=== PATIENT | male | born 1940 | race Caucasian/White ===

== ENCOUNTER 2016-05-14 14:40 | Inpatient (IN) | payer MEDICARE, OTHER ==
[~2016-05-14] VITALS: Ht 172.7 cm; Wt 83.6 kg
--- NOTE | ~2016-05-14 | HEMODYNAMI ---
PATIENT:JORGE PARK MEDICAL RECORD: [id number] : [birth year] LOCATION:D[facility] D.2301 ADMISSION DATE: 05/14/16 Generatedon:05/16/201614:58 Patient name: JORGE PARK Patient #: [id number] SSN: : 1940 Date of study: 05/16/2016 Page: Of Hemodynamic Procedure Report Patient Data Patient Demographics Procedure consent was obtained First Name: JORGE Gender: Male Last Name: XAVIER : 1940 [facility] Initial: D Age: 76 year(s) Patient #: [id number] Race: Unknown Additional ID: [id number] Contact details [address]: [address] [place] [address] DRIVE State: [place] City: [place] Zip code: [address] Admission Admission Data Admission Date: 05/14/2016 Admission Time: 18:16 Room #: D.2301 Procedure Procedure Types Cath Procedure Peripheral Cath Diagnostic Procedure Miscellaneous Procedure Description Procedure Date Procedure Date: 05/16/2016 Procedure Start Time: 13:20 Procedure Staff Name Function Demetrio Cartwright MD Performing Physician Mayra Vazquez RT Scrub Sameera Flores RN Nurse Dylan Tobar RT Monitor Procedure Data Cath Procedure Fluoroscopy Diagnostic fluoroscopy Total fluoroscopy Time: time: 18.8 min 18.8 min Diagnostic fluoroscopy Total fluoroscopy dose: 261 dose: 261 mGy mGy Contrast Material Contrast Material Type Amount (ml) Isovue 300 168 Entry Location Entry Primary Successful Side Size Upsize Upsize Entry Closure Koo ccessful Closure Location (Fr) 1 (Fr) 2 (Fr) Remarks Device Remarks Femoral Right 5 Fr Manual artery Compression Femoral Left 5 Fr artery Diagnostic catheters Device Type Used For End Catheter Placement Merit ULTRA BOLUS FLUSH Cervicocerebral 5Fr 90CM catheter (arch) aortogram Procedure Medications Medication Administration Route Dosage Versed I.V. 1 mg Fentanyl I.V. 50 mcg Versed I.V. 1 mg Fentanyl I.V. 50 mcg Versed I.V. 1 mg Fentanyl I.V. 50 mcg Versed I.V. 1 mg Fentanyl I.V. 50 mcg Versed I.V. 1 mg Fentanyl I.V. 50 mcg Hemodynamics Rest Heart Rate: 61 (bpm) Snapshots Pre Cath Intra NCS Post Cath Vital Signs Time Heart Resp SPO2 NIBP (mmHg) Rhythm Pain Status Sedation Rate (ipm) (%) Level (bpm) 13:11:06 56 12 96 153/60(113) SB 0 (11) , No 10(A) pain 13:15:26 56 15 99 166/59(92) SB 0 (11) , No 10(A) pain 13:19:52 63 20 96 148/59(96) NSR 0 (11) , No 10(A) pain 13:24:10 66 19 97 150/64(81) NSR 0 (11) , No 9(A) pain 13:28:30 65 16 96 148/61(86) NSR 0 (11) , No 9(A) pain 13:32:50 63 10 96 149/61(94) NSR 0 (11) , No 9(A) pain 13:37:09 65 15 98 138/64(86) NSR 0 (11) , No 9(A) pain 13:42:36 67 23 98 144/56(75) NSR 0 (11) , No 9(A) pain 13:46:54 64 9 98 115/63(97) NSR 0 (11) , No 9(A) pain 13:51:04 64 23 98 124/57(80) NSR 4 (11) , 9(A) Distressing 13:55:14 64 9 96 123/65(75) NSR 5 (11) , 10(A) Very distressing 13:59:24 68 29 96 124/66(91) NSR 4 (11) , 10(A) Distressing 14:03:32 70 29 98 136/72(93) NSR 4 (11) , 9(A) Distressing 14:07:42 74 18 98 144/79(102) NSR 3 (11) , 9(A) Tolerable 14:11:54 72 16 98 159/82(105) NSR 3 (11) , 9(A) Tolerable 14:16:14 68 21 98 144/72(100) NSR 3 (11) , 9(A) Tolerable 14:20:30 62 18 98 136/64(86) NSR 6 (11) , 10(A) Intense 14:24:44 64 24 98 125/65(86) NSR 3 (11) , 9(A) Tolerable 14:28:52 68 11 98 140/68(92) NSR 3 (11) , 9(A) Tolerable 14:33:06 67 22 99 134/68(97) NSR 3 (11) , 9(A) Tolerable 14:37:15 71 12 99 133/73(91) NSR 3 (11) , 9(A) Tolerable 14:43:38 75 9 97 Time NSR 3 (11) , 9(A) Exceeded Tolerable 14:48:05 77 16 97 169/68(107) NSR 3 (11) , 10(A) Tolerable 14:52:27 74 17 97 169/79(111) NSR 3 (11) , 10(A) Tolerable 14:56:49 72 16 97 165/75(103) NSR 3 (11) , 10(A) Tolerable Medications Time Medication Route Dose Verified Delivered Reason Notes Effectivene ss by by 13:16:12 Versed I.V. 1 mg Sameera Sameera for Mark RN Mark RN sedation 13:16:21 Fentanyl I.V. 50 Sameera Sameera for mcg Mark RN Mark RN sedation 13:22:17 Versed I.V. 1 mg Sameera Sameera for Mark RN Mark RN sedation 13:22:23 Fentanyl I.V. 50 Sameera Sameera for mcg Mark RN Mark RN sedation 13:58:24 Versed I.V. 1 mg Sameera Sameera for Mark RN Mark RN sedation 13:58:35 Fentanyl I.V. 50 Sameera Sameera for mcg Mark RN Mark RN sedation 14:20:51 Versed I.V. 1 mg Sameera Sameera for Mark RN Mark RN sedation 14:20:59 Fentanyl I.V. 50 Sameera Sameera for mcg Mark RN Mark RN sedation 14:43:18 Versed I.V. 1 mg Sameera Sameera for Mark RN Mark RN sedation 14:43:24 Fentanyl I.V. 50 Sameera Sameera for mcg Mark RN Mark RN sedation Procedure Log Time Note 12:58:43 Dylan Tobar RT (R) (CV) sent for patient. Start room use. 12:58:55 Time tracking: Regular hours 12:59:01 Plan of Care:Hemodynamics will remain stable., Cardiac rhythm will remain stable., Comfort level will be maintained., Respiratory function will remain adequate., Patient/ family verbilizes understanding of procedure., Procedure tolerated without complication., Recovers from procedure without complications.. 12:59:08 Patient received from ICU to IR Alert and oriented. Tansferred to table in Supine position. 12:59:09 Correct patient and procedure confirmed by team. 12:59:11 Signed procedure consent form obtained from patient. 12:59:12 ECG and BP/O2 sat monitors applied to patient. 12:59:13 Full Disclosure recording started 12:59:14 - 12:59:19 H&P Date Dictated: 05/16/2016 Within 30 days and on chart.. 12:59:20 Pre-procedure instructions explained to patient. 12:59:20 Pre-op teaching completed and patient verbalized understanding. 12:59:22 Family unavailable. 12:59:26 Patient NPO since Breakfast. 12:59:29 Is the patient allergic to Iodine/contrast media? No. 12:59:35 Use device set IR Diagnostic 12:59:36 Sterile Angiographic Pack opened to sterile field. 12:59:37 Bag Decanter opened to sterile field. 12:59:38 Acist Hand Control opened to sterile field. 12:59:39 Acist Syringe opened to sterile field. 12:59:40 Acist Manifold opened to sterile field. 12:59:52 Is patient on blood thinner?No 12:59:54 Patient diabetic? No. 12:59:55 - 12:59:55 ----Pre-sedation anethsthesia assessment.---- 12:59:59 Previous problem with sedation/anesthesia? No ? 13:00:00 Snore? No 13:00:01 Sleep apnea? No 13:00:03 Deviated septum? No 13:00:06 Opens mouth fully? Yes 13:00:07 Sticks out tongue? Yes 13:00:09 Airway obstruction? No ? 13:00:11 Dentures? No ? 13:00:23 ACC The patient was administered the following blood thiners within the last 24 hours: ACCLovenox 13:06:14 Pre procedure: right dorsailis pedis pulse Doppler 13:06:18 Pre procedure: left dorsailis pedis pulse Doppler 13:06:22 Pre procedure: right posterior tibial pulse Doppler 13:06:25 Pre procedure: left posterior tibial pulse Doppler 13:06:32 Patient pain scale 0/10 no pain. 13:06:41 IV patent on arrival in left wrist with 0.9% NaCl at [facility]. 13:06:42 Sharps counted by scrub and verified by R.N. 13:06:43 Alarms reviewed by R. N. 13:06:47 Right groin area was prepped with chlora-prep and draped in sterile fashion 13:09:50 Vital chart was started 13:09:55 Baseline sample Acquired. 13:09:58 Rhythm: sinus bradycardia 13:16:00 Physician arrived 13:16:02 --------ALL STOP TIME OUT------ 13:16:12 Versed 1 mg I.V. was given by Sameera Flores RN; for sedation; 13:16:21 Fentanyl 50 mcg I.V. was given by Sameera Flores RN; for sedation; 13:17:01 Final Timeout: patient, procedure, and site verified with staff and physician. All members of the team are in agreement. 13:17:03 Right groin site verified by team. 13:17:22 Physical assessment completed. ASA score P 3 - A patient with severe systemic disease as per Demetrio Cartwright MD. 13:17:26 Sedation plan: IV Moderate Sedation Versed, Fentanyl 13:20:01 Procedure started. 13:20:09 Local anesthetic to right femoral artery with Lidocaine 1% by Demetrio Cartwright MD.INITIAL ACCESS ONLY 13:20:20 A 5 Fr sheath was inserted into the Right Femoral artery 13:20:25 Micropuncture VSI 4FR kit opened to sterile field. 13:20:26 St Juwan 5FR Sheath opened to sterile field. 13:20:29 Cook BENTSON 145cm guide wire opened to sterile field. 13:20:29 TUBING, CONTRAST INJCTN HI PRES opened to sterile field. 13:22:17 Versed 1 mg I.V. was given by Sameera Flores RN; for sedation; 13:22:23 Fentanyl 50 mcg I.V. was given by Sameera Flores RN; for sedation; 13:28:51 Terumo 5FR ANGLED 65CM glide catheter opened to sterile field. 13:28:52 Terumo ANGLE 260cm glide wire opened to sterile field. 13:34:57 unable to get up rt.leg aborted sheath pulled 13:35:05 Left groin area was prepped with chlora-prep and draped in sterile fashion 13:35:19 Sheath removed intact; hemostasis achieved with Manual Compression to the Right Femoral artery. 13:35:46 Local anesthetic to left femerol artery with Lidocaine 1% by Demetrio Cartwright MD.ADDITIONAL ACCESS 13:36:01 A 5 Fr sheath was inserted into the Left Femoral artery 13:49:27 Cook DOC .035 guide wire opened to sterile field. 13:55:38 Terumo 5FR ANGLED 100CM glide catheter opened to sterile field. 13:56:46 Cook COTO 260 guide wire opened to sterile field. 13:57:00 A Merit ULTRA BOLUS FLUSH 5Fr 90CM catheter was advanced over the wire and used for Cervicocerebral (arch) aortogram. 13:58:24 Versed 1 mg I.V. was given by Sameera Flores RN; for sedation; 13:58:35 Fentanyl 50 mcg I.V. was given by Sameera Flores RN; for sedation; 14:20:51 Versed 1 mg I.V. was given by Sameera Flores RN; for sedation; 14:20:59 Fentanyl 50 mcg I.V. was given by Sameera Flores RN; for sedation; 14:38:00 Procedure ended.(Physican Out) 14:39:37 Sheath removed intact; hemostasis achieved with to the Left Femoral artery. 14:40:03 Fluoroscopy time 18.80 minutes. 14:40:09 Fluoroscopy dose: 261 mGy 14:40:09 Flurop Dose total: 261 14:40:28 Contrast amount:Isovue 300 168ml. 14:40:31 Sharps counted by scrub and verified by R.N. 14:43:18 Versed 1 mg I.V. was given by Sameera Flores RN; for sedation; 14:43:24 Fentanyl 50 mcg I.V. was given by Sameera Flores RN; for sedation; 14:43:44 Insertion/operative site no bleeding no hematoma. 14:43:50 Post-op/insertion site Right Femoral artery dressed using a 4 x 4 and Tegaderm. 14:43:54 Post-op/insertion site Left Femoral artery dressed using a 4 x 4 and Tegaderm. 14:43:59 Post right femoral artery:stable 14:44:04 Post left femerol artery:stable 14:44:13 Post-procedure physical assessment completed. ASA score P 3 - A patient with severe systemic disease as per Demetrio Cartwright MD. 14:44:14 Post Procedure Pulses reassessed and unchanged 14:44:16 Post procedure rhythm: unchanged. 14:44:18 Post procedure instruction explained to patient.Patient verbalizes understanding. 14:44:18 Procedure and supply charges have been captured, reviewed, submitted an d are correct. 14:57:23 Report given to ICU. 14:57:28 Patient transfered to ICU with Bed. 14:58:52 Vital chart was stopped Device Usage Item Name Manufacture Quantity Catalog Number Hospital Part Current Min imal Lot# / Charge Number Stock Stock Serial# Code Sterile Cardinal 1 [id number] [id number] 5 Angiographic Health Pack Bag Decanter Microtek 1 [id number] 94376 788343 5 Medical Inc. Acist Hand Acist 1 58933 299262 864545 377365 5 Control Medical Systems Inc Acist Syringe Acist 1 08646 742479 659557 798034 20 Medical Systems Inc Acist Acist 1 61005 070746 466406 012344 5 Manifold Medical Systems Inc Micropuncture VSI VASCULAR 1 7266V 816126 034687 [address] Juwan [address] St Juwan 1 678054 401241 888546 5 [id number] Sheath Cook [facility] 1 H24189 144340 881482 5 [id number] 145cm guide wire TUBING, Merit 1 [id number] 039240 493888 224523 5 CONTRAST Medical INJCTN HI PRES Terumo 5FR Terumo 1 CG507 923889 171020 5 ANGLED 65CM glide catheter Terumo ANGLE Terumo 1 DC7985 104551 791809 516110 5 260cm glide wire Cook DOC .035 Cook Medical 1 [id number] 641112 134157 5 0515932 guide wire Terumo 5FR Terumo 1 CG508 508334 02460 545522 4 ANGLED 100CM glide catheter Cook COTO Cook [facility] 1 [id number] 301626 662755 5 [id number] 260 guide wire Merit ULTRA Merit 1 [id number] 675689 004736 5 [id number] BOLUS FLUSH Medical 5Fr 90CM catheter Signature Audit [place] Stage Time Signature Unsigned Intra-Procedure 05/16/2016 Dylan 2:58:49 PM [place]ield RT (R) (CV) Signatures Monitor : Dylan Signature : [place] RT Date : Time : [id number] [place] [address]
--- NOTE | ~2016-05-14 | PRO ---
PATIENT:JORGE JONES MEDICAL RECORD: [id number] : 40 LOCATION:[facility] D.2301 ADMISSION DATE: 05/14/16 PROCEDURE PERFORMED BY: MICHELE PATRICIA MD DATE OF PROCEDURE: 06/14/2016 PROCEDURE: Fiberoptic bronchoscopy. INDICATION: Mr. Jones is a 76-year-old gentleman, who is on mechanical ventilation. This morning chest x-ray, he has a total atelectasis of the left lung. Fiberoptic bronchoscopy was carried out for diagnostic as well as for therapeutic purposes. PROCEDURE IN DETAIL: After passing the bronchoscope through the tracheostomy tube, there was almost total occlusion of the left main bronchus by the mucus plug. The secretions were cleared from the left upper lobe and left lower lobe. There are no endobronchial lesion was seen. There were bronchitic changes. There were also thick yellowish secretions in the right main bronchus. The secretions were clear from the right middle lobe, right lower lobe and bronchus intermedius. Overall, the patient tolerated the procedure very well. Specimen washing was obtained and sent for routine culture and sensitivity, AFB and fungus and cytology. TRANSINT:[id number] Voice Confirmation ID: [id number] DOCUMENT ID: [id number] MICHELE PATRICIA MD CC: [id number] DICTATION DATE: 06/14/161419 SALES DRIVER: 06/14/162055 ADM IN [place] [address] [place] [address]
--- NOTE | 2016-05-14 18:49 | NUR ---
Patient Name: JORGE JONES Admission Status: ER Accout number: [id number] Admission Date: 05-14-2016 : 1940 Admission Diagnosis: necrotic finger, bradycardia Attending: PB Current LOS: 1 Anticipated DC Date: 05-17-2016 Planned Disposition: [facility] Primary Insurance: [employer] PPO [facility] Discharge Planning Comments: Cm met with patient and daughter to complete initial dc planning assessment. Patient not responding and cm is not sure his orientation. Daughter reports that patient has talked post surgery and has been able to follow commands. 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 Patient requires assistance in all adl's areas. He has had a trach since April. Daughter reports that patient will be returning to [facility]. During ER stay patient had a hubert episode and cpr was initiate in the ER. Patient admission changed to a ICU bed instead of a floor bed. CM will continue to follow and will assist with dc plans/needs. Community Placement Worker: Mary Pedraza RN, [facility] [phone] Is the patient Alert and Oriented? No * PCP Doctor at the [facility] - Daughter couldn't remember name * Pharmacy [facility] * Preadmission Environment [facility] Detention * Facility Name [facility] * ADLs Total Dependent * List name and contact numbers for known caregivers / representatives who currently or will assist patient after discharge: Sarahi Jones - daughter - [phone] * Additional services required to return to the preadmission environment? No * Can the patient safely return to the preadmission environment? Yes * Has this patient been hospitalized within the prior 30 days at any hospital? Yes
[2016-05-14 19:46] LABS: BASOPHILS 0.3 % (0.0-2.0); EOSINOPHILS 1.5 % (0-7); HEMATOCRIT 34.3 % (42.0-54.0); HEMOGLOBIN 10.7 g/dL (13.5-17.5); IMMATURE GRANULOCYTES 0.3 % (0-5); LYMPHOCYTES 20.6 % (15-50); MCH 30.6 pg (26.0-34.0); MCHC 31.2 g/dL (31.0-37.0); MONOCYTES 9.5 % (2-11); NEUTROPHILS 67.8 % (40-80); PLATELET COUNT 141 10x3/uL (130-400); WBC 8.6 10x3/uL (4.8-10.8)
[2016-05-14 20:11] LABS: POTASSIUM - SERUM 4.8 mmol/L (3.5-5.1)
[2016-05-14 20:36] LABS: APTT 27.6 SECONDS (22.8-39.4); INR 1.08 (0.85-1.17); PROTIME 13.9 SECONDS (11.6-15.0)
[2016-05-14 21:02] LABS: ALBUMIN 2.5 g/dL (3.4-5.0); ANION GAP 19.8 mmol/L (8-16); BILIRUBIN - TOTAL 0.5 mg/dL (0.2-1.3); CALCIUM 8.3 mg/dL (8.5-10.1); CARBON DIOXIDE 23.8 mmol/L (21.0-32.0); CREATININE - SERUM 4.1 mg/dL (0.6-1.3); PROTEIN - SERUM 5.8 g/dL (6.4-8.2)
[2016-05-14 21:07] LABS: POTASSIUM - SERUM 3.6 mmol/L (3.5-5.1)
--- NOTE | 2016-05-14 22:10 | NUR ---
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
[2016-05-14] MEDS ORDERED: PRILOSEC10 M1 PEG (22:38)
[2016-05-14] MEDS ORDERED: TENORMIN25 MG PEG (22:40)
[2016-05-14] MEDS ORDERED: ELIXOPHYLL80 MG/15 M PEG (22:41)
[2016-05-14] MEDS ORDERED: OXYCODONE H5 MG/5 ML PEG (22:42)
[2016-05-14] MEDS ORDERED: POLYTRIM EYE DR10 ML RIGHT EYE (22:42)
[2016-05-14] MEDS ORDERED: MELATONIN 3 MG1 TAB PEG (22:43)
[2016-05-14] MEDS ORDERED: ERYTHROMYCIN OPT1 GM RIGHT EYE (22:46)
[2016-05-14] MEDS ORDERED: PERIDEX480 ML MM (22:46)
[2016-05-14] MEDS ORDERED: REFRESH TEARS15 ML EACH EYE (22:48)
[2016-05-14] MEDS ORDERED: ASPIRIN325 MG PEG (22:49)
[2016-05-14] MEDS ORDERED: ARTIFICIAL TEA3.5 G2 RIGHT EYE (22:49)
[2016-05-14 22:50] VITALS: BP 112/40; BMI 23.3
[2016-05-14] MEDS ORDERED: SANTYL30 GM TP (22:53)
[2016-05-14 23:00] VITALS: BP 155/75
[2016-05-15] VITALS (26 sets, daily range): BP systolic 90–132; BP diastolic 45–79; Ht 172.7 cm; Wt 83.6 kg
--- NOTE | 2016-05-15 00:01 | NUR ---
PT RESTING, VSS, BED LOW AND LOCKED, WILL CONTINUE TO MONITOR.
--- NOTE | 2016-05-15 00:47 | NUR ---
FAMILY AT BEDISE AND WITNESSED PT MEL DOWN AND DECLINE INTO ASYSTOLE. GEORGETTE XAVIER CALLED AT 0048, SEE CODE BLUE SHEET FOR DETAILS. PT NOW NSR AT RATE OF 58, ALL OTHER VSS. WILL CONTINUE TO MONITOR.
--- NOTE | 2016-05-15 01:19 | NUR ---
NSR AT REGULAR RATE OF 58 NOTED. RR EVEN AND UNLABORED. NO S&S OF ACUTE DISTRESS NOTED. VSS, WILL CONTINUE TO MONITOR, FAMILY ALSO AT BEDSIDE.
--- NOTE | 2016-05-15 02:12 | NUR ---
PT LOW RATE ALARM WENT OFF, PT HR AT 33 BMP, GAVE ATROPINE ORDERED. HR 80 IN NSR.
--- NOTE | 2016-05-15 02:54 | NUR ---
REASSESSMENT COMPLETE, PLEASE SEE FLOW SHEETS FOR DETAILS. TURNING PROVIDED. ORAL CARE PROVIDED. VSS ATT, BED LOW AND LOCKED, CALL LIGHT IN REACH. WILL CONTINUE TO MONITOR.
--- NOTE | 2016-05-15 05:00 | NUR ---
ORAL CARE REFUSED AND TURNING PROVIDED. PT HR DROPPED TO 42 AND WENT BACK UP WITHIN SECONDS. THIS WAS AFTER A LAB DRAW. VSS NOW AND NO S&S OF ACUTE DISTRESS NOTED. BED LOW AND LOCKED, CALL LIGHT IN REACH. WILL CONTINUE TO MONITOR.
[2016-05-15 05:11] LABS: BASOPHILS 0.3 % (0.0-2.0); EOSINOPHILS 0.3 % (0-7); HEMOGLOBIN 9.5 g/dL (13.5-17.5); IMMATURE GRANULOCYTES 0.3 % (0-5); LYMPHOCYTES 25.5 % (15-50); MCH 29.9 pg (26.0-34.0); MCHC 30.6 g/dL (31.0-37.0); MCV 97.5 fL (80.0-100.0); MEAN PLATELET VOLUME 10.3 fL (7.4-10.4); MONOCYTES 7.3 % (2-11); NEUTROPHILS 66.3 % (40-80); RBC 3.18 10x6/uL (4.20-6.10); RDW 17.7 % (11.5-14.5); WBC 7.4 10x3/uL (4.8-10.8)
[2016-05-15 05:22] LABS: PLATELET COUNT 178 10x3/uL (130-400)
[2016-05-15 05:25] LABS: INR 1.11 (0.85-1.17); PROTIME 14.1 SECONDS (11.6-15.0)
[2016-05-15 05:26] LABS: BILIRUBIN - TOTAL 0.3 mg/dL (0.2-1.3); CALCIUM 8.5 mg/dL (8.5-10.1); PROTEIN - SERUM 6.1 g/dL (6.4-8.2)
[2016-05-15 05:53] LABS: ALBUMIN 1.6 g/dL (3.4-5.0); ANION GAP 8.1 mmol/L (8-16); CARBON DIOXIDE 31.2 mmol/L (21.0-32.0); CREATININE - SERUM 1.2 mg/dL (0.6-1.3); POTASSIUM - SERUM 4.3 mmol/L (3.5-5.1)
--- NOTE | 2016-05-15 07:15 | NUR ---
REPORT RECIEVED FROM RACING CAR DRIVER NURSE. ASSESSMENT COMPLETED PER FLOWSHEET.
--- NOTE | 2016-05-15 09:00 | NUR ---
RADIOLOGIST AT BEDSIDE. DISCUSSED ARTERIOGRAM WITH DR. CUMMINS. SCHEDULED FOR 05/16/16.
--- NOTE | 2016-05-15 09:52 | NUR ---
LANDY ON THE MONITOR. 5 COMPRESSIONS DONE, PT ROLLED OVER TO PLACE BACK BOARD. HR RETURNED TO 78 BPM ONCE ROLLED BACK ON HIS BACK. NO MEDICATIONS GIVEN. WILL CONTINUE TO MONITOR JUAN DAVID. WILL CONTACT DR. LAY.
--- NOTE | 2016-05-15 10:15 | NUR ---
SPOKE WITH DR. LAY IN REGARDS TO PREVIOUS NOTE. STATES HE HAS FOUR CASES AND WILL BE IN SOON POSSIBLE. STATED TO CONTINUE ATROPINE AND CHEST COMPRESSIONS NEEDED. NO NEW ORDERS PROVIDED.
--- NOTE | 2016-05-15 11:15 | NUR ---
PT REPOSITIONED FOR COMFORT. BED IN LOW POSITION. BED ALARM ON.
--- NOTE | 2016-05-15 12:45 | NUR ---
WOUND CARE NURSE CALLED. RECIEVED ORDER FOR AIR OVERLAY. WOUND CARE NURSE TO EVALUATE PT THIS AFTERNOON.
--- NOTE | 2016-05-15 13:00 | NUR ---
SPOKE WITH DAUGHTER. UPDATE PROVIDED. STATED SHE WOULD BE BY THE HOSPITAL THIS AFTERNOON WITH HER MOM.
--- NOTE | 2016-05-15 13:03 | NUR ---
Nutrition follow-up: Diet office called to report no TwoCal HN in house. They had no success locating TwoCal HN from any area hospitals. RDN, therefore, has changed the formula to Pulmocare @ goal rate of 60 ml/hr. Order entered into EMR. RDN following.
--- NOTE | 2016-05-15 14:00 | NUR ---
TUBE FEEDS STARTED PER ORDERS. WILL MONITOR RESIDUALS.
--- NOTE | 2016-05-15 15:00 | NUR ---
REPOSITIONED FOR COMFORT. BED IN LOW POSITION. BED ALARM ON. WILL CONT TO ASSESS.
--- NOTE | 2016-05-15 15:00 | NUR ---
PLACED ON BED MANTILLA. MODERATE AMOUNT OF BROWN LOOSE STOOL NOTED.
--- NOTE | 2016-05-15 15:08 | NUR ---
I PHONED THE [facility] EXPEDITOR, CATRACHITO, FOR UPDATE ON [facility] B[facility]. I WAS TOLD THEY DO NOT HAVE ICU BED AT THIS TIME. I WAS TOLD TO CALL THEM BACK IF HIS D/C NEED CHANGES. CM TO FOLLOW.
--- NOTE | 2016-05-15 16:45 | NUR ---
DR. LAY AT BEDSIDE. UPDATE PROVIDED.
[2016-05-15 17:46] LABS: APPEARANCE CLEAR (CLEAR); BILIRUBIN NEGATIVE (NEGATIVE); COLOR YELLOW (YELLOW); GLUCOSE NEGATIVE (NEGATIVE); KETONE NEGATIVE (NEGATIVE); LEUKOCYTE ESTERASE NEGATIVE (NEGATIVE); NITRITE NEGATIVE (NEGATIVE); PROTEIN NEGATIVE (NEGATIVE); UROBILINOGEN NORMAL (NORMAL)
--- NOTE | 2016-05-15 18:00 | NUR ---
FAMILY AT BEDSIDE. CALL LIGHT IN REACH.
--- NOTE | 2016-05-15 19:57 | NUR ---
REPORT RECIEVED. ASSESSMENT COMPELTE PER FLOW SHEET. VSS. HR 58 SINUS MEL. REFER TO FLOW SHEET FOR COMPLETE FINDINGS. REPOSITIOEND ON L SIDE. WILL CONTINUE TO MONITOR.
--- NOTE | 2016-05-15 21:16 | NUR ---
FAMILY AT BEDSIDE. GIVEN UPDATE. PT FRUSTRATED UNABLE TO COMMUNICATE. REPOSITIONED ON L SIDE FOR COMFORT. NO NEW CHANGES AT THIS TIME.
--- NOTE | 2016-05-15 23:12 | NUR ---
REASSESSMENT COMPELTE PER FLOW SHEET. VSS. NO NEW CHANGES. REPOSITIONED ON R SIDE. WILL CONTINUE TO MONITOR.
--- NOTE | 2016-05-15 23:45 | NUR ---
FAMILY AT BEDSIDE PER REQUEST. GIVEN 5-10 MINUTES WITH PT
[2016-05-16] VITALS (21 sets, daily range): BP systolic 87–155; BP diastolic 47–85
--- NOTE | 2016-05-16 01:21 | NUR ---
COMPLETE BB LINEN CHANGE ADM. LARGE BM NOTED. WILL CONTINUE TO MONITOR.
--- NOTE | 2016-05-16 03:28 | NUR ---
REASSESSMENT COMPLET EPER FLOW SHEET. NO NEW CHANGES VSS WILL CONTINUE TO MONITOR
[2016-05-16 04:19] LABS: BASOPHILS 0.4 % (0.0-2.0); EOSINOPHILS 2.3 % (0-7); HEMATOCRIT 31.9 % (42.0-54.0); HEMOGLOBIN 9.8 g/dL (13.5-17.5); IMMATURE GRANULOCYTES 0.3 % (0-5); LYMPHOCYTES 28.6 % (15-50); MCH 30.1 pg (26.0-34.0); MCHC 30.7 g/dL (31.0-37.0); MCV 97.9 fL (80.0-100.0); MEAN PLATELET VOLUME 10.4 fL (7.4-10.4); MONOCYTES 9.9 % (2-11); NEUTROPHILS 58.5 % (40-80); PLATELET COUNT 164 10x3/uL (130-400); RBC 3.26 10x6/uL (4.20-6.10); RDW 17.3 % (11.5-14.5); WBC 7.3 10x3/uL (4.8-10.8)
[2016-05-16 04:26] LABS: INR 1.11 (0.85-1.17); PROTIME 14.2 SECONDS (11.6-15.0)
[2016-05-16 04:46] LABS: ALBUMIN 1.5 g/dL (3.4-5.0); ALKALINE PHOSPHATASE 39 U/L (46-116); ALT (SGPT) 20 U/L (10-68); BILIRUBIN - TOTAL 0.27 mg/dL (0.2-1.3); CALC OSMOLALITY 305 mosm/kg (275-300); CALCIUM 8.6 mg/dL (8.5-10.1); CARBON DIOXIDE 30.9 mmol/L (21.0-32.0); CHLORIDE - SERUM 112 mmol/L (98-107); CHOL - HDL RATIO 6.7 ratio (2.3-4.9); CHOLESTEROL, TOTAL 155 mg/dL (0-200); GLUCOSE 135 mg/dL (74-106); HDL CHOLESTEROL 23 mg/dL (32-96); LDL CHOLESTEROL 85 mg/dL (0-100); LDL-HDL RATIO 3.7 ratio (1.5-3.5); MAGNESIUM - SERUM 2.1 mg/dL (1.8-2.4); PHOSPHOROUS 3.3 mg/dL (2.5-4.9); POTASSIUM - SERUM 3.7 mmol/L (3.5-5.1); PRO BNP 1911 pg/mL (0-450); SODIUM 146 mmol/L (136-145); THYROID STIMULATING HORMONE 5.68 uIU/mL (0.36-3.74); TRIGLYCERIDE 235 mg/dL (30-200); UREA NITROGEN 48 mg/dL (7-18); eGFR NON AFRICAN AMERICAN 77 mL/min (90-120)
--- NOTE | 2016-05-16 05:24 | NUR ---
NO NEW CHANGES. VSS. REPOSITIONED ON L SIDE. ORAL AND ENDOTRACH CARE ADM. WILL CONTINUE TO MONITOR
--- NOTE | 2016-05-16 08:07 | NUR ---
REPORT RECIEVED FROM STRIPPING SHOVEL OPERATOR NURSE. PT RESTING IN BED QUIETLY. REPOSITIONED FOR COMOFORT. GRIMACES WHEN REPOSITIONED. ASSESSMENT COMPLETED PER FLOWSHEET. WILL CONT TO ASSESS FOR CHANGES THROUGHOUT SHIFT. BED IN LOW POSITION. BED ALARM ON.
--- NOTE | 2016-05-16 09:00 | NUR ---
FAMILY AT BEDSIDE. UPDATE PROVIDED.
--- NOTE | 2016-05-16 11:00 | NUR ---
WOUND CARE NURSE AT BEDSIDE FOR ASSESSMENT OF WOUNDS. WOUNDS DRESSED.
--- NOTE | 2016-05-16 11:17 | NUR ---
# 16 FR NG TUBE INSERTED USING ROUTINE HOSPITAL PROCEDURE. CHECKED FOR PLACEMENT WITH AIR AUDIBLE IN STOMACHE. NO GASTRIC SECREATIONS RETURNED. PT IS AWAKE, ANSWERS QUESTIONS.
--- NOTE | 2016-05-16 13:00 | NUR ---
PT TAKEN TO IR FOR ANGIOGRAM.
--- NOTE | 2016-05-16 14:18 | NUR ---
WOUND CARE: PT CAME TO ICU WITH NUMEROUS SKIN ISSUES NOTED FOLLOWS: 1-RIGHT TOP OF HAND- 5CM X 3CM X ESCHAR 2-RIGHT MIDDLE FINGER- 4CM X 2CM X ESCHAR 3-RIGHT INDEX FINGER -BLACK ESCHAR 4-RIGHT THUMB -BLACK ESCHAR 5-RIGHT UPPER/MEDIAL THIGH- 6CM X 3CM X ESCHAR 6-RIGHT COCCYX/SACRUM- UNSTAGEABLE PRESSURE INJURY 8CM X 4CM X ESCHAR 4-MOC-HXPAF- STAGE 2 PRESSURE INJURY 5.5CM X 1.5CM X 0.3CM 8-LEFT MID-BACK- UNSTAGEABLE PRESSURE INJURY 1CM X 1CM X ESCHAR 9-LEFT UPPER BACK- UNSTAGEABLE PRESSURE INJURY 5CM X 4CM X NECROTIC 10-LEFT BACK (AT RIBS)- 1.5CM X 2.5CM X SCAB 11-LEFT LATERAL BACK (AT SCAR LINE) 2.5CM X 0.5CM X 1CM X 1.7 FROM 12-6 OCLOCK RIGHT HAND WOUNDS LEFT OPEN TO AIR / PT SCHEDULED FOR ARTERIOGRAM TODAY. RIGHT THIGH, COCCYX, LEFT MID-BACK, LEFT UPPER BACK SANTYL APPLIED AND COVERED. MEPILEX DRESSINGS APPLIED TO MID-SPINE, LEFT RIB 1/4" IODOFORM PACKING TO LEFT LAT BACK (AT SCAR LINE). PT IS ON AN AIR OVERLAY/LOW AIR LOSS MATTRESS AND IS ON A TURN Q 2 HOUR SCHEDULE. PERSONAL CARE DAILY AND NEEDED. WOUND CARE WILL CONTINUE TO MONITOR.
--- NOTE | 2016-05-16 15:13 | NUR ---
PATIENT BACK FROM INTERVENTIONAL RADIOLOGY. HE IS SUPINE IN BED, BREATHING TREATMENT GOING THROUGH TRACH COLLAR. PATIENT OPENED EYES WHEN SPOKEN TO, BUT CLOSED THEM RIGHT BACK. ATTACHED TO MONITORS. WILL REPORT OFF TO HIS NURSE WHEN SHE ARRIVES BACK TO THE FLOOR.
--- NOTE | 2016-05-16 15:30 | NUR ---
FAMILY AT BEDSIDE. UPDATE PROVIDED.
--- NOTE | 2016-05-16 17:00 | NUR ---
TURNED AND REPOSITIONED FOR COMFORT. ORAL CARE PROVIDED.
--- NOTE | 2016-05-16 19:10 | NUR ---
REPORT RECIEVED. ASSESSMENT COMPELTE PER FLOW SHEET. VSS. WILL CONTINUE TO MONITOR.
--- NOTE | 2016-05-16 20:21 | NUR ---
DR BRANNON CALLED NEW ORDER NPO POST MIDNIGHT. NO FURTHER ORDERS.
--- NOTE | 2016-05-16 21:16 | NUR ---
FAMILY AT BEDSIDE. GIVENUDPATE. NO NEW CHANGES. VSS. WILL CONTINUE TO MONITOR.
--- NOTE | 2016-05-16 23:24 | NUR ---
REASSESSMENT COMPELTE PER FLOW SHEET. VSS. NO NEW CHANGES WILL CONTINUE TO MONITOR.
[2016-05-17] VITALS (24 sets, daily range): BP systolic 115–160; BP diastolic 60–96
--- NOTE | 2016-05-17 03:14 | NUR ---
REASSESSMENT COMPELTE PER FLOW SHEET. VSS. NO NEW CHANGES. [facility] ONTINUE TO MONITOR.
[2016-05-17 04:15] LABS: BASOPHILS 0.2 % (0.0-2.0); EOSINOPHILS 2.3 % (0-7); HEMATOCRIT 31.4 % (42.0-54.0); HEMOGLOBIN 9.8 g/dL (13.5-17.5); IMMATURE GRANULOCYTES 0.2 % (0-5); LYMPHOCYTES 26.2 % (15-50); MCH 30.2 pg (26.0-34.0); MCHC 31.2 g/dL (31.0-37.0); MCV 96.9 fL (80.0-100.0); MEAN PLATELET VOLUME 10.6 fL (7.4-10.4); MONOCYTES 8.2 % (2-11); NEUTROPHILS 62.9 % (40-80); PLATELET COUNT 181 10x3/uL (130-400); RBC 3.24 10x6/uL (4.20-6.10); RDW 17.4 % (11.5-14.5); WBC 8.2 10x3/uL (4.8-10.8)
[2016-05-17 04:24] LABS: INR 1.12 (0.85-1.17); PROTIME 14.3 SECONDS (11.6-15.0)
[2016-05-17 04:29] LABS: ALBUMIN 1.4 g/dL (3.4-5.0); ALKALINE PHOSPHATASE 43 U/L (46-116); ALT (SGPT) 18 U/L (10-68); BILIRUBIN - TOTAL 0.26 mg/dL (0.2-1.3); CALC OSMOLALITY 298 mosm/kg (275-300); CALCIUM 8.1 mg/dL (8.5-10.1); CARBON DIOXIDE 31.7 mmol/L (21.0-32.0); CHLORIDE - SERUM 109 mmol/L (98-107); GLUCOSE 165 mg/dL (74-106); POTASSIUM - SERUM 4.1 mmol/L (3.5-5.1); PROTEIN - SERUM 5.8 g/dL (6.4-8.2); SODIUM 143 mmol/L (136-145); UREA NITROGEN 41 mg/dL (7-18); eGFR NON AFRICAN AMERICAN 77 mL/min (90-120)
--- NOTE | 2016-05-17 07:50 | NUR ---
SINUS MEL AT 40, REPOSITIONED UPIN BED, ORAL AND TRACH SUCTION, BACK TO NSR AND 80'S, NO OTHER INTERVENTION AT THIS ITME
--- NOTE | 2016-05-17 07:59 | NUR ---
DR CUMMINS AT BEDSIDE, STATUS UPDATED, AWAITING POSSIBLE SPECIALIST INTERVENTION, NO NEW ORDERS AT THIS TIME
--- NOTE | 2016-05-17 09:00 | NUR ---
AM MEDS GIVEN PER MAR AND PROTOCAL
--- NOTE | 2016-05-17 10:40 | NUR ---
Nutrition follow-up: Pt had been NPO for surgery today; however, surgery has been rescheduled for tomorrow. Spoke with RNDesiree, and TF of Pulmocare will be retarted today @ 40 ml/hr. +BM labs reviewed RDN following.
--- NOTE | 2016-05-17 11:00 | NUR ---
NO CAUTE CHANGE FROM PREVIOUS ASSESSMENT, VSS, REPOSITIONED UP AND TO BACK WITH HEELS FLOATED
--- NOTE | 2016-05-17 11:00 | NUR ---
NO ACUTE CHANGE FROM PREVIOUS ASSESSMENT, VSS, GIMACING AND HOLDING LEFT ARM, WHEN ASKED IF HE HAS PAIN HE SHAKES HEAD NO, REPOSITIONED UP AND TO LEFT SIDE WITH PILLOW PROPPED TO BACK AND HEELS FLOATED
--- NOTE | 2016-05-17 12:57 | NUR ---
FAMILY AT BEDSIDE, STATUS UPDATED, AWAITING DECISION FOR POSSIBLE SURGERY ON RIGHT HAND
--- NOTE | 2016-05-17 14:45 | NUR ---
ASSESSMENT COMPLETE, GRIMACING, NOTED, SHAKES HIS HEAD NO THAT HE IS NOT IN PAIN, MORPHINE 2 MG IVP GIVEN PER ORDER, FAMILY AT BEDSIDE, MASSAGING RIGHT ARM, NO OTHER NEEDS AT THIS TIME
--- NOTE | 2016-05-17 16:30 | NUR ---
TREY DONAHUE APN HERE FOR EVAL, NEW ORDERS GIVEN, SURGERY SCHEDULED FOR AM, ALSO CONSULT TO NEUROLOGIST FOR NERVE PAIN
--- NOTE | 2016-05-17 17:05 | NUR ---
DR LEAL NOTIFIED VIA PC OF PENDING CONSULT
--- NOTE | 2016-05-17 18:00 | NUR ---
FAMILY AT BEDSIDE, STATUS UPDATED, VOICES NO NEEDS AT THIS TIME
--- NOTE | 2016-05-17 19:42 | NUR ---
REPORT RECIEVED. ASSESSMENT COMPLETE PER FLOW SHEET. VSS. REPOSIITONED ON L SIDE. ORAL ENDOTRACH CARE ADM. WILL CONTINUE TO MONITOR.
--- NOTE | 2016-05-17 21:07 | NUR ---
DAUGHTER NEHEMIAH AT BEDSIDE WITH 2 OF PT'S PRIMARY HOME PHYSICIANS. GIVEN UPDATE. FAMILY FRIENDS STATE CONCERNS WITH CARE BEING GIVEN WHILE ASSESSING PT'S RIGHT HAND, STATES THAT THE PT HAS PROFICIENT BLOOD FLOW RELATED TO O2 SAT ON ALL 5 FINGERS GREATER THAN 90% VIA THEIR HOME SPO2 SENSOR AND THE CAP REFILL IS UNDER 3 SECONDS. WHEN EXPLAINING THAT THE ARTIOGRAM STATED THAT THE EXTREMETY HAD MINIMAL BLOOD FLOW, THE FAMILY FRIENDS THEN PROCEEDED TO STATE THAT THEY FELT IF I WAS WRONG. I STATED THAT I UNDERSTOOD THEIR CONCERNS BUT THE TESTING THAT HAD BEEN DONE STATED OTHERWISE AND WE WOULD TALK WITH THE DR IN THE AM TO CLEAR UP QUESTIONS AND CONCERNS. I PULLED UP AND READ THE EXACT NOTES FROM THE ARTERIOGRAM RESULTS AND FAMILY FRIENDS STILL BELIEVED IT IS IN THE PT'S BEST INTEREST TO TRY TO KEEP ALL R HAND DIGITS. THE DAUGHTER NEHEMIAH THEN MADE THE DECISION TO REFUSE TO SIGN THE CONCENT FOR THE SURGERY WITH DR BRANNON IN THE AM. DISCUSSION ABOUT PT CARE LASTED FOR 1 HOUR. 2200 PT FAMILY ASKED TO LEAVE MULTIPLE TIMES R/T VISITING HOURS OVER AT THIS TIME. I STATED I WOULD CALL IF ANYTHING WERE TO HAPPEN THROUGHOUT THE NIGHT. REQUESTED PT BE SUCTIONED FOR COMFORT ONE LAST TIME BEFORE THEY LEFT. ORAL ENDOTRACH CARE ADM. THICK SPUTUM NOTED. 2220- PT HR DECREASED TO 28, NURSE AND RR THERAPIST AT BEDSIDE. PT GIVEN STERNAL RUB AND ORDERED ATROPINE, REFER TO EMAR. HR INCREASED TO 98. PT AGONAL BREATHING O2 SAT 87% STEADILY DECLINING, PT BAGGED AT 100%. PT NOT RESPONDING TO VERBAL OR PHYSICAL STIMULI, CHECKED FOR PULSE, PEA. CODE BLUE CALLED 2230 CHEST COMPRESSIONS LASTING FOR 1 MINUTE. PULSE FOUND. HR 126 SINUS TACK. BP 165/98. DR PATRICIA PAGED NEW ORDERS RECIEVED. PT PLACED ON VENT A/C 100% RR 15 PEEP 5 TV 550. 2300 FAMILY BACK IN ROOM GIVEN UPDATE. 2310 RADIOLOGY AT BEDSIDE. FAMILY ESCORTED OUT TO WAITING ROOM WITH NO DIFFICULTY. I TOLD NEHEMIAH (DAUGHTER) I WOULD CALL HER IF ANY MORE PROBLEMS SHOULD ARISE. SPOKE TO NEHEMIAH ABOUT CODE STATUS. STATES SHE WISHES PT TO BE A FULL CODE AT THIS TIME. PT STABLE WILL CONTINUE TO MONITOR.
[2016-05-18] VITALS (89 sets, daily range): BP systolic 71–192; BP diastolic 21–96
--- NOTE | 2016-05-18 00:16 | NUR ---
REASSESSMENT COMPLETE PER FLOW SHEET. PT RESPONDS TO PAINFUL STIMULI SHAKES HEAD TO YES AND NO QUESTIONS. EYES FIXED 4MM. RUL RML STEVEN CLEAR RLL RUB HEARD LLL DEMINISHED. HEART S1S2 HR 110 SINUS TACK. BP 88/54 LEVOPHED STARTED AT 5MCG/KG/MIN. WILL CONTINUE TO MONITOR.
--- NOTE | 2016-05-18 01:40 | NUR ---
COMPLETE BB LINEN CHANGE ADM. VSS WILL CONTINUE TO MONITOR.
--- NOTE | 2016-05-18 03:16 | NUR ---
REASSESSMENT COMPELTE PER FLOW SHEET. VSS. NO NEW CHANGES. WILL CONTINUE TO MONITOR.
[2016-05-18 03:28] LABS: BASOPHILS 0.3 % (0.0-2.0); HEMATOCRIT 29.7 % (42.0-54.0); HEMOGLOBIN 9.5 g/dL (13.5-17.5); IMMATURE GRANULOCYTES 0.5 % (0-5); MCH 30.4 pg (26.0-34.0); MCV 95.2 fL (80.0-100.0); MONOCYTES 8.2 % (2-11); PLATELET COUNT 183 10x3/uL (130-400); RBC 3.12 10x6/uL (4.20-6.10); RDW 17.4 % (11.5-14.5)
[2016-05-18 03:37] LABS: WBC 11.9 10x3/uL (4.8-10.8)
[2016-05-18 03:45] LABS: INR 1.22 (0.85-1.17); PROTIME 15.3 SECONDS (11.6-15.0)
[2016-05-18 04:03] LABS: ALBUMIN 1.4 g/dL (3.4-5.0); ANION GAP 8.7 mmol/L (8-16); BILIRUBIN - TOTAL 0.34 mg/dL (0.2-1.3); CALCIUM 8.3 mg/dL (8.5-10.1); CARBON DIOXIDE 27.2 mmol/L (21.0-32.0); CREATININE - SERUM 1.1 mg/dL (0.6-1.3); POTASSIUM - SERUM 3.9 mmol/L (3.5-5.1); PROTEIN - SERUM 5.5 g/dL (6.4-8.2)
--- NOTE | 2016-05-18 07:15 | NUR ---
REPORT RECEIVED FROM KETTLE SKIMMER NURSE. ASSESSMENT COMPLETE PER FLOWSHEET. PT TURNED AND REPOSITIONED FOR COMFORT. CALL LIGHT IN REACH. BED IN LOW POSITION. BED ALARM ON. WILL CONT TO ASSESS FOR CHANGES THROUGHOUT SHIFT.
--- NOTE | 2016-05-18 09:07 | NUR ---
Nutrition follow-up: Pulmocare infusing @ 45 ml/hr at this time. Labs reviewed Wt: 142# TF goal rate is 60 ml/hr to meet est nutritional needs. RDN will relay this information to RN. RDN following.
--- NOTE | 2016-05-18 12:00 | NUR ---
DAUGHTER AT BEDSIDE. UPDATE PROVIDED. WANTS TO SPEAK TO DR. BRANNON WHEN HE ARRIVES.
--- NOTE | 2016-05-18 12:45 | NUR ---
DAUGHTER REQUESTING TO SPEAK TO DR LOW. DR. BRANNON CALLED. STATES HE WILL BE IN SOON.
--- NOTE | 2016-05-18 13:30 | NUR ---
DR. BRANNON AT BEDSIDE. UPDATE PROVIDED. DAUGHTER'S QUESTIONS ANSWERED.
--- NOTE | 2016-05-18 14:28 | NUR ---
IV access-20 gauge, 1 3/4 cm IV catheter placed in right upper arm. Taylor Tillman RN
--- NOTE | 2016-05-18 14:30 | NUR ---
VASCULAR ACCESS NURSE AT BEDSIDE TO PLACE MIDLINE. UNABLE TO OBTAIN ANYTHING ON LEFT ARM. 20G PIV PLACED TO RIGHT UPPER ARM. WILL MONITOR.
--- NOTE | 2016-05-18 15:00 | NUR ---
REASSESSMENT COMPELTE PER FLOW SHEET. VSS. NO NEW CHANGES. WILL CONTINUE TO MONITOR.
--- NOTE | 2016-05-18 19:00 | NUR ---
REPORT RECIEVED, INITIAL ASSESSMENT COMPLETE, PLEASE SEE FLOW SHEETS FOR DETAILS. PT ON VENT AND LIGHTLY SEDATED. WILL OPEN EYE TO VOICE, DOES NOT FOLLOW COMMANDS. PUPILS 6MM AND FIXED. LUNGS SOUNDS WITH CRACKLES AND RHONCHI AND DIMINISHED IN LOWER LOBES. LEVOPHED INFUSING AT 2.2 MCG/MIN. PROPOFOL INFUSING AT 15 MCG/KG/MIN AND D5 1/2NS AT 50ML/HR. TURNING AND ORAL CARE PROVIDED ATT. VSS. BOTTIES ON FEET. ALL WOUNDS WITH DRESSINGS CDI, PLEASE SEE WOUND CARE NURSE NOTES FOR FULL DETAILS OF WOUNDS. NO CHANGES TO WOUNDS ATT. SIDDIQI CATHETER IN PLACE AND CONCENTRATED URINE NOTED. BED LOW AND LOCKED, CALL LIGHT IN REACH. WILL CONTINUE TO MONITOR.
--- NOTE | 2016-05-18 21:00 | NUR ---
ORAL CARE AND TURNING PROVIDED. BED LOW AND LOCKED, VSS, WILL CONTINUE TO MONITOR.
--- NOTE | 2016-05-18 23:00 | NUR ---
REASSESSMENT COMPLETE, PLEASE SEE FLOW SHEETS FOR FULL DETAILS. ORAL CARE AND TURNING PROVIDED. VSS, SBP 122, DECREASED LEVOPHED TO 2 MCG/MIN. BED LOW AND LOCKED. WILL CONTINUE TO MONITOR.
[2016-05-19] VITALS (57 sets, daily range): BP systolic 75–161; BP diastolic 36–76
--- NOTE | 2016-05-19 00:34 | NUR ---
SBP 149, DECREASED LEVOPHED TO 1.6 MCG/MIN. WILL CONTINUE TO MONITOR.
--- NOTE | 2016-05-19 00:53 | NUR ---
ORAL CARE AND TURNING PROVIDED. NO S&S OF ACUTE DISTRESS NOTED. VSS, BED LOW AND LOCKED. WILL CONTINUE TO MONITOR.
--- NOTE | 2016-05-19 01:02 | NUR ---
PROVIDED SIDDIQI CARE USING BARDS WIPES.
--- NOTE | 2016-05-19 02:53 | NUR ---
SBP 128, DECREASED LEVOPHED TO 1.4 MCG/MIN.
--- NOTE | 2016-05-19 03:00 | NUR ---
REASSESSMENT COMPLETE, PLEASE SEE FLOW SHEETS FOR DETAILS. ORAL CARE AND TURNING PROVIDED. VSS, BED LOW AND LOCKED. WILL CONTINUE TO MONITOR.
--- NOTE | 2016-05-19 03:30 | NUR ---
SBP 151, TURNED OFF LEVOPHED.
--- NOTE | 2016-05-19 03:40 | NUR ---
SBP 75, RECHECKED 3 TIMES, TURNED LEVOPHED BACK ON AT 1 MCG/MIN.
--- NOTE | 2016-05-19 05:03 | NUR ---
ORAL CARE AND TURNING PROVIDED. VSS, BED LOW AND LOCKED. WILL CONTINUE TO MONITOR.
--- NOTE | 2016-05-19 06:00 | NUR ---
RESIDUAL FROM TF YEILDED 23ML, THIS WAS RETURNED.
--- NOTE | 2016-05-19 06:22 | NUR ---
LILLY 160/75, TURNED OFF LEVOPHED.
[2016-05-19 06:44] LABS: ALBUMIN 1.2 g/dL (3.4-5.0); BILIRUBIN - TOTAL 0.3 mg/dL (0.2-1.3); CALCIUM 7.7 mg/dL (8.5-10.1); CARBON DIOXIDE 22.2 mmol/L (21.0-32.0); CREATININE - SERUM 1.1 mg/dL (0.6-1.3); POTASSIUM - SERUM 4.2 mmol/L (3.5-5.1); PROTEIN - SERUM 4.9 g/dL (6.4-8.2)
--- NOTE | 2016-05-19 07:00 | NUR ---
0700 REC'D REPORT FROM OUT GOING RN - PT LYING IN BED WITH MECH VENTIALTION - PT GRIMICES WHEN MOVED - CONT POC 0800 ASSESSMENT COMPLETE - MEDICATIONS GIVEN - PT RESTING SUPINE. 0830 LEVOFED INITATED PER ORDER - CPOC - 0930 - WOUND CARE DRESSINGS CHG PER ORDER - ASSIST BY TWO RN - PT TOLERATED PROCEDURE WELL. CPOC 1030 DR. JEROME AT BEDSIDE - INSTRUCTED TO HOLD PROPOFOL TO ALLOW PT TO BE AWARE TO BREATHE WITH VENT ASSISTANCE. RT AT BEDSIDE (SEE RT FLOW SHEET) 1100 ASSESSMENT COMPLETED - NO ACUTE CHANGE 1300 TURNED PT PER POLICY - RT AT BEDSIDE FOR TREATMENT - SEE rt FLOW SHEET - HELD LEVOFED PT'S B/P WNL AND VSS. 1500 - ASSESSMENT COMPLETE - CONT POC FAMILY AT BEDSIDE - ESTABLISHED PASSWORD (16 ACERS) - CHANGED TUBE FEEDING. 1400 I&Os COMPLETED COT POC 1800 PT RESTING TTURNED PT RESTING - OPENS EYES TO VERBAL STIMULI 1900 REPORT GIVEN TO ONCOMING RN
[2016-05-19 08:05] LABS: BASOPHILS 0.1 % (0.0-2.0); HEMATOCRIT 24.4 % (42.0-54.0); HEMOGLOBIN 7.9 g/dL (13.5-17.5); IMMATURE GRANULOCYTES 0.9 % (0-5); LYMPHOCYTES 23.9 % (15-50); MCH 30.9 pg (26.0-34.0); MCHC 32.4 g/dL (31.0-37.0); MCV 95.3 fL (80.0-100.0); MONOCYTES 6.6 % (2-11); NEUTROPHILS 64.5 % (40-80); RBC 2.56 10x6/uL (4.20-6.10); RDW 17.6 % (11.5-14.5)
[2016-05-19 08:08] LABS: PLATELET COUNT 130 10x3/uL (130-400); WBC 6.8 10x3/uL (4.8-10.8)
[2016-05-19 08:15] LABS: INR 1.24 (0.85-1.17); PROTIME 15.5 SECONDS (11.6-15.0)
--- NOTE | 2016-05-19 19:00 | NUR ---
REPORT RECIEVED, INITIAL ASSESSMENT COMPLETE, PLEASE SEE FLOW SHEETS FOR DETAILS. ORAL CARE AND TURNING PROVIDED. BED LOW AND LOCKED, WILL CONTINUE TO MONITOR.
--- NOTE | 2016-05-19 21:00 | NUR ---
ORAL CARE AND TURNING PROVIDED. OPENS EYES, SHAKES HEAD TO MOUTH CARE. VSS, BED LOW AND LOCKED. CALL LIGHT IN REACH. WILL CONTINUE TO MONITOR.
--- NOTE | 2016-05-19 23:00 | NUR ---
REASSESSMENT COMPLETE, PLEASE SEE FLOW SHEETS FOR DETAILS. NO CHANGES NOTED FROM PREVIOUS ASSESSMENT. ORAL CARE AND TURNING PROVIDED. BED LOW AND LOCKED, VSS, WILL CONTINUE TO MONITOR.
[2016-05-20] VITALS (24 sets, daily range): BP systolic 93–142; BP diastolic 48–73
--- NOTE | 2016-05-20 01:00 | NUR ---
ORAL CARE AND TURNING PROVIDED. SIDDIQI CARE PROVIDED USING BARDS WIPES. VSS ATT, BED LOW AND LOCKED. WILL CONTINUE TO MONITOR.
--- NOTE | 2016-05-20 03:00 | NUR ---
REASSESSMENT COMPLETE, PLEASE SEE FLOW SHEETS FOR DETAILS. ORAL CARE AND TURNING PROVIDED. VSS, BED LOW AND LOCKED. WILL CONTINUE TO MONITOR.
--- NOTE | 2016-05-20 05:00 | NUR ---
ORAL CARE AND TURNING PROVIDED. VSS, BED LOW AND LOCKED. VSS ATT, WILL CONTINUE TO MONITOR.
[2016-05-20 06:02] LABS: BASOPHILS 0.3 % (0.0-2.0); EOSINOPHILS 4.1 % (0-7); HEMATOCRIT 25.6 % (42.0-54.0); HEMOGLOBIN 8.4 g/dL (13.5-17.5); IMMATURE GRANULOCYTES 1.1 % (0-5); LYMPHOCYTES 17.9 % (15-50); MCHC 32.8 g/dL (31.0-37.0); MCV 94.5 fL (80.0-100.0); MEAN PLATELET VOLUME 9.8 fL (7.4-10.4); MONOCYTES 9.6 % (2-11); PLATELET COUNT 139 10x3/uL (130-400); RBC 2.71 10x6/uL (4.20-6.10); RDW 17.6 % (11.5-14.5); WBC 7.3 10x3/uL (4.8-10.8)
[2016-05-20 06:15] LABS: ALBUMIN 1.2 g/dL (3.4-5.0); ANION GAP 9.3 mmol/L (8-16); BILIRUBIN - TOTAL 0.22 mg/dL (0.2-1.3); CALCIUM 8.2 mg/dL (8.5-10.1); CARBON DIOXIDE 26.7 mmol/L (21.0-32.0); CREATININE - SERUM 1.1 mg/dL (0.6-1.3); PROTEIN - SERUM 5.3 g/dL (6.4-8.2)
--- NOTE | 2016-05-20 19:00 | NUR ---
REPORT RECIEVED, INITIAL ASSESSMENT COMPLETE, PLEASE SEE FLOW SHEETS FOR DETAILS. ORAL CARE AND TURNING PROVIDED. BED LOW AND LOCKED. VSS, WILL CONTINUE TO MONITOR.
--- NOTE | 2016-05-20 21:00 | NUR ---
ORAL CARE AND TURNING PROVIDED. FAMILY IN ROOM, ANSWERED ALL QUESTIONS TO BEST OF ABILITY. BED LOW AND LOCKED, CALL LIGHT IN REACH. VSS, WILL CONTINUE TO MONTIOR.
--- NOTE | 2016-05-20 21:52 | NUR ---
ORAL CARE AND TURNING PROVIDED. BED LOW AND LOCKED, FAMILY IN ROOM AND ALL QUESTIONS ANSWERED. VSS, WILL CONTINUE TO MONITOR.
--- NOTE | 2016-05-20 23:00 | NUR ---
REASSESSMENT COMPLETE, PLEASE SEEF LOW SHEETS FOR DETAILS. ORAL CARE AND TURNING PROVIDED. VSS, BED LOW AND LOCKED, SCD'S ON AND RUNNING. WILL CONTINUE TO MONITOR.
[2016-05-21] VITALS (24 sets, daily range): BP systolic 81–128; BP diastolic 36–73
--- NOTE | 2016-05-21 01:00 | NUR ---
ORAL CARE AND TURNING PROVIDED. FACIAL GROOMING PROVIDED. VSS, BED LOW AND LOCKED. SIDDIQI CARE PROVIDED. WILL CONTINUE TO MONITOR.
--- NOTE | 2016-05-21 03:00 | NUR ---
REASSESSMENT COMPLETE, PLEASE SEE FLOW SHEETS FOR DETAILS. ORAL CARE AND TURNING PROVIDED. VSS, BED LOW AND LOCKED. WILL CONTINUE TO MONITOR.
[2016-05-21 03:47] LABS: BASOPHILS 0.2 % (0.0-2.0); EOSINOPHILS 2.9 % (0-7); HEMATOCRIT 26.5 % (42.0-54.0); HEMOGLOBIN 8.4 g/dL (13.5-17.5); IMMATURE GRANULOCYTES 1.5 % (0-5); LYMPHOCYTES 16.7 % (15-50); MCHC 31.7 g/dL (31.0-37.0); MCV 94.6 fL (80.0-100.0); MEAN PLATELET VOLUME 10.4 fL (7.4-10.4); MONOCYTES 8.2 % (2-11); NEUTROPHILS 70.5 % (40-80); PLATELET COUNT 148 10x3/uL (130-400); RDW 17.5 % (11.5-14.5); WBC 6.6 10x3/uL (4.8-10.8)
[2016-05-21 03:56] LABS: ALBUMIN 1.2 g/dL (3.4-5.0); ANION GAP 7.1 mmol/L (8-16); BILIRUBIN - TOTAL 0.38 mg/dL (0.2-1.3); CALCIUM 8.2 mg/dL (8.5-10.1); CARBON DIOXIDE 29.1 mmol/L (21.0-32.0); CREATININE - SERUM 1.1 mg/dL (0.6-1.3); MAGNESIUM - SERUM 2.1 mg/dL (1.8-2.4); POTASSIUM - SERUM 4.2 mmol/L (3.5-5.1); PROTEIN - SERUM 5.4 g/dL (6.4-8.2)
--- NOTE | 2016-05-21 05:00 | NUR ---
ORAL CARE AND TURNING PROVIDED, BED LOW AND LOCKED, CALL LIGHT IN REACH. VSS, WILL CONTINUE TO MONITOR.
--- NOTE | 2016-05-21 07:39 | NUR ---
0730-NSR ON CM, VSS, AFEBRILE. TF AT GOAL THRU PEG, VENT SETTINGS 30% FI02,SIMV-10, RESP RATE 21 And 93% SPO2. PT HAS TRACH. PROPOLOL AT 10MCG/KG/MIN. PT RESPONDS TO TACTILE STIM KRISTEN. SIDDIQI CATH CL YELLOW URINE, UOP ADEQUATE.
[2016-05-21 09:01] LABS: % SATURATION 18 % (15-55); IRON 24 ug/dl (35-150); TOTAL IRON BIND CAPACITY 128 ug/dl (260-445); UNSAT IRON BIND CAPACITY 104 ug/dl (150-375)
--- NOTE | 2016-05-21 09:41 | NUR ---
Nutrition follow-up: Pulmocare infusing @ 60 ml/hr Propofol infusing @10 mcg/kg/min Labs reviewed Wt: 145# Pt is currently being overfed with propofol @ 10 mcg/kg/min. RDN will order TF decreased to 45 ml/hr while pt on propofol. RDN following.
--- NOTE | 2016-05-21 13:15 | NUR ---
Patient Name: JORGE PARK Encounter No: [id number] : 1940 Primary Insurance: [employer] Anticipated DC Date: 05-17-2016 Planned Disposition: Group Home Facility External Planned Provider: [facility] BED DCP follow-up note: CM RECEIVED REQUEST TO SPEAK TO FAMILY REGARDING GUARDIANSHIP OF PT. CM DISCUSSED GENERAL PROCESS OF OBTAINING GUARDIANSHIP WITH MOSHE OF ICU AND ASSURED HER CM WOULD FOLLOW UP WITH FAMILY SOON POSSIBLE. CM ATTEMPTED TO VISIT WITH PT AND FAMILY IN ROOM. PT SLEEPING, NO FAMILY PRESENT. NO FAMILY PRESENT IN THE ICU WAITING ROOM. CM CALLED HANK PARK, , WHO DID NOT ANSWER AND THERE WAS NO VOICE MAIL SET UP. CM CALLED MANUEL PARK, , INTRODUCED SELF AND INFORMED MANUEL THAT CM UNDERSTOOD FAMILY HAD QUESTIONS REGARDING GUARDIANSHIP. MANUEL INFORMED CM THAT THEY HAVE AN X RAY SERVICE ENGINEER WORKING ON THE GUARDIANSHIP AND FAMILY HAS SPOKEN TO DR. BRANNON WHO WILL PROVIDE THE FAMILY WITH THE ASSISTANCE THEY NEED TO GET DOCUMENATION FOR COURT. JAS LEFT CM CONTACT NUMBERS ON WHITE BOARD IN PT'S ROOM, NOTIFIED MANUEL HOW TO ACCESS CM IF NEEDED. FAMILY CONTINUES TO REPORT PLAN FOR PT TO RETURN TO [facility] AT DISCHARGE, IF WELL ENOUGH. CM TO FOLLOW AND ASSIST NEEDED. Jacob Ridley, CASE MANAGEMENT
--- NOTE | 2016-05-21 19:30 | NUR ---
REPORT RECIEVED. ASSESSMENT COMPLETE PER FLOW SHEET. VSS. REPOSITIONED ON R SIDE ORAL ENDOTRACH CARE GIVEN. WILL CONTINUE TO MONITOR.
--- NOTE | 2016-05-21 21:20 | NUR ---
FAMILY AT BEDSIDE. GIVEN UPDATE.
--- NOTE | 2016-05-21 23:16 | NUR ---
REASSESSMENT COMPLETEP ER FLOW SHEET. VSS. NO NEW CHANGES. WILL CONTINUE TO MONITOR.
[2016-05-22] VITALS (24 sets, daily range): BP systolic 80–153; BP diastolic 47–99
--- NOTE | 2016-05-22 01:24 | NUR ---
COMPLETE BB LINEN CHANGE COMPLETE. NO NEW FINDEINGS. VSS. WILL CONTINUE TO MONITOR.
--- NOTE | 2016-05-22 03:00 | NUR ---
REASSESSMENT COMPLETE PER FLOW SHEET. NO NEW CHANGES. VSS. WILL CONTINUE TO MONITOR.L
[2016-05-22 04:18] LABS: BASOPHILS 0.3 % (0.0-2.0); EOSINOPHILS 3.8 % (0-7); HEMOGLOBIN 9.2 g/dL (13.5-17.5); IMMATURE GRANULOCYTES 2.7 % (0-5); LYMPHOCYTES 22.2 % (15-50); MCH 30.5 pg (26.0-34.0); MCHC 31.7 g/dL (31.0-37.0); MEAN PLATELET VOLUME 10.3 fL (7.4-10.4); MONOCYTES 8.2 % (2-11); NEUTROPHILS 62.8 % (40-80); PLATELET COUNT 148 10x3/uL (130-400); RBC 3.02 10x6/uL (4.20-6.10); RDW 17.3 % (11.5-14.5); WBC 6.9 10x3/uL (4.8-10.8)
--- NOTE | 2016-05-22 04:35 | NUR ---
BP TAKEN X4 EXTREMETIES BILAT UPPER EXTREMETIES SBP 150-170'S BILAT LOWER EXTREMETIES SBP 60-80'S.
[2016-05-22 04:50] LABS: ALBUMIN 1.3 g/dL (3.4-5.0); ANION GAP 8.6 mmol/L (8-16); BILIRUBIN - TOTAL 0.24 mg/dL (0.2-1.3); CALCIUM 8.7 mg/dL (8.5-10.1); CARBON DIOXIDE 28.4 mmol/L (21.0-32.0); CREATININE - SERUM 1.1 mg/dL (0.6-1.3); MAGNESIUM - SERUM 2.1 mg/dL (1.8-2.4); PHOSPHOROUS 2.5 mg/dL (2.5-4.9); PROTEIN - SERUM 5.7 g/dL (6.4-8.2)
[2016-05-22 09:16] LABS: FOLATE (FOLIC ACID) - SERUM 10.2 ng/mL (>3.0)
--- NOTE | 2016-05-22 09:47 | NUR ---
0800- MAP 54, DID RETAKE B/P SEVERAL TIMES W/O CHANGE, LEVOPHED STARTED AT 2MCG/MIN. BP RESPONDED WELL, MAP 76.
--- NOTE | 2016-05-22 13:24 | NUR ---
BRONCOSCOPY DONE BY DR HANDLEY, PT ANN WELL, CONCENTS SIGNED BY DAUGHTER.
--- NOTE | 2016-05-22 19:18 | NUR ---
REPORT RECIEVED. ASSESSMENT COMPLETE PER LFOW SHEET. VSS. FAMILY AT BEDSIDE. NO NEW FINDINGS. REPOSITIOEND ON R SIDE. ORAL ENDOTRACH CARE ADM. WILL CONTINUE TO MONTIOR.
[2016-05-22 20:08] LABS: AFB SPECIMEN PROCESSING Concentration (())
--- NOTE | 2016-05-22 21:24 | NUR ---
FAMILY AT BEDSIDE. GIVEN UPDATE. VSS. NO NEW CHANGES.
--- NOTE | 2016-05-22 23:11 | NUR ---
REASSESSMENT COMPLETE PER FLOW SHEET. VSS. NO NEW CHANGES. WILL ONTINUE TO MONITOR.
[2016-05-23] VITALS (24 sets, daily range): BP systolic 114–169; BP diastolic 40–90
--- NOTE | 2016-05-23 01:00 | NUR ---
COMPLETE BB LINEN CHANGE COMPLETE. NO NEW FINDINGS. VSS
--- NOTE | 2016-05-23 03:01 | NUR ---
REASSESSMENT COMPLETE PER FLOW SHEET. VSS. NO NEW CHANGES WILL CONTINUE TO MONITOR.
[2016-05-23 04:00] LABS: BASOPHILS 0.5 % (0.0-2.0); EOSINOPHILS 3.2 % (0-7); HEMATOCRIT 26.6 % (42.0-54.0); HEMOGLOBIN 8.6 g/dL (13.5-17.5); IMMATURE GRANULOCYTES 1.9 % (0-5); LYMPHOCYTES 23.8 % (15-50); MCH 30.9 pg (26.0-34.0); MCHC 32.3 g/dL (31.0-37.0); MCV 95.7 fL (80.0-100.0); MEAN PLATELET VOLUME 9.7 fL (7.4-10.4); MONOCYTES 7.1 % (2-11); NEUTROPHILS 63.5 % (40-80); PLATELET COUNT 145 10x3/uL (130-400); RBC 2.78 10x6/uL (4.20-6.10); RDW 17.2 % (11.5-14.5)
[2016-05-23 04:13] LABS: ALBUMIN 1.4 g/dL (3.4-5.0); ALKALINE PHOSPHATASE 52 U/L (46-116); BILIRUBIN - TOTAL 0.23 mg/dL (0.2-1.3); CALC OSMOLALITY 286 mosm/kg (275-300); CARBON DIOXIDE 29.4 mmol/L (21.0-32.0); CHLORIDE - SERUM 106 mmol/L (98-107); GLUCOSE 116 mg/dL (74-106); MAGNESIUM - SERUM 2.1 mg/dL (1.8-2.4); POTASSIUM - SERUM 3.8 mmol/L (3.5-5.1); SODIUM 140 mmol/L (136-145); UREA NITROGEN 31 mg/dL (7-18); eGFR NON AFRICAN AMERICAN 77 mL/min (90-120)
[2016-05-23 04:22] LABS: ALT (SGPT) 38 U/L (10-68)
--- NOTE | 2016-05-23 05:48 | NUR ---
VSS NO NEW CHANGES. WILL CONTINUE TO MONITOR.
--- NOTE | 2016-05-23 07:00 | NUR ---
REPORT RECEIVED. ASSESSMENT COMPLETED. PATIENT RESTING IN SEMIFOWLERS POSITION TURNED TO THE LEFT, NO VISUAL CUES OF DISTRESS NOTED.
--- NOTE | 2016-05-23 09:00 | NUR ---
DRESSING TO COCCYX/SACRUM CHANGED PER ORDERS.
--- NOTE | 2016-05-23 10:20 | NUR ---
Nutrition follow-up: Pulmocare infusing @ 45 ml/hr via PEG tube labs reviewed Wt: 186# Levophed started due to low BP. Pt tolerating TF at this time. RDN following.
--- NOTE | 2016-05-23 12:15 | NUR ---
PATIENTS DAUGHTER HERE FOR VISITATION. SHE WAS QUESTIONING ABOUT THE PATIENTS SEDATION. SHE STATED THAT YESTERDAY HE WAS ONLY ON 5MCG AND WANTED TO KNOW WHY HE WAS INCREASED TO 10 MCG. EXPLAINED THAT I HAD LOOKED THROUGH THE NOTES AND EVERYTHING SAID THAT HE WAS ON 10 MCG. SHE WAS INSISTANT THAT THIS WAS INCORRECT AND MADE LOUD TISKING NOISES. SHE ALSO QUESTIONED TO WHY YOU COULD HEAR AIR LEAKING AROUND THE TRACH. THIS SOUND IS NOT CONSTANT AND STOPPED WHEN THE BALLOON TUBE WAS MOVED FROM UNDER THE DRESSING. SHE QUESTIONED WHEN THEY WERE GOING TO PUT IN A DIFFERENT ONE, SHE STATED THAT SHE HAD BEEN TOLD THAT A NEW ONE WOULD BE PUT IN. I EXPLAINED THAT I COULD DISCUSS THIS WITH DR HANDLEY, BUT AT THIS TIME I DID NOT HAVE AN ANSWER TO IT AND IT HAD NOT BEEN MENTIONED TO ME. SHE DISPLAYED HER DISPLEASEMENT WITH THIS ANSWER ALSO.
[2016-05-23 12:16] LABS: FUNGUS STAIN Final report (())
--- NOTE | 2016-05-23 13:02 | NUR ---
SPOKE WITH DR HANDLEY ABOUT THE DAUGHTERS CONCERNS. HE STATED HE WAS NOT SURE WHO TOLD HER ABOUT REPLACING THE TRACH, BUT IT WAS NOT HIM, AND THAT IT SHOULDN'T BE CHANGED UNLESS IT WAS NECESSARY. HE DID REQUEST I FIND OUT WHEN THAT ONE WAS PLACED. AGAIN TIRED TO FIND WHERE THERE WAS A CHANGE IN THE PROPOFOL AND WAS UNSUCCESSFUL. PATIENT IS AROUSABLE AND WILL INTERACT WITH STAFF, YES HE DOES DOZE BACK OFF, BUT IS ABLE TO ANSWER APPROPIRATELY. AT THIS TIME WILL LET THE SEDATION STAY.
--- NOTE | 2016-05-23 14:15 | NUR ---
PATIENT CLAMPED DOWN DURING ORAL CARE. WHEN ASKED IF HE WANTED HIS GUMS CLEANED, HE SHOOK HIS HEAD NO. HE WOULD NOT RELEASE HIS LIPS UNTIL THE ORAL CARE SWABS WERE THROWN IN THE TRASH. EXPLAINED THAT WE DID NOT WANT BIOFILM BUILDING UP IN HIS MOUTH AND HE CONTINUED TO SHAKE HIS HEAD NO TO HAVING ORAL CARE DONE AT THIS TIME. HAS BEEN DONE 3 TIMES BY THIS NURSE AND AT LEAST 1 TIME BY RESPIRATORY SO FAR THIS SHIFT.
[2016-05-23 14:21] LABS: FUNGUS STAIN Final report (())
[2016-05-23 15:24] LABS: AFB SPECIMEN PROCESSING Concentration (())
[2016-05-23 18:45] LABS: FERRITIN 966 ng/mL (3-244); LDH 208 U/L (85-227)
[2016-05-23 18:47] LABS: % SATURATION 25 % (15-55); IRON 39 ug/dl (35-150); TOTAL IRON BIND CAPACITY 156 ug/dl (260-445); UNSAT IRON BIND CAPACITY 117 ug/dl (150-375)
--- NOTE | 2016-05-23 19:17 | NUR ---
REPORT RECIEVED. ASSESSMENT COMPLETE PER FLOW SHEET. VSS. NO NEW CHANGES. WILL CONTINUE TO MONITOR.
--- NOTE | 2016-05-23 20:40 | NUR ---
PT REMOVED R AC PIV. CATH INTACT. 20G PIV RESITED TO L FOREARM FLUSHES WIHTOUT DIFFICULTY. DRSG CDI.
--- NOTE | 2016-05-23 21:38 | NUR ---
FAMILY AT BEDSIDE. GIVEN UPDATE.
--- NOTE | 2016-05-23 23:49 | NUR ---
REASSESSMENT COMPLETE PER FLOW SHEET. VSS. NO NEW CHANGES. WILL CONTINUE TO MONITOR.
[2016-05-24] VITALS (24 sets, daily range): BP systolic 118–191; BP diastolic 49–85
--- NOTE | 2016-05-24 03:16 | NUR ---
REASSESSMENT COMPLETE PER FLOW SHEET. VSS. NO NEW CHANGES. RADIOLOGY AT BESIDE. WILL CONTINUE TO MONITOR.
[2016-05-24 04:18] LABS: BASOPHILS 0.2 % (0.0-2.0); HEMATOCRIT 27.7 % (42.0-54.0); HEMOGLOBIN 8.9 g/dL (13.5-17.5); IMMATURE GRANULOCYTES 1.9 % (0-5); LYMPHOCYTES 22.4 % (15-50); MCH 30.4 pg (26.0-34.0); MCHC 32.1 g/dL (31.0-37.0); MCV 94.5 fL (80.0-100.0); MEAN PLATELET VOLUME 9.8 fL (7.4-10.4); MONOCYTES 6.5 % (2-11); PLATELET COUNT 152 10x3/uL (130-400); RBC 2.93 10x6/uL (4.20-6.10); RDW 17.2 % (11.5-14.5); WBC 8.3 10x3/uL (4.8-10.8)
[2016-05-24 04:42] LABS: ALBUMIN 1.4 g/dL (3.4-5.0); ALKALINE PHOSPHATASE 53 U/L (46-116); ALT (SGPT) 42 U/L (10-68); BILIRUBIN - TOTAL 0.15 mg/dL (0.2-1.3); CALC OSMOLALITY 287 mosm/kg (275-300); CALCIUM 8.4 mg/dL (8.5-10.1); CARBON DIOXIDE 30.1 mmol/L (21.0-32.0); CHLORIDE - SERUM 106 mmol/L (98-107); GLUCOSE 135 mg/dL (74-106); MAGNESIUM - SERUM 2.1 mg/dL (1.8-2.4); POTASSIUM - SERUM 3.9 mmol/L (3.5-5.1); PROTEIN - SERUM 5.6 g/dL (6.4-8.2); SODIUM 140 mmol/L (136-145); UREA NITROGEN 33 mg/dL (7-18); eGFR NON AFRICAN AMERICAN 77 mL/min (90-120)
--- NOTE | 2016-05-24 05:25 | NUR ---
REPOSITIONED FOR COMFORT, WILL CON'T TO MONITOR
--- NOTE | 2016-05-24 11:28 | NUR ---
0700 PT AWAKE AND ALERT. VENT SETTINGS ON FLOWSHEET. PT ABLE TO FOLLOW COMMANDS INCONSISTENTLY. PT TRACH SUCTIONED. FACIAL GRIMACING WHEN MOVED. PT NOT PULLING AT LINES OR TUBES. FEEDING BAG CHANGED AND REFILLED, DISCUSSED RATE WITH DIETARY. 3ML RESIDUAL NOTED. PT TURNED. VITAL SIGNS STABLE
--- NOTE | 2016-05-24 11:33 | NUR ---
0900 PT BAGGED, LAVAGED TRACH AND DEEP SUCTION PERFORMED TO REMOVE SECRETIONS, MODERATE SECRETIONS NOTED. PT O2 SAT STABLE. REPOSITIONED IN BED.
--- NOTE | 2016-05-24 11:34 | NUR ---
1100 PLANS TO CPAP TODAY. PT BP ELEVATED AT THIS TIME AFTER DEEP SUCTIONING PERFORMED. WILL ATTEMPT CPAP AFTER LUNCH.
--- NOTE | 2016-05-24 13:08 | NUR ---
1300 RESPIRATORY ATTEMPTING CPAP. SEDATION TURNED OFF. BP STILL ELEVATED, MONITORING CLOSELY.
--- NOTE | 2016-05-24 15:12 | NUR ---
1500 PT REPOSITIONED IN BED AND ORAL CARE PERFORMED. VITAL SIGNS STABLE. PT TOLERATING CPAP AT THIS TIME. WILL CONTINUE TO MONITOR.
--- NOTE | 2016-05-24 17:46 | NUR ---
1700 PT REPOSITIONED AND BACK ON SIMV. PT AND VITAL SIGNS STABLE AT THIS TIME. NO FURTHER CAHNGES. WILL CONTINUE TO MONITOR.
--- NOTE | 2016-05-24 19:00 | NUR ---
ASSESSMENT COMPLETED. SEE FLOW SHEETS FOR ALL FINDINGS. PT SEDATED ON VENT OPENS EYES WITH VOICES, FOLLOWS SIMPLE COMMANDS. VSS. MOUTH CARE PER VAP PROVIDED. REPOSITIONED FOR COMFORT. WILL CONT TO MONITOR. 2100 SCHEDULED MEDS GIVEN PER ORDER, VIA PEG TUBE. NO VISITORS AT THIS TIME. VSS. CPOC. 2300 REASSESSMENT COMPLETED PER FLOW SHEETS. NO ACUTE SIGNS OF DISTRESS NOTED. VSS. CPOC.
[2016-05-25] VITALS (24 sets, daily range): BP systolic 99–196; BP diastolic 47–97
--- NOTE | 2016-05-25 01:00 | NUR ---
PT RESTING QUIETLY WITHOUT DISTRESS ON VENT. REPOSITIONED FOR COMFORT, PILLOWS IN USE FOR SUPPORT. VSS. CPOC.
--- NOTE | 2016-05-25 03:00 | NUR ---
REASSESSMENT COMPLETED. SEE FLOW SHEETS FOR ALL FINDINGS. PT SEDATED ON VENT RESTING QUIELTY WITHOUT DISTRESS AT THIS TIME. VSS. SR ON CM. CPOC.
[2016-05-25 04:15] LABS: BASOPHILS 0.4 % (0.0-2.0); EOSINOPHILS 3.4 % (0-7); HEMATOCRIT 25.9 % (42.0-54.0); HEMOGLOBIN 8.5 g/dL (13.5-17.5); IMMATURE GRANULOCYTES 1.9 % (0-5); LYMPHOCYTES 22.5 % (15-50); MCH 30.9 pg (26.0-34.0); MCHC 32.8 g/dL (31.0-37.0); MCV 94.2 fL (80.0-100.0); MEAN PLATELET VOLUME 9.9 fL (7.4-10.4); MONOCYTES 9.3 % (2-11); NEUTROPHILS 62.5 % (40-80); PLATELET COUNT 140 10x3/uL (130-400); RBC 2.75 10x6/uL (4.20-6.10); RDW 16.9 % (11.5-14.5); WBC 7.4 10x3/uL (4.8-10.8)
[2016-05-25 04:24] LABS: CALC OSMOLALITY 289 mosm/kg (275-300); CALCIUM 8.1 mg/dL (8.5-10.1); CARBON DIOXIDE 28.6 mmol/L (21.0-32.0); CHLORIDE - SERUM 106 mmol/L (98-107); CREATININE - SERUM 0.9 mg/dL (0.6-1.3); GLUCOSE 164 mg/dL (74-106); POTASSIUM - SERUM 3.9 mmol/L (3.5-5.1); SODIUM 140 mmol/L (136-145); UREA NITROGEN 31 mg/dL (7-18); eGFR NON AFRICAN AMERICAN 87 mL/min (90-120)
--- NOTE | 2016-05-25 08:32 | NUR ---
LYING IN BED AT THIS TIME NO ACUTE DISTRESS NOTED. PT AWAKENS EASILY WHEN STAFF TOUCHES PT OR PROVIDES CARE, PT OPENS EYES AND SHAKES/NODS HEAD. NO ACUTE DISTRESS NOTED. WILL CONTINUE PLAN OF CARE.
--- NOTE | 2016-05-25 08:55 | NUR ---
Nutrition follow-up: Pt remains intubated, mild sedation; CPAP trials today Pulmocare infusing @ 45 ml/hr; pt tolerating at this time Labs reviewed Wt: 186# +BM RDN following.
--- NOTE | 2016-05-25 10:01 | NUR ---
DRESSINGS CHANGED AT THIS TIME PER DAILY ORDERS. ALSO AT THIS TIME MEPILEX DRESSING CHANGED TO COCCYX. INCONTINENT BOWEL MOVEMENT NOTED, SMALL FORMED. BRIAN CARE AND SIDDIQI CARE PROVIDED. NO ACUTE DISTRESS NOTED. WILL CONTINUE PLAN OF CARE.
--- NOTE | 2016-05-25 11:56 | NUR ---
TURN Q2H. NO ACUTE DISTRESS NOTED. PT OPENS EYES AND FOLLOWS COMMANDS SUCH SQUEEZE LEFT HAND AND ABLE TO SHAKE HEAD FOR YES AND NO QUESTIONS. WILL CONTINUE PLAN OF CAR.E
--- NOTE | 2016-05-25 11:57 | NUR ---
RESIDUAL CHECKED AT THIS TIME AND NOTED AT 10ML
--- NOTE | 2016-05-25 12:57 | NUR ---
ORDER RECEIVED FOR [facility] EVALUATION. I HAVE CONTACTED ALONDRA AT [facility]. SHE CAME AND LOOKED AT THE PATIENT AND WAS GIVEN THE NEEDED INFORMATION FOR REFERRAL. PATIENT HAS [employer] AND THEY WILL NEED TO GET PRE AUTH. ALONDRA CALLED ME TO LET ME KNOW THAT THEY ARE WORKING ON PREATH. CM TO FOLLOW.
--- NOTE | 2016-05-25 14:28 | NUR ---
NOTED DIPROVAN HAD BEEN STOPPED PER DR HANDLEY ORDERS. BP AT THIS TIME NOTED AT 199/76, PT APPEARING AGGITATED. SPOKE WITH DR HANDLEY. NOTED NEW ORDER FOR ATIVAN PER PEG 1MG Q8H PRN. ORDER PLACED AT THIS TIME. NO ACUTE DISTRESS NOTED. WILL CONTINUE PLAN OF CARE.
--- NOTE | 2016-05-25 14:55 | NUR ---
NOTED BP STILL HIGH AT 205/80, CALLED DR PATEL WHO IS [employer]. NOTED NEW ORDERS FOR METOPROLOL 25MG PER PEG NOW AND METOPROLOL 25MG Q6H PER PEG. WILL PLACE ORDERS AT THIS TIME.
--- NOTE | 2016-05-25 15:33 | NUR ---
FAMILY AT BEDSIDE. UPDATE GIVEN. NO ACUTE DISTRESS NOTED. WILL CONTINUE PLAN OF CARE.
--- NOTE | 2016-05-25 17:30 | NUR ---
INCONTINENT BOWEL MOVEMENT NOTED AT THIS TIME. PT CLEANED UP VIA TOTAL ASSIST X 2 BRIAN CARE AND SIDDIQI CARE PROVIDED. NO ACUTE DISTRESS NOTED. ALSO AT THIS TIME NOTED MEPILEX DRESSING WAS SOILED FROM BOWEL MOVEMENT AND REPLACED AT THIS TIME. PT TURNED Q2H. WILL CONTINUE PLAN OF CARE.
--- NOTE | 2016-05-25 18:13 | NUR ---
FAMILY AT BEDSIDE. NO ACUTE DISTRESS NOTED. WILL CONTINUE PLAN OF CARE.
--- NOTE | 2016-05-25 19:05 | NUR ---
190 REPORT RECEIVED, CARE RESUMED. ASSESSMENT COMPLETE PER FLOWSHEET. PATIENT CONFUSED X3. TRACHED AND ON VENT, SEE ASSESSMENT FOR VENT SETTINGS. PEG TUBE WITH PULMACARE @ 45MLS/HR. 0 RESIDUAL NOTED. BOWEL SOUNDS ACTIVE X4. SIDDIQI DRAINING CLEAR YELLOW URINE TO GRAVITY, NO KINKS NOTED. SIDDIQI CARE DONE AT THIS TIME. GENERALIZED EDEMA IN EXTREMITIES. MULTIPLE SORES/SKIN INTEGRITY ISSUES, SEE SKIN ASSESSMENT FOR DETAILS. ALL DRESSINGS ARE C/D/I. PIV IN LEFT FOREARM. SITE IS C/D/I AND WITHOUT REDNESS. PERIPHERAL PULSES PALPABLE. PATIENT TURNED, SLIGHT GRIMACE WHEN MOVED. CL IN REACH. 2100 NO VISITORS AT THIS TIME. NIGHT MEDS GIVEN. VSS, WILL MONITOR. 2300 REASSESSMENT COMPLETE. NO CHANGES FROM PREVIOUS ASSESSMENT. PATIENT TURNED, ORAL CARE GIVEN. VSS, CL IN REACH. 0110 FEEDING BAGS CHANGED. NO RESIDUALS NOTED. PATIENT TURNED. VSS.
[2016-05-26] VITALS (32 sets, daily range): BP systolic 135–186; BP diastolic 51–93
--- NOTE | 2016-05-26 03:00 | NUR ---
REASSESSMENT COMPLETE. NO CHANGES. BED BATH GIVEN. LINENS CHANGED. TOLERATED WELL.
--- NOTE | 2016-05-26 05:00 | NUR ---
PT RESTING WITH EYES CLOSED, VSS.
--- NOTE | 2016-05-26 06:24 | NUR ---
DAUGHTER IN ROOM, UPDATE GIVEN.
[2016-05-26 07:01] LABS: BASOPHILS 0.4 % (0.0-2.0); EOSINOPHILS 3.6 % (0-7); HEMATOCRIT 25.1 % (42.0-54.0); HEMOGLOBIN 7.8 g/dL (13.5-17.5); LYMPHOCYTES 24.4 % (15-50); MCH 29.4 pg (26.0-34.0); MCHC 31.1 g/dL (31.0-37.0); MCV 94.7 fL (80.0-100.0); MEAN PLATELET VOLUME 9.4 fL (7.4-10.4); MONOCYTES 6.7 % (2-11); NEUTROPHILS 63.9 % (40-80); PLATELET COUNT 140 10x3/uL (130-400); RBC 2.65 10x6/uL (4.20-6.10); RDW 16.7 % (11.5-14.5); WBC 6.9 10x3/uL (4.8-10.8)
--- NOTE | 2016-05-26 07:16 | NUR ---
LYING IN BED AT THIS TIME. NO ACUTE DISTRESS NOTED. PT TURNED Q2H. PT NOTED TO MOVE LEFT ARM AND OPEN EYES SPONTANEOUSLY. OPENS EYES WHEN SPOKEN TO. WILL CONTINUE PLAN OF CARE.
[2016-05-26 07:29] LABS: CALC OSMOLALITY 285 mosm/kg (275-300); CALCIUM 8.2 mg/dL (8.5-10.1); CARBON DIOXIDE 29.4 mmol/L (21.0-32.0); CHLORIDE - SERUM 106 mmol/L (98-107); CREATININE - SERUM 0.8 mg/dL (0.6-1.3); GLUCOSE 133 mg/dL (74-106); MAGNESIUM - SERUM 2.6 mg/dL (1.8-2.4); PHOSPHOROUS 3.1 mg/dL (2.5-4.9); POTASSIUM - SERUM 4.2 mmol/L (3.5-5.1); SODIUM 139 mmol/L (136-145); UREA NITROGEN 29 mg/dL (7-18); eGFR NON AFRICAN AMERICAN > 90 mL/min (90-120)
--- NOTE | 2016-05-26 09:17 | NUR ---
FAMILY AT BEDSIDE. NO ACUTE DISTRESS NOTED AT THIS TIME. UPDATE GIVEN. WILL CONTINUE PLAN OF CARE.
--- NOTE | 2016-05-26 10:28 | NUR ---
NOTED ORDER FOR 2 U PRBC, WILL TRANSFUSE WHEN READY AT BLOOD BANK. PT FAMILY NOTIFIED.
--- NOTE | 2016-05-26 10:48 | NUR ---
DRESSINGS CHANGED AT THIS TIME PER DAILY CHANGE ORDERS. PT TURNED AND REPOSITIONED WELL IS DONE Q2H. NO ACUTE DISTRESS NOTED. WILL CONTINUE PLAN FO CARE.
--- NOTE | 2016-05-26 12:05 | NUR ---
INITIATION OF FIRST UNIT OF PRBC AT THIS TIME. PREINFUSION MEDS ADMIN PER DR PENA ORDERS. NO ACUTE DISTRESS NOTED. WILL CONTINUE PLAN OF CARE.
--- NOTE | 2016-05-26 14:32 | NUR ---
VSS. NO ACUTE DISTRESS NOTED. PT RESTING AT THIS TIME. AWAKENS EASILY WHEN STAFF STATES PT NAME. WILL CONTINUE PLAN OF CARE.
--- NOTE | 2016-05-26 15:47 | NUR ---
FIRST UNIT OF PRBC COMPLETE, LASIX ADMIN BETWEEN FIRST AND SECOND DOSES ORDERED. SECOND UNIT OF PRBC INITIATED AT THIS TIME. NO ACUTE DISTRESS NOTED. VSS. WILL CONTINUE PLAN OF CARE.
--- NOTE | 2016-05-26 17:43 | NUR ---
INCONTINENT BOWEL MOVEMENT NOTED AT THIS TIME. PT CLEANED UP VIA TOTAL X 2 ASSSIST. BRIAN CARE AND SIDDIQI CARE PROVIDED AT THIS TIME. NO ACUTE DISTRESS NOTED. WILL CONTINUE PLAN OF CARE.
--- NOTE | 2016-05-26 18:03 | NUR ---
SIDDIQI CHANGED AT THIS TIME PER 30 DAY POLICY, LAST SIDDIQI WAS PLACED 04/28. NEW SIDDIQI PLACED AT THIS TIME, CLEAR YELLOW RETURN NOTED. NO ACUTE DISTRESS NOTED.WILL CONTINUE PLAN OF CARE.
--- NOTE | 2016-05-26 18:03 | NUR ---
SECOND UNIT OF PRBC COMPLETE AT THIS TIME. VSS. NO ACUTE DISTRESS NOTED. WILL CONTINUE PLAN OF CARE.
--- NOTE | 2016-05-26 19:10 | NUR ---
191-REPORT RECEIVED, SHIFT ASSESSMENT COMPLETE PER FLOWSHEET. SEE FOR DETIALS. PATIENT OPENS EYES TO VOICE AND WILL SHAKE HEAD NO TO QUESTIONS AND WHEN YOU ATTEMPT TO PERFORM ASSESSMENT. TRACHED AND ON VENT, SEE VENT SETTINGS. PEG TUBE DRESSING C/D/I, NO RESIDUAL SEEN. SIDDIQI DRAINING CLEAR YELLOW URINE TO GRAVITY. SCD'S ON, TAKEN OFF FOR SKIN INTEGRITY ASSESSMENT. HEEL PROTECTORS ON. GEMERALIZED EDEMA IN ALL EXTREMITIES, PERIPHERAL PULSES +2. PIV IN LEFT FOREARM, SITE IS C/D/I. MULTIPLE SKIN INTEGRITY ISSUES, SEE SKIN INTEGRITY ASSESSMENT. PATIENT TURNED AT THIS TIME, VSS, CL IN REACH. 2100- NIGHT MEDS GIVEN. NO VISITORS AT THIS TIME. 2315- REASSESSMENT COMPLETE, DR SEN FOR HTN, ORDERS RECEIVED. 0045- TUBE FEEDINGS CHANGED, VSS. PATIENT REPOSISTIONED. ORAL CARE COMPLETED. 0300- REASSESSMENT COMPLETE AT THIS TIME, NO CHANGES FROM INITIAL. VSS, PATIENT REPOSITIONED.
[2016-05-27] VITALS (24 sets, daily range): BP systolic 144–195; BP diastolic 61–103
--- NOTE | 2016-05-27 05:05 | NUR ---
COMPLETE BED BATH AND LINEN CHANGE DONE, PATIENT TOLERATED WELL. VSS.
[2016-05-27 05:17] LABS: CALC OSMOLALITY 284 mosm/kg (275-300); CALCIUM 8.4 mg/dL (8.5-10.1); CARBON DIOXIDE 30.4 mmol/L (21.0-32.0); CHLORIDE - SERUM 104 mmol/L (98-107); CREATININE - SERUM 0.7 mg/dL (0.6-1.3); GLUCOSE 132 mg/dL (74-106); PHOSPHOROUS 3.7 mg/dL (2.5-4.9); POTASSIUM - SERUM 4.4 mmol/L (3.5-5.1); SODIUM 138 mmol/L (136-145); UREA NITROGEN 31 mg/dL (7-18); eGFR NON AFRICAN AMERICAN > 90 mL/min (90-120)
[2016-05-27 05:22] LABS: BASOPHILS 0.3 % (0.0-2.0); EOSINOPHILS 4.1 % (0-7); LYMPHOCYTES 20.1 % (15-50); MCH 29.8 pg (26.0-34.0); MEAN PLATELET VOLUME 11.2 fL (7.4-10.4); MONOCYTES 7.7 % (2-11); NEUTROPHILS 66.8 % (40-80); PLATELET COUNT 132 10x3/uL (130-400); RDW 16.3 % (11.5-14.5); WBC 7.6 10x3/uL (4.8-10.8)
[2016-05-27 05:28] LABS: HEMATOCRIT 32.7 % (42.0-54.0); HEMOGLOBIN 10.8 g/dL (13.5-17.5); MCV 90.1 fL (80.0-100.0); RBC 3.63 10x6/uL (4.20-6.10)
[2016-05-27 05:36] LABS: MAGNESIUM - SERUM 1.9 mg/dL (1.8-2.4)
--- NOTE | 2016-05-27 08:44 | NUR ---
LYING IN BED AT THIS TIME. NO ACUTE DISTRESS NOTED AT THIS TIME. PT OPENS EYES AND TURNS HEAD WHEN SPOKEN TO. WILL NOD/SHAKE HEAD FOR YES AND NO. WILL CONTINUE PLAN OF CHANGE.
--- NOTE | 2016-05-27 09:14 | NUR ---
FAMILY AT BEDSIDE. UPDATE GIVEN. NO ACUTE DISTRESS NOTED. WILL CONTINUE PLAN OF CARE.
--- NOTE | 2016-05-27 09:15 | NUR ---
SPOKE WITH PT FAMILY FOR NEW PASSCODE. NOTED NEW CALL IN CODE IS SILVIANO.
--- NOTE | 2016-05-27 09:31 | NUR ---
NOTED PT IS ROTATING ARMS IN WITH FISTS POINTING AWAY FROM THE BODY. DR COOL NOTIFIED. NO NEW ORDERS. WILL CONTINUE PLAN OF CARE.
--- NOTE | 2016-05-27 09:39 | NUR ---
ATTEMPTED TO PERFORM ORAL CARE. PT WOULD NOT ALLOW STAFF NOR PT FAMILY TO PERFORM ORAL CARE. PT SHOOK HEAD TO STATE NO AND WOULD NOT OPEN MOUTH. WILL OFFER ORAL CARE LATER. WILL CONTINUE PLAN OF CARE.
--- NOTE | 2016-05-27 10:41 | NUR ---
ALL DRESSINGS CHANGED AT THIS TIME PER DAILY CHANGE ORDERS. NO ACUTE DISTRESS NOTED. NO CHANGE NOTED TO DRESSING CHANGE SITES. WILL CONTINUE PLAN OF CARE.
--- NOTE | 2016-05-27 12:09 | NUR ---
PT FAMILY AT BEDSIDE. NO ACUTE DISTRESS NTOED. WILL CONTINUE PLAN OF CAR.E
--- NOTE | 2016-05-27 13:35 | NUR ---
NO ACUTE DISTRESS NOTED. VSS. PT TURNED Q2H. NODS HEAD TO STATE NO DURING COMMUNICATION. WILL CONTINUE PLAN OF CARE.
--- NOTE | 2016-05-27 15:23 | NUR ---
NO ACUTE DISTRESS NOTED AT THIS TIME. NO CHANGE. VSS. WILL CONTINUE PLAN OF CARE.
--- NOTE | 2016-05-27 17:21 | NUR ---
INCONTINENT BOWEL MOVEMENT NOTED AT THIS TIME, SMALL IN SIZE. PT CLEANED UP VIA TOTAL ASSIST X 2 PERSON. NO ACUTE DISTRESS NOTED. WILL CONTINUE PLAN OF CARE.
--- NOTE | 2016-05-27 18:17 | NUR ---
FAMILY AT BEDSIDE. UPDATE GIVEN. NO ACUTE DISTRESS NOTED. WILL CONTINUE PLAN OF CARE.
--- NOTE | 2016-05-27 19:17 | NUR ---
REASSESSMENT COMPELTE PER FLOW SHEET. VSS. REPOSITIOEND ON R SIDE. FMAILY AT BEDSIDE. WILL CONTINUE TO MONITOR.
--- NOTE | 2016-05-27 23:06 | NUR ---
REASSESSMENT COMPLETE PER FLOW SHEET.V SS. NO NEW CHNAGES. WILL CONTINUE TO MONITOR.
[2016-05-28] VITALS (24 sets, daily range): BP systolic 142–182; BP diastolic 51–93
--- NOTE | 2016-05-28 03:35 | NUR ---
REASSESSMENT COMPLETE PER FLOW SHEET. NO NEW CHANGES. VSS WILL CONTINUE TO MONITOR.
[2016-05-28 05:14] LABS: BASOPHILS 0.3 % (0.0-2.0); EOSINOPHILS 3.5 % (0-7); HEMOGLOBIN 11.4 g/dL (13.5-17.5); IMMATURE GRANULOCYTES 0.7 % (0-5); LYMPHOCYTES 20.8 % (15-50); MCH 29.6 pg (26.0-34.0); MCHC 32.6 g/dL (31.0-37.0); MCV 90.9 fL (80.0-100.0); MEAN PLATELET VOLUME 9.4 fL (7.4-10.4); MONOCYTES 6.8 % (2-11); NEUTROPHILS 67.9 % (40-80); PLATELET COUNT 150 10x3/uL (130-400); RBC 3.85 10x6/uL (4.20-6.10); WBC 7.5 10x3/uL (4.8-10.8)
[2016-05-28 05:34] LABS: CALC OSMOLALITY 281 mosm/kg (275-300); CARBON DIOXIDE 31.3 mmol/L (21.0-32.0); CHLORIDE - SERUM 102 mmol/L (98-107); CREATININE - SERUM 0.8 mg/dL (0.6-1.3); GLUCOSE 111 mg/dL (74-106); POTASSIUM - SERUM 4.1 mmol/L (3.5-5.1); SODIUM 137 mmol/L (136-145); UREA NITROGEN 31 mg/dL (7-18); eGFR NON AFRICAN AMERICAN > 90 mL/min (90-120)
--- NOTE | 2016-05-28 07:15 | NUR ---
REPORT RECD PT CARE ASSUMED. PT HAS EYES OPEN BUT DOES NOT RESPOND TO COMMANDS. PT LOCALIZES PAIN AND GRIMMICES TO PAIN. PT HAS TRACH, ON VENTILATOR SIMV MODE. RT AT BEDSIDE PERFORMING ORAL AND TRACH CARE. S1S2 NOTED, SR PER CM. PT HAS MULTIPLE AREAS OF BREAKDOWN TO SKIN, SEE SHIFT ASSESSMENT FOR FURTHER DETAILS. VSS.
--- NOTE | 2016-05-28 09:15 | NUR ---
PT FAMILY AT BEDSIDE, UPDATE PROVIDED. LTACH MENTIONED TO FAMILY MEMEBER AND FAMILY STATES THEY WERE NOT AWARE. PT FAMILY SEEMS AGGITATED AT THIS TIME ABOUT WHERE PT WILL BE PLACED. CASE MANAGMENT CONTACTED REGAURDING SITUATION.
--- NOTE | 2016-05-28 09:17 | NUR ---
Nutrition follow-up: PT with TRACH, vent; sedation off at this time. Pulmocare infusing @ 45 ml/hr Labs reviewed Wt: 184# RDN will increase TF to goal rate of 60 ml/hr to better meet pts estimated nutritional needs. RDN following.
--- NOTE | 2016-05-28 11:00 | NUR ---
NO VISITATION AT THIS TIME. PT REPOSITIONED IN BED. ORAL AND TRACH CARE PROVIDED. VSS.
--- NOTE | 2016-05-28 13:18 | NUR ---
MEDICATIONS ADMINISTERED PER EMAR. PT RESTING QUIETLY IN BED, NO DISTRESS NOTED. VSS.
--- NOTE | 2016-05-28 15:17 | NUR ---
PULMACARE INCREASED PER ORDER. RESIDUALS < 10ML AT THIS TIME.
--- NOTE | 2016-05-28 18:18 | NUR ---
PT FAMILY AT BEDSIDE FOR VISITATION. UPDATE PROVIDED.
--- NOTE | 2016-05-28 19:57 | NUR ---
REPORT RECIEVED. ASSESSMENT COMPLETE PER FLOW HSEET. VSS. REPOSITIONED ON L SIDE. WILL CONTINUE TO MONITOR.
--- NOTE | 2016-05-28 23:07 | NUR ---
FAMILY CALLED GIVEN UPDATE
--- NOTE | 2016-05-28 23:13 | NUR ---
REASSESSMENT COMPLETE PER FLOW SHEET. VSS. NO NEW CHANGES WILL CONTINUE TO MONITOR.
[2016-05-29] VITALS (25 sets, daily range): BP systolic 134–169; BP diastolic 56–94
--- NOTE | 2016-05-29 01:17 | NUR ---
COMPLETE BB LINEN CHANGE ADM. NO NEW CHANGES.
--- NOTE | 2016-05-29 03:40 | NUR ---
REASSESSMENT COMPLETEPER FLOW SHEET. VSS. NO NEW CHANGES WILL CONTINUE TO MONITOR.
[2016-05-29 05:00] LABS: BASOPHILS 0.3 % (0.0-2.0); EOSINOPHILS 3.5 % (0-7); HEMATOCRIT 33.9 % (42.0-54.0); HEMOGLOBIN 10.9 g/dL (13.5-17.5); IMMATURE GRANULOCYTES 0.6 % (0-5); LYMPHOCYTES 17.4 % (15-50); MCH 29.8 pg (26.0-34.0); MCHC 32.2 g/dL (31.0-37.0); MCV 92.6 fL (80.0-100.0); MEAN PLATELET VOLUME 9.5 fL (7.4-10.4); MONOCYTES 7.9 % (2-11); NEUTROPHILS 70.3 % (40-80); PLATELET COUNT 141 10x3/uL (130-400); RBC 3.66 10x6/uL (4.20-6.10); RDW 15.5 % (11.5-14.5); WBC 6.8 10x3/uL (4.8-10.8)
[2016-05-29 05:09] LABS: CALC OSMOLALITY 282 mosm/kg (275-300); CALCIUM 8.9 mg/dL (8.5-10.1); CARBON DIOXIDE 30.7 mmol/L (21.0-32.0); CHLORIDE - SERUM 102 mmol/L (98-107); CREATININE - SERUM 0.7 mg/dL (0.6-1.3); GLUCOSE 117 mg/dL (74-106); POTASSIUM - SERUM 4.2 mmol/L (3.5-5.1); SODIUM 138 mmol/L (136-145); UREA NITROGEN 30 mg/dL (7-18); eGFR NON AFRICAN AMERICAN > 90 mL/min (90-120)
--- NOTE | 2016-05-29 07:15 | NUR ---
REC'D REPORT AND RESUMED CARE, TRACH TO VENT IN CPAP MODE, FIO2 AT 30% SAT 100%, EYES OPEN, SHAKES HEAD TO YES AND NO QUESTIONS, DOES NOT FOLLOW COMMANDS, LEFT FOREARM PIV DRESSING CAHNGE COMPLETED, ASSESSMENT COMPLETE PER FLOWSHEET, VSS, REPOSITIONED TO RIGHT SIDE WITH PILLOW PROPPED TO BACK AND HEELS FLOATED
--- NOTE | 2016-05-29 08:17 | EC ---
PATIENT:JORGE PARK DATE OF SERVICE: 05/14/16 SEX: M MEDICAL RECORD: [id number] DATE OF : 40 [place] [place] AGE OF PATIENT: 76 ADMISSION DATE: 05/14/16 REFERRING PHYSICIAN: INTERPRETING PHYSICIAN: LEVI TEMPLE M.D. ECHOCARDIOGRAM REPORT ECHO CHARGES 4 ECHO COMPLETE CLINICAL DIAGNOSIS: BRADYCARDIA ECHOCARDIOGRAPHIC MEASUREMENTS (adult normal given) AC root (d.<3.7cm) 3.2 LV Septum d (<1.2 cm> 1.4 Valve Excursion 2.0 LV Septum (systole) 2.1 Left Atria (s.<4.0cm> 3.3 LVPW d(<1.2cm) 1.3 RV (d.<2.3cm) 2.5 LVPW (sytole) 2.4 LV diastole(<5.6CM) 5.3 MV E-F(>70mm/sec) LV systole 2.3 LVOT Diameter 1.8 MV exc.(>10mm) Est.ejection fraction (50-75%) Pericardial Effusion N DOPPLER: LVIT A 125 E 94.0 LA RVSP 52.2 LVOT 124 AOP1/2T Asc. Ao 143 RVOT 65.0 RA PA 91.0 AV Gradient Peak 8.2 AV Mean 4.4 AV Area 1.9 MV Gradient Peak 8.1 MV Mean 2.3 MV Area COMMENTS: Manager Software Development: Shanel SARMIENTOOE Gold Charmer:Jenniffer Temple TAPE# PACS DATE OF SERVICE: 05/16/2016 REFERRING PHYSICIAN: Henry Pruett MD. INDICATION: Bradycardia. DESCRIPTION: Left ventricle demonstrates left ventricular hypertrophy. No regional wall motion abnormalities are noted. Estimated ejection fraction is 55%. Mitral valve is structurally normal. There is trivial regurgitation seen. Left atrium is normal size. The aortic valve is trileaflet. There is no ECHOCARDIOGRAM REPORT [id number] JORGE PARK stenosis or regurgitation seen. Right ventricle is mildly dilated. Tricuspid valve shows normal. There is mild regurgitation seen. Right ventricular systolic pressure is elevated at 52 mmHg. There is no pericardial effusion noted. IMPRESSION: 1. Left ventricular hypertrophy with preserved ejection fraction of 55%. 2. Mild tricuspid regurgitation with elevated pulmonary pressures. TRANSINT:[id number] Voice Confirmation ID: [id number] DOCUMENT ID: [id number] LEVI TEMPLE M.D. at 0817 CC: [id number] DICTATION DATE: 05/16/16 1633 HIGHBALLER: 05/17/16 0538 ADM IN [facility] [address] [id number]
--- NOTE | 2016-05-29 09:56 | NUR ---
DR GONZALEZ AT BEDSIDE, SPOKE WITH DAUGHTER, NO NEW ORDERS AT THIS TIME
--- NOTE | 2016-05-29 11:00 | NUR ---
NO ACUTE CHANGE FROM PREVIOUS ASSESSMENT, VSS REPOSITIONED TO BACK WITH HEELS FLOATED, ORAL CARE WITH TOOTHETTES, GRIMACES WITH MOVEMENT, SHAKES HEAD NO WHEN ASKED IF HAVING PAIN
--- NOTE | 2016-05-29 12:10 | NUR ---
FAMILY AT BEDSIDE, STATUS UPDATE, VOICES NO NEEDS A THIS TIME
--- NOTE | 2016-05-29 13:25 | NUR ---
CHANGED TO C COLLAR BY RT, @ 36%, RESTING WITH NO SIGNS OF DISTRESS, SAT 98%
--- NOTE | 2016-05-29 14:20 | NUR ---
ORAL CARE WITH TOOTHETTES, LIP MOISTURIZER APPLIED, FOELY CARE WITH PPROVON SURE STEP SIDDIQI CARE WIPES USED PER PROTOCAL,
--- NOTE | 2016-05-29 15:00 | NUR ---
RESTING WITH EYES OPEN, SHAKES HEAD TO YES AND NO QUESTIONS, DOES NOT FOLLOW COMMANDS, VSS, REPOSITIONED UP AND TO BACK WITH HEELS FLOATED
--- NOTE | 2016-05-29 16:12 | NUR ---
I WAS CONTACTED BY ALONDRA AT [facility] TODAY. SHE SAID THAT SHE GOT APPROVAL FROM [facility] FOR PATIENT TO GO TO LTAC. I ASKED HER TO CONTACT PATIENT'S DAUGHTER AND LET HER KNOW AND FIND OUT IF SHE HAS GOTTEN POA PAPERWORK. ALONDRA CALLED ME BACK TO LET ME KNOW THAT SHE SPOKE WITH MANUEL, PATIENT'S DAUGHTER, AND SHE WAS RUDE TO HER AND SAID THAT THEY WOULD NOT SEND HIM TO LTAC BECAUSE THEY WOULD HAVE TO PAY A COPAY AND WHY DO THAT WHEN [facility] WILL PA[facility]. I CONTACTED THE [facility] EXPEDITOR, DANIELLE. SHE STATES THAT THEY DO NOT HAVE LTAC AND PATIENT WOULD HAVE TO GO TO AN [place]AC [place] AND [facility] WILL NOT PA[facility]. THEY WOULD DO THE SAME IF HE WERE IN THE [facility]. SHE ALSO TOLD ME THAT WHEN IT IS NO LONGER MEDICALLY NECESSARY FOR HIM TO BE IN ACUTE CARE THAT THE [facility] WOULD NO LONGER PAY. I ASKED HER WHO THE PATIENT'S FAMILY COULD TALK TO SO THEY WOULD UNDERSTAND AND SHE SAID TO HAVE THEY CALL HIS PRIMARY CARE PHYSICIAN AT THE [facility] AND SPEAK WITH THE AUDIO DIRECTOR THERE. I CONTACTED, MANUEL, PATIENT'S DAUGHTER TO LET HER KNOW THAT [facility] DOES NOT HAVE LTAC AND THAT ONCE IT IS DETERMINED HE NEEDS LTAC THEY WILL NO LONGER PAY. SHE WAS VERY RUDE AND SAID THAT WE COULD NOT SEND THEY PATIENT ANYWHERE WITHOUT THEM SIGNING AND THEY WOULD NOT. SHE TOLD ME THAT WHEN HE CAME IN THEY WERE TOLD HE WOULD BE ABLE TO STAY AT [facility] AND THE [facility] WOULD PAY UNTIL HE COULD GO SOMEWHERE ELSE. I AGAIN EXPLAINED TO HER THAT HE NEEDS LTAC NOT ACUTE CARE. SHE IS ARGUMENTATIVE AND WILL NOT LISTEN. I SUGGESTED SHE CALL THE [facility] AND SPEAK WITH THE AUDIO DIRECTOR THERE. SHE DEMANDED I GIVE HER THE VA AUDIO DIRECTOR'S PHONE NUMBER. I TOLD HER I DID NOT HAVE IT. SHE LAUGHED AT ME AND SAID, " WELL I GUESS YOU DON'T KNOW ANYTHING AND I AM HANGING UP NOW. YOU HAVE A GOOD EVENING."
--- NOTE | 2016-05-29 16:15 | NUR ---
RT AT BEDSIDE, TRACH CARE COMPLETED WITHOUT DIFFICULTY
--- NOTE | 2016-05-29 18:00 | NUR ---
NO VISITORS AT THIS TIME, AWAKE AND GRIMACING, SHAKES HEAD NO TO PAIN, REPOSITIONED UP AND TO BACK WITH HEELS FLOATED, VSS, CONTINUES ON TRACH COLLAR AT 36%, SAT 100%,
--- NOTE | 2016-05-29 19:32 | NUR ---
REPORT RECIEVED. ASSESSMENT COMPLETE PER FLOW SHEET. VSS. NO NEW CHANGES. WILL CONTINUE TO MONITOR.
--- NOTE | 2016-05-29 21:20 | NUR ---
FAMILY AT BEDSIDE. QUESTIONS REGAURDING LTACH PLACEMENT, PT FAMILY STATES THAT THYE WERE IMFORMED THAT THE PT'S INSURANCE WOULD NOT COVER LTACH PLACEMENT FULLY, PT FAMILY WOULD HAVE TO PAY 4500$ UPFRONT WITH A 365$ COPAY FOR EVERY DAY SPENT THERE AND THAT THIS WAS NOT FEASABLE FOR THEM. STATES THEY WERE UNAWARE THAT THEY NEEDED TO SIGN TODAY FOR HIM TO TRANSFER HIM OVER. I STATED I WOULD INFORM [facility] CASE MANAGEMENT OF THIS AND WOULD HOPEFULLY FIND ANOTHER OPTION FOR THEM AND THE PT. NO NEW FINDINGS AT THIS TIME. VSS. PT DENIES PAIN OR NEEDS.
--- NOTE | 2016-05-29 23:17 | NUR ---
REASSESSMENT COMPLETE PER FLOW SHEET. VSS NO NEW CHANGES. WILL CONTINUE TO MONITOR.
[2016-05-30] VITALS (23 sets, daily range): BP systolic 139–176; BP diastolic 59–109
--- NOTE | 2016-05-30 00:33 | NUR ---
RESP AT BEDSIDE. NO NEW CHANGES. VSS. WILL CONTINUE TO MONITOR.
--- NOTE | 2016-05-30 07:45 | NUR ---
PT POSITIONED ON LEFT SIDE. REPOSITIONED TO RIGHT SIDE, PILLOW PLACED UP UNDER LEFT HIP. PT KEEPING ARMS DRAWN UP CLOSE TO CHEST. RIGID, AND WILL NOT RELAX. RIGHT ARM REPOSITIONED FROM IRREGULAR ROTATED POSITION OF TOP OF HAND TO PILLOW/MATTRESS SURFACE. ATTEMPTED TO REPOSITION ARM TO MORE NATURAL POSITION AND PLACE PILLOW FOR SUPPORT. PT ROTATES BACK INTO PRIOR POSITION. HEELS BRIDGED.
--- NOTE | 2016-05-30 09:26 | NUR ---
NUTRITION MONITORING & EVAL CHART REVIEWED, PULMOCARE @ 55 CC/HR. TO INCREASE TO GOAL RATE 60 CC/HR. RD FOLLOWING
--- NOTE | 2016-05-30 10:40 | NUR ---
PT RESTING, NO DISTRESS NOTED. O2 BY TRACH COLLAR AT 36%.
--- NOTE | 2016-05-30 10:55 | NUR ---
PATIENT IS NOW ON TRACH COLLAR. ACCORDING TO MATTEO, PATIENT'S NURSE ON NIGHTS, PATIENT'S [facility] THE HIGH COPAY THEY ARE NOT ABLE TO PAY. SHE STATES SHE HAS SPOKEN WITH PATIENT'S DAUGHTER, MANUEL, AND SHE FEELS THEY WANT THE PATIENT TO GO BACK TO THE [facility]. I TELEPHONED MANUEL, AND SHE HAS QUESTIONS ABOUT HER FATHER GOING TO ACUTE REHAB. I EXPLAINED TO HER THAT HE HAS NOT BEEN ABLE TO HAVE PT AND HE WOULD NEED TO BE ABLE TO TOLERATE 3 HOURS OF THERAPY IN ORDER TO GO TO AN ACUTE REHAB. I ASKED IF SHE WOULD BE AGREEABLE WITH ME SENDING HIS INFORMATION TO THE [facility] FOR EVALUATION. SHE IS CONCERNED ABOUT THEM MEETING HIS NEEDS. I EXPLAINED TO HER THAT IS WHY WE SEND THE CLINICAL INFORMATION TO THEM SO THEY CAN DETERMINE IF THEY CAN MEET HIS NEEDS. SHE IS AGREEABLE FOR ME TO SEND THE INFORMATION AND SHE IS AWARE THEY WILL HAVE TO GET PREAUTHORIZATION FROM [facility] AND THAT IT COULD TAKE UP TO 48 HOURS. SHE ASKED THAT I CONTACT HER WHEN I HEAR BACK FROM THE [facility] AND SHE WILL LET ME KNOW AT THAT TIME IF SHE WILL LET HIM GO THERE. CM TO FOLLOW.
--- NOTE | 2016-05-30 11:23 | NUR ---
PT HAS BEEN REPOSITIONED TO LEFT SIDE. HAD SMALL AMOUNT OF STICKY STOOL IN BETWEEN CHEEKS. BRIAN-CARE PROVIDED.
--- NOTE | 2016-05-30 12:51 | NUR ---
DAUGHTER MANUEL AT BEDSIDE. SAYS PAPERWORK HAS BEEN DROPPED OFF AT THE SLOT HOST'S OFFICE TO BE PUT BEFORE THE SKINNER PELTS REGARDING GUARDIANSHIP. SHE SAYS SHE IS GOING OUT OF TOWN AND WILL NOT RETURN UNTIL SATURDAY, HOWEVER SISTER NEHEMIAH WILL BE COMING TO SEE PT WHILE SHE IS GONE.
--- NOTE | 2016-05-30 13:27 | NUR ---
I SENT THE INFORMATION TO NEHEMIAH AT THE [facility]. 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 HE WOULD HAVE TO BE IN ISOLATION BUT THE [facility] DOES NOT HAVE A ISOLATION BED. NEHEMIAH STATES THAT THEY ARE WILLING TO TRY TO HELP US PLACE THE PATIENT. SHE STATES SHE KNOWS THIS FAMILY PERSONALLY AND SHE WILL CALL [facility] TO SPEAK WITH HER ABOUT ANY OTHER POSSIBLE PLACES FOR THE PATIENT TO GO TO. NEHEMIAH WILL LET ME KNOW AFTER SHE IS ABLE TO SPEAK WITH FAMILY. CM TO FOLLOW.
--- NOTE | 2016-05-30 15:25 | NUR ---
SPOKE TO DR PATRICIA ABOUT DOCUMENTATION OF MRSA ON 05/17/16 REPORT. HIS NOTE WAS TO INDICATE WHY HE PLANNED TO START ANTIBIOTIC TREATMENT ON PT, BECAUSE PT HAD JUST COME FROM ANOTHER HOSPITAL AND NURSING CARE FACILITY AND IMAGES INDICATED PNEUMONIA. PT TO BE TREATED FOR SUSPECTED HOSPITAL ACQUIRED PNEUMONIA, MRSA, OR GRAM NEGATIVE RODS UNTIL RESULTS FROM CULTURES TAKEN PREVIOUS DAY CAME BACK. SUBSEQUENT BRONCHOSCOPIES (X2) HAVE NOT GROW OUT ANYTHING.
--- NOTE | 2016-05-30 20:24 | NUR ---
REPORT RECIEVED. ASSESSMENT COMPLETE PER FLOW SHEET. VSS NO NEW CHANGES. RESTING COMFORTABLY. WILL CONTINUE TO MONITOR.
--- NOTE | 2016-05-30 21:21 | NUR ---
FAMILY AT BEDSIDE. GIVEN UPDATE.
--- NOTE | 2016-05-30 23:28 | NUR ---
REASSESSMENT COMELPTE PER FLOW SHEET. NO NEW CHANGES
[2016-05-31] VITALS (17 sets, daily range): BP systolic 146–170; BP diastolic 60–98
--- NOTE | 2016-05-31 01:28 | NUR ---
COMPLETE BB LINEN CHANGE ADM. SMALL BM NOTED NO FURTHER NEW CHANGES
--- NOTE | 2016-05-31 03:17 | NUR ---
REASSESSMENT COMPELTE PER FLOW SHEET. NO NEW CHANGES XRAY AT BEDSIDE.
--- NOTE | 2016-05-31 04:18 | NUR ---
ENDOTRACH SUCTION ADM. STRONG COUGH PRESENT.
[2016-05-31 05:16] LABS: BASOPHILS 0.3 % (0.0-2.0); EOSINOPHILS 4.4 % (0-7); HEMATOCRIT 36.3 % (42.0-54.0); HEMOGLOBIN 11.7 g/dL (13.5-17.5); IMMATURE GRANULOCYTES 0.7 % (0-5); LYMPHOCYTES 19.5 % (15-50); MCH 30.1 pg (26.0-34.0); MCHC 32.2 g/dL (31.0-37.0); MCV 93.3 fL (80.0-100.0); MEAN PLATELET VOLUME 9.9 fL (7.4-10.4); MONOCYTES 6.8 % (2-11); NEUTROPHILS 68.3 % (40-80); RBC 3.89 10x6/uL (4.20-6.10); RDW 15.4 % (11.5-14.5); WBC 7.7 10x3/uL (4.8-10.8)
--- NOTE | 2016-05-31 05:20 | NUR ---
VSS NO NEW CHANGES. REPOSITIONED FOR COMFORT. WILL CONTINUE TO MONITOR.
[2016-05-31 05:23] LABS: PLATELET COUNT 170 10x3/uL (130-400)
[2016-05-31 05:32] LABS: CALC OSMOLALITY 286 mosm/kg (275-300); CALCIUM 8.8 mg/dL (8.5-10.1); CARBON DIOXIDE 33.1 mmol/L (21.0-32.0); CHLORIDE - SERUM 102 mmol/L (98-107); CREATININE - SERUM 0.6 mg/dL (0.6-1.3); GLUCOSE 154 mg/dL (74-106); POTASSIUM - SERUM 3.8 mmol/L (3.5-5.1); SODIUM 139 mmol/L (136-145); UREA NITROGEN 29 mg/dL (7-18); eGFR NON AFRICAN AMERICAN > 90 mL/min (90-120)
--- NOTE | 2016-05-31 06:21 | NUR ---
FAMILY AT BEDSIDE
--- NOTE | 2016-05-31 07:00 | NUR ---
Received report and assumed care of patient. Patient currently awake, alert. Follows commands, denies pain. Pt repositioned for comfort. Patient has multiple pressure ulcers over body area. Peg tube with pulmocare @ 60cc/hr infusing. Shabazz cath draining alejandro urine. SCDS in place.
--- NOTE | 2016-05-31 09:00 | NUR ---
Patients daughter Patience in room, update given. Pt repositioned.
--- NOTE | 2016-05-31 09:13 | NUR ---
I HAVE FAXED UPDATED INFORMATION REGARDING MRSA CONCERNS FROM DR. PATRICIA. PATIENT IS BEING RECONSIDERED AT THIS TIME. WILL AWAIT DECISION.
--- NOTE | 2016-05-31 09:30 | NUR ---
Patients right hand elevated on pillow, hand is edematous. Patient denies pain.
--- NOTE | 2016-05-31 12:00 | NUR ---
Patients family in room to see patient. POC discussed, pt repositioned. Right hand edema better.
--- NOTE | 2016-05-31 12:43 | NUR ---
I RECEIVED A CALL BACK FROM NEHEMIAH AT THE [facility]. SHE STATES THEY ARE NOT ABLE TO ACCEPT PATIENT BECAUSE THEY ARE NOT ABLE TO CLINICALLY MEET HIS NEEDS. SHE STATES THAT WE MIGHT TRY [facility], [facility] AND THE [facility] IN [place].
--- NOTE | 2016-05-31 15:20 | NUR ---
Patients family in room, update given, pt repositioned. Shabazz cath emptied, pumps cleared. Patient suctioned per RT, Suzette.
--- NOTE | 2016-05-31 17:15 | NUR ---
Patient repositioned to prmotoe skin integrity. Pt tolerated well.
--- NOTE | 2016-05-31 19:15 | NUR ---
ASSESSMENT COMPLETE PER FLOWSHEET, SEE FOR DETAILS, PATIENT ON TRACH WITH TRACH COLLAR, SATS 95-98%. TRACH CARE DONE AT THIS TIME. CRACKLES HEARD WITH LUNG SOUNDS. S1S2. PEG TUBE RUNNING PULMACARE @ GOAL RATE OF 65/HR. RESIDUALS LESS THAN 10MLS. SIDDIQI DRAINING TO GRAVITY WITH BOB COLORED URINE SEEN. PERIPHERAL PULSES PALPABLE. PIV IN LEFT ARM, SITE C/D/I, SEE IV FLOWSHEET FOR DRIPS. MULTIPLE SKIN INTEGRITY ISSUES, SEE SKIN ASSESSMENT FOR DETAILS. VSS, WILL MONITOR.
--- NOTE | 2016-05-31 21:00 | NUR ---
FAMILY AT BEDSIDE. UPDATE GIVEN. PATIENT REPOSITIONED FOR COMFORT.
--- NOTE | 2016-05-31 23:00 | NUR ---
REASSESSMENT COMPLETE. NO ACUTE CHAGNES. ORAL CARE DONE AT THIS TIME. PATIENT REPOSISTIONED. VSS, WILL MONITOR.
[2016-06-01] VITALS (39 sets, daily range): BP systolic 69–149; BP diastolic 34–80
--- NOTE | 2016-06-01 01:05 | NUR ---
PATIENT RESTING IN BED COMFORTABLY, VSS.
--- NOTE | 2016-06-01 03:05 | NUR ---
REASSESSMENT COMPLETE, NO CHANGES AT THIS TIME. BREATHING NON-LABORED, ORAL CARE DONE AT THIS TIME. PATIENT HAD BROWN COLORED SPUTUM, CULTURE SENT TO LAB. VSS, WILL MONITOR.
[2016-06-01 05:31] LABS: BASOPHILS 0.1 % (0.0-2.0); EOSINOPHILS 0.1 % (0-7); HEMATOCRIT 33.4 % (42.0-54.0); HEMOGLOBIN 10.8 g/dL (13.5-17.5); IMMATURE GRANULOCYTES 0.3 % (0-5); LYMPHOCYTES 6.1 % (15-50); MCH 29.8 pg (26.0-34.0); MCHC 32.3 g/dL (31.0-37.0); MCV 92.3 fL (80.0-100.0); MEAN PLATELET VOLUME 9.7 fL (7.4-10.4); MONOCYTES 4.7 % (2-11); NEUTROPHILS 88.7 % (40-80); PLATELET COUNT 159 10x3/uL (130-400); RBC 3.62 10x6/uL (4.20-6.10); RDW 15.3 % (11.5-14.5)
[2016-06-01 06:03] LABS: ALBUMIN 2.3 g/dL (3.4-5.0); ALKALINE PHOSPHATASE 79 U/L (46-116); ALT (SGPT) 45 U/L (10-68); CALC OSMOLALITY 282 mosm/kg (275-300); CALCIUM 8.6 mg/dL (8.5-10.1); CARBON DIOXIDE 28.2 mmol/L (21.0-32.0); CHLORIDE - SERUM 100 mmol/L (98-107); CREATININE - SERUM 0.8 mg/dL (0.6-1.3); GLUCOSE 172 mg/dL (74-106); POTASSIUM - SERUM 4.2 mmol/L (3.5-5.1); PROTEIN - SERUM 5.7 g/dL (6.4-8.2); SODIUM 135 mmol/L (136-145); UREA NITROGEN 38 mg/dL (7-18); eGFR NON AFRICAN AMERICAN > 90 mL/min (90-120)
--- NOTE | 2016-06-01 06:20 | NUR ---
DR CUMMINS CONSULTED, TALKED TO PIN INSERTER REGULATOR. TOLD ABOUT ONSET OF MORE BROWN SPUTUM NOTICED THAT REQUIRED MORE FREQUENT SUCTION, ORDERS GIVEN FOR KUB AND XRAY.
--- NOTE | 2016-06-01 07:00 | NUR ---
PATIENT HAVING INCREASING DYSPNEA, RESPIRATORY AND DAY SHIFT AT BEDSIDE. ORAL CARE PERFORMED.
--- NOTE | 2016-06-01 07:15 | NUR ---
REC'D REPORT AND RESUMED CARE, DYSPNEA NOTED, FLUSHED IN COLOR, BROWNISH BLACK SECRETIONS/EMESIS, ORAL CARE AND SUCTION COMPLETED, PAGED DR. PATRICIA RE: PO2 RESULTS OF 45.5,ASSESSMENT COMPLETE PER FLOWSHEET, VSS AT THIS TIME, REPOSITIONED TO BACK WITH HEELS FLOATED
--- NOTE | 2016-06-01 08:15 | NUR ---
KUB AND CHEST COMPLETED FOR BELLY DISTENTION
--- NOTE | 2016-06-01 09:00 | NUR ---
FAMILY AT BEDSIDE, STATUS UPDATED, VOICES CONCERN THAT THIS IS SUCH A BIG CHANGE, DISCUSSED VSS, LAB RESULTS AND ABG'S, AND TESTING BE DONE, AWAITING TO SPEAK WITH MD, NO OTHER NEEDS AT THIS TIME
--- NOTE | 2016-06-01 09:55 | NUR ---
CONSENT OBTAINED FOR BRONCOSCOPY TO BE COMPLETED BY DR. PATRICIA, VERIFIED BY SHAWN QUICK RN, 1000 BRONCH COMPLETED AND SAMPLE TAKEN TO LAB
--- NOTE | 2016-06-01 11:00 | NUR ---
CONTINUES TO HAVE BROWNISH/BLACK SECRETIONS/EMESIS FROM MOUTH, ORAL CARE AND SUCTION COMPLETED, NO OTHER ACUTE CHANGES FROM PREVIOUS ASSESSMENT, VSS,
--- NOTE | 2016-06-01 13:49 | OP ---
PATIENT NAME: JORGE JONES MEDICAL RECORD: [id number] :40 LOCATION:[facility] D.2301 ADMISSION DATE:05/14/16 SURGEON: MICHELE PATRICIA MD DATE OF OPERATION: 06/01/2016 PROCEDURE: Fiberoptic bronchoscopy. INDICATION: Mr. Jones is a 76-year-old gentleman who was doing well yesterday and early this morning, the patient became more dyspneic, increasing oxygen requirement and respiratory distress. The patient was connected to the ventilator again. The repeat chest radiograph was worse in the left lower lobe. Fiberoptic bronchoscopy was carried out to inspect the airway as well as to obtain specimen for culture and sensitivity and their questionable ____. PROCEDURE: After signing the consent form. Conscious sedation was given using propofol. The bronchoscope was passed through the tracheostomy tube. There was thick yellowish pus brownish secretion bilaterally. There were severe bronchitic changes, especially in the right lower lobe. No endobronchial lesion was seen. Washing was obtained bilaterally and sent for routine culture and sensitivity, AFB and fungus and cytology. Overall, the patient tolerated the procedure very well. TRANSINT:[id number] Voice Confirmation ID: [id number] DOCUMENT ID: [id number] MICHELE PATRICIA MD at 1349 CC: [id number] DICTATION DATE: 06/01/16 1020 DEFENSIVE LINE COACH: 06/01/16 1237 ADM IN [id number] [place] [address]
--- NOTE | 2016-06-01 13:49 | OP ---
PATIENT NAME: JORGE JONES MEDICAL RECORD: [id number] :40 LOCATION:[facility] D.2301 ADMISSION DATE:05/14/16 SURGEON: MICHELE PATRICIA MD DATE OF OPERATION: 05/20/2016 PROCEDURE NOTE: Fiberoptic bronchoscopy. INDICATION: Mr. Jones is a 76-year-old gentleman, who is on mechanical ventilation this morning. Chest radiograph showed worsening lower lobe infiltrate. The fiberoptic bronchoscopy was carried out to inspect the airway to remove any mucous plugging and obtain specimen for culture and sensitivity. PROCEDURE IN DETAIL: After passing the bronchoscope through the tracheostomy tube, there was a white yellowish secretion on the right side, but the lumen were patent, no endobronchial lesion was seen. The left main bronchus was almost full of white yellowish secretion. The mucus plug was removed totally occluding the left bronchus intermedius. No endobronchial lesion was seen. There were some bronchitic changes. The specimen washing was obtained and sent for routine culture and sensitivity, AFB and fungus and cytology. TRANSINT:[id number] Voice Confirmation ID: [id number] DOCUMENT ID: [id number] MICHELE PATRICIA MD at 1349 CC: [id number] DICTATION DATE: 05/20/16 1307 CHANNEL PROCESS SUPERVISOR: 05/20/16 1931 ADM IN [facility] [address] [place] [address]
--- NOTE | 2016-06-01 13:49 | CN ---
PATIENT NAME:JORGE PARK MEDICAL RECORD: [id number] : 40 LOCATION:[facility].2301 ADMIT DATE: 05/14/16 ACCOUNT: [id number] CONSULTING PHYSICIAN: MICHELE PATRICIA MD REFERRING PHYSICIAN: MIQUEL BRANNON MD DATE OF CONSULTATION: 05/15/2016 Consult Note CONSULT REQUESTING PHYSICIAN: Dr. Adan Cuba. REASON FOR CONSULTATION: Status post tracheostomy, questionable pneumonia, bradycardia and respiratory arrest. HISTORY OF PRESENT ILLNESS: Mr. Park is a 76-year-old gentleman, who has unfortunately very complicated history. The patient has a triple A repair at [facility]. 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 The patient was brought into the ER yesterday. The patient was bradycardiac. While they was suctioning, the patient had brief respiratory arrest. The chest compression was done and the patient was recovered. He was also getting bradycardic in lower 40s and the patient require a few injection of atropine. Not much record is available, the history was mainly taken by talking to the ER doctor as well as reviewing the patient's note and discussing with Dr. Cuba. REVIEW OF SYSTEMS: Mainly in the history of present illness. PAST MEDICAL HISTORY: Hypertension. PAST SURGICAL HISTORY: He is status post triple A repair. ALLERGIES: HE IS ALLERGIC TO HYDRALAZINE, HYDROCHLOROTHIAZIDE AND RESERPINE. PERSONAL AND SOCIAL HISTORY: The details not obtainable. FAMILY HISTORY: Unknown. PHYSICAL EXAMINATION: GENERAL: Now, the patient is on trach collar. He is not in acute respiratory distress. VITAL SIGNS: The blood pressure is 99-102/60, pulse is 55, respirations 21, temperature 98.8, SpO2 is 98% on 35% trach collar. HEENT: Conjunctivae are pink. Sclerae nonicteric. NECK: Supple, no JVD. CHEST: There are bibasilar crackles. No wheezing. HEART: Rhythm regular, normal sound, no murmur. ABDOMEN: Soft, bowel sounds present. No hepatosplenomegaly. RECTAL: Deferred. EXTREMITIES: No cyanosis, no clubbing, no pedal edema. SKIN: Warm, normal turgor. SKIN: There is a gangrene of the right finger. CENTRAL NERVOUS SYSTEM: The patient is paraplegic. He has paralysis at the right side. He has a left upper extremity. He follow command and he has a power of 4/5. CONSULT REPORT [id number] JORGE PARK IMAGING: Chest radiograph, there are increased interstitial marking, possible left retrocardiac infiltrate. LABORATORY DATA: CBC: The WBC is 7.4, hemoglobin is 9.5, hematocrit 31, and platelet count is 178. Chemistry: Sodium is 147, potassium is 4.3, BUN is 51, creatinine 1.2. On arrival, his BUN was 82, creatinine of 4.1. IMPRESSION: 1. Dursc-dz-tfojvzs respiratory failure. 2. Status post pulmonary arrest. 3. Bradycardia. 4. Status post tracheostomy. 5. Pneumonia, most likely hospital-acquired pneumonia with recent hospitalization and [facility] resident. 6. Status post left cerebrovascular accident. 7. Status post quadriplegia and spinal infarct. 8. Gangrene of the right finger, secondary to ischemia. 9. Acute renal failure, most likely secondary to dehydration, improved by IV fluid. 10. Hypernatremia, most likely secondary to fluid resuscitation and dehydration. RECOMMENDATION: 1. We will continue IV fluid D5 half normal saline at 50 cc an hour. 2. Cover for hospital-acquired pneumonia MRSA and GNR. Start on broad-spectrum antibiotic. 3. Albuterol/ipratropium nebulizer. 4. Followup chest radiograph. 5. Check sputum culture and sensitivity. Dr. Cuba, once again thanks for involving me in the care of Mr. Park. The critical care time is 45 minutes. TRANSINT:[id number] Voice Confirmation ID: [id number] DOCUMENT ID: [id number] MICHELE PATRICIA MD at 1349 CC: ADAN CUBA MD [id number] DICTATION DATE: 05/15/16 0903 ENVIRONMENTAL GEOLOGIST: 05/15/16 1003 ADM IN [place] [id number] [place] [address]
--- NOTE | 2016-06-01 14:15 | NUR ---
SBP 76, LEVAPHED INITIATED AT 5MCG
--- NOTE | 2016-06-01 14:30 | NUR ---
TO RADIOLOAGY FOR ABDOMINAL/PELVIC CT VIA BED WITH PORTABLE VENT AND PERSONNEL X 3
--- NOTE | 2016-06-01 15:10 | NUR ---
BACK FROM CT, BP 85/43, LEVAPEHD TIRATED TO 8 MCG, INCONTINENT OF LARGE STOOL, SKIN CARE AND LINEN CHANGE COMPLETED, RPOEITIONED TO RIGHT SIDE WITH PILLOW PROPPED TO BACK AND HEELS FLOATED,
--- NOTE | 2016-06-01 15:40 | NUR ---
FAMILY TO BEDSIDE FOR VISIT, STATUS UPDATED, AWAITING TEST RESULTS OF SCANS TODAY
--- NOTE | 2016-06-01 17:10 | NUR ---
DR. KAY HERE FOR EVAL, NEW ORDERS GIVEN
--- NOTE | 2016-06-01 17:30 | NUR ---
INCONTINENT OF LARGE STOOL, SKINCARE AND LINEN CHANGE COMPLETED, REPSITIONED UP IN BED TO BACK WITH HEELS FLOATED
--- NOTE | 2016-06-01 17:45 | NUR ---
SIDDIQI CATHETER CHANGED PER ORDER AND PROTOCAL, UNABLE TO OBTAIN SAMPLE AT THIS TIME FOR CULTURE PROCEDURE TOLERATED WITHOUT DIFFICULTY
--- NOTE | 2016-06-01 18:05 | NUR ---
LARGE SOFT STOOL TO BRIAN PAD, CONITNUES TO GO WITH TURNS, SKINCARE AND LINEN CHANGE COMPLETED
--- NOTE | 2016-06-01 19:10 | NUR ---
1910- SHIFT ASSESSMENT COMPLETE PER FLOWSHEET, SEE FOR DETAILS. PATIENT AROUSES TO PAINFUL STIMULI SUCH SUCTION OR TURNING, WILL OPEN EYES. PATIENT ON VENT AND SEDATED WITH PROPOFOL-SEE IV DRIPS AND VENT SETTINGS PER FLOWSHEET. LEVOPHED ON FOR BP SUPPORT, TITRATED UP AT THIS TIME. CRACKLES HEARD WITH LUNG SOUNDS, S1S2 NOTED WITH SINUS TACH ON MONITOR OF 110. SIDDIQI IN PLACE DRAINING SMALL AMOUNTS OF BOB COLORED URINE. PERIPHERAL PULSES PALPABLE, PEDAL PULSES WEAK. PEG TUBE DRAINNG TO GRAVITY WITH BILE COLORED DRAINAGE IN CANISTER. SEE SKIN ASSESSMENT FOR SKIN INTEGRITY ISSUES. ALL DRESSINGS C/D/I. FAMILY AT BEDSIDE, UPDATE GIVEN, PATIENT REPOSISTIONED. 2099- VSS, PATIENT REPOSISTIONED FOR COMFORT. 0- REASSESSMENT COMPLETE, NO ACUTE CHANGES. DRAINAGE FROM PEG TUBE STARTING TO DECREASE. LUNGS SOUND MORE CLEAR, BUT CRACKLES STILL HEARD. PATIENT REPOSISTIONED, GRIMACES WITH MOVEMENT. ORAL CARE GIVEN. 0115- PATIENT HAD LARGE STICKY DIARRHEA. PATIENT CLEANED UP, BED BATH GIVEN, COMPLETE LINEN CHANGE. ORAL CARE DONE. POSISTIONED FOR COMFORT. TOLERATED WELL, VSS. 0200- URINE CULTURE SENT TO LAB. 0300- REASSESSMENT COMPLETE, NO ACUTE CHANGES, SEE REASSESSMENT FLOWSHEET FOR DETAILS. 0515- PATIENT RESTING COMFORTABLY IN BED, VSS, WILL MONITOR.
[2016-06-02] VITALS (91 sets, daily range): BP systolic 73–124; BP diastolic 23–66
[2016-06-02 07:41] LABS: BASOPHILS 0.3 % (0.0-2.0); EOSINOPHILS 0 % (0-7); HEMATOCRIT 28.3 % (42.0-54.0); HEMOGLOBIN 9.3 g/dL (13.5-17.5); LYMPHOCYTES 24.4 % (15-50); MCH 30.5 pg (26.0-34.0); MCHC 32.9 g/dL (31.0-37.0); MCV 92.8 fL (80.0-100.0); MEAN PLATELET VOLUME 9.7 fL (7.4-10.4); NEUTROPHILS 64.3 % (40-80); PLATELET COUNT 162 10x3/uL (130-400); RBC 3.05 10x6/uL (4.20-6.10); RDW 16.6 % (11.5-14.5)
[2016-06-02 08:02] LABS: ALBUMIN 1.8 g/dL (3.4-5.0); BILIRUBIN - TOTAL 1.38 mg/dL (0.2-1.3); MAGNESIUM - SERUM 1.9 mg/dL (1.8-2.4); POTASSIUM - SERUM 4.4 mmol/L (3.5-5.1); PROTEIN - SERUM 5.2 g/dL (6.4-8.2)
[2016-06-02 08:08] LABS: CARBON DIOXIDE 20.4 mmol/L (21.0-32.0); CREATININE - SERUM 1.6 mg/dL (0.6-1.3)
--- NOTE | 2016-06-02 19:00 | NUR ---
1900- REPORT RECEIVED AND CARE RESUMED. SHIFT ASSESSMENT COMPLETE PER FLOWSHEET. VSS ARE STABLE, PATIENT ON PRESSORS FOR BP SUPPORT, SEE IV FLOWSHEET. OPENS EYES TO PAIN. PATIENT TRACHED, ON VENT, AND SEDATED. SEE ASSESSMENT FOR VENT SETTINGS. O2 SAT 94-98%. PEG TUBE DRAINING TO GRAVITY. DARK COLORED EMISIS NOTED IN CANISTER. SIDDIQI CATH DRAINING TO GRAVITY. SCANT AMOUNT OF DARK BOB URINE IN BAG. SEE SKIN ASSESSMENT FOR MULTIPLE SKIN INTEGRITY ISSUES. ALL DRESSINGS C/D/I. PEDAL PULSES WEAK. AFEBRILE WITH A TEMP OF 98.8. SEE ASSESSMENT FOR MORE DETAILS. 2044- DR OH AT BEDSIDE FOR CVL PLACEMENT. TRIPLE LUMEN RIGHT SIDED IJ PLACED WITHOUT DIFFICULTIES. PATIENT TOLERATED WELL. XRAY ORDERED FOR PLACEMENT VERIFICATION. KHURRAM ALSO AT BEDSIDE, ORDERS RECEIVED. 0- PLACEMENT VERIFIED, FLUIDS SWAPPED TO CVL. PATIENT HAD LARGE BOWEL MOVEMENT. BM WAS BLACK, THICK, AND TARRY. CLEANED UP, BATH GIVEN, LINENS CHANGED. 5- REASSESSMENT COMPLETE, NO ACUTE CHANGES. SEE FOR DETAILS. 0100-VSS- NO CHANGES. 0240- RECEIVED BLOOD GAS FROM RESPIRATORY. CRITICAL LOW PH AND HGB NOTED, RENAL PAGED. 0300- RENAL PAGED- DR PAULSON ORDERED 2UNITS PRBC'S AND BICARB DRIP. ALONG WITH CONSULTING GI IN THE AM. 0530- FIRST UNIT OF PRBC'S INITIATED, VSS, WILL MONITOR. 0645- GI PAGED FOR CONSULT, AWAITING CALL BACK.
--- NOTE | 2016-06-02 19:11 | NUR ---
DR. PATRICIA NOTIFIED OF ELEVATED TEMP AND LOW URINE OUTPUT. CONSULT FOR TORO DAN ORDERED. DR. PAULSON NOTIFED OF CONSULT
[2016-06-02 19:12] LABS: AFB SPECIMEN PROCESSING Concentration (())
[2016-06-03] VITALS (95 sets, daily range): BP systolic 84–132; BP diastolic 21–52
[2016-06-03 04:50] LABS: BASOPHILS 0.1 % (0.0-2.0); CALCIUM 7.4 mg/dL (8.5-10.1); EOSINOPHILS 0.1 % (0-7); HEMATOCRIT 23.9 % (42.0-54.0); IMMATURE GRANULOCYTES 0.7 % (0-5); LYMPHOCYTES 14.9 % (15-50); MCH 30.1 pg (26.0-34.0); MCHC 31.4 g/dL (31.0-37.0); MEAN PLATELET VOLUME 9.9 fL (7.4-10.4); MONOCYTES 7.9 % (2-11); NEUTROPHILS 76.3 % (40-80); PLATELET COUNT 139 10x3/uL (130-400); RBC 2.49 10x6/uL (4.20-6.10); RDW 17.3 % (11.5-14.5); VANCOMYCIN - RANDOM 25.4 ug/mL (10.0-20.0)
[2016-06-03 04:53] LABS: WBC 7.3 10x3/uL (4.8-10.8)
[2016-06-03 04:54] LABS: HEMOGLOBIN 7.5 g/dL (13.5-17.5)
[2016-06-03 04:55] LABS: ANION GAP 25.5 mmol/L (8-16); CARBON DIOXIDE 14.1 mmol/L (21.0-32.0); CREATININE - SERUM 2.2 mg/dL (0.6-1.3); POTASSIUM - SERUM 5.6 mmol/L (3.5-5.1)
--- NOTE | 2016-06-03 15:22 | NUR ---
open eyes and facial grimacing when turned. does not move arms or legs when repostioned. trach to vent. bilateral lung sounds equal. peg to gravity drainage with green liquid drainage. black areas with yellow edges on right hand 4 areas and thumb. right thigh, and coccyx. right ij triple lumen is leaking blood at site. infusinng with d5ns with 3 amps of bi carb at 100ml hour. d5 ns for ivpb infusing at 25 ml hours. levophed infusing at 56 ml hour. vasopressin off since completeing 2nd unit of blood. de luna with very small amount urine dark alejandro urine. monitor sr with occ pac. large amount dark green liquid stool.
--- NOTE | 2016-06-03 19:30 | NUR ---
REPORT RECIEVED FROM AUTOMOTIVE GLASS MECHANIC NURSE. ASSESSMENT COMPLETE PER FLOWSHEET. VSS AT THIS TIME. WILL CONT TO ASSESS.
--- NOTE | 2016-06-03 19:30 | NUR ---
SHIFT ASSESSMENT DOCUMENTED AT THIS TIME. TIME WAS ENTERED INCORRECTLY.
--- NOTE | 2016-06-03 21:00 | NUR ---
FAMILY AT BEDSIDE. UPDATE PROVIDED.
--- NOTE | 2016-06-03 21:50 | NUR ---
IN PT'S ROOM WITH FAMILY SINCE 2114. QUESTIONS AND CONCERNS BEING ANSWERED. FAMILY STATES THEY WILL RETURN AT THE 6AM VISITATION TIME.
[2016-06-04] VITALS (43 sets, daily range): BP systolic 86–125; BP diastolic 36–97
--- NOTE | 2016-06-04 | NUR ---
TURNED AND REPOSITIONED FOR COMOFORT.
--- NOTE | 2016-06-04 03:00 | NUR ---
REASSESSMENT COMPLETE. NO CHANGE NOTED. WILL CONT TO ASSESS.
[2016-06-04 05:30] LABS: BASOPHILS 0.2 % (0.0-2.0); EOSINOPHILS 0.8 % (0-7); HEMATOCRIT 24.1 % (42.0-54.0); HEMOGLOBIN 7.8 g/dL (13.5-17.5); IMMATURE GRANULOCYTES 9.1 % (0-5); LYMPHOCYTES 8.6 % (15-50); MCH 29.7 pg (26.0-34.0); MCHC 32.4 g/dL (31.0-37.0); MONOCYTES 1.8 % (2-11); NEUTROPHILS 79.5 % (40-80); RBC 2.63 10x6/uL (4.20-6.10); RDW 17.4 % (11.5-14.5)
[2016-06-04 05:34] LABS: MCV 91.6 fL (80.0-100.0); PLATELET COUNT 100 10x3/uL (130-400); WBC 10.6 10x3/uL (4.8-10.8)
[2016-06-04 05:45] LABS: INR 1.89 (0.85-1.17); PROTIME 21.7 SECONDS (11.6-15.0)
[2016-06-04 07:17] LABS: ALBUMIN 1.6 g/dL (3.4-5.0); BILIRUBIN - TOTAL 2.21 mg/dL (0.2-1.3); CALCIUM 7.4 mg/dL (8.5-10.1); CREATININE - SERUM 2.3 mg/dL (0.6-1.3); PROTEIN - SERUM 4.8 g/dL (6.4-8.2); VANCOMYCIN - RANDOM 31.2 ug/mL (10.0-20.0)
[2016-06-04 07:29] LABS: ANION GAP 23.7 mmol/L (8-16); C-REACTIVE PROTEIN 35.9 mg/dL (0.0-0.9); CARBON DIOXIDE 18.6 mmol/L (21.0-32.0); POTASSIUM - SERUM 4.3 mmol/L (3.5-5.1)
--- NOTE | 2016-06-04 09:24 | NUR ---
Nutrition follow-up: Recieved order from Dr. Hoover to start TPN. Chart reviewed. TPN ordered. IVF of D5NS to be reduced to 85 ml/hr when TPN begins to keep IVF @ 125 ml/hr. RDN ordering labs for today. Following.
[2016-06-04 10:31] LABS: MAGNESIUM - SERUM 1.8 mg/dL (1.8-2.4); PHOSPHOROUS 5.1 mg/dL (2.5-4.9); VANCOMYCIN - TROUGH 30.8 ug/mL (10.0-20.0)
[2016-06-04 14:43] LABS: FUNGUS STAIN Final report (())
--- NOTE | 2016-06-04 19:00 | NUR ---
REPORT RECEIVED AND ASSESSMENT COMPLETED. SEE FLOWSHEET FOR FULL DETAILS.
--- NOTE | 2016-06-04 19:10 | NUR ---
PT FAMILY ASKED AT APPROX 1840 WHEN PT WAS GOING TO GET TX AND BE SXN. I EXPLAINED I HAD A CODE RUNNING ON FLOOR I WAS SETTING UP A VENT FOR AND A HEART I WAS DRAWING ABGS ON AND HE WOULD GET HIS TX SOON I COULD GET TO HIM. HIS TX IS SCHEDULED FOR 1899. I WENT BACK TO PT FAMILY AND TOLD HER I THOUGHT I WAS RUNNING LATE BUT DIDN'T REALIZE HIS TX WAS NOT LATE AND WOULD BE DONE DEVANTE IT IS SCHED FOR 1899. THE PT WHO WAS CODING CAME THRU THE DOOR BEING BAGGED AT THIS TIME. CHEST COMPRESSIONS BEGAN AGAIN AND WE CONT TO CODE PT. THIS PT FAM MEMBER WAS ASKED TO LEAVE BY NURSING TAR HEAT EXCHANGER CLEANER AND THREW AND FIT AND REFUSED. WAS ASKED AGAIN AND DID COMPLY.
--- NOTE | 2016-06-04 21:00 | NUR ---
2100 MEDS GIVEN. PT FAMILY AT BEDSIDE. UPDATED ON CURRENT STATUS. CALL RECEIVED FROM LAB. PT HAS GRAM + COCCI IN BLOOD. NO OTHER CHANGES AT THIS TIME. WILL CONTINUE TO MONITOR.
--- NOTE | 2016-06-04 23:00 | NUR ---
REASSESSMENT COMPLETD. SEE FLOWSHEET.
[2016-06-05] VITALS (74 sets, daily range): BP systolic 84–161; BP diastolic 35–68
--- NOTE | 2016-06-05 01:00 | NUR ---
NO CHANGES IN STATUS AT THIS TIME. VSS. WILL CONTINUE TO MONITOR.
--- NOTE | 2016-06-05 01:22 | NUR ---
NO CHANGES IN STATUS AT THIS TIME. WILL CONTINUE TO MONITOR
--- NOTE | 2016-06-05 03:00 | NUR ---
REASSESSMENT COMPLETED. SEE FLOWSHEET. WILL CONTINUE TO MONITOR
--- NOTE | 2016-06-05 05:00 | NUR ---
NO CHANGES AT THIS TIME. VSS. WILL MONITOR
[2016-06-05 05:30] LABS: BASOPHILS 0.2 % (0.0-2.0); EOSINOPHILS 1.7 % (0-7); IMMATURE GRANULOCYTES 6.2 % (0-5); LYMPHOCYTES 8.3 % (15-50); MCHC 32.3 g/dL (31.0-37.0); MCV 89.9 fL (80.0-100.0); MEAN PLATELET VOLUME 10.2 fL (7.4-10.4); MONOCYTES 5.4 % (2-11); NEUTROPHILS 78.2 % (40-80); RDW 17.4 % (11.5-14.5); WBC 12.7 10x3/uL (4.8-10.8)
[2016-06-05 05:31] LABS: HEMATOCRIT 31.3 % (42.0-54.0); HEMOGLOBIN 10.1 g/dL (13.5-17.5); PLATELET COUNT 70 10x3/uL (130-400); RBC 3.48 10x6/uL (4.20-6.10)
[2016-06-05 05:56] LABS: PLATELET ESTIMATE DECREASED
[2016-06-05 06:04] LABS: ALBUMIN 1.6 g/dL (3.4-5.0); ANION GAP 19.7 mmol/L (8-16); BILIRUBIN - TOTAL 3.4 mg/dL (0.2-1.3); CALCIUM 7.6 mg/dL (8.5-10.1); CARBON DIOXIDE 22.4 mmol/L (21.0-32.0); CREATININE - SERUM 2.4 mg/dL (0.6-1.3); POTASSIUM - SERUM 4.1 mmol/L (3.5-5.1); PROTEIN - SERUM 4.8 g/dL (6.4-8.2); VANCOMYCIN - RANDOM 28.6 ug/mL (10.0-20.0)
[2016-06-05 10:17] LABS: MAGNESIUM - SERUM 2.1 mg/dL (1.8-2.4); PHOSPHOROUS 4.9 mg/dL (2.5-4.9)
--- NOTE | 2016-06-05 10:35 | NUR ---
0700 PT REMIANS ON VENT WITH NO CHANGES IN SETTINGS. NORMAL SINUS ON MONITOR, S1S2 NOTED. LUNG SOUNDS COURSE/CRACKLES IN UPPER LOBES BILAT AND RIGHT MIDDLE LOBE, DIMINISHED IN LOWER LOBES. HYPOACTIVE BOWEL SOUNDS X4. PASSIVE ROM PERFORMED X4. PT OPENS EYES TO DEEP STIMULI. ABLE TO FOLLOW WITH EYES BUT DOES NOT OBEY COMMANDS. RIGHT IJ PATENT DRY AND IN TACT. VITAL SIGNS STABLE
--- NOTE | 2016-06-05 10:38 | NUR ---
0900 PT REPOSITIONED IN BED. ORAL CARE PERFORMED. PT REMAINS STABLE AT THIS TIME.
--- NOTE | 2016-06-05 12:37 | NUR ---
1100 PT REPOSITIONED IN BED. NO CHANGES FROM PREVIOUS ASSESSMENT. VITAL SIGNS STABLE
--- NOTE | 2016-06-05 12:49 | NUR ---
Nutrition follow-up: Reviewed labs. Will continue with current TPN at this time. RDN following.
--- NOTE | 2016-06-05 13:58 | NUR ---
1300 IV LINES CHANGED. PT REPOSITIONED. ORAL CARE PERFORMED. BP STABLE AT THIS TIME ON LEVOPHED. WILL CONTINUE TO MONITOR
--- NOTE | 2016-06-05 15:06 | NUR ---
1500 PT GRIMACES WITH PAIN AND ORAL SUCITON. REAMINS UNABLE TO FOLLOW COMMANDS. NO FURTHER CHANGES AT THIS TIME.
--- NOTE | 2016-06-05 17:34 | NUR ---
1700 REPORT GIVEN TO FAMILY. GURGLING SOUND NOTED FROM PTS TRACH. DISCUSSED WITH DR HANDLEY AND RT. WILL CONTINUE TO SUCTION AND INFLATE CUFF. NO FURTHER CHANGES. PT REPOSTITIONED. VITAL SIGNS STABLE
--- NOTE | 2016-06-05 19:00 | NUR ---
REPORT RECEIVED AND ASSESSMENT COMPLETED. SEE FLOWSHEET FOR FULL DETAILS. VSS. PT HAS LEAK IN TRACH CUFF. RESP NOTIFIED. VOLUME ADDED BY CLEO. O2 SAT 96% WITH LEAK PRESENT. INFLATION HELPED TO INCREASE OVERALL TIDAL VOLUME BUT HAD NO EFFECT ON O2 SAT
--- NOTE | 2016-06-05 21:00 | NUR ---
FAMILY AT BEDSIDE. DISCUSSED CVP MONITORING AND ITS PURPOSE.
--- NOTE | 2016-06-05 23:00 | NUR ---
REASSESSMENT COMPLETED AT THIS TIME. VSS. WILL CONTINUE TO MONITOR. SEE FLOWSHEET FOR FULL DETAILS.
[2016-06-06] VITALS (88 sets, daily range): BP systolic 77–145; BP diastolic 33–50
--- NOTE | 2016-06-06 01:00 | NUR ---
PT SAT DECREASED TO 88. RESPIRATORY NOTIFIED, PT SUCTIONED, BAGGED IN ATTEMPT TO REMOVE POSSIBLE PLUG. REPOSITIONED HEAD AND SAT INCREASED. NO OTHER CHANGES AT THIS TIME. VSS. WILL MONITOR
--- NOTE | 2016-06-06 03:00 | NUR ---
REASSESSMENT COMPLETED. SEE FLOWSHEET. NO OTHER CHANGES AT THIS TIME.
--- NOTE | 2016-06-06 05:00 | NUR ---
PT HAD SMALL LIQUID BM. NO OTHER CHANGES AT THIS TIME. VSS. WILL CONTINUE TO MONITOR
[2016-06-06 05:02] LABS: BASOPHILS 0.4 % (0.0-2.0); EOSINOPHILS 2.1 % (0-7); HEMATOCRIT 30.3 % (42.0-54.0); HEMOGLOBIN 9.8 g/dL (13.5-17.5); IMMATURE GRANULOCYTES 1.1 % (0-5); MCHC 32.3 g/dL (31.0-37.0); MCV 89.6 fL (80.0-100.0); MEAN PLATELET VOLUME 11.4 fL (7.4-10.4); MONOCYTES 9.5 % (2-11); NEUTROPHILS 78.9 % (40-80); PLATELET COUNT 56 10x3/uL (130-400); RBC 3.38 10x6/uL (4.20-6.10); RDW 17.3 % (11.5-14.5); WBC 13.4 10x3/uL (4.8-10.8)
[2016-06-06 05:10] LABS: PROTIME 17.6 SECONDS (11.6-15.0)
[2016-06-06 05:11] LABS: APTT 39.2 SECONDS (22.8-39.4)
[2016-06-06 05:17] LABS: INR 1.46 (0.85-1.17)
[2016-06-06 05:25] LABS: D-DIMER-QUANTITATIVE 19.94 ug/mLFEU (0.20-0.54)
[2016-06-06 06:14] LABS: ALBUMIN 1.4 g/dL (3.4-5.0); ANION GAP 15.7 mmol/L (8-16); BILIRUBIN - TOTAL 4.5 mg/dL (0.2-1.3); CALCIUM 7.6 mg/dL (8.5-10.1); CARBON DIOXIDE 25.5 mmol/L (21.0-32.0); CREATININE - SERUM 2.7 mg/dL (0.6-1.3); MAGNESIUM - SERUM 1.9 mg/dL (1.8-2.4); PHOSPHOROUS 4.5 mg/dL (2.5-4.9); POTASSIUM - SERUM 4.2 mmol/L (3.5-5.1); PROTEIN - SERUM 4.6 g/dL (6.4-8.2); VANCOMYCIN - RANDOM 25.9 ug/mL (10.0-20.0)
--- NOTE | 2016-06-06 07:16 | NUR ---
REPORT RECD PT CARE ASSUMED. PT IS UNRESPONSIVE ON VENTILATOR WITH TRACH. S1S2 NOTED HR SR PER CM. ADVENTICIOUS LUNG SOUNDS BIALT. PT HAS MULTIPLE AREAS OF SKIN BREAK DOWN, SEE SHIFT ASSESSMENT FOR DETAILS. SIDDIQI/ FOOT BOOTS IN PLACE. PT HAS LEVOPHED DRIP CURRENTLY TO MAINTAIN ACCEPTABLE BP. WILL MONITOR.
--- NOTE | 2016-06-06 09:00 | NUR ---
PT REPOSITIONED PER PROTOCOL, VSS.
--- NOTE | 2016-06-06 10:03 | NUR ---
Nutrition follow-up: Labs reviewed. Will continue with the same TPN at this time. RDN following.
--- NOTE | 2016-06-06 12:30 | NUR ---
PT FAMILY AT BEDSIDE FOR VISIATION. UPDATE PROVIDED TO PT. FAMILY SPOKEN TOO BY DR HANDLEY AND DR MARTINEZ.
--- NOTE | 2016-06-06 15:02 | NUR ---
PT FAMILY AT BEDSIDE FOR VISITATION. PT REMAINS ON VENTILATOR AND LEVOPHED.
--- NOTE | 2016-06-06 16:11 | NUR ---
PT FAMILY AT BEDSIDE. PT REPOSITIONED. CVP CHANGES FROM 7 TO 3 DURING MOVE. PT FAMILY INQUIRES TO WHY CVP HAS DROPPED. I RESPOND " IT MAY BE BECAUSE HIS CENTRAL VENOUS PRESSURE HAS DROPPED." CVP IS ZEROED AND CVP IS 4. PTS FAMILY STATES "I HAVE NO PATIENCE FOR ATTITUDE RIGHT NOW." PT FAMILY BECOMES AGGITATED AND SPEAKS WITH ME OUTSIDE OF ROOM. PT FAMILY ACCUSED ME OF BEING RUDE ABOUT HOW I ANSWERED THEIR CONCERN. WITNESSED BY GUY CUEVA AND MANUEL STUDENT NURSE. PT FAMILY ALSO ACCUSES ME OF BEING RUDE LAST SATURDAY BY ATTEMPTING TO PUT A GOWN ON PT WHEN THEY HAVE STATED TO PREVIOUS NURSES THEY DID NOT WANT THIS. CONVERSATION WITH FAMILY HAS ALWAYS BEEN RESPECTFUL.
--- NOTE | 2016-06-06 18:00 | NUR ---
PT REPOSITIONED AND PULLED UP IN BED. VITALS REMAIN STABLE ON LEVOPHED 12MCG. PEG TO GRAVITY.
--- NOTE | 2016-06-06 19:30 | NUR ---
ASSESSMENT COMPLETE. S1S2. RR CRACKLES BILATERALLY IN UPPER LOBES; DIMINISHED BILATERALLY IN LOWER LOBES. TRACH; NO SEDATION MEDICATION. GCS 3. MULTIPLE SCAB/SORES; RIGHT THIGH; RIGHT HAND. RIGHT HAND NECROTIC TISSUE PRESENT. PERRLA 4MM; SLUGGISH. EXTREMITIES FLACCID. PEG TUB TO RIGHT ABD TO GRAVITY. SIDDIQI PRESENT. SCROTAL EDEMA NOTED. GENERALIZED +2 EDEMA TO EXTREMITIES.
--- NOTE | 2016-06-06 21:50 | NUR ---
FAMILY AT BEDSIDE. UPDATE GIVEN. QUESTIONS ANSWERED. ASKED FAMILY IF THEY HAD ANY CONCERNS OR CARE REQUESTS TO WRITE IN ON THE BOARD IN THE PT ROOM. NO CONCERNS NOTED ON MARKER BOARD.
--- NOTE | 2016-06-06 23:30 | NUR ---
REASSESSMENT COMPLETE. NO CHANGES FROM PREVIOUS ASSESSMENT. SEE FLOW SHEET FOR FURTHER DETAILS.
[2016-06-07] VITALS (95 sets, daily range): BP systolic 11–154; BP diastolic 34–70
--- NOTE | 2016-06-07 01:15 | NUR ---
PT RESTING; EYES CLOSED. VSS. NO DISTRESS NOTED. WILL CONTINUE TO MONITOR.
--- NOTE | 2016-06-07 03:10 | NUR ---
REASSESSMENT COMPLETE. NO CHANGES FROM PREVIOUS ASSESSMENT. VSS. WILL CONTINUE TO MONITOR.
[2016-06-07 03:58] LABS: BASOPHILS 0.6 % (0.0-2.0); EOSINOPHILS 0.9 % (0-7); HEMATOCRIT 30.9 % (42.0-54.0); HEMOGLOBIN 10.1 g/dL (13.5-17.5); IMMATURE GRANULOCYTES 8.7 % (0-5); LYMPHOCYTES 6.3 % (15-50); MCH 29.4 pg (26.0-34.0); MCHC 32.7 g/dL (31.0-37.0); MCV 89.8 fL (80.0-100.0); MEAN PLATELET VOLUME 12.4 fL (7.4-10.4); MONOCYTES 4.4 % (2-11); NEUTROPHILS 79.1 % (40-80); PLATELET COUNT 60 10x3/uL (130-400); RBC 3.44 10x6/uL (4.20-6.10); RDW 17.6 % (11.5-14.5)
[2016-06-07 04:04] LABS: WBC 17.1 10x3/uL (4.8-10.8)
[2016-06-07 04:14] LABS: ANION GAP 20.3 mmol/L (8-16); BILIRUBIN - TOTAL 5.37 mg/dL (0.2-1.3); CALCIUM 7.6 mg/dL (8.5-10.1); CARBON DIOXIDE 23.4 mmol/L (21.0-32.0); CREATININE - SERUM 2.8 mg/dL (0.6-1.3); PHOSPHOROUS 5.1 mg/dL (2.5-4.9); POTASSIUM - SERUM 4.7 mmol/L (3.5-5.1); PROTEIN - SERUM 4.6 g/dL (6.4-8.2); VANCOMYCIN - TROUGH 21.9 ug/mL (10.0-20.0)
[2016-06-07 04:20] LABS: ALBUMIN 1.8 g/dL (3.4-5.0)
--- NOTE | 2016-06-07 04:20 | NUR ---
I/O COLLECTED. SIDDIQI EMPTIED. PUMPS CLEARED. VSS. DECREASED LEVOPHED. WILL CONTINUE TO MONITOR.
--- NOTE | 2016-06-07 06:13 | NUR ---
FAMILY AT BEDSIDE. UPDATE GIVEN.
--- NOTE | 2016-06-07 06:37 | NUR ---
FAMILY STATED CONCERN ABOUT BUMPS ON LEFT AC. STATED CONCERNED ABOUT SHINGLES; FAMILY STATES PAST HISTORY OF SHINGLES.
--- NOTE | 2016-06-07 08:48 | NUR ---
0700 PT ON VENT WITH NO SEDATION. DOES NOT FOLLOW COMMANDS. FACIAL GRIMACING WITH SUCTION BUT NO GAG REFLEX NOTED. NORMAL SINUS ON MONITOR. LEVOPHED INFUSING WITH MAP <60. +2 PITTING EDEMA IN EXTREMITIES X4. BILAT SCDS NOTED. CVL PATENT DRY AND INTACT. DR PAULSON CALLED HANK-DAUGHTER TO DISCUSS DIALYSIS. WILL OBTAIN CONSENTS AND CONSULT SURGEON FOR FAMILY REQUEST FOR DIALYSIS. PT SCHEDULED FOR DIALYSIS TODAY.
--- NOTE | 2016-06-07 09:11 | NUR ---
DR CHUN NOTIFIED OF PT NEEDING TRIALYSIS CATHETER.
--- NOTE | 2016-06-07 12:21 | NUR ---
1100 PT REPOSITIONED IN BED. VITAL SIGNS STABLE AT THIS TIME. WILL CONTINUE TO MONITOR.
--- NOTE | 2016-06-07 14:19 | NUR ---
1300 UPDATE GIVEN TO FAMILY AT BEDSIDE. VERBALIZED UNDERSTANDING. VITAL SIGNS STABLE. WILL CONTINUE TO MONITOR.
--- NOTE | 2016-06-07 15:05 | NUR ---
1500 NO CHANGES IN PT STATUS AT THIS TIME. UPDATE GIVEN TO FAMILY AT BEDSIDE. VITAL SIGNS STABLE.
--- NOTE | 2016-06-07 16:05 | NUR ---
[address] BY DR CHUN. MEDS RESUMED. DRESSING APPLIED, CLEAN DRY AND INTACT. PT TOLERATED BEDSIDE PROCEDURE WELL. VITAL SIGNS STABLE. WILL CONTINUE TO MONITOR
--- NOTE | 2016-06-07 18:36 | NUR ---
1800 UPDATE GIVEN TO FAMILY AT BEDSIDE. DR MARTINEZ CALLED TO INFORM ABOUT NEW BLISTERS ON ARM. DAUGHTER STATES THAT HE HAD A HISTORY OF SHINGLES STARTING WITH BLISTERING. VITAL SIGNS STABLE. WILL CONTINUE TO MONITOR
--- NOTE | 2016-06-07 19:00 | NUR ---
REPORT REC'D AND ASSUMED PATIENT CARE. ASSESSMENT COMPLETED PER FLOW SHEETS. DIALYSIS NURSE AT BEDSIDE GETTING READY FOR HD. SR ON CM. FAMILY AT BEDSIDE. QUESTIONS ANSWERED. WILL CONT TO MONITOR.
--- NOTE | 2016-06-07 21:00 | NUR ---
HD CONTINUES. TITRATED LEVOPHED TO 12MCG PER ORDER. VSS. FAMILY AT BEDSIDE. WILL CONT TO MONITOR.
--- NOTE | 2016-06-07 22:00 | NUR ---
HEMODIALYSIS DONE. VSS. PT ANN WELL. CONT LEVOPHED GTT AT 10MCG. CPOC.
--- NOTE | 2016-06-07 22:01 | NUR ---
Mr. Jones had bedside hemodialysis via his right IJ Trialysis today from 1943 until 2143. Average blood flow was 250 mls/minute. Net fluid removed was 1000 mls. Pt. did relatively well on dialysis. He did have hypotension requiring the levophed to be increased only once a bit. Post vital signs were: B/P:135/46, HR:85, Temp:98.8, Resps:25.
--- NOTE | 2016-06-07 23:00 | NUR ---
REASSESSMENT COMPLETED. SEE FLOW SHEETS FOR ALL FINDINGS. PT ON VENT, NO ACUTE CHANGES IN PT'S CONDITION AT THIS TIME. VSS. TITRATED LEVOPHED PER ORDER TO 8MCG. CPOC.
[2016-06-08] VITALS (93 sets, daily range): BP systolic 58–163; BP diastolic 2–91
--- NOTE | 2016-06-08 01:00 | NUR ---
PT ON VENT RESTING QUIETLY WITHOUT DISTRESS. TITRATED LEVOPHED GTT TO 5MCG/MIN PER ORDER. REPOSITIONED AND MOUTH CARE PROVIDED PER VAP. HOB UP. PILLOWS IN USE FOR SUPPORT. CPOC.
--- NOTE | 2016-06-08 03:00 | NUR ---
REASSESSMENT COMPLETED PER FLOW SHEETS. PT ON VENT AROUSES AND OPENS EYES WITH TACTILE STIMULATION. NO FOLLOWS COMMANDS, NO ACUTE SIGNS OF CHANGES IN PT'S STATUS NOTED. VSS. CONT LEVOPHED GTT AT 6MCG. MOUTH CARE PROVIDED PER VAP. COMPLETED BATH. LINEN CHANGED. SKIN CARE PROVIDED. PILLOWS IN USE FOR SUPPORT. HOB UP. SIDE RAILS UP . CPOC.
[2016-06-08 04:29] LABS: BASOPHILS 0.4 % (0.0-2.0); EOSINOPHILS 1.4 % (0-7); HEMATOCRIT 28.2 % (42.0-54.0); HEMOGLOBIN 9.2 g/dL (13.5-17.5); IMMATURE GRANULOCYTES 9.5 % (0-5); LYMPHOCYTES 6.8 % (15-50); MCH 29.2 pg (26.0-34.0); MCHC 32.6 g/dL (31.0-37.0); MCV 89.5 fL (80.0-100.0); MEAN PLATELET VOLUME 11.4 fL (7.4-10.4); MONOCYTES 2.1 % (2-11); NEUTROPHILS 79.8 % (40-80); RBC 3.15 10x6/uL (4.20-6.10); RDW 17.4 % (11.5-14.5); WBC 16.6 10x3/uL (4.8-10.8)
[2016-06-08 04:36] LABS: PLATELET COUNT 47 10x3/uL (130-400)
[2016-06-08 04:46] LABS: ALBUMIN 1.7 g/dL (3.4-5.0); ANION GAP 14.7 mmol/L (8-16); BILIRUBIN - TOTAL 5.5 mg/dL (0.2-1.3); CALCIUM 8.1 mg/dL (8.5-10.1); CARBON DIOXIDE 27.7 mmol/L (21.0-32.0); CREATININE - SERUM 2.5 mg/dL (0.6-1.3); MAGNESIUM - SERUM 1.9 mg/dL (1.8-2.4); PHOSPHOROUS 4.4 mg/dL (2.5-4.9); POTASSIUM - SERUM 4.4 mmol/L (3.5-5.1); PROTEIN - SERUM 4.7 g/dL (6.4-8.2); VANCOMYCIN - RANDOM 18.7 ug/mL (10.0-20.0)
--- NOTE | 2016-06-08 06:45 | NUR ---
DR PRASAD CALLED REGARDING CRITICAL PLATS, 47. NO ORDER RECEIVED. WILL CONT TO MONITOR.
--- NOTE | 2016-06-08 08:22 | NUR ---
LYING IN BED AT THIS TIME. NO ACUTE DISTRESS NOTED. PT DOES NOT FOLLOW SIMPLE COMMANDS. SOME FACIAL GRIMACING NOTED DURING ORAL CARE. TURNED Q2H. WILL CONTINUE PLAN OF CARE.
--- NOTE | 2016-06-08 09:32 | NUR ---
Nutrition follow-up: Chart reviewed Will continue same TPN regimen. Will start intralipids, 20% 250 ml 2x/week. RDN following.
--- NOTE | 2016-06-08 10:03 | NUR ---
PT RECIEVING DIALYSIS AT THIS TIME, LEVOFED TITRATED TO MEET ORDER CRITERIA. WILL CONTINUE PLAN OF CARE.
--- NOTE | 2016-06-08 10:12 | NUR ---
WAITING FOR DIALYSIS TO COMPLETE BEFORE ADMIN MEDS.
--- NOTE | 2016-06-08 11:00 | NUR ---
CHANGED TO TRACH COLLAR BY RT @ 36%, VSS, AA, ASSESSMENT COMPLETE, SEE FLOWSHEET, NO ACUTE CHANGE FROM PREVIOUS
--- NOTE | 2016-06-08 11:06 | NUR ---
NO CHANGE. VSS. TITRATING LEVOFED DEPENDING ON CRITERIA NEEDS. NO ACUTE DISTRESS NOTED. WILL CONTINUE PLAN OF CARE.
--- NOTE | 2016-06-08 11:14 | NUR ---
NOTED HEART RATE BEGAN TO GO IN AND OUT OF AFIB FROM A RATE IN THE 60S-132. AT THIS TIME DIALYSIS RATE WAS SLOWED DOWN. PT NOW NOTED TO BE IN SINUS RHYTHM AT A RATE OF 128 BP 138/61 MAP 69. LEVOFED AT 14MCG. WILL CONTINUE TO OBSERVE.
--- NOTE | 2016-06-08 11:33 | NUR ---
SPOKE WITH DR MOULTON NURSE TO NOTIFY THAT PTS PULSE RATE HAS BEEN RANGING FROM 60S-130S IN AND OUT OF AFIB. DR MOULTON NURSE STATED SHE WOULD NOTIFY DR LAY AND CALL THIS NURSE TO NOTIFY OF ANY NEW ORDERS. ALSO NOTED THAT DIALYSIS STATED THEY WERE GOING TO STOP DIALYSIS SOON BECAUSE OF THE RHYTHM CHANGES. WILL CONTINUE TO OBSERVE.
--- NOTE | 2016-06-08 11:35 | NUR ---
DR HANDLEY AT BEDSIDE, NEW ORDERS GIVEN
--- NOTE | 2016-06-08 12:19 | NUR ---
Mr. Jones had bedside hemodialysis today via his right IJ Trialysis from 09 until 1145. Pt. did not do well at all on dialysis today. Within the first twenty minutes his heart rate went bradycardic down to 50. About 1.5 hours into treatment his cardiac rhythm started having a lot of irregularities. It would run from 60's to 130's. The patient required the levophed to be increased to 14 mcgs/minute.At 1148 B/P was 73/39, HR:131. I discontinued treatment at this time after consulting with the renal RESEARCH SCHOLAR. Average blood flow was 400 mls/minute. Net fluid removed was 900 mls. Post vital signs were: b/p:102/44,hr:125,temp:98.4,resps:25.
--- NOTE | 2016-06-08 13:21 | OP ---
PATIENT NAME: JORGE PARK MEDICAL RECORD: [id number] :40 LOCATION:D.ICU D.[id number] ADMISSION DATE:05/14/16 SURGEON: OMER CHUN MD DATE OF OPERATION: 06/07/2016 PREOPERATIVE DIAGNOSES: 1. Acute renal failure. 2. Respiratory failure on the ventilator. 3. Cerebrovascular accident. 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 6. Paraplegia. 7. Gastroesophageal reflux disease. 8. Hypertension. 9. Septic shock. POSTOPERATIVE DIAGNOSES: 1. Acute renal failure. 2. Respiratory failure on the ventilator. 3. Cerebrovascular accident. 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 6. Paraplegia. 7. Gastroesophageal reflux disease. 8. Hypertension. 9. Septic shock. PROCEDURE: Right IJ, 15-cm Trialysis exchange. SURGEON: Omer Chun MD. REPORT OF PROCEDURE: The patient's right neck and indwelling right IJ central venous line were prepped and draped in sterile fashion. A guidewire was advanced through the distal port and the indwelling central venous line was removed. The dilators were placed over the wire followed by the Trialysis catheter. This catheter aspirated nonpulsatile dark blood and flushed easily in all 3 ports. This was sutured into place with 4-0 nylons and dressed appropriately. COMPLICATIONS: None. CONDITION: Stable. ANESTHESIA: General endotracheal. BLOOD LOSS: 30 mL. Procedure done at the bedside. TRANSINT:[id number] Voice Confirmation ID: [id number] DOCUMENT ID: [id number] OPERATIVE REPORT [id number] JORGE PARK CHRISTIAN MD at 1321 CC: [id number] DICTATION DATE: 06/07/16 1559 BLOCK TRADER: 06/07/16 2235 ADM IN [place] [id number] [place] [address]
--- NOTE | 2016-06-08 13:31 | NUR ---
NO ACUTE DISTRESS NOTED. VSS. PT TURNED Q2H. WILL CONTINUE PLAN OF CARE.
--- NOTE | 2016-06-08 15:25 | NUR ---
FAMILY AT BEDSIDE. UPDATE GIVEN. NO ACUTE DISTRESS NOTED. WILL CONTINUE PLAN OF CARE.
--- NOTE | 2016-06-08 16:43 | NUR ---
NO ACUTE DISTRESS NOTED. RHYTHM NOTED SINUS TACHY 125 WITH PAC. PT TURNED Q2H. NO ACUTE DISTRESS NOTED. WILL CONTINUE PLAN OF CARE.
--- NOTE | 2016-06-08 18:29 | NUR ---
TRIALYSIS CATHETER DRESSING CHANGED AT THIS TIME. OLD DRESSING NOTED NO LONGER ADHERED TO SKIN THEREFORE REQUIRED CHANGING. NO BLEEDING OR REDNESS NOTED AROUND CATHETER SITE. NO ACUTE DISTRESS NOTED. WILL CONTINUE PLAN OF CARE.
--- NOTE | 2016-06-08 19:30 | NUR ---
RECEIVED CARE OF PT, ASSESSMENT PER FLOWSHEET. PT ON VENT VIA TRACH, 100% FI02, RATE OF 25, THICK SECRETIONS WITH SUCTIONING, ORAL CARE PROVIDED. HR SR AT A RATE OF 87 ON CM, CRACKLES AUSCULTATED BILATERALLY WITH DIMINISHED BASES, 3+ EDEMA NOTED, PPP, SKIN ASSESSMENT PER FLOWSHEET, G-TUBE TO GRAVITY WITH GREEN DRAINAGE NOTED-DRESSING CDI. PT POSITIONED FOR COMFORT, ORAL CARE AND SUCTIONING PROVIDED, LEVOPHED AT 11 MCG/MIN VIA RT IJ TRIALYSIS, WILL MONITOR.
--- NOTE | 2016-06-08 21:20 | NUR ---
PT REPOSITIONED FOR COMFORT, DAUGHTER IN FOR VISITATION, ALL QUESTIONS ANSWERED, CONT POC.
--- NOTE | 2016-06-08 23:15 | NUR ---
REASSESSMENT PER FLOWSHEET, NO ACUTE CHANGES NOTED. REPOSITIONED FOR COMFORT SUPPORTED WITH PILLOWS, ORAL CARE PROVIDED, CONTINUING TO WEAN LEVOPHED GTT DOWN PER PARAMETERS, VSS.
[2016-06-09] VITALS (52 sets, daily range): BP systolic 92–164; BP diastolic 34–57
--- NOTE | 2016-06-09 03:15 | NUR ---
REASSESSMENT PER FLOWSHEET, NO ACUTE CHANGES NOTED, LEVOPHED GTT OFF AT THIS TIME, VSS, PT POSITIONED FOR COMFORT SUPPORTED WITH PILLOWS, ORAL CARE AND SUCTIONING PROVIDED.
[2016-06-09 04:07] LABS: BASOPHILS 0.3 % (0.0-2.0); EOSINOPHILS 1.7 % (0-7); HEMATOCRIT 26.1 % (42.0-54.0); HEMOGLOBIN 8.7 g/dL (13.5-17.5); IMMATURE GRANULOCYTES 9.2 % (0-5); LYMPHOCYTES 8.2 % (15-50); MCH 29.2 pg (26.0-34.0); MCHC 33.3 g/dL (31.0-37.0); MCV 87.6 fL (80.0-100.0); MEAN PLATELET VOLUME 11.7 fL (7.4-10.4); MONOCYTES 0.5 % (2-11); NEUTROPHILS 80.1 % (40-80); RBC 2.98 10x6/uL (4.20-6.10); RDW 16.8 % (11.5-14.5); WBC 16.5 10x3/uL (4.8-10.8)
[2016-06-09 04:32] LABS: PLATELET COUNT 45 10x3/uL (130-400)
[2016-06-09 04:41] LABS: ALBUMIN 1.8 g/dL (3.4-5.0); BILIRUBIN - TOTAL 5.76 mg/dL (0.2-1.3); CALCIUM 8.2 mg/dL (8.5-10.1); CARBON DIOXIDE 26.2 mmol/L (21.0-32.0); MAGNESIUM - SERUM 1.8 mg/dL (1.8-2.4); PROTEIN - SERUM 4.9 g/dL (6.4-8.2)
[2016-06-09 04:42] LABS: ANION GAP 14.5 mmol/L (8-16); PHOSPHOROUS 3.2 mg/dL (2.5-4.9); POTASSIUM - SERUM 3.7 mmol/L (3.5-5.1)
--- NOTE | 2016-06-09 05:10 | NUR ---
PT REPOSITIONED FOR COMFORT, ORAL CARE PROVIDED, VSS, CONT TO MONITOR.
--- NOTE | 2016-06-09 07:32 | NUR ---
TEMP NOTED AT 102.9 ORALLY THIS AM. BLOOD CULTURES COLLECTED. WILL CALL DR MARTINEZ FOR FURTHER ORDERS.
--- NOTE | 2016-06-09 07:55 | NUR ---
SPOKE WITH DR MARTINEZ. NOTED NO FURTHER ORDERS THAN BLOOD CULTURES. WILL APPLY ICE PACKS TO HELP DECREASE TEMP. WILL CONTINUE PLAN OF CARE.
--- NOTE | 2016-06-09 09:58 | NUR ---
NO ACUTE DISTRESS NOTED AT THIS TIME. ALL DRESSING CHANGES PERFORMED PER DAILY DRESSING CHANGE ORDERS. ALSO RECTAL TUBE PLACED AT THIS TIME PER ORDERS TO HELP PRESERVE SKIN. PT TURNED Q2H. ORAL CARE PERFORMED. WILL CONTINUE PLAN OF CARE.
--- NOTE | 2016-06-09 10:50 | NUR ---
Nutrition follow-up: Labs reviewed. Recommend continuing current TPN order. RDN following.
--- NOTE | 2016-06-09 11:10 | NUR ---
NOTED PT MAP IS BELOW 60 WHICH IS CRITERIA TO RESTART LEVOFED. LEVOFED RESTARTED AT THIS TIME, TITRATED TO CRITERIA GUIDELINES. WILL CONTINUE PLAN OF CARE.
--- NOTE | 2016-06-09 13:50 | NUR ---
NO ACUTE DISTRESS NOTED. VSS. PT TURNED Q2H. WILL CONTINUE PLAN OF CARE.
--- NOTE | 2016-06-09 16:12 | NUR ---
NOREPINEPHERINE TURNED OFF AT THIS TIME. BP 143/50 MAP 80. NO ACUTE DISTRESS NOTED. WILL CONTINUE PLAN OF CARE.
--- NOTE | 2016-06-09 17:00 | NUR ---
BP 100/41 MAP 56. NOREPINEPHERINE TURNED BACK ON AT THIS TIME AT 1MCG. WILL CONTINUE TO OBSRERVE.
--- NOTE | 2016-06-09 19:15 | NUR ---
RESUMED CARE OF PT, ASSESSMENT PER FLOWSHEET. PT INCONTINENT OF SMALL AMT OF LIQUID GREEN BM, PERICARE PROVIDED, COMPLETE BATH AND LINEN CHANGE DONE, POSITIONED FOR COMFORT, ORAL CARE PROVIDED.
--- NOTE | 2016-06-09 21:25 | NUR ---
PT DAUGHTER IN FOR VISITATION, UPDATE PROVIDED AND ALL QUESTIONS ANSWERED. ORAL CARE PROVIDED, VSS.
--- NOTE | 2016-06-09 23:15 | NUR ---
REASSESSMENT PER FLOWSHEET, NO ACUTE CHANGES NOTED AT THIS TIME. ORAL CARE PROVIDED, PT POSITIONED FOR COMFORT, VSS.
[2016-06-10] VITALS (24 sets, daily range): BP systolic 90–142; BP diastolic 39–54
--- NOTE | 2016-06-10 01:10 | NUR ---
PT REPOSITIONED FOR COMFORT, ORAL CARE PROVIDED, VSS, CONT TO MONITOR.
--- NOTE | 2016-06-10 03:15 | NUR ---
REASSESSMENT PER FLOWSHEET, ORAL CARE AND SUCTIONING PROVIDED, REPOSITIONED FOR COMFORT, VSS.
[2016-06-10 04:11] LABS: BASOPHILS 0.5 % (0.0-2.0); EOSINOPHILS 2.1 % (0-7); HEMATOCRIT 24.1 % (42.0-54.0); HEMOGLOBIN 8.2 g/dL (13.5-17.5); IMMATURE GRANULOCYTES 6.9 % (0-5); LYMPHOCYTES 7.1 % (15-50); MCH 29.3 pg (26.0-34.0); MCV 86.1 fL (80.0-100.0); MEAN PLATELET VOLUME 11.5 fL (7.4-10.4); MONOCYTES 1.9 % (2-11); NEUTROPHILS 81.5 % (40-80); RDW 16.3 % (11.5-14.5)
[2016-06-10 04:12] LABS: PLATELET COUNT 34 10x3/uL (130-400)
[2016-06-10 04:27] LABS: ALBUMIN 1.9 g/dL (3.4-5.0); ANION GAP 15.2 mmol/L (8-16); BILIRUBIN - DIRECT 5.81 mg/dL (0.00-0.30); BILIRUBIN - INDIRECT 0.73 mg/dL (0.00-1.00); BILIRUBIN - TOTAL 6.54 mg/dL (0.2-1.3); CALCIUM 8.3 mg/dL (8.5-10.1); CARBON DIOXIDE 25.7 mmol/L (21.0-32.0); CREATININE - SERUM 2.4 mg/dL (0.6-1.3); MAGNESIUM - SERUM 1.8 mg/dL (1.8-2.4); POTASSIUM - SERUM 3.9 mmol/L (3.5-5.1); PROTEIN - SERUM 4.8 g/dL (6.4-8.2)
--- NOTE | 2016-06-10 04:47 | NUR ---
DR PRASAD NOTIFIED OF PLATELET COUNT OF 34 ON AM LAB, NO FURTHER ORDERS RECEIVED AT THIS TIME.
--- NOTE | 2016-06-10 08:18 | NUR ---
LARGE INCONTINENT BOWEL MOVEMENT NOTED. TOTAL BED CHANGE PROVIDED AND BRIAN CARE/SIDDIQI CARE PROVIDED VIA TOTAL ASSIST X 2 PERSON. PT REPOSITIONED Q2H. NO ACUTE DISTRESS NOTED. WILL CONTINUE PLAN OF CARE.
--- NOTE | 2016-06-10 12:56 | NUR ---
NO ACUTE DISTRESS NOTED. VSS. STILL OFF PRESSORS. TURNED Q2H. WILL CONTINUE PLAN OF CARE.
--- NOTE | 2016-06-10 13:55 | NUR ---
NOTED AT THIS TIME BRADYCARDIA IN THE 40S THAT LASTED FOR A FEW SECONDS THEN WENT BACK UP AROUND 70S IN SINUS RHYTHM. DR GRIMES NOTIFIED. NO NEW ORDERS. WILL CONTINUE PLAN OF CARE.
--- NOTE | 2016-06-10 16:17 | NUR ---
RECIEVING DIALYSIS. VSS. NO ACUTE DISTRESS NOTED. WILL CONTINUE PLAN OF CARE.
--- NOTE | 2016-06-10 18:34 | NUR ---
FAMILY AT BEDSIDE. UPDATE GIVEN. NO ACUTE DISTRESS NOTED. VSS. WILL CONTINUE PLAN OF CARE.
--- NOTE | 2016-06-10 18:58 | NUR ---
INCONTINENT BOWEL MOVEMENT NOTED AT THIS TIME. GREEN IN COLOR, LIQUID. SPICEM COLLECTED FOR CDT TESTING. TOTAL LINEN CHANGE PROVIDED AND PERICARE/SIDDIQI CARE PROVIDED VIA TOTAL ASSIST X 2 PERSON. NO ACUTE DISTRESS NOTED. WILL CONTINUE PLAN OF CARE.
--- NOTE | 2016-06-10 19:15 | NUR ---
RESUMED CARE OF PT, ASSESSMENT PER FLOWSHEET. ORAL CARE PROVIDED, POSITIONED FOR COMFORT, VSS.
--- NOTE | 2016-06-10 21:30 | NUR ---
NO VISITORS PRESENT AT THIS TIME, REPOSITIONED FOR COMFORT, ORAL CARE PROVIDED, HR SR ON CM IN 70'S, WILL CONT TO MONITOR.
--- NOTE | 2016-06-10 23:15 | NUR ---
REASSESSMENT PER FLOWSHEET, PT INCONTINENT OF MODERATE AMT OF LIQUID GREEN STOOL, PERICARE AND PARTIAL LINEN CHANGE DONE, ORAL CARE PROVIDED.
[2016-06-11] VITALS (36 sets, daily range): BP systolic 98–158; BP diastolic 33–71
--- NOTE | 2016-06-11 00:40 | NUR ---
PT DAUGHTER CALLED, PASSWORD PROVIDED, UPDATE GIVEN, ALL QUESTIONS ANSWERED.
--- NOTE | 2016-06-11 03:15 | NUR ---
REASSESSMENT PER FLOWSHEET, NO ACUTE CHANGES NOTED, ORAL CARE AND SUCTIONING DONE, POSITIONED FOR COMFORT, CONT TO MONITOR.
--- NOTE | 2016-06-11 05:20 | NUR ---
COMPLETE BATH AND LINEN CHANGE DONE, ORAL CARE AND SUCTIONING PROVIDED, POSITIONED FOR COMFORT SUPPORTED WITH PILLOWS, VSS, CONT POC.
[2016-06-11 05:23] LABS: BASOPHILS 0.4 % (0.0-2.0); EOSINOPHILS 2.8 % (0-7); HEMATOCRIT 24.2 % (42.0-54.0); HEMOGLOBIN 8.6 g/dL (13.5-17.5); IMMATURE GRANULOCYTES 5.1 % (0-5); LYMPHOCYTES 6.3 % (15-50); MCH 30.3 pg (26.0-34.0); MCHC 35.5 g/dL (31.0-37.0); MCV 85.2 fL (80.0-100.0); MONOCYTES 1.6 % (2-11); NEUTROPHILS 83.8 % (40-80); RBC 2.84 10x6/uL (4.20-6.10); RDW 16.4 % (11.5-14.5)
[2016-06-11 05:32] LABS: APTT 40.7 SECONDS (22.8-39.4); INR 1.67 (0.85-1.17); PLATELET COUNT 32 10x3/uL (130-400); PROTIME 19.7 SECONDS (11.6-15.0)
[2016-06-11 05:47] LABS: D-DIMER-QUANTITATIVE 9.8 ug/mLFEU (0.20-0.54)
[2016-06-11 05:53] LABS: ANION GAP 20.5 mmol/L (8-16); CALCIUM 8.6 mg/dL (8.5-10.1); CARBON DIOXIDE 22.5 mmol/L (21.0-32.0); CREATININE - SERUM 2.6 mg/dL (0.6-1.3); PHOSPHOROUS 4.8 mg/dL (2.5-4.9); VANCOMYCIN - RANDOM 20.1 ug/mL (10.0-20.0)
--- NOTE | 2016-06-11 06:23 | NUR ---
PT DAUGHTER IN FOR VISITATION, UPDATE GIVEN, ALL QUESTIONS ANSWERED.
--- NOTE | 2016-06-11 08:38 | NUR ---
Nutrition follow-up: Pt remains intubated with trach. TPN infusing @ 40 ml/hr with 20% 250 ml intralipids 2x/week Ileus has resolved; Nepro started @ 10 ml/hr via PEG tube Labs reviewed Recommend advancing Nepro to goal rate of 50 ml/hr. RDN following.
--- NOTE | 2016-06-11 10:49 | NUR ---
0700 PT AWAKE AND ALERT. EYES ARE WIDE OPEN AND PT IS SHAKING HEAD FREQENTLY. PT RESPONDS TO DEEP STIMULI, PUPILS REMAIN SLUGGISH AT THIS TIME. NOT FOLLOWING COMMANDS. NORMAL SINUS ON MONITOR. BP LOW AT THIS TIME. NO LEVOPHED INFUSING, WILL MONITOR CLOSELY. RT IJ TRIALYSIS PATENT DRY AND INTACT. NO FURTHER CHANGES. VITAL SIGNS STABLE
--- NOTE | 2016-06-11 10:54 | NUR ---
0900 DR LEAL CALLED AND NOTIFIED OF NEURO STATUS CHANGE IN PT THIS MORNING. HE STATES THAT UNTIL HEMODYNAMICALLY STABLE WE ARE UNABLE TO TAKE ACTION BUT IF HE IMPROVES WE CAN ORDER A HEAD CT WITHOUT CONTRAST
--- NOTE | 2016-06-11 14:48 | NUR ---
1100 NO CHANGES FROM PREVIOUS ASSESSMENT. VITAL SIGNS STABLE. WILL CONITNUE TO MONITOR.
--- NOTE | 2016-06-11 14:49 | NUR ---
1430 DIALYSIS STARTED, RN AT BEDSIDE. LEVOPHED RESUMED WHILE ON DIALYSIS. WILL MONITOR CLOSELY WITH HISTORY OF BRADYCARDIA DURING DIALYSIS.
--- NOTE | 2016-06-11 16:16 | NUR ---
ATTEMPTED HEMODIALYSIS TODAY, PATIENT WAS PUT ON LEVOPHED FOR TX. PATIENT SEEMED TO DO WELL FOR 1ST HOUR, WAS VERY CAUTIOUS ABOUT INCREASING FLUID REMOVAL. AT AN HOUR INTO TX, PATIENT HAD A 2 MINUTES LONG SEIZURE WHICH INCLUDED FIXED EYES AND FACIAL TWITCHING BETWEEN [phone]. FLOOR NURSE AND DAUGHTER WERE IN ROOM AND WITNESS TO EVENT, PATIENT HAD NO RESPONSE TO PAIN DURING THIS EPISODE. TREATMENT WAS TERMINATED UPON SEIZURE, BLOOD WAS RETURNED, LINES FLUSHED, AND HEPARIN DWELLING. DR. SHAFFER NOTIFIED. PATIENT WAS FLUID POSITIVE 100ML.
--- NOTE | 2016-06-11 16:32 | NUR ---
1600 DIALYSIS STOPPED DUE TO SEIZURE LIKE ACTIVITY. PT DID NOT RESPOND TO PAINFUL STIMULI DURING. VITAL SIGNS REMAIN STABLE. DR SHAFFER NOTIFIED. WILL NOT RESUME DIALYSIS AT THIS TIME.
--- NOTE | 2016-06-11 18:08 | NUR ---
1800 ORAL CARE PERFORMED. PT STATUS REMAINS UNCHANGED AT THIS TIME. LILLY STABLE. LEVOPHED TURNED OFF WHILE BLOOD IS INFUSING. WILL CONTINUE TO MONITOR.
--- NOTE | 2016-06-11 19:31 | NUR ---
REPORT RECIEVED. ASSESSMNET COMPLETE PER FLOW SHEET. VSS. REFER FOR FINDINGS. REPOSITIONED ON L SIDE. NEEDS MET.
--- NOTE | 2016-06-11 21:50 | NUR ---
FAMILY AT BEDSIDE. GIVEN UPDATE. VSS NO NEW CHANGES.
--- NOTE | 2016-06-11 23:08 | NUR ---
REASSESSMETN COMPLETE PER FLOW SHEET. VSS. NO NEW CHANGES. RESTING COMFORTABLY. WILL CONTINUE TO MONITOR.
[2016-06-12] VITALS (24 sets, daily range): BP systolic 101–136; BP diastolic 39–70
--- NOTE | 2016-06-12 03:17 | NUR ---
REASSESSMENT COMPLETE PER FLOW SHEET. VSS. NO NEW CHANGES. WILL CONTINUE TO MONITOR.
[2016-06-12 04:08] LABS: BASOPHILS 0.2 % (0.0-2.0); EOSINOPHILS 2.5 % (0-7); HEMATOCRIT 27.9 % (42.0-54.0); HEMOGLOBIN 9.6 g/dL (13.5-17.5); IMMATURE GRANULOCYTES 2.6 % (0-5); LYMPHOCYTES 4.8 % (15-50); MCH 29.2 pg (26.0-34.0); MCHC 34.4 g/dL (31.0-37.0); MCV 84.8 fL (80.0-100.0); MONOCYTES 1.8 % (2-11); NEUTROPHILS 88.1 % (40-80); RBC 3.29 10x6/uL (4.20-6.10); RDW 16.5 % (11.5-14.5)
[2016-06-12 04:18] LABS: ANION GAP 17.4 mmol/L (8-16); CALCIUM 8.6 mg/dL (8.5-10.1); CARBON DIOXIDE 24.5 mmol/L (21.0-32.0); CREATININE - SERUM 2.3 mg/dL (0.6-1.3); PHOSPHOROUS 4.6 mg/dL (2.5-4.9); POTASSIUM - SERUM 3.9 mmol/L (3.5-5.1)
[2016-06-12 04:24] LABS: WBC 19.6 10x3/uL (4.8-10.8)
[2016-06-12 04:25] LABS: PLATELET COUNT 27 10x3/uL (130-400)
--- NOTE | 2016-06-12 07:35 | NUR ---
0700 PT DROWSY AND UNABLE TO OBEY COMMANDS. PT NEURO STATUS REMAINS UNCHANGED. LUNG SOUNDS COURSE/CRACKLES BILAT. INSPIRATORY WHEEZES NOTED IN UPPER LOBES BILAT AND RT MIDDLE LOBE. TRACH SUCTION PERFORMED. VITAL SIGNS STABLE AT THIS TIME. WILL CONTINUE TO MONITOR.
--- NOTE | 2016-06-12 09:43 | NUR ---
0900 PT STABLE AT THIS TIME. ORAL CARE PERFORMED. WILL INFUSE 1 UNIT OF PLATELETS AFTER DIALYSIS TODAY PER DR PRASAD'S ORDER. VITAL SIGNS STABLE.
--- NOTE | 2016-06-12 11:32 | NUR ---
1100 PT HAD BM, LOOSE AND GREEN. CLEANED UP AND LINENS CHANGED. NO FURTHER CHANGES AT THIS TIME. VITAL SIGNS STABLE
--- NOTE | 2016-06-12 13:58 | NUR ---
1300 PT ON DIALYSIS AT THIS TIME. NURSE AT BEDSIDE. WILL MONITOR CLOSELY DURING THERAPY. VITAL SIGNS STABLE AT THIS TIME.
--- NOTE | 2016-06-12 15:46 | NUR ---
1500 PT REMAINS ON DIALYSIS. TOLERATING WELL. VITAL SIGNS STABLE. FAMILY AT BEDSIDE, WILL CONTINUE TO MONITOR
--- NOTE | 2016-06-12 16:04 | NUR ---
Mr. Jones had bedside hemodialysis today via his right IJ Trialysis catheter. Average blood flow was 400mls/minute. Dosed albumin 12,5 grams IV times one dose. Ran normal saline 100mls/hr via my venous trap on the machine to reduce clotting possibilities since there was no heparin used. Net fluid removed was 2000 mls as well as all fluids given. Post vital signs were:B/P: 143/50,HR:75,Temp:96.8,Resps:21.
--- NOTE | 2016-06-12 17:17 | NUR ---
1658 DIALYSIS COMPLETE. HEART RATE DROPPED TO 30 BPM, 1 DOSE ATROPINE GIVEN AND SCANNED, HEART RATE STABILIZED TO 106 WITHIN SECONDS AND PALPABLE PULSES NOTED. PT BEGAN TO HAVE SEIZURE LIKE ACTIVITY IN FACE AND HEAD, NO RESPONSE TO PAINFUL STIMULI DURING SEIZURE LIKE ACTIVITY. DR LEAL CALLED AND ONE TIME DOSE OF KEPPRA ORDERED. PT STABLE AT THIS TIME. REPORT GIVEN TO FAMILY. PT WILL STILL GO TO CT TODAY PER DR LEAL'S ORDER. VITAL SIGNS STABLE.
--- NOTE | 2016-06-12 19:40 | NUR ---
REPORT RECIEVED. ASSESSMNET COMPELTE PER FLOW SHEET. VSS. FAMILY AT BEDSIDE. REPOSITIONED ON L SIDE. WILL CONTINUE TO MONTIOR.
--- NOTE | 2016-06-12 21:17 | NUR ---
FAMILY AT BEDSIDE. UPDATE GIVEN. NO NEW CHANGES. VSS.
--- NOTE | 2016-06-12 23:50 | NUR ---
PT TO CT WITHOUT DIFFICULTY. VSS. NO NEW CHANGES. REASSESSMENT COMPLETE PER FLOW SHEET.
[2016-06-13] VITALS (23 sets, daily range): BP systolic 117–173; BP diastolic 40–68
--- NOTE | 2016-06-13 01:27 | NUR ---
PARTIAL BB LINEN CHANGE ADM. VSS. WILL CONTINUE TO MONITOR.
--- NOTE | 2016-06-13 03:28 | NUR ---
REASSESSMENT COMPLETE PER FLOW SHEET. VSS. NO NEW CHANGES. WILL CONTINUE TO MONITOR.
[2016-06-13 04:02] LABS: BASOPHILS 0.4 % (0.0-2.0); EOSINOPHILS 1.5 % (0-7); HEMATOCRIT 26.8 % (42.0-54.0); HEMOGLOBIN 9.2 g/dL (13.5-17.5); IMMATURE GRANULOCYTES 1.4 % (0-5); LYMPHOCYTES 5.5 % (15-50); MCH 29.3 pg (26.0-34.0); MCHC 34.3 g/dL (31.0-37.0); MCV 85.4 fL (80.0-100.0); NEUTROPHILS 89.2 % (40-80); RBC 3.14 10x6/uL (4.20-6.10); RDW 16.4 % (11.5-14.5); WBC 17.7 10x3/uL (4.8-10.8)
[2016-06-13 04:04] LABS: PLATELET COUNT 39 10x3/uL (130-400)
[2016-06-13 04:21] LABS: ALBUMIN 2.4 g/dL (3.4-5.0); ANION GAP 16.1 mmol/L (8-16); BILIRUBIN - TOTAL 7.69 mg/dL (0.2-1.3); CALCIUM 8.8 mg/dL (8.5-10.1); CARBON DIOXIDE 25.5 mmol/L (21.0-32.0); POTASSIUM - SERUM 3.6 mmol/L (3.5-5.1); PROTEIN - SERUM 5.8 g/dL (6.4-8.2)
[2016-06-13 04:25] LABS: CREATININE - SERUM 1.6 mg/dL (0.6-1.3); PHOSPHOROUS 3.1 mg/dL (2.5-4.9)
--- NOTE | 2016-06-13 09:37 | NUR ---
Nutrition follow-up: TPN discontinued per renal Nepro infusing @ 30 ml/hr -> pt tolerating per nursing Labs reviewed Nepro to increase to goal rate of 50 ml/hr RDN following.
--- NOTE | 2016-06-13 19:17 | NUR ---
REPORT RECIEVED. ASSESSMENT COMPLETE EPR FLOW SHEET. VSS. WILL CONTINUE TO MONITOR.
--- NOTE | 2016-06-13 21:27 | NUR ---
FAMILY AT BEDSIDE. SPOKE WITH THEM ABOUT CODE STATUS. PT WILL REMAIN FULL CODE AT THIS TIME PER FAMILY WISHES.
--- NOTE | 2016-06-13 23:27 | NUR ---
REASSESSMENT COMPELTE PER LFOW SHEET. VSS. NO NEW CHNAGES. WILL CONTINUE TO MONITOR.
[2016-06-14] VITALS (23 sets, daily range): BP systolic 123–177; BP diastolic 44–67
--- NOTE | 2016-06-14 01:10 | NUR ---
COMPMLETE BB LINEN CHANGE ADM. NO NEW CHANGES.
--- NOTE | 2016-06-14 03:04 | NUR ---
REASSESSMENT COMPLETE PER FLOW SHEET. NO NEW CHANGES. RADIOLOGY AT BEDSIDE.
[2016-06-14 04:35] LABS: BASOPHILS 0.1 % (0.0-2.0); EOSINOPHILS 0 % (0-7); HEMATOCRIT 27.1 % (42.0-54.0); HEMOGLOBIN 9.1 g/dL (13.5-17.5); IMMATURE GRANULOCYTES 1.4 % (0-5); LYMPHOCYTES 5.4 % (15-50); MCH 29.5 pg (26.0-34.0); MCHC 33.6 g/dL (31.0-37.0); MEAN PLATELET VOLUME 12.3 fL (7.4-10.4); MONOCYTES 1.1 % (2-11); RBC 3.08 10x6/uL (4.20-6.10); RDW 17.3 % (11.5-14.5); WBC 14.8 10x3/uL (4.8-10.8)
[2016-06-14 04:45] LABS: PLATELET COUNT 48 10x3/uL (130-400)
[2016-06-14 05:05] LABS: ALBUMIN 2.7 g/dL (3.4-5.0); ANION GAP 19.2 mmol/L (8-16); BILIRUBIN - TOTAL 5.92 mg/dL (0.2-1.3); MAGNESIUM - SERUM 2.1 mg/dL (1.8-2.4); PHOSPHOROUS 4.5 mg/dL (2.5-4.9); POTASSIUM - SERUM 4.2 mmol/L (3.5-5.1); PROTEIN - SERUM 6.3 g/dL (6.4-8.2); VANCOMYCIN - RANDOM 14.7 ug/mL (10.0-20.0)
--- NOTE | 2016-06-14 16:21 | NUR ---
REASSESSMENT COMPLETE PER FLOW SHEET. VSS. FEEDING NOTED IN MOUTH RESIDUAL CHECKED 90ML BILE NOTED. ORAL ENDOTRACH CARE ADM. NO NEW FINDINGS. WILL CONTINUE TO MONITOR.
--- NOTE | 2016-06-14 19:41 | NUR ---
REPORT RECIEVED. ASSESSMENT COMPLETE PER FLOW SHEET. NO NEW CHNAGES. FAMILY AT BEDSIDE. WILL CONTINUE TO MONITOR.
--- NOTE | 2016-06-14 23:28 | NUR ---
REASSESSMENT COMPLETE PER FLOW SHEET. VSS. NO NEW CHANGES. WILL CONTINUE TO MONTIOR.
[2016-06-15] VITALS (24 sets, daily range): BP systolic 146–195; BP diastolic 47–72
--- NOTE | 2016-06-15 01:21 | NUR ---
NO CHANGES VSS COMPLETE BB LINEN CHANGE ADM. LARGE LOOOSE LIQUID BM NOTED.
--- NOTE | 2016-06-15 03:18 | NUR ---
REASSESSMENT COMPLET EPER FLOW SHEET. VSS. NO NEW CHANGES WILL CONTINUE TO MONITOR.
[2016-06-15 04:21] LABS: BASOPHILS 0.1 % (0.0-2.0); EOSINOPHILS 0 % (0-7); HEMATOCRIT 26.9 % (42.0-54.0); IMMATURE GRANULOCYTES 0.8 % (0-5); LYMPHOCYTES 3.4 % (15-50); MCH 29.9 pg (26.0-34.0); MCHC 33.5 g/dL (31.0-37.0); MCV 89.4 fL (80.0-100.0); MONOCYTES 0.8 % (2-11); NEUTROPHILS 94.9 % (40-80); PLATELET COUNT 40 10x3/uL (130-400); RBC 3.01 10x6/uL (4.20-6.10); RDW 17.7 % (11.5-14.5); WBC 20.2 10x3/uL (4.8-10.8)
[2016-06-15 04:39] LABS: ALBUMIN 2.7 g/dL (3.4-5.0); ANION GAP 17.3 mmol/L (8-16); BILIRUBIN - TOTAL 4.3 mg/dL (0.2-1.3); CALCIUM 9.2 mg/dL (8.5-10.1); CREATININE - SERUM 2.2 mg/dL (0.6-1.3); MAGNESIUM - SERUM 2.2 mg/dL (1.8-2.4); POTASSIUM - SERUM 4.3 mmol/L (3.5-5.1); PROTEIN - SERUM 6.2 g/dL (6.4-8.2)
[2016-06-15 04:54] LABS: PHOSPHOROUS 5.9 mg/dL (2.5-4.9)
--- NOTE | 2016-06-15 05:49 | NUR ---
VSS NO NEW CHANGES. RESP AT BEDSIDE. WILL CONTINUE TO MONITOR.
--- NOTE | 2016-06-15 10:36 | NUR ---
Nutrition Follow Up: Chart reviewed. Pt undergoing HD at the time of RD visit. TF of Nepro @ 30 ml/hr. Wt loss 16# since admit - r/t fluid. +BM 06/14/16. I>O. Meds and labs noted. Pt remains in isolation. Rec advancing TF 10 ml every 8-12 hours as tolerated to goal rate of 50 ml/hr. RD will continue to monitor pt progress.
--- NOTE | 2016-06-15 13:16 | NUR ---
TX COMPLETE, BLOOD RETURNED. PT TOLERATED TX WELL. MADE ATTEMPT TO TAKE 4L OFF WAS ABLE TO GET 3.5L. B/P DROPPED DOWN TO 97/44, DECREASED UF GOAL, GAVE 100CC NS AND HUNG 1 ALBUMIN. POST B/P AFTER THIS INTERVENTION 119/53.
[2016-06-15 17:11] LABS: ACID FAST SMEAR Negative (()); AFB SPECIMEN PROCESSING Concentration (())
--- NOTE | 2016-06-15 19:00 | NUR ---
REPORT RECIEVED FROM JONATHAN KNOX. 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 WILL GIVE AT 2100. INITIAL ASSESSMENT COMPLETE, PLEASE SEE FLOW SHEETS FOR DETAILS. ORAL CARE AND TURNING PROVIDED. BED LOW AND LOCKED. VSS, WILL CONTINUE POC.
--- NOTE | 2016-06-15 21:00 | NUR ---
BED BATH GIVEN, WITH MINIMAL ASSISTANCE, REFUSED FULL LINEN CHANGE BUT RECIEVED PARTIAL WITH CLEAN GOWN. PT EXIBITING VERY JERKY MOVEMENT UPON SITTING UP AND ATTEMPTING TO GET OUT OF BED. DENIES PAIN AND ANY OTHER NEEDS AT THIS TIME. BOX ALARM ATTACHED TO PT, BED LOW AND LOCKED, NON SKID SOCKS APPLIED. VSS, WILL CONTINUE POC.
--- NOTE | 2016-06-15 22:02 | NUR ---
ORAL CARE AND TURNING PROVIDED, DAUGHTER GIVING PARTIAL BATH. MEDS GIVEN. NO S&S OF ACUTE DISTRESS OR PAIN OBSERVED. VSS, WILL CONTINUE POC.
--- NOTE | 2016-06-15 22:58 | NUR ---
REASSESSMENT COMPLETE, PLEASE SEE FLOW SHEETS FOR DETAILS. ORAL CARE REFUSED AND TURNING PROVIDED. PEG RESIDUAL CHECKED AND YEILDED 30ML, THIS WAS RETURNED AND FEEDING RESTARTED. VSS, BED LOW AND LOCKED. WILL CONTINUE POC.
[2016-06-16] VITALS (24 sets, daily range): BP systolic 134–185; BP diastolic 49–66
--- NOTE | 2016-06-16 01:00 | NUR ---
ORAL CARE AND TURNING PROVIDED. BED LOW AND LOCKED, VSS, WILL CONTINUE POC.
--- NOTE | 2016-06-16 03:00 | NUR ---
REASSESSMENT COMPLETE, PLEASE SEE FLOW SHEETS FOR DETAILS. ORAL CARE AND TURNING PROVIDED. INCREASED TUBE FEED TO 40 ML/HR. VSS, WILL CONTINUE POC.
[2016-06-16 04:06] LABS: BASOPHILS 0.2 % (0.0-2.0); EOSINOPHILS 0 % (0-7); HEMOGLOBIN 8.2 g/dL (13.5-17.5); IMMATURE GRANULOCYTES 1.5 % (0-5); LYMPHOCYTES 7.6 % (15-50); MCH 29.4 pg (26.0-34.0); MCHC 32.8 g/dL (31.0-37.0); MCV 89.6 fL (80.0-100.0); MONOCYTES 2.8 % (2-11); NEUTROPHILS 87.9 % (40-80); RBC 2.79 10x6/uL (4.20-6.10); RDW 17.6 % (11.5-14.5); WBC 10.7 10x3/uL (4.8-10.8)
[2016-06-16 04:07] LABS: PLATELET COUNT 42 10x3/uL (130-400)
[2016-06-16 04:24] LABS: ALBUMIN 2.8 g/dL (3.4-5.0); ANION GAP 13.1 mmol/L (8-16); CALCIUM 8.6 mg/dL (8.5-10.1); CARBON DIOXIDE 28.3 mmol/L (21.0-32.0); CREATININE - SERUM 1.7 mg/dL (0.6-1.3); MAGNESIUM - SERUM 1.9 mg/dL (1.8-2.4); POTASSIUM - SERUM 3.4 mmol/L (3.5-5.1); VANCOMYCIN - RANDOM 15.3 ug/mL (10.0-20.0)
--- NOTE | 2016-06-16 05:00 | NUR ---
ORAL CARE AND TURNING PROVIDED. BED LOW AND LOCKED, VSS, WILL CONTINUE POC.
--- NOTE | 2016-06-16 07:15 | NUR ---
rec'ed report from outgoing rn - pt resting spine in bed vss - plan for dialysis today - cpoc
--- NOTE | 2016-06-16 08:40 | NUR ---
CHIEF ANALYTICS OFFICER PREPARING FOR DIALYSIS - INSTRUCTED TO HOLD A.M. MEDICATIONS UNTIL DIALYSIS IS COMPLETE (APPRX 2 HOURS) COPOC
--- NOTE | 2016-06-16 10:40 | NUR ---
PT BRADYCARDIA FROM 46 TO 32 TO ASYTOLE - ATROPINE GIVEN - HEART RATE UP TO 95 - PT VSS AT THIS TIME. CPOC PLACED 10CC AIR IN CUFF PER RESP THERAPIST DIRECTED - CONT TO MONITOR AND REPORT
--- NOTE | 2016-06-16 11:30 | NUR ---
Mr. Joens had bedside hemodialysis today via his right IJ Trialysis from 0940 until 1045 am. Average blood flow was 400 mls/minute. At 1045 pt starting having severe bradycardia rapidly. Atropine pushed per RN. Treatment was dicontinued per Dr. Agustin at this time. Post vital signs were B/P:175/77, HR:111, Temp:97.5,Resps:24.
--- NOTE | 2016-06-16 12:00 | NUR ---
DTR AT BEDSIDE - INFORMED OF GIVING PT ATROPINE FOR BRADICARDIA IN 30s - VERBALIZED UNDERSTANDING, INFOMRED dR. Cooper AND BELEM THAT DTR WAS IN ROOM - CPOC
--- NOTE | 2016-06-16 12:54 | NUR ---
BATHED PT - LIQUID STOOL NOTED - PT RESTING SUPINE IN BED - FEED TUBE ON.
--- NOTE | 2016-06-16 13:50 | NUR ---
AT THE NOON VISITATION - ASKED DTR TO STEP OUT FOR PT TO BE BATHED. DTR RETURNED FOR EXTRA VISITATION - DICUSSED PARTICAL CODE WITH DTR - CONFIRMED FAMILY WANTS A FULL CODE INCLUDING CHEST COMPRESSION IF NEEDED. INFORMED DTR THIS RN HAD ATROPINE EASILY AVAILABLE TO GIVE PT IF HEART RATE IS BELOW 40. CONTINUE POC.
--- NOTE | 2016-06-16 15:00 | NUR ---
ASSESSMENT COMPLETE - PT RESTING - SHAKES HEAD 'NO' WHEN TURNED OR POX IS PLACED ON EAR. FAMILY AWARE OF PT'S REACTION - CONTINUE TO CLOSELY MONITOR
--- NOTE | 2016-06-16 16:53 | NUR ---
I&O COMPLETE - SEE FLOW SHEET
--- NOTE | 2016-06-16 17:55 | NUR ---
PT RESTING SUPINE IN BED WITH EYE CLOSED - RESPIRATIONS REG RATE AND RHYTHM CPOC
--- NOTE | 2016-06-16 19:00 | NUR ---
REPORT RECIEVED, INITIAL ASSESSMENT COMPLETE, PLEASE SEE FLOW SHEETS FOR DETAILS. ORAL CARE AND TURNING PROVIDED. VSS, WILL CONTINUE POC.
--- NOTE | 2016-06-16 21:00 | NUR ---
ORAL CARE AND TURNING PROVIDED. BED LOW AND LOCKED, FAMILY AT BEDSIDE. UPDATE GIVEN. VSS, WILL CONTINUE POC.
--- NOTE | 2016-06-16 22:59 | NUR ---
REASSESSMENT COMPLETE, PLEASE SEE FLOW SHEETS FOR DETAILS. ORAL CARE AND TURNING PROVIDED. BED LOW AND LOCKED. WILL CONTINUE POC.
--- NOTE | 2016-06-16 23:30 | NUR ---
PT HAD BOWEL MOVEMENT, THIS WAS CLEANED UP, DRESSING REPLACED ON WOUNDS ON BACK. VSS, WILL CONTINUE POC.
[2016-06-17] VITALS (23 sets, daily range): BP systolic 158–178; BP diastolic 50–72
--- NOTE | 2016-06-17 01:00 | NUR ---
ORAL CARE AND TURNING PROVIDED. VSS, BED LOW AND LOCKED. WILL CONTINUE POC.
--- NOTE | 2016-06-17 03:03 | NUR ---
REASSESSMENT COMPLETE, PLEASE SEE FLOW SHEETS FOR DETAILS. VSS, BED LOW AND LOCKED. ORAL CARE AND TURNING PROVIDED. WILL CONTINUE POC.
[2016-06-17 03:44] LABS: BASOPHILS 0.2 % (0.0-2.0); EOSINOPHILS 0 % (0-7); HEMATOCRIT 25.6 % (42.0-54.0); HEMOGLOBIN 8.5 g/dL (13.5-17.5); IMMATURE GRANULOCYTES 1.5 % (0-5); LYMPHOCYTES 12.2 % (15-50); MCH 29.4 pg (26.0-34.0); MCHC 33.2 g/dL (31.0-37.0); MCV 88.6 fL (80.0-100.0); MONOCYTES 4.4 % (2-11); NEUTROPHILS 81.7 % (40-80); PLATELET COUNT 56 10x3/uL (130-400); RBC 2.89 10x6/uL (4.20-6.10); RDW 17.9 % (11.5-14.5); WBC 8.4 10x3/uL (4.8-10.8)
[2016-06-17 04:01] LABS: ANION GAP 17.2 mmol/L (8-16); BILIRUBIN - TOTAL 2.76 mg/dL (0.2-1.3); CALCIUM 8.9 mg/dL (8.5-10.1); CARBON DIOXIDE 25.4 mmol/L (21.0-32.0); CREATININE - SERUM 1.8 mg/dL (0.6-1.3); PHOSPHOROUS 4.6 mg/dL (2.5-4.9); POTASSIUM - SERUM 3.6 mmol/L (3.5-5.1); PROTEIN - SERUM 6.4 g/dL (6.4-8.2)
--- NOTE | 2016-06-17 05:00 | NUR ---
ORAL CARE AND TURNING PROVIDED. RESIDUAL CHECKED AND GAVE 3ML, THIS WAS RETURNED. VSS, BED LOW AND LOCKED, WILL CONTINUE POC.
--- NOTE | 2016-06-17 19:00 | NUR ---
REPORT RECIEVED, INITIAL ASSESSMENT COMPLETE, PLEASE SEE FLOW SHEETS FOR DETAILS. ORAL CARE AND TURNING PROVIDED. RESIDUAL CHECKED AND NO RESIDUAL NOTED. VSS, BED LOW AND LOCKED, FAMILY AT BED SIDE GIVING PT RANGE OF MOTION EXERCISES. WILL CONTINUE POC.
--- NOTE | 2016-06-17 21:00 | NUR ---
ORAL CARE AND TURNING PROVIDED. FACIAL GROOMING DONE BY FAMILY MEMBER. CVL DRESSING CHANGE PROVIDED OLD ONE WAS CONING OFF. BED LOW AND LOCKED. WILL CONTINUE POC.
--- NOTE | 2016-06-17 23:00 | NUR ---
REASSESSMENT COMPLETE, PLEASE SEE FLOW SHEETS FOR DETAILS. ORAL CARE AND TURNING PROVIDED. BED LOW AND LOCKED. VSS, WILL CONTINUE POC.
[2016-06-18] VITALS (24 sets, daily range): BP systolic 134–184; BP diastolic 50–69
--- NOTE | 2016-06-18 01:00 | NUR ---
ORAL CARE AND TURNING PROVIDED, BED LOW AND LOCKED, VSS, WILL CONTINUE POC.
--- NOTE | 2016-06-18 03:00 | NUR ---
REASSESSMENT COMPLETE, PLEASE SEE FLOW SHEETS FOR DETAILS. ORAL CARE AND TURNING PROVIDED. BED LOW AND LOCKED. WILL CONTINUE POC.
[2016-06-18 03:35] LABS: BASOPHILS 0.1 % (0.0-2.0); EOSINOPHILS 0 % (0-7); HEMATOCRIT 24.5 % (42.0-54.0); HEMOGLOBIN 8.3 g/dL (13.5-17.5); IMMATURE GRANULOCYTES 1.6 % (0-5); LYMPHOCYTES 11.1 % (15-50); MCHC 33.9 g/dL (31.0-37.0); MCV 88.4 fL (80.0-100.0); MEAN PLATELET VOLUME 12.6 fL (7.4-10.4); MONOCYTES 4.4 % (2-11); NEUTROPHILS 82.8 % (40-80); PLATELET COUNT 65 10x3/uL (130-400); RBC 2.77 10x6/uL (4.20-6.10); RDW 18.1 % (11.5-14.5); WBC 8.8 10x3/uL (4.8-10.8)
[2016-06-18 03:46] LABS: ANION GAP 18.7 mmol/L (8-16); CALCIUM 8.6 mg/dL (8.5-10.1); CARBON DIOXIDE 24.3 mmol/L (21.0-32.0)
[2016-06-18 03:58] LABS: CREATININE - SERUM 2.3 mg/dL (0.6-1.3); PHOSPHOROUS 5.8 mg/dL (2.5-4.9)
--- NOTE | 2016-06-18 05:00 | NUR ---
ORAL CARE AND TURNING PROVIDED. BED LOW AND LOCKED. VSS, WILL CONTINUE POC.
--- NOTE | 2016-06-18 06:13 | NUR ---
INCREASED TUBE FEED TO GOAL OF 50ML/HR
[2016-06-18 08:09] LABS: FUNGUS STAIN Final report (())
--- NOTE | 2016-06-18 08:16 | NUR ---
0700 PT UNABLE TO FOLLOW COMMANDS. POSTURING NOTED IN UPPER EXTREMITIES. PUPILS FIXED BILAT. SINUS BRADYCARDIA NOTED. LUNG SOUNDS COURSE/CRACKLES IN UPPER LOBES BILAT AND RT MIDDLE LOBE, DIMINISHED IN LOWER LOBES. SKIN ASSESSMENT DOCUMENTED IN FLOWSHEET. PT REMAINS ON DROPLET ISO. BILAT SCDS. WILL CONTINUE TO MONITOR.
--- NOTE | 2016-06-18 09:33 | NUR ---
Nutrition Follow Up: Chart reviewed. Spoke with RN who reported that pt is tolerating TF @ goal rate. Pt remains unresponsive on vent. Pt undergoing HD at this time. I>O. Wt continues to fluctuate. +BM 06/17/16. Labs noted - BUN, Cr, Glucose, Phos elevated. Meds noted including NS @ 5 ml/hr, Dexamethasone, Albumin, Vaso. TF of Nepro @ 50 ml/hr which is goal rate. Rec continue current TF regimen. RD following.
--- NOTE | 2016-06-18 10:57 | NUR ---
0957 PT STARTED DIALYSIS. TUBE FEEDINGS TURNED OFF. WILL MONITOR CLOSELY DURING THERAPY DUE TO BRADYCARDIA WITH DIALYSIS IN PREVIOUS TREATMENTS. VITAL SIGNS STABLE
--- NOTE | 2016-06-18 12:12 | NUR ---
1200 PT REMAINS STABLE ON DIALYSIS AT THIS TIME. CONTINUING TO MONITOR CLOSELY. VITAL SIGNS STABLE AT THIS TIME
[2016-06-18 13:13] LABS: FUNGUS MYCOLOGY CULTURE Final report (())
--- NOTE | 2016-06-18 13:27 | NUR ---
Mr. Jones had bedside hemodialysis today via his right IJ Trialysis from 0957 until 1300. Pt's access caused the machine to stop and start frequently during pt's respirations. This caused me to have to decrease the blood flow to around 250-275 mls/minute to keep flowing. Pt remained bradycardic all treatment. Net fluid removed was 2000 mls. Post vital signs were:B/P:161/63,HR:57,Temp;97.8,Resps:23.
--- NOTE | 2016-06-18 14:19 | NUR ---
JAS PLACED CALL TO [facility] AND SPOKE TO ROB TO INFORM THAT PATIENT WITH [facility] IS STILL INPATIENT AT [facility]. ROB REQUESTED CLINICAL UPDATE VERBALLY AND STATED SHE WOULD GIVE UPDATE TO [employer] SUPERVISOR. ROB INQUIRED NAME OF MD FOLLOWING PATIENT TODAY TO CONTACT IF MD TO MD CALL WOULD BE REQUIRED. JAS PROVIDED ROB WITH DR. ENG NAME AND HOSPITAL CONTACT NUMBER TO CALL IF NEEDED. ROB DID NOT INFORM IF ANY BEDS WERE AVAILABLE, BUT STATED CASE WOULD HAVE TO BE DISCUSSED WITH [employer] SUPERVISOR AND THAT SOMEONE WOULD NOTIFY CM IF PATIENT TO TRANSFER. JAS PROVIDED ROB WITH MY DIRECT PHONE NUMBER FOR FOLLOW UP CALL.
--- NOTE | 2016-06-18 15:07 | NUR ---
1500 PT HAD LARGE BM. CLEANED AND FULL LINEN CHANGE COMPLETE. VITAL SIGNS STABLE. WILL CONTINUE TO MONITOR
--- NOTE | 2016-06-18 17:46 | NUR ---
1700 PASSIVE ROM PERFORMED ON PT. TOLERATED MOVEMENT. NO PURPOSFUL MOVEMENT NOTED. WILL CONTINUE TO MONITOR
--- NOTE | 2016-06-18 19:15 | NUR ---
REPORT RECEIVED AND CARE ASSUMED. INITIAL SHIFT ASSESSMENT PER FLOWSHEET. ALL IVF PER PUMP AND ARE LABELED AND DATED AND CURRENT. PT RECEIVING NEPRO VIA PEG TUBE LUQ. RESIDUAL CHECKED. PT WITH COPIOUS AMOUNTS OF AIR, REMOVED, RESIDUAL 80, REPLACED AND FLUSHED AND TUBE FEEDING RESUMED. PT BEING MONITORED PER STANDARD ICU PROTOCOL WITH ALL ALARMS SET. DAUGHTER AT BEDSIDE QUESTIONS ANSWERED AND UPDATE GIVEN.
--- NOTE | 2016-06-18 21:00 | NUR ---
DAUGHTER AT BEDSIDE FOR VISITING HOUR.
--- NOTE | 2016-06-18 23:00 | NUR ---
SHIFT REASSESSMENT PER FLOWSHEET. PT CONTINUES WITH NO NEUROLOGICAL CHANGES. CONTINUES TO BE SUPPORTED VIA VENTILATOR. RESPIRATIONS ARE >20 WHEN AWAKE AND AT 20 WHICH IS VENT SETTING WHEN SLEEPING.
[2016-06-19] VITALS (19 sets, daily range): BP systolic 125–168; BP diastolic 44–61
--- NOTE | 2016-06-19 01:00 | NUR ---
CONTINUE TO TURN AND REPOSITION PT Q2H WITH PILLOWS USED TO SUPPORT AND ELEVATE LEGS AND ARMS. HEELS ARE FLOATED. PT IS ON AN AIR OVERLAY MATTRESS.
--- NOTE | 2016-06-19 03:00 | NUR ---
RADIOLOGY TECHS AT BEDSIDE FOR AM CXR. SHIFT REASSESSMENT PER FLOWSHEET. NO ACUTE CHANGES.
--- NOTE | 2016-06-19 05:00 | NUR ---
PT INCONTINENT OF LARGE LOOSE BROWN STOOL. CHANGED WITH PERICARE PROVIDED. PARTIAL LINEN CHANGE.
[2016-06-19 05:48] LABS: HEMATOCRIT 24.2 % (42.0-54.0); HEMOGLOBIN 8.3 g/dL (13.5-17.5); LYMPHOCYTES 16.1 % (15-50); MCH 31.2 pg (26.0-34.0); MCHC 34.3 g/dL (31.0-37.0); MEAN PLATELET VOLUME 12.8 fL (7.4-10.4); NEUTROPHILS 78.3 % (40-80); PLATELET COUNT 55 10x3/uL (130-400); RBC 2.66 10x6/uL (4.20-6.10); RDW 20.5 % (11.5-14.5); WBC 8.6 10x3/uL (4.8-10.8)
[2016-06-19 06:03] LABS: ANION GAP 17.6 mmol/L (8-16); CALCIUM 8.1 mg/dL (8.5-10.1); CREATININE - SERUM 1.8 mg/dL (0.6-1.3); MAGNESIUM - SERUM 1.9 mg/dL (1.8-2.4); PHOSPHOROUS 5.6 mg/dL (2.5-4.9); POTASSIUM - SERUM 3.6 mmol/L (3.5-5.1)
[2016-06-19 07:26] LABS: FUNGUS MYCOLOGY CULTURE Final report (())
--- NOTE | 2016-06-19 07:26 | NUR ---
0700 PT AROUSES TO VOICE AND IS NOT ABLE TO FOLLOW COMMANDS. POSTURING NOTED IN UPPER EXTREMITIES, PUPILS FIXED. NORMAL SINUS ON MONITOR, S1S2 NOTED. LUNG SOUNDS COURSE/CRACKLES, DIMINISHED IN LOWER LOBES BILAT. HYPOACTIVE BOWEL SOUNDS X4. PEG TUBE DRESSING CDI WITH TUBE FEEDINGS INFUSING. PT REMIANS ON VENT WITH STABLE O2 SAT, WILL CONTINUE TO MONITOR
--- NOTE | 2016-06-19 08:55 | NUR ---
0900 DIALYSIS NURSE SETTING UP EQUIPMENT TO DIALYZE PT TODAY. WILL MONITOR CLOSELY DURING TREATMENT DUE TO HISTORY OF PROBLEMS DURING DIALYSIS. VITAL SIGNS STABLE AT THIS TIME. WILL CONTINUE TO MONITOR.
--- NOTE | 2016-06-19 11:13 | NUR ---
AT 0928 THIS MORNING, JAS PLACED CALL AGAIN TO [place] EXPEDITOR LINE AND SPOKE TO SAGE. JAS INFORMED SAGE THAT I HAD SPOKEN WITH ROB YESTERDAY (06/18/16) AND THAT ROB STATED SHE WOULD GIVE CLINICAL UPDATE TO PARAMEDICAL AIDE AT THE [place] AND THAT ROB MADE MENTION OF POSSIBLE MD TO MD CALL. SAGE STATED THAT THERE ARE NO ICU BEDS AVAILABLE AT THIS TIME AT THE [place] AND THAT [facility] MD DO[facility] NOT SPEAK WITH TRANSFERRING MD UNLESS THERE IS A BED AVAILABLE. JAS INFORMED SAGE THAT THIS [place] PATIENT HAS BEEN IN [facility] ICU SINCE 05/14/16 AND THERE HAS YET TO BE A CALL FROM THE [place] INFORMING THAT THERE IS A BED AVAILABLE FOR TRANSFER IN THOSE 37 DAYS. JAS PROVIDED CLINICAL UPDATE AGAIN TODAY TO SAGE ON PT'S STATUS AND THAT PT IS FULL CODE. SAGE STATED SHE WOULD GIVE CLINICAL INFORMATION TO PARAMEDICAL AIDE FOR REVIEW, BUT THAT AT TIME OF MY CALL THERE WERE NO [place] ICU BEDS AVAILABLE. JAS WILL FOLLOW UP WITH [facility] DAILY OR ANY CHANGES IN PT'S STATUS ARISE. JAS NOTIFIED RYAN CASTELLON, ACTING ICU [place] MAINTENANCE MANAGER, OF ABOVE UPDATE ON [place] BED STATUS.
--- NOTE | 2016-06-19 12:23 | NUR ---
1100 NO CHANGES FROM PREVIOUS NOTE. WILL CONTINUE TO MONITOR
--- NOTE | 2016-06-19 12:24 | NUR ---
1220 DIALYSIS COMPLETE. 2L PULLED TODAY. PT BP DROPPED AT END BUT IS STABLE NOW WITHOUT INTERVENTION. WILL CONTINUE TO MONITOR
--- NOTE | 2016-06-19 14:51 | NUR ---
1400 PT HAD BM WITH POSSIBLE BLOOD IN STOOL. SAMPLE COLLECTED AND SENT TO LAB. PT CLEANED AND REPOSITIONED IN BED. ORAL CARE PERFORMED. VITAL SIGNS STABLE AT THIS TIME. WILL CONTINUE TO MONITOR
--- NOTE | 2016-06-19 16:06 | NUR ---
1600 NOTIFIED FAMILY OF BLOODY STOOL. PT STABLE AT THIS TIME. WILL CONTINUE TO MONITOR
--- NOTE | 2016-06-19 17:43 | NUR ---
1740 PT HAD BLOODY STOOL, DIARRHEA WITH PINK TINGED COLOR. CALLED DR ENG. ORDERED H&H AND WILL MONITOR CLOSELY FOR SIGNIFICANT DROP. VITAL SIGNS STABLE AT THIS TIME.
[2016-06-19 18:30] LABS: HEMOGLOBIN 8.5 g/dL (13.5-17.5)
--- NOTE | 2016-06-19 19:30 | NUR ---
REPORT RECEIVED AND CARE ASSUMED. INITIAL ASSESSMENT COMPLETED SEE FLOWSHEET. PT CONTINUES TO BE SUPPORTED PER VENITILATOR VIA TRACH. REMAINS IN DROPLET ISOLATION. REMAINS TOTAL CARE FOR ALL ADLS. ALL LINES AND IVF ARE PROPERLY LABELED DATED AND ARE CURRENT. RECEIVING IVF PER PUMP. PT BEING MONITORED PER STANDARD ICU PROTOCOL WITH ALL ALARMS SET AND VERIFIED.
--- NOTE | 2016-06-19 21:00 | NUR ---
DAUGHTER AT BEDSIDE. NO NEW UPDATE AT THIS TIME. PT CONDITION UNCHANGED.
[2016-06-20] VITALS (17 sets, daily range): BP systolic 102–166; BP diastolic 49–67
--- NOTE | 2016-06-20 06:21 | NUR ---
COMPUTERS WERE DOWN MOST OF THIS SHIFT. SEE PAPER NURSES NOTES FOR DETAILS OF CARE PROVIDED. PT REMAINED TOTAL CARE WITH ALL ADLL'S PROVIDED FOR AND NO CHANGES THROUGHOUT THE SHIFT
[2016-06-20 06:35] LABS: ANION GAP 17.2 mmol/L (8-16); CALCIUM 8.1 mg/dL (8.5-10.1); CARBON DIOXIDE 24.8 mmol/L (21.0-32.0); CREATININE - SERUM 2.2 mg/dL (0.6-1.3)
[2016-06-20 07:00] LABS: BASOPHILS 0.1 % (0.0-2.0); EOSINOPHILS 0 % (0-7); HEMATOCRIT 24.1 % (42.0-54.0); HEMOGLOBIN 7.9 g/dL (13.5-17.5); IMMATURE GRANULOCYTES 0.8 % (0-5); LYMPHOCYTES 9.3 % (15-50); MCH 29.7 pg (26.0-34.0); MCHC 32.8 g/dL (31.0-37.0); MCV 90.6 fL (80.0-100.0); MONOCYTES 5.2 % (2-11); NEUTROPHILS 84.6 % (40-80); PLATELET COUNT 62 10x3/uL (130-400); RBC 2.66 10x6/uL (4.20-6.10); RDW 19.4 % (11.5-14.5); WBC 8.5 10x3/uL (4.8-10.8)
--- NOTE | 2016-06-20 07:45 | NUR ---
PT CLEANED UP FROM INCONTINENCE OF BOWELS. PT HAD LARGE AMOUNT OF DARK BROWN STOOL WITH EVIDENCE OF DARK BLOOD IN STOOL.
--- NOTE | 2016-06-20 09:52 | NUR ---
Nutrition Follow Up: Chart reviewed. Pt is tolerating TF of Nepro @ 50 ml/hr which is goal rate. Water flushes 50 ml every 4 hours. 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 Meds and labs reviewed. Wt loss noted. I>O. Current TF regimen providing 2160 kcal (25 kcal/kg body wt), 96 g protein (1.1 g/kg body wt). Free water from TF + water flushes providing 1160 ml H2O per day. Rec continue current TF, water flush regimen. RD following.
--- NOTE | 2016-06-20 10:00 | NUR ---
DAUGHTER AT BEDSIDE. VERY UNHAPPY. UPSET WITH RESIPRATORY THERAPIST. SAYS THERAPIST WAS RUDE WHEN QUESTIONED ABOUT VENTILATOR SETTINGS AND SAYS SHE IGNORED HER SUBSEQUENT QUESTIONS AND WALKED OUT OF THE ROOM.
--- NOTE | 2016-06-20 10:15 | NUR ---
BLOOD DRAWN FROM CENTRAL LINE TO TURN IN FOR TYPE AND CROSS. PT HAS ORDERS TO GET 2 UNITS PRBC'S.
[2016-06-20 11:01] LABS: ALBUMIN 2.8 g/dL (3.4-5.0); BILIRUBIN - TOTAL 1.94 mg/dL (0.2-1.3); PROTEIN - SERUM 5.8 g/dL (6.4-8.2)
--- NOTE | 2016-06-20 12:00 | NUR ---
PT CLEANED UP FROM INCONTINENCE OF BOWELS. NO NOTICABLE BLEEDING.
--- NOTE | 2016-06-20 14:04 | NUR ---
SPOKE WITH KALEN RODRIGUEZ. SHE WANTS TO GET 'Justine ENG, ELIZA, AND EMMANUELLE TO COME TOGETHER TO VISIT WITH THE FAMILY. SHE IS GOING TO GET WITH DR KAY AND ALBERTINA. I HAVE PAGED DR HANDLEY TO LET HIM KNOW. WOULD LIKE TO DO THIS AT NOON-TIME TOMORROW.
--- NOTE | 2016-06-20 14:11 | NUR ---
CM PLACED MULTIPLE PHONE CALLS TO [place] EXPEDITOR THIS AM AND CALL WAS NEVER ANSWERED AND PHONE ONLY RANG AND NEVER WENT TO AN OPTION TO LEAVE A MESSAGE. AT 12:30PM, CM [facility] AND CALL WAS ANSWERED BY ROB. ROB INFORMED THAT THE [place] CONTINUED TO HAVE NO ICU BEDS AVAILABLE FOR TRANSFER AND TOOK BRIEF CLINICAL UDATE FROM YESTERDAY'S CALL TO DOCUEMENT IN PT'S NOTES ON TRANSFER LIST. JAS CONFIRMED THAT IF A BED WERE TO COME AVAILABLE FOR PATIENT TO TRANSFER TO THAT EXPEDITOR OR [facility] RANSFER COORDINATOR WOULD CALL CM TO INFORM AND ROB STATED THAT CM OR BEDSIDE RN WOULD BE CALLED IF BED BECAME AVAILABLE FOR TRANSFER. CM INFORMED ROB THAT CALLS WOULD CONTINUE TO BE MADE DAILY TO ASSESS BED STATUS AND CONFIRMED THAT [place] BED EXPEDITOR HAD CORRECT TELEPHONE NUMBERS FOR CM AND FOR NURSING UNIT/ICU. CM WILL CONTINUE TO FOLLOW.
--- NOTE | 2016-06-20 14:37 | NUR ---
DIALYSIS NURSE AT BEDSIDE SETTING UP FOR TREATMENT.
--- NOTE | 2016-06-20 15:05 | NUR ---
SPOKE WITH KALEN RODRIGUEZ AGAIN. SHE HAS SPOKE WITH DR KAY. DR KAY HAS TALKED WITH DR HANDLEY AND THE PLAN IS TO HAVE DR KAY SPEAK WITH THE FAMILY TOMORROW ABOUT PT PROGNOSIS AND CARE. WILL NOT BE A FORCED MEETING. ADMINISTRATION TO HOLD OFF MEETING WITH FAMILY UNTIL AFTER DR KAY AND DR HANDLEY ARE ABLE TO SPEAK WITH FAMILY. PLAN IS TO NOT HAVE TO GET ADMINISTRATION INVOLVED, BUT IF NEED TO WILL NOT BE UNTIL NEXT WEEK.
--- NOTE | 2016-06-20 15:45 | NUR ---
DIFFICULTY WITH DIALYSIS LINE. KEPT STOPPING MACHINE BECAUSE LINE WOULD HUG UP AGAINST VESSEL WITH EACH INSPIRATION FROM PATIENT. TRACH COLLAR LOOSENED AND INCIDENCE OF STOPPING REDUCED. DR COELHO WAS CALLED BY FRED THE DIALYSIS NURSE AND NOTIFIED OF SITUATION. HE ASKED FOR ACTIVASE TO BE INSTILLED IN EACH LUMEN AT END OF SESSION. SPOKE WITH RICKEY IN PHARMACY TO GET PROPPER DOSING ORDERED.
--- NOTE | 2016-06-20 17:33 | NUR ---
2 UNITS PRBC GIVEN ON DIALYSIS. PT BP SYSTOLIC 70'S. DIALYSIS NURSE HAS REDUCED AMOUNT TO TAKE OFF. HR HAS REMAINED STABLE. PT SLEEPING THROUGHOUT TREATMENT. NO DISTRESS NOTED. WILL GIVE IV ABX ONCE DIALYSIS TREATMENT COMPLETE.
--- NOTE | 2016-06-20 18:31 | NUR ---
Mr. Jones had bedside hemodialysis today via his right IJ Trialysis catheter from 1441 until 1755. Average blood flow was 300 mls/minute. I had a very difficult time keeping the machine flowing due to very poor catheter flow. Whenever the pt. had respirations it would cause my negative pressure limits to exceed the parameters and stop the flow. With assistance from his RN Brenna Osman we were able to eventually gain a 300 blood flow and complete the treatment. I transfused two units of prbc's and removed the volume from the blood as well as a net of 1355. Used zero heparin. I did activase the catheter per orders with the exact length of each lumen and tagged the line. Will aspirate tommorow and reattempt dialysis. Post vital signs were: B/P:168/66, HR:68, Temp:96.6,Resps:25. Pt. was quite hypotensive during the treatment.
--- NOTE | 2016-06-20 18:32 | NUR ---
BROTHER SHELLY FROM [place] CALLED TO CHECK ON PATIENT. DAUGHTER HANK IN ROOM. GAVE PERMISSION FOR ME TO SPEAK TO SHELLY SINCE HE DID NOT HAVE PASSWORD.
--- NOTE | 2016-06-20 19:30 | NUR ---
REPORT RECEIVED AND CARE ASSUMED. INITIAL SHIFT ASSESSMENT COMPLETED. SEE FLOWSHEET. PT REMAINS IN DROPLET ISOLATION AND SUPPORTED PER VENT VIA TRACH. CONTINUES TO HAVE NEPRO AT 50ML/HR WITH A [id number] WATER FLUSH PER PUMP. NEW BAG WAS HUNG AT 1200 TODAY AND DOES NOT NEED CHANGED AT THIS TIME. ALL IVF PER PUMP AND ARE PROPERLY LABELED AND DATED. IV LINES AND FLUIDS ARE CURRENT AND LINES DUE TO BE CHANGED 06-21-16. PT REMAINS TOTAL CARE FOR ALL ADLS. CONTINUE TO MONITOR PER ICU PROTOCAL WITH ALL ALARMS VERIFIED AND CHECKED. SEE FLOWSHEETS FOR ASSESSMENT AND FLUIDS.
--- NOTE | 2016-06-20 20:00 | NUR ---
PT INCONTINENT OF LARGE DIARRHEA STOOL. PERICARE PROVIDED AND BATH DONE WITH ALL LINENS CHANGED.
--- NOTE | 2016-06-20 21:00 | NUR ---
DAUGHTER, MARYCRUZ, HERE TO VISIT. UPDATE GIVEN AND QUESTIONS ANSWERED.
--- NOTE | 2016-06-20 23:00 | NUR ---
SHIFT REASSESSMENT COMPLETED NO NEW CHANGES. PT ON AN AIR OVERLAY BED WITH PILLOWS USED TO ELEVATE ARMS AND FLOAT HEELS. HEEL PROTECTORS ARE ON BILAT. FAMILY REFUSES TO HAVE SCD'S PLACED ON PT.
[2016-06-21] VITALS (24 sets, daily range): BP systolic 100–160; BP diastolic 47–84
--- NOTE | 2016-06-21 01:00 | NUR ---
VSS. NO CHANGES. PT SLEEPING AND RESP AT 20 IS VENT SETTINGS. PT DOES BREATHE OVER THE VENT WHEN AWAKE
--- NOTE | 2016-06-21 03:00 | NUR ---
SHIFT REASSESSMENT COMPLETED NO SIGNIFICANT CHANGES.
[2016-06-21 04:59] LABS: BASOPHILS 0 % (0.0-2.0); EOSINOPHILS 0 % (0-7); HEMATOCRIT 33.2 % (42.0-54.0); HEMOGLOBIN 11.1 g/dL (13.5-17.5); IMMATURE GRANULOCYTES 0.7 % (0-5); LYMPHOCYTES 10.2 % (15-50); MCH 30.2 pg (26.0-34.0); MCHC 33.4 g/dL (31.0-37.0); MCV 90.5 fL (80.0-100.0); MEAN PLATELET VOLUME 13.3 fL (7.4-10.4); MONOCYTES 4.8 % (2-11); NEUTROPHILS 84.3 % (40-80); PLATELET COUNT 65 10x3/uL (130-400); RBC 3.67 10x6/uL (4.20-6.10); RDW 19.6 % (11.5-14.5); WBC 9.6 10x3/uL (4.8-10.8)
--- NOTE | 2016-06-21 05:00 | NUR ---
PT SLEEPING AT THIS TIME. RESP REG AT 20
[2016-06-21 05:05] LABS: INR 1.44 (0.85-1.17); PROTIME 17.5 SECONDS (11.6-15.0)
[2016-06-21 05:06] LABS: APTT 33.7 SECONDS (22.8-39.4)
[2016-06-21 05:11] LABS: ALBUMIN 2.7 g/dL (3.4-5.0); ANION GAP 14.8 mmol/L (8-16); BILIRUBIN - TOTAL 1.8 mg/dL (0.2-1.3); CALCIUM 7.8 mg/dL (8.5-10.1); CARBON DIOXIDE 26.7 mmol/L (21.0-32.0); CREATININE - SERUM 1.7 mg/dL (0.6-1.3); MAGNESIUM - SERUM 1.9 mg/dL (1.8-2.4); POTASSIUM - SERUM 3.5 mmol/L (3.5-5.1); PROTEIN - SERUM 5.9 g/dL (6.4-8.2)
[2016-06-21 05:20] LABS: D-DIMER-QUANTITATIVE 15.05 ug/mLFEU (0.20-0.54)
--- NOTE | 2016-06-21 06:00 | NUR ---
NO VISITORS AT THIS TIME
--- NOTE | 2016-06-21 07:15 | NUR ---
RECEIVED REPORT AND RESUMED CARE, TRACH TO VENT, 50% FIO2 IN USE SAT 98%, VSS, RIGHT IJ TRIALYSIS CATH WITH NS INFUSING AT 5 CC/HR THROUGH NURSE PORT, PEG WITH NEPRO INFUSING AT 50 CC/HR, RESIDUAL CHECK 15 CC, SIDDIQI TO GRAVITY WITH CONCENTRATED DRAINAGE TO BAG, FOOT BOOTS IN PLACE, SKIN ASSESSMENT PER FLOWSHEET, REPOSITIONED TO BACK WITH HEELS FLOATED, AROUSES TO VOICE, GRIMACES TO TOUCH, ASSESSMENT COMPLETE PER FLOWSHEET, ORAL CARE AND SUCTION COMPLETED
--- NOTE | 2016-06-21 08:41 | NUR ---
JAS PLACED CALL TO [place] EXPEDITOR LINE AND SPOKE TO SAGE TO CHECK [facility] BED AVAILABILITY FOR TRANSFER. SAGE INFORMED THAT CURRENTLY THERE ARE NO ICU BEDS AVAILABLE AT THE [place] AND THAT SHE WILL CALL IF A BED BECOMES AVAILABLE. JAS WILL CONTINUE TO ASSESS [facility] BED STATUS DAILY.
--- NOTE | 2016-06-21 09:15 | NUR ---
DR KAY HERE FOR EVAL, NO NEW ORDERS AT THIS TIME, RISK MANAGEMENT HERE TO SPEAK WITH FAMILY, NO FAMILY AVAILABLE AT THIS TIME
--- NOTE | 2016-06-21 09:45 | NUR ---
BP 74/43, 250 NS BOLUS ON HD, GOAL CUT BACK TO 1L, REPEAT BP 106/47
--- NOTE | 2016-06-21 10:01 | NUR ---
FSBS 115, NO INTERVENTION NEEDED AT THIS TIME
--- NOTE | 2016-06-21 11:00 | NUR ---
CONTINUES ON HD, VSS, ASSESSMENT COMPLETED, NO ACUTE CHANGES
--- NOTE | 2016-06-21 12:10 | NUR ---
HD COMPLETED, VSS, 1 LITER OFF
--- NOTE | 2016-06-21 12:23 | NUR ---
Mr. Jones had bedside hemodialysis today via his right IJ Trialysis catheter from 0903 until 1210. Average blood flow was 250 mls/minue. The catheter had very poor flow . Every respiration it would cause an alarm with my arterial limits stopping the flow. Orders received to exchange to catheter. Net fluid removed was 1000mls. Pt. had hypotension requiring net goal to be decreased. Post vital signs were:B/P:167/63, HR:61,Temp:97.5, Resps:26.
--- NOTE | 2016-06-21 14:25 | NUR ---
CONSENT FOR TRIALYSIS CATH TAKEN VIA PHONE FROM DAUGHTER MANUEL PARK, VERIFIED BY KAMILAH SANTOYO RN
--- NOTE | 2016-06-21 14:45 | NUR ---
TRIALYSIS CATH CHANGED BY DR CHUN WITHOUT DIFFICULTY
--- NOTE | 2016-06-21 15:00 | NUR ---
ASSESSMENT COMPLETED PER FLOWSHEET, NO ACUTE CHANGE FROM PREVIOUS, VSS NO VISITORS AT THIS TIME
--- NOTE | 2016-06-21 15:20 | NUR ---
PER DR TOBIN, NO PNEUMO SEEN ON CHEST XRAY, CATH PLACEMENT OK FOR USE
--- NOTE | 2016-06-21 17:00 | NUR ---
INCONTINENT OF DIARRHEA STOOL, SKINCARE AND LINEN CHANGE COMPLETED, SWOLLEN SCROTOM ELEVATED WITH PILLOW CASE SLING, REPOSTIONED TO LEFT SIED WITH PILLOW PROPPED TO BACK AND HEELS FLOATED
--- NOTE | 2016-06-21 18:12 | NUR ---
DAUGHTERS AT BEDSIDE, STATUS UPDATED, VOICES NEEDS AT THIS TIME
--- NOTE | 2016-06-21 19:00 | NUR ---
REPORT RECIEVED, INITIAL ASSESSMENT COMPLETE, PLEASE SEE FLOW SHEETS FOR DETAILS. ORAL CARE AND TURNING PROVIDED. BED LOW AND LOCKED, VSS, WILL CONTINUE POC.
--- NOTE | 2016-06-21 21:00 | NUR ---
ORAL CARE AND REPOSITIONING PROVIDED. BED LOW AND LOCKED, VSS, FAMILY AT BEDSIDE. TEACHING OF DISEASE PROCESS PROVIDED TO FAMILY, WILL CONTINUE POC.
--- NOTE | 2016-06-21 23:00 | NUR ---
REASSESSMENT COMPLETE, PLEASE SEE FLOW SHEETS FOR DETAILS. BM CLEANED UP, FULL LINEN KHANNA PROVIDED AND DRESSING PLACED ON COCCYX. VSS, BED LOW AND LOCKED, TURNING AND ORAL CARE PROVIDED. WILL CONTINUE POC.
[2016-06-22] VITALS (27 sets, daily range): BP systolic 106–176; BP diastolic 37–544
--- NOTE | 2016-06-22 00:58 | NUR ---
NO S&S OF ACUTE DIRSTRESS NOTED, ORAL CARE AND TURNING PROVIDED. BED LOW AND LOCKED, VSS, WILL CONTINUE POC.
--- NOTE | 2016-06-22 03:00 | NUR ---
REASSESSMENT COMPLETE, PLEASE SEE FLOW SHEETS FOR DETAILS. ORAL CARE AND TURNING PROVIDED. BED LOW AND LOCKED, VSS, WILL CONTINUE POC.
[2016-06-22 04:17] LABS: BASOPHILS 0.1 % (0.0-2.0); EOSINOPHILS 0.1 % (0-7); HEMATOCRIT 34.5 % (42.0-54.0); HEMOGLOBIN 11.3 g/dL (13.5-17.5); IMMATURE GRANULOCYTES 0.5 % (0-5); MCH 30.3 pg (26.0-34.0); MCHC 32.8 g/dL (31.0-37.0); MCV 92.5 fL (80.0-100.0); MONOCYTES 3.6 % (2-11); NEUTROPHILS 84.7 % (40-80); PLATELET COUNT 68 10x3/uL (130-400); RBC 3.73 10x6/uL (4.20-6.10); RDW 20.5 % (11.5-14.5); WBC 8.4 10x3/uL (4.8-10.8)
[2016-06-22 04:32] LABS: ANION GAP 15.7 mmol/L (8-16); CALCIUM 8.1 mg/dL (8.5-10.1); CARBON DIOXIDE 25.8 mmol/L (21.0-32.0); CREATININE - SERUM 1.5 mg/dL (0.6-1.3); POTASSIUM - SERUM 3.5 mmol/L (3.5-5.1)
--- NOTE | 2016-06-22 05:00 | NUR ---
ORAL CARE AND TURNING PROVIDED, BED LOW AND LOCKED, VSS, WILL CONTINUE POC.
--- NOTE | 2016-06-22 07:00 | NUR ---
REC'D REPORT AND RESUMED CARE, ASSESSMENT COMPLETE PER FLOWSHEET, ORAL CARE AND SUCTION OF WHITE SECRETIONS, REPOSITIONED TO LEFT SIDE WITH PILLOW PROPPED TO BACK AND HEELS FLOATED
--- NOTE | 2016-06-22 09:00 | NUR ---
AM MEDS GIVEN PER MAY AND PROTOC WITHOUT DIFFICULTY
--- NOTE | 2016-06-22 09:30 | NUR ---
INCONTINENT OF DIARRHEA STOOL, SKINCARE AND LINEN CHANGE COMPLETED
--- NOTE | 2016-06-22 10:13 | NUR ---
CM PLACED CALL TO [facility] EXPEDIT[facility] PER PROTOCOL TO ASSESS BED AVAILABILITY FOR TRANSFER. CM SPOKE TO ROB WHO INFORMED THAT AT THIS TIME THERE REMAINS NO BED AVAILABLE FOR TRANSFER AND THAT THEY WILL CALL IF BED BECOMES AVAILABLE, OTHERWISE, CM TO CONTINUE TO CHECK BED AVAILABILITY DAILY.
--- NOTE | 2016-06-22 10:15 | NUR ---
Nutrition Follow Up: Chart reviewed and spoke with RN. Pt having some diarrhea. Nepro @ 50 ml/hr which is goal rate. I>O. Wt stable. Labs reviewed - BUN, Cr, Glucose elevated. Meds noted including NS @ 5 ml/hr, Humulin. Rec continue TF @ goal rate. Rec consider probiotics daily. RD following.
--- NOTE | 2016-06-22 11:00 | NUR ---
NO ACUTE CHANGE FROM PREVIOUS ASSESSMENT, WILL CONTINUE WITH POC
--- NOTE | 2016-06-22 12:30 | NUR ---
DAUGHTER ANETA AT BEDSIDE, STATUS UPDATED, VOICES MO NEEDS AT THIS TIME
--- NOTE | 2016-06-22 15:05 | NUR ---
WOUND CARE: FAMILY REQUESTED WOUND CARE LOOK AT WOUNDS ON RIGHT HAND. ALL WOUNDS CONTINUE TO HAVE BLACK ESCAR WITH DRY PEELING SKIN AROUND EDGES. BASE OF THUMB IS RED. RECOMMEND KEEPING IT CLEAN AND DRY AND COVERING WITH BANDAID TO PROTECT. ALL OTHER WOUNDS ON BACK BUTTOCKS, SACRUM, LATERAL LEGS HAVE REMAINED THE SAME WITH SLIGHT IMPROVEMENT, PT IS BEING TURNED Q 2 H - HE DOES NOT LIKE BEING TURNED AND IT MAKES HIM ANGRY. HE IS ON AN OVERLAY MATTRESS. HIS HEELS HAVE PROTECTORS AND ARE BEING BRIDGED WITH PILLOWS ARE HIS ARMS. WOUND CARE WILL CONTINUE TO MONITOR.
--- NOTE | 2016-06-22 18:00 | NUR ---
JDAUGHTER AT BEDSIDE,, STATUS UPDATED VOICES NO NEEDS A THIS TIME
--- NOTE | 2016-06-22 19:00 | NUR ---
REPORT RECIEVED, INITIAL ASSESSMENT COMPLETE, PLEASE SEE FLOW SHEETS FOR DETAILS. ORAL CARE AND TURNING PROVIDED. BED LOW AND LOCKED, RESIDUAL CHECKED FROM PEG AND RECIEVED 90ML, THIS WAS RETURNED AND FEED STARTED AGAIN. VSS, WILL CONTINUE POC.
--- NOTE | 2016-06-22 21:00 | NUR ---
ORAL CARE AND TURNING PROVIDED. CHANGED FEED BAGS, NO S&S OF ACUTE DISTRESS NOTED. VSS, BED LOW AND LOCKED, WILL CONTINUE POC.
--- NOTE | 2016-06-22 23:00 | NUR ---
REASSESSMENT COMPELTE, PLEASE SEE FLOW SHEETS FOR DETAILS. BED LOW AND LOCKED, ORAL CARE AND TURNING PROVIDED. VSS, WILL CONTINUE POC.
[2016-06-23] VITALS (35 sets, daily range): BP systolic 103–169; BP diastolic 37–423
--- NOTE | 2016-06-23 01:00 | NUR ---
ORAL CARE AND TURNING PROVIDED, BED LOW AND LOCKED, VSS, WILL CONTINUE POC.
--- NOTE | 2016-06-23 03:00 | NUR ---
REASSESSMENT COMPELTE, PLEASE SEE FLOW SHEETS FOR DETAILS. BED LOW AND LOCKED, ORAL CARE AND TURNING PROVIDED. VSS, WILL CONTINUE POC.
--- NOTE | 2016-06-23 05:00 | NUR ---
ORAL CARE PROVIDED, VSS, WILL CONTINUE POC.
[2016-06-23 05:29] LABS: BASOPHILS 0 % (0.0-2.0); EOSINOPHILS 0.6 % (0-7); HEMATOCRIT 32.6 % (42.0-54.0); HEMOGLOBIN 10.6 g/dL (13.5-17.5); IMMATURE GRANULOCYTES 0.2 % (0-5); LYMPHOCYTES 10.8 % (15-50); MCH 30.1 pg (26.0-34.0); MCHC 32.5 g/dL (31.0-37.0); MCV 92.6 fL (80.0-100.0); MEAN PLATELET VOLUME 12.7 fL (7.4-10.4); MONOCYTES 4.5 % (2-11); NEUTROPHILS 83.9 % (40-80); PLATELET COUNT 77 10x3/uL (130-400); RBC 3.52 10x6/uL (4.20-6.10); RDW 20.6 % (11.5-14.5); WBC 9.5 10x3/uL (4.8-10.8)
[2016-06-23 05:39] LABS: ANION GAP 15.4 mmol/L (8-16); CARBON DIOXIDE 25.2 mmol/L (21.0-32.0); POTASSIUM - SERUM 3.6 mmol/L (3.5-5.1)
[2016-06-23 05:47] LABS: CREATININE - SERUM 1.9 mg/dL (0.6-1.3)
--- NOTE | 2016-06-23 11:00 | NUR ---
NO KHANNA NOTED
--- NOTE | 2016-06-23 12:50 | NUR ---
Mr. Jones had bedside hemodialysis today via his right IJ Trialysis catheter from 09 until 1225. Average blood flow was 400mls/minute. Pt. had hypotension requiring albumin infusion and a normal saline bolue of 200mls. Eventually b/p stabilized and I was able to net 1000 mls and all fluids given. Pt. started new onset of atrial flutter today. Pt. is now posturing. Post vital signs were: B/P:167/66,HR:93, Temp,97.7,Resps:29.
--- NOTE | 2016-06-23 18:00 | NUR ---
NO CHANGE NOTED TO THIS TIME.
--- NOTE | 2016-06-23 19:00 | NUR ---
REPORT RECIEVED, INITIAL ASSESSMENT COMPLETE, PLEASE SEE FLOW SHEETS FOR DETAILS. ORAL CARE AND TURNING PROVIDED, BED LOW AND LOCKED. VSS, WILL CONTINUE POC.
--- NOTE | 2016-06-23 21:00 | NUR ---
ORAL CARE AND TURNING PROVIDED, BED LOW AND LOCKED, VSS, WILL CONTINUE POC.
--- NOTE | 2016-06-23 23:00 | NUR ---
REASSESSMENT COMPLETE, PLEASE SEE FLOW SHEETS FOR DETAILS. PT REFUSED TO OPEN MOUTH FOR ORAL CARE, TURNING PROVIDED. BED LOW AND LOCKED, VSS, WILL CONTINUE POC.
[2016-06-24] VITALS (24 sets, daily range): BP systolic 104–177; BP diastolic 35–66
--- NOTE | 2016-06-24 01:00 | NUR ---
ORAL CARE AND TURNING PROVIDED, BED LOW AND LOCKED, VSS, WILL CONTINUE POC.
--- NOTE | 2016-06-24 02:57 | NUR ---
REASSESSMENT COMPLETE, PLEASE SEE FLOW SHEETS FOR DETAILS. ORAL CARE REFUSED, TURNING PROVIDED. BED LOW AND LOCKED. VSS, WILL CONTINUE POC.
[2016-06-24 04:41] LABS: BASOPHILS 0 % (0.0-2.0); EOSINOPHILS 1.4 % (0-7); HEMATOCRIT 31.7 % (42.0-54.0); HEMOGLOBIN 10.3 g/dL (13.5-17.5); IMMATURE GRANULOCYTES 0.4 % (0-5); LYMPHOCYTES 8.9 % (15-50); MCH 30.6 pg (26.0-34.0); MCHC 32.5 g/dL (31.0-37.0); MCV 94.1 fL (80.0-100.0); MEAN PLATELET VOLUME 12.5 fL (7.4-10.4); MONOCYTES 7.3 % (2-11); PLATELET COUNT 80 10x3/uL (130-400); RBC 3.37 10x6/uL (4.20-6.10); RDW 20.8 % (11.5-14.5)
[2016-06-24 04:53] LABS: CARBON DIOXIDE 25.5 mmol/L (21.0-32.0); POTASSIUM - SERUM 3.5 mmol/L (3.5-5.1)
[2016-06-24 04:54] LABS: CREATININE - SERUM 1.4 mg/dL (0.6-1.3)
--- NOTE | 2016-06-24 05:00 | NUR ---
ORAL CARE AND TURNING PROVIDED, BED LOW AND LOCKED, VSS, WILL CONTINUE POC.
--- NOTE | 2016-06-24 11:00 | NUR ---
NOTIFIED Rx OF NEED FOR OPTH. DPOPS.
--- NOTE | 2016-06-24 12:30 | NUR ---
WILL GIVE OPTH. DROPS WHEN RECD. FROM Rx
--- NOTE | 2016-06-24 19:45 | NUR ---
ASSESSMENT COMPLETE. S1S2. PT ON MECHANICAL VENT VIA TRACH. RR CRACKLES AUDIBLE BILATERALLY IN UPPER LOBES; DIMINISHED BILATERALLY IN LOWER LOBES. NSR SHOWING ON MONITOR. GENERALIZED EDEMA NOTED TO ALL EXTREMITIES. MULTIPLE SCABS/SORE AND NECROTIC TISSUE NOTED TO RIGHT HAND; BUTTOCKS; AND COCCYX.
--- NOTE | 2016-06-24 21:39 | NUR ---
TRANSFERED PT TO [facility].
--- NOTE | 2016-06-24 23:15 | NUR ---
REASSESSMENT COMPLETE. NO CHANGES FROM PREVIOUS ASSESSMENT. VSS. NO DISTRESS NOTED. PT ON MECHANICAL VENT VIA TRACH.
[2016-06-25] VITALS (23 sets, daily range): BP systolic 113–170; BP diastolic 33–72
--- NOTE | 2016-06-25 03:05 | NUR ---
REASSESSMENT COMPLETE. NO CHANGES FROM PREVIOUS ASSESSMENT. MULTI NECROTIC SCABS/SORES. PREDOMINANTLY ON RIGHT HAND AND BACK/COCCYX REGION. THE NECROTIC WOUND ON THE COCCYX HAS SLIGHT BLEEDING; THE WOUNDS ON THE BACK/SPINAL REGION HAVE SLIGHT GREEN DISCHARGE.
[2016-06-25 04:49] LABS: BASOPHILS 0 % (0.0-2.0); EOSINOPHILS 2.8 % (0-7); HEMATOCRIT 30.1 % (42.0-54.0); HEMOGLOBIN 9.7 g/dL (13.5-17.5); IMMATURE GRANULOCYTES 0.4 % (0-5); LYMPHOCYTES 11.2 % (15-50); MCH 30.2 pg (26.0-34.0); MCHC 32.2 g/dL (31.0-37.0); MCV 93.8 fL (80.0-100.0); MEAN PLATELET VOLUME 11.9 fL (7.4-10.4); NEUTROPHILS 79.6 % (40-80); PLATELET COUNT 82 10x3/uL (130-400); RBC 3.21 10x6/uL (4.20-6.10); RDW 20.5 % (11.5-14.5); WBC 7.4 10x3/uL (4.8-10.8)
--- NOTE | 2016-06-25 05:04 | NUR ---
COMPLETE BED BATH GIVEN. COMPLETE LINEN CHANGE. VSS. WILL CONTINUE TO MONITOR.
[2016-06-25 05:06] LABS: ANION GAP 12.9 mmol/L (8-16); CALCIUM 8.1 mg/dL (8.5-10.1); CARBON DIOXIDE 27.5 mmol/L (21.0-32.0); POTASSIUM - SERUM 3.4 mmol/L (3.5-5.1)
[2016-06-25 05:11] LABS: CREATININE - SERUM 1.8 mg/dL (0.6-1.3)
--- NOTE | 2016-06-25 07:00 | NUR ---
REC'D REPORT AND RESUMED CARE, ASSESSMENT COMPLETE PER FLOWSHEET
--- NOTE | 2016-06-25 09:00 | NUR ---
AM MEDS GIVEN WITHOUT DIFFICULTY, VSS, NO VISITORS AT THIS TIME
--- NOTE | 2016-06-25 09:03 | NUR ---
Nutrition follow-up: Nepro infusing @ 50 ml/hr; pt tolerating TF @ goal rate labs reviewed Pt with rectal tube in place due to continued diarrhea. Meds reviewed; Pt is taking Neurontin which may cause diarrhea. RDN following.
--- NOTE | 2016-06-25 09:28 | NUR ---
CM PLACED CALL TO [facility] AND SPOKE TO ROB TO ASSESS BED STATUS AT [place]. ROB STATED THAT CURRENTLY [place] IS ON NO TYPE OF DIVERSION, BUT THAT DENTURE PROCESSOR IS NOT AVAILABLE FOR HER TO SPEAK TO AT THIS TIME AND SHE IS UNSURE OF BED STATUS FOR TRANSFERS AT THIS TIME. CM INQUIRED IF I SHOULD CALL BACK IN AN HOUR TO RE-ASSESS BED TRANSFER STATUS AND ROB STATED THAT IF BED IS AVAILABLE ONCE SHE IS ABLE TO SPEAK TO DENTURE PROCESSOR THAT SHE (ROB) OR THE DENTURE PROCESSOR WOULD CALL CM BACK TO NOTIFY AND OBTAIN MD CONTACT NUMBER FOR MD TO MD CALL. ROB STATED THAT IF CM DOES NOT RECEIVE CALL BACK THAT THERE ARE NO BEDS AVAILABLE FOR TRANSFER TODAY AND THAT CM SHOULD CALL AGAIN TOMORROW (06/26/16) TO RE-ASSESS BED AVAILABILITY.
--- NOTE | 2016-06-25 11:00 | NUR ---
NO ACUTE CHANGE FROM PREVIOUS ASSESSMENT
--- NOTE | 2016-06-25 15:00 | NUR ---
ASSESSMENT COMPLETE, NO ACUTE CHANGE FROM PREVIOUS
--- NOTE | 2016-06-25 15:36 | NUR ---
TF SET CHANGE, NEPRO AT 50 CC/HR INFUSING
--- NOTE | 2016-06-25 17:00 | NUR ---
FSBS 70, 1 CONTAINER OF OJ TO G TUBE
--- NOTE | 2016-06-25 18:00 | NUR ---
REPOSITIONED TO BACK, RECTAL LTUBE WITH LEAK, SKINCARE AND LINEN CHANGE COMPLETED, SMALL HEART SHAPE MEPLILEX DRESSING APPLIED TO BUTTOCK, COCCYX AREA, AND 3X3 MEPILEX DRESSING APPLIED TO LEFT UPPER BACK
--- NOTE | 2016-06-25 19:30 | NUR ---
ASSESSMENT COMPLETE. S1S2. MECHANICAL VENT VIA TRACH; 40%. PUPILS 4MM; FIXED. NO MOVEMENT IN EXTREMITIES X4; SWELLING NOTED. MULTIPLE SCABS/SORE AND NECROTIC TISSUE; ON RIGHT HAND, RIGHT THIGH, SCAPULAR REGION, MID SPINAL REGION, BUTTOCKS, AND COCCYX. DRESSING INTACT AT SCAPULAR AND BUTTOCKS/COCCYX REGIONS.
--- NOTE | 2016-06-25 21:00 | NUR ---
NO VISTORS AT THIS TIME.
--- NOTE | 2016-06-25 23:15 | NUR ---
REASSESSMENT COMPLETE. NO CHANGES FROM PREVIOUS ASSESSMENT. VSS. WILL CONTINUE TO MONITOR.
[2016-06-26] VITALS (24 sets, daily range): BP systolic 102–166; BP diastolic 37–88
--- NOTE | 2016-06-26 03:30 | NUR ---
REASSESSMENT COMPLETE. NO CHANGES FROM PREVIOUS ASSESSMENT. VSS. WILL CONTINUE TO MONITOR.
[2016-06-26 05:34] LABS: BASOPHILS 0 % (0.0-2.0); EOSINOPHILS 5.1 % (0-7); HEMATOCRIT 30.7 % (42.0-54.0); HEMOGLOBIN 9.8 g/dL (13.5-17.5); IMMATURE GRANULOCYTES 0.2 % (0-5); LYMPHOCYTES 15.2 % (15-50); MCH 29.9 pg (26.0-34.0); MCHC 31.9 g/dL (31.0-37.0); MCV 93.6 fL (80.0-100.0); MEAN PLATELET VOLUME 11.6 fL (7.4-10.4); MONOCYTES 7.6 % (2-11); NEUTROPHILS 71.9 % (40-80); PLATELET COUNT 85 10x3/uL (130-400); RBC 3.28 10x6/uL (4.20-6.10); RDW 19.9 % (11.5-14.5); WBC 5.9 10x3/uL (4.8-10.8)
[2016-06-26 05:48] LABS: ANION GAP 13.4 mmol/L (8-16); BILIRUBIN - TOTAL 1.19 mg/dL (0.2-1.3); CALCIUM 8.3 mg/dL (8.5-10.1); CARBON DIOXIDE 26.8 mmol/L (21.0-32.0); POTASSIUM - SERUM 4.2 mmol/L (3.5-5.1); PROTEIN - SERUM 5.9 g/dL (6.4-8.2)
--- NOTE | 2016-06-26 06:30 | NUR ---
NO VISITORS AT THIS TIME
--- NOTE | 2016-06-26 07:00 | NUR ---
PT REPORT REC'D, PT CARE ASSUMED. PT ON VENT, 8.0 TRACH. RIGHT TRIALYSIS WITH FLUIDS INFUSING SEE FLOW SHEET. G-TUBE WITH NEPRO INFUSING AT 50ML/HR. MULTIPLE WOUNDS, SEE SHIFT ASSESSMENT. SHIFT ASSESSMENT COMPLETED, SEE FLOW SHEET. FAMILY REFUSES PT TO HAVE SCD'S, BILAT FOOT DROP BOOTS. REPOSITIONED PT, PROPPED WITH PILLOWS. SIDDIQI CATHETER FREE OF KINKS TO GRAVITY WITH URINE RETURN. ROOM FREE OF CLUTTER, BED LOCKED IN LOWEST POSITION, CALL LIGHT IN REACH, WILL CONTINUE TO MONITOR PT.
--- NOTE | 2016-06-26 09:22 | NUR ---
REPOSITIONED PT, PROPPED WITH PILLOWS, WILL CONTINUE TO MONITOR PT.
--- NOTE | 2016-06-26 09:51 | NUR ---
DELANEY WITH DIALYSIS AT THE BEDSIDE SETTING UP
--- NOTE | 2016-06-26 09:55 | NUR ---
Is the patient Alert and Oriented? Yes 0 * How many steps to enter\exit or inside your home? RAMP 0 * PCP DR. ENG 0 * Pharmacy [facility] 0 * Preadmission Environment Home with Family 0 * ADLs Independent 0 * Equipment Bedside Commode Wheelchair 0 * Other Equipment WA;LK IN SHOWER 0 * List name and contact numbers for known caregivers / representatives who currently or will assist patient after discharge: SPOUSE: SUNI [phone] [place] [phone] * Community resources currently utilized None 0 * Additional services required to return to the preadmission environment? No 0 * Can the patient safely return to the preadmission environment? Yes 0 * Has this patient been hospitalized within the prior 30 days at any hospital? No PATIENT IS AWAKE AND ALERT. SHE STATES SHE WAS INDEPENDENT PRIOR TO COMING TO THE HOSPITAL. PATIENT'S PCP IS DR. ENG. SHE GETS HER MEDS FROM [facility]. PATIENT'S , SUNI, WILL DRIVE HER HOME AT DISCHARGE. PATIENT STATES SHE HAS A W/C, BSC, AND WALK IN BATH TUB. PATIENT HAD Done. HEALTH IN THE PAST. THERE ARE NO STEPS TO ENTER HER HOME. SHE HAS A WHEELCHAIR RAMP. NO DISCHARGE NEEDS AT THIS TIME.
--- NOTE | 2016-06-26 11:00 | NUR ---
PT ON DIALYSIS, VSS, REASSESSMENT COMPLETED, SEE FLOW SHEET. ROOM FREE OF CLUTTER, BED LOCKED IN LOWEST POSITION, CALL LIGHT IN REACH, WILL CONTINUE TO MONITOR PT.
--- NOTE | 2016-06-26 12:17 | NUR ---
PT FAMILY AT THE BEDSIDE, ALL QUESTIONS ANSWERED, VSS, WILL CONTINUE TO MONITOR PT.
--- NOTE | 2016-06-26 13:27 | NUR ---
PT'S DAUGHTER, DESTINEE, CHANGING PASSWORD FROM "SLIVIANO" TO GREGG.
--- NOTE | 2016-06-26 15:00 | NUR ---
REPOSITIONED PT, VSS, REASSESSMENT COMPLETED, SEE FLOW SHEET. ROOM FREE OF CLUTTER, BED LOCKED IN LOWEST POSITION, CALL LIGHT IN REACH, WILL CONTINUE TO MONITOR PT.
--- NOTE | 2016-06-26 15:27 | NUR ---
AT 11:30 TODAY CM PLACED CALL TO VA BED EXPEDITOR LINE AND SPOKE TO SAGE TO ASSESS VA BED AVAILABILITY FOR TRANSFER THIS PATIENT HAS BEEN NOW ADMITTED TO [facility] WITH [facility] BENEFITS FOR 43 DAYS. JAS WAS TRANSFERRED BY SAGE TO SAMUEL AVILES RN WHO STATED SHE WAS THE VA'S TRANSFER NURSE/COORDINATOR. SAMUEL'S VERY FIRST WORDS SPOKEN TO THIS CM WERE "WHAT IS IT THAT YOU WANT US TO DO WITH THIS PATIENT?" AND SPOKE TO THIS CM IN A VERY DIDIER, RUDE, DISRESPECTFUL TONE OF VOICE CONTINUING TO ASK AGAIN AND AGAIN "WHAT DO YOU WANT US TO DO FOR THIS PATIENT?". JAS EXPLAINED THAT I WAS SIMPLY CALLING TODAY LIKE I HAD ON PREVIOUS DAYS TO ASSESS BED AVAILABILITY FOR THIS VA SERVICE CONNECTED PATIENT PER THE [facility] PROTOCOL. CM INFORMED THAT I HAD BEEN GIVING REQUESTED DAILY UPDATES TO BED EXPEDITORS PER THEIR REQUEST AND HAD ONLY BEEN TOLD THAT BEDS WERE NOT AVAILABLE. SAMUEL STATED THAT THE VA HAD NOTHING TO OFFER THIS PATIENT AND THAT THEY WOULD NOT ACCEPT THIS PATIENT TO THE VA "JUST NEEDING TO BE PLACED SOMEWHERE". I OFFERED SAMUEL A CLINICAL UPDATE ON THE PATIENT THIS CM HAS NEVER BEEN GIVEN THE OPPORTUNITY TO SPEAK TO A NURSE REGARDING THIS /PATIENT TO PROVIDE UP TO DATE CLINICAL INFORMATION TO SAMUEL. SHE ACCEPTED SOME INFORMATION, BUT INTERRUPTED CM REPEATEDLY CONTINUING TO ASK "WHAT DO YOU WANT US TO DO WITH THIS PATIENT?". SHE THEN INFORMED CM THAT THE VA WILL NOT BE ACCEPTING THIS /PATIENT FOR TRANSFER AND THAT HER "GREEN HOUSE MANAGER WOULD NOT ALLOW" HER TO ACCEPT THIS PATIENT TO THE VA A TRANSFER. SAMUEL AVILES RN NEVER INQUIRED THE NAME OR CONTACT NUMBER FOR THE PRIMARY PHYSICIAN CARING FOR THIS /PATIENT TODAY AND NEVER OFFERED THE OPTION FOR MD-TO-MD CALL TO DISCUSS THIS PATIENT AND ONLY STATED THE VA WOULD NOT BE ACCEPTING HIM FOR TRANSFER. WHEN JAS ATTEMPTED TO ASK SAMUEL IF WE SHOULD CONTINUE TO CALL DAILY TO ASSESS BED AVAILABILITY SHE STATED "YOU CAN DO WHATEVER YOU WANT TO DO, BUT WE WILL NOT BE ACCEPTING THIS PATIENT FOR TRANSFER!". CM PLACED CALL TO MEI HARRELL IN THE [facility] BUSINESS OFFICE TO INFORM AND ALSO INFORMED KALEN RODRIGUEZ OF ABOVE CONVERSATION. MICHELLE MATHIS RN
--- NOTE | 2016-06-26 18:00 | NUR ---
REPOSITIONED PT, PROPPED WITH PILLOWS, VSS. WILL CONTINUE TO MONITOR PT.
--- NOTE | 2016-06-26 19:48 | NUR ---
REPORT RECIEVED. ASSESSMENT COMPLETE PER FLOW SHEET. VSS. PT NO RESPONSIVE +BLINK REFLEX WITH STIMULI TO FOREHEAD UNABLE TO FOLLOW SIMPLE COMMANDS X4 EXTREMETIES FLACCID. REFER TO FLOW SHEET FOR FURTHER FINDINGS. ORAL ENDOTRACH CARE ADM. REPOSITIONED ON R SIDE. VSS WILL CONTINUE TO MONITOR.
--- NOTE | 2016-06-26 21:16 | NUR ---
FAMILY AT BEDSIDE. GIVEN UPDATE. NO NEW CHANGES
--- NOTE | 2016-06-26 23:33 | NUR ---
REASSESSMENT COMPLETE PER FLOW SHEET. VSS NO NEW CHANGES. WILL CONTINUE TO MONITOR.
[2016-06-27] VITALS (25 sets, daily range): BP systolic 94–154; BP diastolic 33–73
--- NOTE | 2016-06-27 03:32 | NUR ---
REASSESSMENT COMPLETE PER FLOW SHEET. VSS. NO NEW CHANGES. RESTING COMFORTABLY. WILL CONTINUE TO MONITOR.
[2016-06-27 03:44] LABS: BASOPHILS 0.1 % (0.0-2.0); EOSINOPHILS 0.7 % (0-7); HEMATOCRIT 31.8 % (42.0-54.0); HEMOGLOBIN 10.2 g/dL (13.5-17.5); IMMATURE GRANULOCYTES 0.1 % (0-5); LYMPHOCYTES 7.1 % (15-50); MCH 30.2 pg (26.0-34.0); MCHC 32.1 g/dL (31.0-37.0); MCV 94.1 fL (80.0-100.0); MEAN PLATELET VOLUME 11.2 fL (7.4-10.4); MONOCYTES 4.6 % (2-11); NEUTROPHILS 87.4 % (40-80); PLATELET COUNT 87 10x3/uL (130-400); RBC 3.38 10x6/uL (4.20-6.10); RDW 19.6 % (11.5-14.5)
[2016-06-27 04:10] LABS: BILIRUBIN - TOTAL 1.15 mg/dL (0.2-1.3); CALCIUM 8.4 mg/dL (8.5-10.1); CARBON DIOXIDE 27.9 mmol/L (21.0-32.0); CREATININE - SERUM 1.8 mg/dL (0.6-1.3); POTASSIUM - SERUM 3.9 mmol/L (3.5-5.1); PROTEIN - SERUM 6.2 g/dL (6.4-8.2)
[2016-06-27 04:13] LABS: WBC 7.4 10x3/uL (4.8-10.8)
--- NOTE | 2016-06-27 07:00 | NUR ---
PT REPORT REC'D, PT CARE ASSUMED. PT ON VENT, OPENS EYES SPONTANEOUSLY. RIGHT JUGULAR TRIALYSIS WITH FLUIDS INFUSING, SEE FLOW SHEET. DRESSING CHANGED TODAY. SIDDIQI CATHETER FREE OF KINKS WITH CONCENTRATED URINE RETURN TO GRAVITY. SHIFT ASSESSMENT COMPLETED, SEE FLOW SHEET. ROOM FREE OF CLUTTER, CALL LIGHT IN REACH. WILL CONTINUE TO MONITOR PT.
--- NOTE | 2016-06-27 08:38 | NUR ---
DR. PRASAD AT THE BEDSIDE, VSS, WILL CONTINUE TO MONITOR PT.
--- NOTE | 2016-06-27 09:02 | NUR ---
REPOSITIONED PT, PROPPED WITH PILLOWS, VSS, WILL CONTINUE TO MONITOR PT.
--- NOTE | 2016-06-27 11:00 | NUR ---
REPOSITIONED PT, PROPPED WITH PILLOWS, REASSESSMENT COMPLETED, SEE FLOW SHEET. ROOM FREE OF CLUTTER, CALL LIGHT IN REACH, WILL CONTINUE TO MONITOR PT.
--- NOTE | 2016-06-27 11:04 | NUR ---
Nutrition follow-up: Nepro infusing @ 50 ml/hr Pt tolerating at this time labs reivewed RDN following.
--- NOTE | 2016-06-27 12:00 | NUR ---
CHANGED PT SIDDIQI CATHETER PER ORDER, URINE CULTURE, UA, CDT SPECIMENS COLLECTED. PT TOLERATED WELL, VSS, WILL CONTINUE TO MONITOR PT.
[2016-06-27 12:58] LABS: APPEARANCE CLOUDY (CLEAR); BILIRUBIN NEGATIVE (NEGATIVE); COLOR YELLOW (YELLOW); GLUCOSE NEGATIVE (NEGATIVE); KETONE NEGATIVE (NEGATIVE); LEUKOCYTE ESTERASE 2+ (NEGATIVE); NITRITE NEGATIVE (NEGATIVE); PROTEIN TRACE mg/dL (NEGATIVE); SPECIFIC GRAVITY 1.005 (1.005-1.020); UROBILINOGEN NORMAL (NORMAL)
[2016-06-27 12:59] LABS: BACTERIA FEW /hpf (NONE SEEN); CHOLESTEROL CRYSTALS 0-5 /hpf (NONE SEEN); EPITHELIAL CELLS 0-5 /hpf (0-5); MUCUS <1+ /lpf (NONE SEEN); WHITE CELLS - URINE 0-5 /hpf (0-5); YEAST >1+ /hpf (NONE SEEN)
--- NOTE | 2016-06-27 15:00 | NUR ---
COMPLETE BED BATH AND LINEN CHANGE, REASSESSMENT COMPLETED, SEE FLOW SHEET. REPOSITONED PT, PROPPED WITH PILLOWS, VSS, WILL CONTINUE TO MONITOR PT.
--- NOTE | 2016-06-27 15:30 | NUR ---
PT FAMILY AT THE BEDSIDE, ALL QUESTIONS ANSWERED, VSS, WILL CONTINUE TO MONITOR PT.
--- NOTE | 2016-06-27 16:30 | NUR ---
PT FAMILY SPEAKING WITH CAROL RODRIGUEZ IN CONFERENCE ROOM.
--- NOTE | 2016-06-27 18:33 | NUR ---
AT THE BEDSIDE SPEAKING WITH FAMILY, ALL QUESTIONS ANSWERED, VSS, WILL CONTINUE TO MONITOR PT.
--- NOTE | 2016-06-27 18:55 | NUR ---
BACTROBAN OINTMENT APPLIED TO RIGHT HAND, NONADHERENT DRESSING APPLIED, WILL CONTINUE TO MONITOR PT.
--- NOTE | 2016-06-27 19:20 | NUR ---
REPORT RECIEVED. ASSESSMENT COMPLETE PER FLOW SHEET. FAMILY AT BEDSIDE. VSS. WILL CONTNIUE TO MONITOR.
[2016-06-28] VITALS (24 sets, daily range): BP systolic 116–156; BP diastolic 36–86
--- NOTE | 2016-06-28 01:21 | NUR ---
COMPLETE BB LINEN CHANGE ADM. NO NEW FINDINGS. VSS. WILL CONTINUE TO MONITOR.
--- NOTE | 2016-06-28 03:27 | NUR ---
REASSESSMENT COMPLET EPER FLOW SHEET. VSS. NO NEW CHANGES. WILL CONTINUE TO MONITOR.
[2016-06-28 04:22] LABS: BASOPHILS 0.1 % (0.0-2.0); EOSINOPHILS 1.5 % (0-7); IMMATURE GRANULOCYTES 0.2 % (0-5); LYMPHOCYTES 6.5 % (15-50); MCH 30.2 pg (26.0-34.0); MCHC 32.1 g/dL (31.0-37.0); MEAN PLATELET VOLUME 10.9 fL (7.4-10.4); MONOCYTES 4.5 % (2-11); NEUTROPHILS 87.2 % (40-80); PLATELET COUNT 82 10x3/uL (130-400); RBC 2.98 10x6/uL (4.20-6.10); RDW 19.3 % (11.5-14.5)
[2016-06-28 04:36] LABS: WBC 10.5 10x3/uL (4.8-10.8)
[2016-06-28 04:45] LABS: ALBUMIN 1.8 g/dL (3.4-5.0); ANION GAP 14.8 mmol/L (8-16); BILIRUBIN - TOTAL 0.97 mg/dL (0.2-1.3); CALCIUM 8.2 mg/dL (8.5-10.1); CARBON DIOXIDE 25.7 mmol/L (21.0-32.0); CREATININE - SERUM 2.1 mg/dL (0.6-1.3); POTASSIUM - SERUM 3.5 mmol/L (3.5-5.1); PROTEIN - SERUM 5.6 g/dL (6.4-8.2); VANCOMYCIN - RANDOM 13.1 ug/mL (10.0-20.0)
--- NOTE | 2016-06-28 07:00 | NUR ---
PT REPORT REC'D, PT CARE ASSUMED. PT FAMILY AT THE BEDSIDE, ALL QUESTIONS ANSWERED, VSS. RIGHT SUBCALVIAN CVL DRESSING CDI, NS INFUSING KVO. PEG TUBE WITH NEPRO INFUSING AT 50CC/HR, SIDDIQI CATHETER FREE OF KINKS WITH URINE RETURN TO GRAVITY. SHIFT ASSESSMENT COMPLETED, SEE FLOW SHEET. ROOM FREE OF CLUTTER, CALL LIGHT IN REACH, BED LOCKED IN LOWEST POSITION, BED ALARM ACTIVATED, WILL CONTINUE TO MONITOR PT.
--- NOTE | 2016-06-28 08:27 | NUR ---
LATE ENTRY FOR 06/27/16 [id number]: CM MET WITH PATIENT'S DAUGHTERS MANUEL AND NEHEMIAH TO DISCUSS DISCHARGE PLANNING / NEEDS. BOTH DAUGHTERS EXPRESSED EMPHATICLY THAT THEY DO NOT WANT TO CONSIDER HOSPICE. THEY BOTH STATE THAT THEY HAVE SEEN THIER FATHER MAKE IMPROVEMENTS SINCE HIS ADMISSION TO [facility] COMPARED TO HIS CONDITION WHILE HE WAS AT [facility]. NEHEMIAH STATED THAT THE FAMILY HAS A FRIEND THAT HAS OFFERED A PLACE FOR THE PATIENT TO "COME HOME TO". THE FAMILY WOULD "JUST NEED TO ARRANGE THE PATIENTS CARE." INSTRUCTED BOTH DAUGHTERS ON PATIENT'S REQUIRED LEVEL OF CARE. PATIENT WOULD NOT QUALIFY FOR HOME HEALTH BECAUSE HE DOES NOT MEET THE "INTERMITTEN LEVEL OF CARE" CRITERIA DEFINED BY MEDICARE BECAUSE HE REQUIRES >8 HOURS DAILY OF SKILLED CARE. BOTH DAUGHTERS AGREED TO DISCHARGE PLAN OF [facility]. DAUGHTERS 1ST CHOICE: [facility], 2ND CHOICE: [facility]. CM WILL INITIATE REFERRAL TO BOTH LT[facility]'S TOMORROW AND INITIATE REQUEST FOR INSURANCE AUTH TOMORROW. DAUGHTER'S WILL VISIT BOTH FACILITIES AND INFORM CM BY SATURDAY IF THEY HAVE A PREFERENCE BETWEEN #1 & #2.
--- NOTE | 2016-06-28 09:38 | NUR ---
ENDY AT THE BEDSIDE, VSS, WILL CONTINUE TO MONITOR PT.
--- NOTE | 2016-06-28 09:38 | NUR ---
DELANEY KNOX WITH DIALYSIS SETTING UP AT THE BEDSIDE
--- NOTE | 2016-06-28 09:44 | NUR ---
SPOKE WITH TENISHA AT [facility] IN [place]. HE STATES HE THINKS THAT THEY ARE OUT OF NETWORK WITH [employer] [facility]. HE HAS REQUESTED THAT I FAX A FACE SHEET TO HIM TO CHECK FINANCIALS BEFORE WE COLLECT CLINICAL INFO. WILL AWAIT C/B FROM TENISHA. JAS TO FOLLOW.
--- NOTE | 2016-06-28 10:23 | NUR ---
I HAVE FAXED CLINICAL INFORMATION TO BOTH [facility] AND [facility] IN [place]. I WAS TOLD BY MART AT [facility] THAT THEY DO NOT HAVE ANY BEDS AT THIS TIME BUT SHOULD HAVE SOME NEXT WEEK. I HAVE FAXED THE CLINICAL INFORMATON TO TENISHA AT [facility]. HE STATES THAT HE THINKS THEY ARE OUT OF NETWORK FOR [facility]. HE WILL CHECK WITH THE FINANCIALS AT HIS FACILITY AND LET US KNOW IF THEY ARE IN NETWORK. CM WILL AWAIT CALL BACK FROM BOTH FACILITIES. CM TO FOLLOW.
--- NOTE | 2016-06-28 11:00 | NUR ---
DIALYSIS AT THE BEDSIDE, REASSESSMENT COMPLETED, SEE FLOW SHEET. ROOM FREE OF CLUTTER, CALL LIGHT IN REACH. WILL CONTINUE TO MONITOR PT.
--- NOTE | 2016-06-28 15:00 | NUR ---
REPOSITIONED PT, PROPPED WITH PILLOWS, VSS. REASSESSMENT COMPLETED, SEE FLOW SHEET. ROOM FREE OF CLUTTER, CALL LIGHT IN REACH, BED LOCKED IN LOWEST POSITION, WILL CONTINUE TO MONITOR PT.
--- NOTE | 2016-06-28 17:00 | NUR ---
REPOSITIONED PT, PROPPED WITH PILLOWS, VSS, WILL CONTINUE TO MONITOR PT.
--- NOTE | 2016-06-28 19:17 | NUR ---
REPORT RECIEVED. ASSESSMENT COMPLETE PER FLOW SHEET. VSS. REPOSITIONED ON L SIDE. ORAL ENDOTRACH CARE ADM. THICK SPUTUM NOTED. NEEDS MET.
--- NOTE | 2016-06-28 23:28 | NUR ---
REASSESSMENT COMPLETE PER FLOW SHEET. VSS. NO NEW CHANGES.
[2016-06-29] VITALS (22 sets, daily range): BP systolic 115–179; BP diastolic 36–88
--- NOTE | 2016-06-29 01:17 | NUR ---
NO NEW CHANGES. VSS. WILL CONTINUE TO MONITOR.
--- NOTE | 2016-06-29 03:39 | NUR ---
REASSESSMNET COMPLETE PER FLOW SHEET. VSS. NO NEW CHANGES. WILL CONTINUE TO MONITOR.
[2016-06-29 04:01] LABS: BASOPHILS 0.1 % (0.0-2.0); EOSINOPHILS 3.8 % (0-7); HEMATOCRIT 28.4 % (42.0-54.0); IMMATURE GRANULOCYTES 0.5 % (0-5); LYMPHOCYTES 9.1 % (15-50); MCH 29.6 pg (26.0-34.0); MCHC 31.7 g/dL (31.0-37.0); MCV 93.4 fL (80.0-100.0); MEAN PLATELET VOLUME 10.6 fL (7.4-10.4); MONOCYTES 4.5 % (2-11); PLATELET COUNT 89 10x3/uL (130-400); RBC 3.04 10x6/uL (4.20-6.10); RDW 19.3 % (11.5-14.5); WBC 8.9 10x3/uL (4.8-10.8)
[2016-06-29 04:55] LABS: ALBUMIN 1.7 g/dL (3.4-5.0); ANION GAP 12.4 mmol/L (8-16); BILIRUBIN - TOTAL 0.93 mg/dL (0.2-1.3); CALCIUM 8.7 mg/dL (8.5-10.1); CREATININE - SERUM 1.6 mg/dL (0.6-1.3); POTASSIUM - SERUM 3.4 mmol/L (3.5-5.1)
--- NOTE | 2016-06-29 07:15 | NUR ---
REC'D REPORT, AND RESUMED CARE, TRACH TO VENT ADN SECURED, FIO2 50%, SAT 98%, RIGHT IJ TRIALYSIS WITH NS AT KVO INFUSING, G TUBE WITH NEPRO INFUSING AT 50CC/HR, RESIDUAL CHECK 20 CC, SIDDIQI TO GRAVITY WITH BOB CONCENTRATED DRAINAGE TO BAG, RECTAL BAG WITH BROWN LIQUID DRAINAGE, HEEL BOOTS ON B/L, EYES ARE OPEN, DOES NOT FOLLOW COMMAND, UPPER AND LOWER EXTREMETIES B/L FLACCID, ASSESSMENT COMPLETE PER FLOWSHEET, VSS, REPOSITIONED UP AND TO RIGHT SIDE WITH PILLOW PROPPED TO BACK AND HEELS FLOATED.
--- NOTE | 2016-06-29 09:00 | NUR ---
AM MEDS GIVEN WITHOUT DIFFICULTY, DAUGHTER ANETA AT BEDSIDE, STATUS UPDATED, VOICES NO NEEDS AT THIS TIME
--- NOTE | 2016-06-29 09:10 | NUR ---
Nutrition follow-up: Pt remains intubated Nepro infusing @ 50 ml/hr; pt tolerating at this time. Labs reviewed Wt: 195# Nepro @ 50 ml/hr providin kcal 96 gm protein Due to pt with fluid retention would increase TF rate at this time. RDN following.
--- NOTE | 2016-06-29 09:20 | NUR ---
VANC TROUGH DRAWN FROM LINE, FSBS 101 NO INTERVENTION AT THIS TIME, DAUGHTER MANUEL AT BEDSIDE, STATUS UPDATED, VOICES NO NEEDS AT THIS TIME
--- NOTE | 2016-06-29 11:00 | NUR ---
NO ACUTE CHANGE FROM PREVIOUS ASSESSMENT, VSS, ORAL CARE AND SUCTION COMPLETED
--- NOTE | 2016-06-29 12:05 | NUR ---
CONSENT FOR TRIALYSIS CATH CHANGE OUT SIGNED BY DAUGHTER ANETA,
--- NOTE | 2016-06-29 13:15 | NUR ---
TRIALYSIS CATHETER CHANGED BY DR CHUN WITHOUT DIFFICUTLY, BIOPATCH AND DRESSING PLACED, OK FOR USE PER DR CHUN
--- NOTE | 2016-06-29 14:00 | NUR ---
PRIMARY AND SECONDARY IV LINES CHANGED FOR NEW CATHETER
--- NOTE | 2016-06-29 15:00 | NUR ---
NO ACUTE CHANGE FROM PREVIOUS, VSS, DAUGHTER AT BEDSIDE, NO NEEDS AT THIS TIME
--- NOTE | 2016-06-29 15:30 | NUR ---
SKINCARE AND LINEN CHANGE COMPLETED WITHOUT DIFFICULTY, SOME LEAKAGE NOTED AROUND RECTAL TUBE, CLEANED AND RECTAL TUBE IRRIGATED WITH 60 CC H20 WITH THE SAME COMING BACK TO BAG
--- NOTE | 2016-06-29 17:30 | NUR ---
DAUGHTER CONTINUES AT BEDSIDE, AWAITING PLACEMENT TO [facility], NO OTHWER NEEDS AT THIS TIME
--- NOTE | 2016-06-29 19:15 | NUR ---
RECEIVED CARE OF PT, ASSESSMENT PER FLOWSHEET. PT SIMV SETTING VIA 8 TRACH, THICK SECRETIONS NOTED, ORAL CARE AND SUCTIONING DONE, PEG WITH NEPRO INFUSING AT 50 CC, CRACKLES AUSCULTATED BILATERALLY, PPP, SKIN ASSESSMENT PER FLOWSHEET, PT DAUGHTER AT BEDSIDE, DENIES ANY NEEDS AT THIS TIME, POSITIONED FOR COMFORT, VSS.
--- NOTE | 2016-06-29 21:10 | NUR ---
NO VISITORS PRESENT AT THIS TIME, ORAL CARE AND SUCTIONING DONE, REPOSITIONED FOR COMFORT SUPPORTED WITH PILLOWS.
--- NOTE | 2016-06-29 22:50 | NUR ---
PT DAUGHTER MANUEL IN FOR VISITATION, ALL QUESTIONS ANSWERED, DENIES ANY NEEDS.
[2016-06-30] VITALS (24 sets, daily range): BP systolic 112–187; BP diastolic 38–72
--- NOTE | 2016-06-30 01:10 | NUR ---
REPOSITIONED FOR COMFORT, ORAL CARE AND SUCTIONING PROVIDED, VSS, CONT POC.
--- NOTE | 2016-06-30 03:15 | NUR ---
REASSESSMENT PER FLOWSHEET, PT REPOSITIONED FOR COMFORT SUPPORTED WITH PILLOWS, ORAL CARE AND INLINE TRACH SUCTIONING DONE, VSS.
[2016-06-30 04:18] LABS: BASOPHILS 0.1 % (0-2); EOSINOPHILS 2.7 % (0-7); HEMATOCRIT 25.9 % (42.0-54.0); HEMOGLOBIN 8.3 g/dL (13.5-17.5); IMMATURE GRANULOCYTES 0.3 % (0-5); LYMPHOCYTES 12.3 % (15-50); MCH 29.7 pg (26.0-34.0); MCV 92.8 fL (80.0-100.0); MEAN PLATELET VOLUME 10.1 fL (7.4-10.4); MONOCYTES 4.1 % (2-11); NEUTROPHILS 80.5 % (40-80); PLATELET COUNT 75 10x3/uL (130-400); RBC 2.79 10x6/uL (4.20-6.10); RDW 19.2 % (11.5-14.5)
[2016-06-30 04:35] LABS: ANION GAP 13.2 mmol/L (8-16); CALCIUM 8.6 mg/dL (8.5-10.1); CARBON DIOXIDE 25.9 mmol/L (21.0-32.0); CREATININE - SERUM 1.9 mg/dL (0.6-1.3); POTASSIUM - SERUM 3.1 mmol/L (3.5-5.1); VANCOMYCIN - RANDOM 25.7 ug/mL (10.0-20.0)
--- NOTE | 2016-06-30 05:59 | NUR ---
PT REPOSITIONED FOR COMFORT SUPPORTED WITH PILLOWS, ORAL CARE AND SUCTIONING DONE, PARTIAL LINEN CHANGE COMPLETED. THICK SECRETIONS NOTED WITH SUCTIONING, BED LOW, CONT POC.
--- NOTE | 2016-06-30 07:46 | NUR ---
DRESSING CHANGES PERFORMED AT THIS TIME PER ORDERS. PT DOES NOT FOLLOW COMMANDS. FACIAL GRIMACING NOTED WITH REPOSITIONING. PT REPOSITIONED Q2H. NO ACUTE DISTRESS NOTED. WILL CONTINUE PLAN OF CARE.
--- NOTE | 2016-06-30 09:45 | NUR ---
SUCTIONING PROVIDED AT THIS TIME. THIN CLEAR SECRETIONS. NO ACUTE DISTRESS NOTED AT THIS TIME. PT TURNED Q2H. WILL CONTINUE PLAN OF CARE.
--- NOTE | 2016-06-30 11:12 | NUR ---
NO ACUTE DISTRESS NOTED. VSS. PT TURNED Q2H. DRESSING CHANGES PROVIDED AT THIS TIME PER ORDERS. WILL CONTINUE PLAN OF CARE.
--- NOTE | 2016-06-30 13:18 | NUR ---
NOTED STOOL TO APPEAR TO HAVE SOME RUSTIC REDNESS IN COLOR. SPECIMEN FOR OCCULT BLOOD SENT AT THIS TIME TO LAB. NO ACUTE DISTRESS NOTED. WILL CONTINUE PLAN FO CARE.
--- NOTE | 2016-06-30 14:11 | NUR ---
NOTED PT POSITIVE FOR GUIAC STOOL. PAGED RENAL PICK PULLING MACHINE OPERATOR TO NOTIFY.
--- NOTE | 2016-06-30 14:30 | NUR ---
NOTED DR MENON IS SOCIAL SERVICE LIAISON FOR DR AN. PAGED DR MENON AT THIS TIME TO NOTIFY OF PT TO BE POSITIVE FOR GUIAC STOOL. ALSO NOTIFIED THAT DR AN WAS CONSULTED FOR PT AROUND 05/30 AND IT WAS NOTED THAT PT IS NOT A CANDIDATE FOR ENDOSCOPY BECAUSE OF OVERALL CONDITION. NOTED NO NEW ORDERS. DR MENON STATED HE WOULD BE BY TO SEE PT TOMORROW. NO ACUTE DISTRESS NOTED. WILL CONTINUE PLAN OF CARE.
--- NOTE | 2016-06-30 14:47 | NUR ---
NOTED PER RENAL THAT PT WILL NOT RECIEVE DIALYSIS TODAY. PT WILL RECIEVE DIALYSIS TOMORROW. ALSO 2 U PRBC ORDERED FOR PT. ONE UNIT TO BE GIVEN TODAY AND THE OTHER UNIT TO BE GIVEN TOMORROW. WILL CONTINUE PLAN OF CARE.
--- NOTE | 2016-06-30 15:37 | NUR ---
PT DAUGHTER, MANUEL, AT BEDSIDE. UPDATE GIVEN. NO ACUTE DISTRESS NOTED. WILL CONTINUE PLAN OF CARE.
--- NOTE | 2016-06-30 16:36 | NUR ---
1 U PRBC INITIATED AT THIS TIME. NO ACUTE DISTRESS NOTED. WILL CONTINUE PLAN OF CARE.
--- NOTE | 2016-06-30 16:56 | NUR ---
NOTED PT HAS ANTIBIOTICS TO ADMIN. WILL ADMIN AFTER PRBC INFUSION IS COMPLETE.
--- NOTE | 2016-06-30 17:31 | NUR ---
NO ACUTE DISTRESS NOTED AT THIS TIME. VSS. WILL CONTINUE PLAN OF CARE.
--- NOTE | 2016-06-30 18:19 | NUR ---
NO ACUTE DISTRESS NOTED. VSS. WILL CONTINUE PLAN OF CARE.
--- NOTE | 2016-06-30 19:15 | NUR ---
RESUMED CARE OF PT, ASSESSMENT PER FLOWSHEET. PRBC'S INFUSING VIA RT IJ TRIALYSIS, HR SR AT A RATE OF 90, ORAL CARE AND SUCTIONING DONE, POSITIONED FOR COMFORT, VSS.
--- NOTE | 2016-06-30 21:09 | NUR ---
NO VISITORS PRESENT AT THIS TIME, ORAL CARE, SUCTIONING AND REPOSITIONING DONE, CONT POC.
--- NOTE | 2016-06-30 22:10 | NUR ---
PT DAUGHTER, MANUEL, IN FOR VISITATION. UPDATE GIVEN, ALL QUESTIONS ANSWERED.
[2016-07-01] VITALS (24 sets, daily range): BP systolic 147–191; BP diastolic 52–80
--- NOTE | 2016-07-01 01:30 | NUR ---
PT REPOSITIONED FOR COMFORT SUPPORTED WITH PILLOWS, ORAL CARE AND SUCTIONING PROVIDED, VSS, CONT TO MONITOR.
--- NOTE | 2016-07-01 03:15 | NUR ---
REASSESSMENT PER FLOWSHEET, PT REPOSITIONED FOR COMFORT SUPPORTED WITH PILLOWS, ORAL CARE AND SUCTIONING PROVIDED, VSS.
[2016-07-01 04:52] LABS: BASOPHILS 0.3 % (0-2); EOSINOPHILS 2.9 % (0-7); IMMATURE GRANULOCYTES 0.1 % (0-5); LYMPHOCYTES 11.5 % (15-50); MCH 29.2 pg (26.0-34.0); MCHC 32.3 g/dL (31.0-37.0); MEAN PLATELET VOLUME 9.8 fL (7.4-10.4); MONOCYTES 3.8 % (2-11); NEUTROPHILS 81.4 % (40-80); PLATELET COUNT 67 10x3/uL (130-400); RDW 19.7 % (11.5-14.5); WBC 7.6 10x3/uL (4.8-10.8)
[2016-07-01 04:55] LABS: MCV 90.4 fL (80.0-100.0); RBC 3.43 10x6/uL (4.20-6.10)
--- NOTE | 2016-07-01 05:15 | NUR ---
REPOSITIONED FOR COMFORT, ORAL CARE PROVIDED, VSS, CONT TO MONITOR.
[2016-07-01 05:31] LABS: ALBUMIN 1.5 g/dL (3.4-5.0); ANION GAP 15.3 mmol/L (8-16); BILIRUBIN - TOTAL 0.91 mg/dL (0.2-1.3); CALCIUM 8.7 mg/dL (8.5-10.1); CARBON DIOXIDE 24.9 mmol/L (21.0-32.0); CREATININE - SERUM 2.1 mg/dL (0.6-1.3); MAGNESIUM - SERUM 1.8 mg/dL (1.8-2.4); POTASSIUM - SERUM 3.2 mmol/L (3.5-5.1)
--- NOTE | 2016-07-01 08:11 | NUR ---
LYING IN BED AT THIS TIME. NO ACUTE DISTRESS NOTED. VSS. TURNED Q2H. DRESSING CHANGES PERFORMED AT THIS TIME PER ORDERS. PT DOES NOT FOLLOW COMMANDS AND DOES NOT TRACE PEOPLE IN ROOM WHEN EYES ARE OPEN. WILL CONTINUE PLAN FO CARE.
--- NOTE | 2016-07-01 10:39 | NUR ---
NOTED RESULTS OF GRAM NEGATIVE RODS TO [place] ON TRIALYSIS LINE. TRIALYSIS LINE HAS BEEN CHANGED SINCE THIS DRAW. DR PRASAD NOTIFIED. NO NEW ORDERS NOTED. WILL CONTINUE PLAN OF CARE.
--- NOTE | 2016-07-01 12:21 | NUR ---
PT RECIEVING UNIT OF PRBC DURING DIALYSIS AT THIS TIME ORDERED.
--- NOTE | 2016-07-01 13:20 | NUR ---
NOTED PT HAS MEDS DUE. IS RECIEVING DIALYSIS AT THIS TIME. WILL ADMIN MEDS AFTER DIALYSIS IS COMPLETE.
--- NOTE | 2016-07-01 15:42 | NUR ---
NO ACUTE DISTRESS NOTED. VSS. NO LEAKAGE NOTED TO RECTAL TUBE OR SIDDIQI. TURNED Q2H. WILL CONTINUE PLAN OF CARE.
--- NOTE | 2016-07-01 17:37 | NUR ---
BED BATH GIVEN AT THIS TIME VIA TOTAL ASSIST X 2 PERSON. NO ACUTE DISTRESS NOTED. VSS. TURNED Q2H. WILL CONTINUE PLAN OF CARE.
--- NOTE | 2016-07-01 18:36 | NUR ---
FAMILY AT BEDSIDE AT THIS TIME. UPDATE GIVEN. NO ACUTE DISTRESS NOTED. WILL CONTINUE PLAN OF CARE.
--- NOTE | 2016-07-01 19:00 | NUR ---
Received patient resting in bed with eyes closed on vent, Assessment completed per flowsheet. Patient unable to speak and does not follow commands, Disoriented x4. Eyes fixed @ 4mm, patient blind in both eyes. Trach secured in place, no irritation or drainage from site. S1/S2 noted with patient NSR on telemetry, rythmic and regular. Vent settings A/C R-14 V-600 40% P-8, Crackles noted bilateral upper with diminished lower. Abdomen is round and soft, G-tube noted with no drainage or irritation at site. Shabazz secured in place, concentrated yellow urine noted in collection. Rectal tube present, no leakage noted with liquid brown stool in bag. No voluntary movement from patient all extremities, upper pulses palpable with weak lower pulses. R IJ Trialysis cath noted, patent with fluids infusing. Tube feeding bag changed, Nepro @ 50ml/hr through G-tube. Patient repositioned for comfort, unable to assess pain at this time. No further needs, all VSS and will continue to monitor.
--- NOTE | 2016-07-01 21:25 | NUR ---
Patient family at bedside, hair care provided by daughter. All questions answered to satisfaction, no further questions. Patient repositioned for comfort, will continue to monitor.
--- NOTE | 2016-07-01 23:00 | NUR ---
Reasessment completed per flowsheet, patient resting in bed with eyes closed. Patient Sinus Tach on telemetry with HR 102, rhythmic and regular. Vent Settings remain unchanged from previous, O2 sat 98% on 40% vent. Oral care provided, Trach suctioning performed. Cap refill <3 sec, upper pulses palpable with weak lower. No further needs at this time, all VSS and will continue to monitor.
[2016-07-02] VITALS (24 sets, daily range): BP systolic 152–189; BP diastolic 52–82
--- NOTE | 2016-07-02 01:00 | NUR ---
Patient resting in bed with eyes closed on vent, setting unchanged. Oral care provided, repositioned for comfort. No futher needs at this time, all VSS and will continue to monitor.
--- NOTE | 2016-07-02 03:00 | NUR ---
Reassessment completed per flowsheet, patient resting in bed with eyes closed on vent. Patient Sinus Tach on telemetry with HR 106, rhythmic and regular. Vent settings unchanged from previous assessment, O2 sat 98% on Vent 40%. Upper pulses palpable with weak lower, cap refill <3 sec. Unable to assess pain at this time, no further needs and will continue to monitor.
[2016-07-02 04:58] LABS: BASOPHILS 0.2 % (0-2); EOSINOPHILS 1.1 % (0-7); HEMATOCRIT 36.4 % (42.0-54.0); HEMOGLOBIN 11.6 g/dL (13.5-17.5); IMMATURE GRANULOCYTES 0.5 % (0-5); LYMPHOCYTES 9.1 % (15-50); MCH 28.6 pg (26.0-34.0); MCHC 31.9 g/dL (31.0-37.0); MCV 89.9 fL (80.0-100.0); MEAN PLATELET VOLUME 10.5 fL (7.4-10.4); MONOCYTES 4.3 % (2-11); NEUTROPHILS 84.8 % (40-80); PLATELET COUNT 76 10x3/uL (130-400); RBC 4.05 10x6/uL (4.20-6.10); RDW 18.8 % (11.5-14.5); WBC 8.2 10x3/uL (4.8-10.8)
[2016-07-02 05:36] LABS: ALBUMIN 1.6 g/dL (3.4-5.0); ANION GAP 13.2 mmol/L (8-16); CALCIUM 8.7 mg/dL (8.5-10.1); CREATININE - SERUM 1.6 mg/dL (0.6-1.3); MAGNESIUM - SERUM 1.7 mg/dL (1.8-2.4); POTASSIUM - SERUM 3.2 mmol/L (3.5-5.1); PROTEIN - SERUM 6.3 g/dL (6.4-8.2); VANCOMYCIN - RANDOM 18.7 ug/mL (10.0-20.0)
[2016-07-02 07:10] LABS: FUNGUS MYCOLOGY CULTURE Final report (())
--- NOTE | 2016-07-02 08:24 | NUR ---
0700 PT DOES NOT RESPOND OR FOLLOW COMMANDS. ON VENT AND TOLERATING AT THIS TIME. LUNG SOUNDS COURSE/CRACKLES BILAT. FAN CALLED TO ROOM DUE TO LOW GRADE TEMP. WILL CONTINUE TO MONITOR CLOSELY. NO ACUTE CHANGES AT THIS TIME. VITAL SIGNS STABLE
--- NOTE | 2016-07-02 09:08 | NUR ---
Nutrition follow-up: Pt remains intubated Nepro infusing @ 50 ml/hr Pt tolerating TF Labs reviewed RDN following.
--- NOTE | 2016-07-02 09:26 | NUR ---
0900 NO CHANGES FROM PREVIOUS ASSESSMENT. PT AND VITAL SIGNS REMAIN STABLE AT THIS TIME.
--- NOTE | 2016-07-02 11:24 | NUR ---
1100 PT REPOSITIONED IN BED. VITAL SIGNS STABLE. WILL CONTINUE TO MONTIOR FOR ANY ACUTE CHANGES
--- NOTE | 2016-07-02 14:00 | NUR ---
1300 WILL DISCUSS POSSIBLE PLACEMENT WITH MARINE CONSULTANT. NO CHANGES FROM PREVIOUS ASSESSMENT.
--- NOTE | 2016-07-02 15:05 | NUR ---
1500 LICENSED RETAIL SUPERVISOR CALLED AND WE ARE WAITING ON UPDATE FROM [facility]. PT REPOSITIONED. WILL MONITOR CLOSELY
--- NOTE | 2016-07-02 16:23 | NUR ---
CM CALLED TENISHA AT [facility] TO CHECK STATUS OF REFERRAL AND TO FIND OUT IF FACILITY IS IN NETWORK WITH PATIENT'S INSURANCE. TENISHA STATED THAT [facility] IS OUT OF NETWORK WITH PATIENT'S INSURANCE. CM CALLED [facility], SPOKE WITH LAINE WHO STATED [facility] WAS OUT TODAY. STATED [facility] SUBMITTED CLINICAL TO PATIENT'S INSURANCE COMPANY AND IS AWAITING AUTH. LAINE STATED [facility] WILL BE BACK TOMORROW AND SUGGESTED CM CALL BACK TOMORROW TO GET MORE INFORMATION FROM [facility] ON STATUS OF ACCEPTANCE DETERMINATION AND INSURANCE AUTHORIZATION. CM WILL FOLLOW UP TOMORROW.
--- NOTE | 2016-07-02 17:00 | NUR ---
PT REPOSITIONED IN BED. RECTAL TUBE IRRIGATED. ORAL CARE AND ETT SUCTION PERFORMED. VITAL SIGNS STABLE
--- NOTE | 2016-07-02 19:30 | NUR ---
ASSESSMENT COMPLETE. S1S2. MECHANICAL VENT VIA TRACH; 40%. RIGHT IJ; TRIALYSIS; PATENT. PEG TUBE, SIDDIQI CATH, AND RECTAL TUBE IN PLACE. PT AROUSES TO DEEP STIMULI; DOES NOT MOVE EXTREMITIES X4. MULTIPLE NECROTIC AREAS; PREDOMINATELY ON RIGHT HAND, BUTTOCKS, COCCYX, MID SPINAL, AND SCAPULAR REGIONS. PT DOES NOT RESPOND TO SPEECH; HARD OF HEARING; APPEARS TO BE BLIND IN BOTH EYES; PUPILS 4MM; FIXED.
--- NOTE | 2016-07-02 21:45 | NUR ---
FAMILY AT BEDSIDE. UPDATE GIVEN.
--- NOTE | 2016-07-02 22:35 | NUR ---
FAMILY LEFT BEDSIDE. NO NEEDS VOICED AT THIS TIME.
--- NOTE | 2016-07-02 23:15 | NUR ---
REASSESSMENT COMPLETE. NO CHANGES FROM PREVIOUS ASSESSMENT. SEE FLOW SHEET FOR DETAILS.
[2016-07-03] VITALS (24 sets, daily range): BP systolic 124–175; BP diastolic 52–88
--- NOTE | 2016-07-03 03:30 | NUR ---
REASSESSMENT COMPLETE. NO CHANGES FROM PREVIOUS ASSESSMENT. SEE FLOW SHEET FOR FURTHER DETAILS. VSS. NO DISTRESS NOTED.
--- NOTE | 2016-07-03 04:05 | NUR ---
I/O COLLECTED. LABS DRAWN.
--- NOTE | 2016-07-03 06:17 | NUR ---
PT CLEANED. COMPLETE LINEN CHANGE. PT GOWNED REMOVED PER FAMILY REQUEST.
--- NOTE | 2016-07-03 06:20 | NUR ---
FAMILY AT BEDSIDE. UPDATE GIVEN.
[2016-07-03 06:28] LABS: ALBUMIN 1.5 g/dL (3.4-5.0); ANION GAP 14.7 mmol/L (8-16); CALCIUM 8.8 mg/dL (8.5-10.1); CARBON DIOXIDE 25.8 mmol/L (21.0-32.0); CREATININE - SERUM 1.7 mg/dL (0.6-1.3); MAGNESIUM - SERUM 1.5 mg/dL (1.8-2.4); POTASSIUM - SERUM 3.5 mmol/L (3.5-5.1); PROTEIN - SERUM 6.6 g/dL (6.4-8.2); VANCOMYCIN - RANDOM 17.5 ug/mL (10.0-20.0)
--- NOTE | 2016-07-03 07:00 | NUR ---
FAMILY AT BEDSIDE. PT REMAINS ON VENT AND IS NOT RESPONDING OR FOLLOWING COMMANDS. NORMAL SINUS ON MONITOR. LUNG SOUNDS REMAIN COURSE WITH CRACKLES. NO CHANGES IN PT STATUS. WILL CONTINUE TO MONITOR.
[2016-07-03 07:16] LABS: BASOPHILS 0.1 % (0-2); EOSINOPHILS 2.1 % (0-7); HEMATOCRIT 36.6 % (42.0-54.0); IMMATURE GRANULOCYTES 0.3 % (0-5); LYMPHOCYTES 11.3 % (15-50); MCH 29.3 pg (26.0-34.0); MCHC 32.8 g/dL (31.0-37.0); MCV 89.5 fL (80.0-100.0); MEAN PLATELET VOLUME 9.9 fL (7.4-10.4); MONOCYTES 3.4 % (2-11); NEUTROPHILS 82.8 % (40-80); PLATELET COUNT 80 10x3/uL (130-400); RBC 4.09 10x6/uL (4.20-6.10); RDW 18.6 % (11.5-14.5); WBC 7.1 10x3/uL (4.8-10.8)
--- NOTE | 2016-07-03 09:00 | NUR ---
FAMILY AT BEDSIDE. TUBE FEEDING BAG CHANGED AND RESIDUAL CHECKED. VITAL SIGNS STABLE
--- NOTE | 2016-07-03 11:00 | NUR ---
PT REPOSITIONED IN BED. STABLE AT THIS TIME. ORAL CARE PERFORMED. WILL CONTINUE TO MONITOR
--- NOTE | 2016-07-03 13:00 | NUR ---
UPDATE GIVEN TO FAMILY. PT SUCTIONED AND ORAL CARE PERFORMED. NO FURTHER CHANGES
--- NOTE | 2016-07-03 15:00 | NUR ---
NO ACUTE CHANGES NOTED AT THIS TIME. WILL CONITNUE TO MONITOR
--- NOTE | 2016-07-03 17:00 | NUR ---
PT SUCITONED AND ORAL CARE PERFORMED. REMAINS STABLE WITH NO ACUTE CHANGES FROM PREVIOUS NOTE
--- NOTE | 2016-07-03 19:20 | NUR ---
ASSESSMENT COMPLETE. S1S2. MECHANICAL VENT VIA TRACH; 40%. RR CRACKLES BILATERALLY IN UPPER LOBES; DIMINISHED BILATERALLY IN LOWER LOBES. FLACCID EXTREMITIES X4. MULTIPLE SCABS/SORES AND NECROSIS. PUPILS 4MM; FIXED. DOES NOT TRACK MOVEMENT OR SOUND WITH EYES. VSS. WILL CONTINUE TO MONITOR.
--- NOTE | 2016-07-03 23:15 | NUR ---
REASSESSMENT COMPLETE. NO CHANGES FROM PREVIOUS ASSESSMENT. SEE FLOW SHEET FOR FURTHER DETAILS.
--- NOTE | 2016-07-03 23:38 | NUR ---
TRACH CLEANED; DRESSING CHANGED.
[2016-07-04] VITALS (24 sets, daily range): BP systolic 124–179; BP diastolic 48–74
--- NOTE | 2016-07-04 03:30 | NUR ---
REASSESSMENT COMPLETE. NO CHANGES FROM PREVIOUS ASSESSMENT. NO DISTRESS NOTED. NOTED INCREASE IN BP. CLOSE MONITORING. WILL CONTINUE TO MONITOR.
[2016-07-04 04:14] LABS: BASOPHILS 0.3 % (0-2); HEMATOCRIT 35.5 % (42.0-54.0); HEMOGLOBIN 11.3 g/dL (13.5-17.5); IMMATURE GRANULOCYTES 0.3 % (0-5); LYMPHOCYTES 12.2 % (15-50); MCH 28.9 pg (26.0-34.0); MCHC 31.8 g/dL (31.0-37.0); MCV 90.8 fL (80.0-100.0); MEAN PLATELET VOLUME 10.3 fL (7.4-10.4); MONOCYTES 4.4 % (2-11); NEUTROPHILS 80.8 % (40-80); PLATELET COUNT 86 10x3/uL (130-400); RBC 3.91 10x6/uL (4.20-6.10); RDW 18.6 % (11.5-14.5); WBC 7.3 10x3/uL (4.8-10.8)
[2016-07-04 04:47] LABS: ALBUMIN 1.5 g/dL (3.4-5.0); BILIRUBIN - TOTAL 0.85 mg/dL (0.2-1.3); CALCIUM 8.9 mg/dL (8.5-10.1); CARBON DIOXIDE 26.6 mmol/L (21.0-32.0); MAGNESIUM - SERUM 1.8 mg/dL (1.8-2.4); POTASSIUM - SERUM 3.6 mmol/L (3.5-5.1); PROTEIN - SERUM 6.3 g/dL (6.4-8.2); VANCOMYCIN - RANDOM 24.9 ug/mL (10.0-20.0)
--- NOTE | 2016-07-04 10:18 | NUR ---
Nutrition Follow Up: Pt undergoing HD at the time of RD visit. TF turned off during HD. Pt remains intubated. Pt is tolerating current TF of Nepro @ 50 ml/hr. I<O. Noted pt with rectal tube. Labs reviewed - BUN, Cr remain elevated. Meds noted including Lasix, Albumin, Humulin. RD following.
--- NOTE | 2016-07-04 10:28 | NUR ---
0900-RECTAL TUBE LEAKING, PT CLEANED, FULL BATH AND LINENS CHANGED. 1000- HD STARTED.
--- NOTE | 2016-07-04 13:22 | NUR ---
Mr. Jones had bedside hemodialysis today from 1000 until 1300 via his right IJ Trialysis catheter. Average blood flow was 400 mls/minute. Net fluid removed was 1000 mls. No heparin used on treatment. Post vital signs were: B/P:179/73, HR:74, Temp:98.8, Resps:20.
--- NOTE | 2016-07-04 13:52 | NUR ---
HD COMPLETE, VSS.
--- NOTE | 2016-07-04 19:00 | NUR ---
ASSESSMENT COMPLETE. S1S2. MECHANICAL VENT VIA TRACH; 40%. RR CRACKLES BILATERALLY IN UPPER LOBES; DIMINISHED BILATERALLY IN LOWER LOBES. RADIAL PULSES PALPATED; PEDAL PULSES WEAK. GENERALIZED SWELLING TO EXTREMITIES. MULTIPLE SCABS/SORES AND NECROSIS.
--- NOTE | 2016-07-04 21:10 | NUR ---
FAMILY AT BEDSIDE. UPDATE GIVEN.
--- NOTE | 2016-07-04 23:15 | NUR ---
REASSESSMENT COMPLETE. NO CHANGES FROM PREVIOUS ASSESSMENT. NO DISTRESS NOTED. VSS. WILL CONTINUE TO MONITOR.
[2016-07-05] VITALS (23 sets, daily range): BP systolic 107–207; BP diastolic 41–82
--- NOTE | 2016-07-05 03:20 | NUR ---
REASSESSMENT COMPLETE. NO CHANGES FROM PREVIOUS ASSESSMENT.
[2016-07-05 04:32] LABS: BASOPHILS 0.4 % (0-2); EOSINOPHILS 4.2 % (0-7); HEMATOCRIT 34.3 % (42.0-54.0); HEMOGLOBIN 10.8 g/dL (13.5-17.5); IMMATURE GRANULOCYTES 0.5 % (0-5); LYMPHOCYTES 15.5 % (15-50); MCH 28.7 pg (26.0-34.0); MCHC 31.5 g/dL (31.0-37.0); MCV 91.2 fL (80.0-100.0); MEAN PLATELET VOLUME 11.4 fL (7.4-10.4); MONOCYTES 5.8 % (2-11); NEUTROPHILS 73.6 % (40-80); PLATELET COUNT 94 10x3/uL (130-400); RBC 3.76 10x6/uL (4.20-6.10); RDW 18.4 % (11.5-14.5); WBC 5.7 10x3/uL (4.8-10.8)
[2016-07-05 04:57] LABS: ALBUMIN 1.5 g/dL (3.4-5.0); ANION GAP 9.7 mmol/L (8-16); BILIRUBIN - TOTAL 0.77 mg/dL (0.2-1.3); CALCIUM 8.7 mg/dL (8.5-10.1); CARBON DIOXIDE 29.6 mmol/L (21.0-32.0); MAGNESIUM - SERUM 1.6 mg/dL (1.8-2.4); POTASSIUM - SERUM 3.3 mmol/L (3.5-5.1); PROTEIN - SERUM 6.4 g/dL (6.4-8.2)
[2016-07-05 04:58] LABS: CREATININE - SERUM 1.3 mg/dL (0.6-1.3)
--- NOTE | 2016-07-05 06:07 | NUR ---
SPOKE WITH DR. BEAUCHAMP. ORDERS RECEIVED.
--- NOTE | 2016-07-05 06:17 | NUR ---
PRN CLONIDINE GIVEN PER ORDERS. SEE EMAR AND ORDERS FOR DETAILS.
--- NOTE | 2016-07-05 07:53 | NUR ---
RECTAL TUBE LEAKING ON TO LINENS SM AMT. FLUSHED RECTAL TUBE WITH 30CC WATER, BATH AND LINENS CHANGED. HD NURSE HERE.
--- NOTE | 2016-07-05 09:47 | NUR ---
HD IN PROGRESS, TACHPNEA 24BPM USING ACCESSORY MUSCLES. HR 125. CALLED DR SHAFFER AND REPORTED, HD PULL DECREASED, ATIVAN AND BUPERNEX ORDERED.
--- NOTE | 2016-07-05 09:52 | NUR ---
PHONED MART AT [facility]. SHE STATES SHE STILL HAS NOT HEARD BACK FROM HUMAN. SHE STATES SHE DOES NOT HAVE A BED FOR A VENT AND DOES NOT KNOW WHEN SHE WILL HAVE ONE. SHE ASKED THAT I FAX UPDATED CLINICAL INFO SO IF SHE NEEDS IT FOR [employer] SHE WILL HAVE IT. MART [phone]. CM TO FOLLOW.
--- NOTE | 2016-07-05 10:25 | NUR ---
RESP EASY, HR 120. HD COMPLETE.
--- NOTE | 2016-07-05 10:41 | NUR ---
Mr. Jones had bedside hemodialysis today from 0825 until 1025. Average blood flow was 400 mls/minute. Net fluid removed was 500 mls. Pt. had quite a bit of tachycardia today. Hr increased up to 124 during treatment with a pre dialysis hr of 89. UF decreased to 500 mls due to the tachycardia. Respiratory repostitioned the trach tube and the rn adjusted the de luna catheter with a sudeen large amount of urine output. Pt immediately started to settle down after these two things were done. Pt was hypertensive post treatment. B/P: 200/92, HR: 118, Temp: 98.8, Resps: 20.
--- NOTE | 2016-07-05 10:51 | NUR ---
HD COMPLETE, RESP 22,BP 200/92. HR 118, BUPERNIX GIVEN.
--- NOTE | 2016-07-05 15:34 | NUR ---
REC T/C FROM MART AT [facility]. THEY HAVE DECLINED THE PATIENT DUE TO THE PATIENT ON VENT AND DIALYSIS BEING DIFFICULT PLACEMENT IF PATIENT DOES NOT COME OFF THE VENT. SHE STATES HE ADMIN HAS DECLINED. CM TO FOLLOW.
--- NOTE | 2016-07-05 19:20 | NUR ---
ASSESSMENT COMPLETE. S1S2. NSR SHOWING ON MONITOR. MECHANICAL VENT VIA TRACH; 45%. CRACKLES BILATERALLY IN UPPER LOBES; DIMINISHED BILATERALLY IN LOWER LOBES. TRACH, SIDDIQI, PEG TUBE, AND RECTAL TUBE IN PLACE. MULTIPLE PRESSURE SORES AND NECROSIS NOTED. PULMOCARE @ 50ML/HR TO PEG TUBE. RT IJ; PATENT. PUPILS 4MM; FIXED.
--- NOTE | 2016-07-05 21:20 | NUR ---
FAMILY AT BEDSIDE. UPDATE GIVEN. NO CONCERNS NOTED.
--- NOTE | 2016-07-05 23:00 | NUR ---
REASSESSMENT COMPLETE. NO CHANGES FROM PREVIOUS ASSESSMENT. SEE FLOW SHEET FOR FURTHER DETAILS.
[2016-07-06] VITALS (24 sets, daily range): BP systolic 98–225; BP diastolic 38–100
--- NOTE | 2016-07-06 01:58 | NUR ---
PT RESTING; EYES CLOSED. VSS. NO DISTRESS NOTED. WILL CONTINUE TO MONITOR.
--- NOTE | 2016-07-06 03:04 | NUR ---
PT O2 SAT DECREASED TO 84%. SUCTIONED; SLIGHT INCREASE TO 89%. WILL CONTINUE TO MONITOR CLOSELY.
--- NOTE | 2016-07-06 03:10 | NUR ---
REASSESSMENT COMPLETE. NO CHANGES FROM PREVIOUS ASSESSMENT. MONITORING OXYGEN SATURATION CLOSELY.
[2016-07-06 04:08] LABS: BASOPHILS 0.3 % (0-2); HEMATOCRIT 34.2 % (42.0-54.0); HEMOGLOBIN 10.6 g/dL (13.5-17.5); IMMATURE GRANULOCYTES 0.1 % (0-5); LYMPHOCYTES 13.4 % (15-50); MCH 28.3 pg (26.0-34.0); MCV 91.2 fL (80.0-100.0); MONOCYTES 6.6 % (2-11); NEUTROPHILS 77.6 % (40-80); PLATELET COUNT 96 10x3/uL (130-400); RBC 3.75 10x6/uL (4.20-6.10); RDW 18.2 % (11.5-14.5)
[2016-07-06 04:36] LABS: ANION GAP 7.4 mmol/L (8-16); CALCIUM 8.8 mg/dL (8.5-10.1); CARBON DIOXIDE 31.8 mmol/L (21.0-32.0); CREATININE - SERUM 1.4 mg/dL (0.6-1.3); POTASSIUM - SERUM 3.2 mmol/L (3.5-5.1)
--- NOTE | 2016-07-06 08:10 | NUR ---
PT BATHED AND RECTAL TUBE FLUSHED, LINENS CHANGED AND TURNED.
--- NOTE | 2016-07-06 09:23 | NUR ---
Nutrition follow-up: Pt remains intubated. Nepro infusing @ 50 ml/hr; pt tolerating Labs reviewed Wt: 187# RDN following.
--- NOTE | 2016-07-06 11:12 | NUR ---
DR SARMIENTO HERE, PT'S BP ELEVATED STILL AFTER BUPERNIX AND PO CLONIDINE. REC'D NEW ORDERS FOR BP.
--- NOTE | 2016-07-06 14:26 | NUR ---
TEMP 102.2. ICE PKS TO AXILA AND TYLENOL GIVEN. PAGED DR SARMIENTO.
[2016-07-06 17:48] LABS: APPEARANCE CLEAR (CLEAR); BILIRUBIN NEGATIVE (NEGATIVE); COLOR YELLOW (YELLOW); GLUCOSE NEGATIVE (NEGATIVE); KETONE NEGATIVE (NEGATIVE); LEUKOCYTE ESTERASE NEGATIVE (NEGATIVE); NITRITE NEGATIVE (NEGATIVE); PROTEIN TRACE mg/dL (NEGATIVE); UROBILINOGEN NORMAL (NORMAL)
--- NOTE | 2016-07-06 21:00 | NUR ---
2100: Pt family here at bedside. Update provided and verbalized understanding.
--- NOTE | 2016-07-06 21:30 | NUR ---
2130: BC x1 obtained from right jugular Trialysis catheter. Lab obtained peripheral stick. Pt family instructing Phlebo where to draw.
[2016-07-07] VITALS (24 sets, daily range): BP systolic 111–193; BP diastolic 46–82
--- NOTE | 2016-07-07 | NUR ---
0000: Reposition pt at this time. Pt grimmaces with movement, but does not follow commands and does not track RN in room with eyes. Pt HR increased with movement.
--- NOTE | 2016-07-07 01:00 | NUR ---
0100: Pt SBP >180. Clonidine admin as per orders.
--- NOTE | 2016-07-07 01:35 | NUR ---
0135: Pt temp increased. Tylenol admin as per emar.
[2016-07-07 05:04] LABS: BASOPHILS 0.3 % (0-2); EOSINOPHILS 1.1 % (0-7); HEMOGLOBIN 10.4 g/dL (13.5-17.5); IMMATURE GRANULOCYTES 0.3 % (0-5); LYMPHOCYTES 11.4 % (15-50); MCH 28.5 pg (26.0-34.0); MCHC 31.5 g/dL (31.0-37.0); MCV 90.4 fL (80.0-100.0); MEAN PLATELET VOLUME 10.8 fL (7.4-10.4); NEUTROPHILS 81.9 % (40-80); PLATELET COUNT 111 10x3/uL (130-400); RBC 3.65 10x6/uL (4.20-6.10); RDW 18.4 % (11.5-14.5)
[2016-07-07 05:09] LABS: WBC 8.8 10x3/uL (4.8-10.8)
[2016-07-07 05:24] LABS: ALBUMIN 1.4 g/dL (3.4-5.0); ANION GAP 8.2 mmol/L (8-16); BILIRUBIN - TOTAL 0.75 mg/dL (0.2-1.3); CALCIUM 8.7 mg/dL (8.5-10.1); CREATININE - SERUM 1.6 mg/dL (0.6-1.3); POTASSIUM - SERUM 3.2 mmol/L (3.5-5.1); PROTEIN - SERUM 6.4 g/dL (6.4-8.2); VANCOMYCIN - TROUGH 24.2 ug/mL (10.0-20.0)
--- NOTE | 2016-07-07 06:00 | NUR ---
0600: Pt remains on Vent with RR24x with SPO2 98%. Oral care done per RT at this time.
--- NOTE | 2016-07-07 20:00 | NUR ---
1999: Pt remains on Vent with RR20x with SPO2 98%. Pt remains febrile 99-100F oral temp, SR99 bpm with SBP 150-160 at this time. No change in IVF/UOP.
--- NOTE | 2016-07-07 21:00 | NUR ---
2100: No family here at this time.
--- NOTE | 2016-07-07 22:00 | NUR ---
2200: Pt remains resting in bed with eyes closed. Open to verbal and does not track staff with commands. Pt does not move extrem to commands. Pt right arm appears contracted with constant pulling to left. Left arm is flaccid. Pt pupils remain ROSIE+ bilat with light stimulus. Pt does grimmace with attempting to do pupil check. Pt remains on trach and unable to speak, tongue is midline.
[2016-07-08] VITALS (25 sets, daily range): BP systolic 88–196; BP diastolic 37–82
--- NOTE | 2016-07-08 | NUR ---
0000: Pt temp increased 102F oral, HR increased 100 bpm, and pt SBP 150's. Tylenol and Diluadid admin for pain and fever.
--- NOTE | 2016-07-08 01:30 | NUR ---
0130: Temp 99.6F oral
--- NOTE | 2016-07-08 02:00 | NUR ---
0200: Pt trach continues with audible air leak. Repositon trach with no dependent tubing etc.. RT in room to eval as well; air added to trach cuff. TVs decreased at times. In line suction produces no return. TVs increased with inflation of trach cuff. Avg TV showing 180-240cc, pt RR reamains 20's with SPo2 98% at this time. Vent alarms on and audible.
[2016-07-08 05:10] LABS: BASOPHILS 0.5 % (0-2); EOSINOPHILS 2.4 % (0-7); HEMATOCRIT 31.5 % (42.0-54.0); IMMATURE GRANULOCYTES 0.3 % (0-5); LYMPHOCYTES 15.8 % (15-50); MCH 28.7 pg (26.0-34.0); MCHC 31.7 g/dL (31.0-37.0); MCV 90.3 fL (80.0-100.0); MEAN PLATELET VOLUME 10.8 fL (7.4-10.4); MONOCYTES 8.8 % (2-11); NEUTROPHILS 72.2 % (40-80); PLATELET COUNT 115 10x3/uL (130-400); RBC 3.49 10x6/uL (4.20-6.10); RDW 18.5 % (11.5-14.5)
[2016-07-08 05:15] LABS: WBC 6.1 10x3/uL (4.8-10.8)
[2016-07-08 05:39] LABS: ANION GAP 9.2 mmol/L (8-16); CALCIUM 8.6 mg/dL (8.5-10.1); CARBON DIOXIDE 31.3 mmol/L (21.0-32.0); CREATININE - SERUM 1.7 mg/dL (0.6-1.3); POTASSIUM - SERUM 3.5 mmol/L (3.5-5.1); VANCOMYCIN - TROUGH 18.4 ug/mL (10.0-20.0)
--- NOTE | 2016-07-08 19:00 | NUR ---
Assessment completed per flowsheet, received patient resting in bed with eyes closed. Patient disoriented to time/location/situation. Eyes PERRLA @ 3mm with sluggish response, patient blind bilateral. 8.0 trach noted, secured with no irritation noted. S1/S2 noted with patient NSR on telemetry, rhythmic and regular. Crackles noted bilateral upper with diminished lower lobes, Vent settings A/C R-14 V-600 P-8 30%. Abdomen is distended and soft, G-tube noted with no drainage or irritation. Shabazz secured in place, dark concentrated urine noted in collection. All extremities flaccid with upper pulses palpable and lower pulses weak, cap refill <3 sec. R IJ Trialysis cath noted, patent with fluids infusing. Inline suctioning provided, white secretions noted. Repositioned for comfort, no further needs at this time. All VSS and will continue to monitor.
--- NOTE | 2016-07-08 21:00 | NUR ---
Patient family at bedside, no questions at this time. Inline suctioning provided, oral care performed. No further needs at this time, all VSS and will continue to monitor.
--- NOTE | 2016-07-08 23:00 | NUR ---
Reassessment completed per flowsheet, patient resting in bed with eyes closed. S1/S2 noted on telemetry with HR 98, rhythmic and regular. Vent settings unchanged from previous assessment, O2 sat 100%. All pulses palpable with lower extremity weak. Oral care/suctioning provided, repositioned for comfort. No further needs at this time, all VSS and will continue to monitor.
[2016-07-09] VITALS (23 sets, daily range): BP systolic 68–158; BP diastolic 36–75
--- NOTE | 2016-07-09 03:00 | NUR ---
Reassessment completed per flowsheet, patient resting in bed with eyes closed on vent. Patient sinus tach on telemetry with HR 101, rhythmic and regular. Vent settings unchanged from previous assessment, O2 sat 96%. Upper pulses palpable with weak lower, cap refill <3 sec. Suctioning provided with patient repositioned for comfort, no further needs at this time. All VSS and will continue to monitor.
[2016-07-09 05:22] LABS: BASOPHILS 0.4 % (0-2); EOSINOPHILS 2.1 % (0-7); HEMATOCRIT 31.6 % (42.0-54.0); HEMOGLOBIN 9.8 g/dL (13.5-17.5); IMMATURE GRANULOCYTES 0.3 % (0-5); LYMPHOCYTES 17.2 % (15-50); MCH 28.2 pg (26.0-34.0); MCV 90.8 fL (80.0-100.0); MEAN PLATELET VOLUME 10.4 fL (7.4-10.4); MONOCYTES 8.2 % (2-11); NEUTROPHILS 71.8 % (40-80); PLATELET COUNT 143 10x3/uL (130-400); RBC 3.48 10x6/uL (4.20-6.10); RDW 18.2 % (11.5-14.5); WBC 6.7 10x3/uL (4.8-10.8)
[2016-07-09 05:34] LABS: ANION GAP 9.6 mmol/L (8-16); CALCIUM 8.6 mg/dL (8.5-10.1); CARBON DIOXIDE 31.1 mmol/L (21.0-32.0); CREATININE - SERUM 1.9 mg/dL (0.6-1.3); POTASSIUM - SERUM 3.7 mmol/L (3.5-5.1)
--- NOTE | 2016-07-09 11:12 | NUR ---
Nutrition Follow Up: Chart reviewed. Pt remains on vent. TF of Nepro @ 50 ml/hr. I>O. +BM. WT stable. Labs reviewed - BUN, Cr elevated. Meds noted including Lasix. Rec continue current TF. RD will continue to follow.
--- NOTE | 2016-07-09 11:49 | NUR ---
CM SPOKE WITH PATIENT'S DAUGHTER MANUEL REGARDING PLANS FOR DISCHARGE. INFORMED MANUEL THAT [facility] WAS OUT OF NETWORK AND [facility] DECLINED TO ACCEPT PATIENT. MANUEL GAVE CM PERMISSION TO MAKE A REFERRAL TO [facility] [place]. CM WILL CONTACT [facility] [place] WITH REFERRAL INFORMATION.
--- NOTE | 2016-07-09 13:25 | NUR ---
CM LEFT MESSAGE FOR MYNOR WITH [facility] TO CALL CM BACK REGARDING REFERRAL.
--- NOTE | 2016-07-09 18:05 | NUR ---
1540- PT'S DAUGHTER MANUEL ASK WHO HER DADS NURSE IS TODAY. I ANSWER TO HER THAT I AM THE NURSE TAKING CARE OF HER DAD TODAY. MANUEL STATES " YOU DIDNT COME INTO THE ROOM TO GIVE ME REPORT AND WALKS BRISKLY OUT OF THE ICU.
--- NOTE | 2016-07-09 19:00 | NUR ---
DIALYSIS AT BEDSIDE.
--- NOTE | 2016-07-09 19:45 | NUR ---
ASSESSMENT COMPLETE. S1S2. MECHANICAL VENT VIA TRACH; 40%. RR CRACKLES BILATERALLY IN UPPER LOBES; DIMINISHED IN LOWER LOBES. MULTIPLE NECROSIS SCABS/SORES NOTED. RADIAL PULSES PALPATED, PEDAL PULSES WEAK. LOWER LIMBS FLACCID; UPPER LIMBS MODERATE WEAKNESS. PT SKIN PALE.
--- NOTE | 2016-07-09 21:45 | NUR ---
FAMILY AT BEDSIDE. QUESTIONS ANSWERED. UPDATE GIVEN.
--- NOTE | 2016-07-09 22:32 | NUR ---
FAMILY REMAINS AT BEDSIDE.
--- NOTE | 2016-07-09 23:00 | NUR ---
REASSESSMENT COMPLETE. NO CHANGES FROM PREVIOUS ASSESSMENT. VSS. NO DISTRESS NOTED. WILL CONTINUE TO MONITOR.
--- NOTE | 2016-07-09 23:26 | NUR ---
COMPLETE BED BATH GIVEN. SIDDIQI CARE. ORAL CARE. TRACH CLEANED. COMPLETE LINEN CHANGE. WILL CONTINUE TO MONITOR.
[2016-07-10] VITALS (22 sets, daily range): BP systolic 139–175; BP diastolic 49–61
--- NOTE | 2016-07-10 01:12 | NUR ---
PT RESTING; EYES CLOSED. VSS. NO DISTRESS NOTED. WILL CONTINUE TO MONITOR.
--- NOTE | 2016-07-10 03:10 | NUR ---
REASSESSMENT COMPLETE. NO CHANGES FROM PREVIOUS ASSESSMENT. VSS. NO DISTRESS NOTED. WILL CONTINUE TO MONITOR.
--- NOTE | 2016-07-10 04:47 | NUR ---
I/O COLLECTED. LAB DRAWN.
[2016-07-10 04:57] LABS: BASOPHILS 0.5 % (0-2); EOSINOPHILS 2.3 % (0-7); HEMATOCRIT 30.8 % (42.0-54.0); HEMOGLOBIN 9.7 g/dL (13.5-17.5); IMMATURE GRANULOCYTES 0.8 % (0-5); LYMPHOCYTES 15.7 % (15-50); MCH 28.3 pg (26.0-34.0); MCHC 31.5 g/dL (31.0-37.0); MCV 89.8 fL (80.0-100.0); MEAN PLATELET VOLUME 11.1 fL (7.4-10.4); MONOCYTES 8.9 % (2-11); NEUTROPHILS 71.8 % (40-80); PLATELET COUNT 152 10x3/uL (130-400); RBC 3.43 10x6/uL (4.20-6.10); RDW 17.9 % (11.5-14.5); WBC 6.1 10x3/uL (4.8-10.8)
[2016-07-10 05:13] LABS: ANION GAP 8.7 mmol/L (8-16); CALCIUM 8.5 mg/dL (8.5-10.1); CARBON DIOXIDE 31.5 mmol/L (21.0-32.0); CREATININE - SERUM 1.5 mg/dL (0.6-1.3); POTASSIUM - SERUM 3.2 mmol/L (3.5-5.1)
--- NOTE | 2016-07-10 06:36 | NUR ---
FAMILY NOT AT BEDSIDE
--- NOTE | 2016-07-10 07:00 | NUR ---
RECD REPORT AND RESUMED CARE, TRACH TO VENTILATION AND SECURED, SAT 98% ON 50% FIO2, OTHER VSS, RIGHT SC TRIALYSIS CATH WITH NS AT 10 CC/HR, PEG TUBE WITH NEPRO AT 50 CC/HR, RESIDUAL CHECK 20 CC, SIDDIQI TO GRAVIEY WITH DARK CONCENTRATED DRAINAGE TO BAG, RECTAL TUBE IN PLACE AND DRAINING, HEEL BOOTS IN PLACE B/L, DROPLET ISOLATION IN USE, ASSESSMENT COMPLETE PER FLOWSHEET, REPOSITIONED TO LEFT WITH HEELS FLOATED
--- NOTE | 2016-07-10 09:00 | NUR ---
JOYA SHAH AND MANUEL AT BEDSIDE, STATUS UPDATED, CONCEENED THAT FIO2 IS NOW 50%, EDUCATED ON NEED TO KEEP O2 SAT UP, VERBALIZED UNDERSTANDING,, NO OTHER NEEDS AT THIS TIME
--- NOTE | 2016-07-10 09:27 | NUR ---
I SPOKE WITH MYNOR AT [facility] IN [place]. [phone]. SHE ASKED ME A FEW QUESTIONS REGARDING PATIENT. WHEN SHE WAS TOLD PATIENT WAS ON DIALYSIS SHE STATED THAT THEY WOULD NOT BE ABLE TO TAKE THE PATIENT BECAUSE THEY DONOT HAVE A DIALYSIS BED. SHE STATES THEY CONTRACT THEIR DIALYSIS AND DOES NOT KNOW WHEN THEY WOULD HAVE A BED. SHE HAS DECLINED THE PATIENT AT THIS TIME. CM TO FOLLOW.
--- NOTE | 2016-07-10 09:30 | NUR ---
AM MEDS GIVEN PER MAR AND PROTOCAL
--- NOTE | 2016-07-10 09:35 | NUR ---
I PHONED PATIENT'S DAUGHTER, MANUEL AT [phone]. I EXPLAINED TO HER THAT PATIENT WAS DENIED AT [facility] IN [place] DUE TO NO DIALYSIS BED AND UNKNOW WHEN THEY WOULD HAVE A BED. SHE ASKED THE WE MAKE REFERRALS TO THE REMAINING LT[facility]S ON OUR LIST. I TOLD HER THERE WERE 2 IN [place] AND 1 IN [place]. SHE ASKED THAT WE MAKE REFERRALS. SHE STATES, "WE HAVE TO DO SOMETHING".
--- NOTE | 2016-07-10 11:00 | NUR ---
ASSESSMENT COMPLETE, NO ACUTE CHANGE FROM PREVIOUS, VSS
--- NOTE | 2016-07-10 12:00 | NUR ---
DAUGHTERS AT BEDSIDE, STATUS UPDATED, NO NEEDS AT THIS TIME
--- NOTE | 2016-07-10 14:44 | NUR ---
I HAVE FAXED THE CLINICAL INFORMATION TO PILI AT [facility] IN [place]. HE WILL EVALUATED AND GET BACK TO US. I SPOKE WITH JOI AT [facility] IN [place].[phone]. SHE IS QUESTIONING WHY PATIENT IS WANTING TO GO TO [facility] IN [place] AND NOT CLOSER TO HIS HOME. I TOLD HER THAT HE WAS ACCEPTED BY LOCAL [facility] BUT FAMILY WAS NOT ABLE TO PAY COPAY FOR PATIENT TO GO THERE. SHE STATED THAT THE COPAY IS SET BY [facility] AND THAT THEY WOULD HAVE THE SAME COPAY AT ANY [facility] HE WOULD GO TO THAT [employer] APPROVES. CM TO FOLLOW.
--- NOTE | 2016-07-10 14:51 | OP ---
PATIENT NAME: JORGE PARK MEDICAL RECORD: [id number] :40 LOCATION:D.[facility] D.[id number] ADMISSION DATE:05/14/16 SURGEON: OMER CHUN MD DATE OF OPERATION: 06/21/2016 PREOPERATIVE DIAGNOSES: 1. Malfunctioning right IJ Trialysis catheter. 2. Acute kidney disease. 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 5. Complete paraplegia. 6. Gastroesophageal reflux disease. 7. Chronic respiratory failure. 8. Cerebrovascular accident. POSTOPERATIVE DIAGNOSES: 1. Malfunctioning right IJ Trialysis catheter. 2. Acute kidney disease. 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 5. Complete paraplegia. 6. Gastroesophageal reflux disease. 7. Chronic respiratory failure. 8. Cerebrovascular accident. PROCEDURE: Right IJ Trialysis catheter exchange. SURGEON: Omer Chun MD REPORT OF PROCEDURE: The patient's right neck was prepped and draped including the indwelling 15 cm right IJ Trialysis catheter. The sutures were removed and the catheter tip was transected, wire was advanced through the catheter and the catheter was completely removed. After we reprepped the area, then a new 20 cm Trialysis catheter was inserted over the wire with these. This was sutured into place with 4-0 nylons. The catheter was then flushed with normal saline. All the ports flushed easily at this time. At this point, the catheter was dressed appropriately. COMPLICATIONS: None. CONDITION: Stable. ANESTHESIA: Local. BLOOD LOSS: 30 mL. Procedure done in the ICU at the bedside. TRANSINT:[id number] Voice Confirmation ID: [id number] DOCUMENT ID: [id number] OPERATIVE REPORT [id number] JORGE PARK OMER CAMERON MD at 1451 CC: [id number] DICTATION DATE: 06/21/16 1456 PLANER SETUP OPERATOR: 06/21/16 1832 [place] [address]
--- NOTE | 2016-07-10 14:51 | OP ---
PATIENT NAME: JORGE PARK MEDICAL RECORD: [id number] :40 LOCATION:D.[facility] D.2301 ADMISSION DATE:05/14/16 SURGEON: OMER CHUN MD DATE OF OPERATION: 06/29/2016 PREOPERATIVE DIAGNOSES: 1. Catheter related sepsis. 2. Respiratory failure on the ventilator. 3. Acute renal failure. POSTOPERATIVE DIAGNOSES: 1. Catheter related sepsis. 2. Respiratory failure on the ventilator. 3. Acute renal failure. PROCEDURE: Right IJ 20 cm Trialysis catheter exchange. SURGEON: Omer Chun MD REPORT OF PROCEDURE: The patient's right neck and indwelling Trialysis catheter were prepped and draped in sterile fashion. A total of 5 cc of 1% lidocaine was infused into the surrounding tissues. The distal catheter was transected and the wire was advanced through the catheter and the catheter was removed. The tip was then transected and sent off for culture. New 20 cm Trialysis catheter was inserted after we had reprepped the area. The catheter resting in good position and was sutured to the skin with interrupted 4-0 nylons times 2 and new dressing was then applied. COMPLICATIONS: None. CONDITION: Stable. ANESTHESIA: Local. BLOOD LOSS: Minimal. Procedure done at the bedside. TRANSINT:[id number] Voice Confirmation ID: [id number] DOCUMENT ID: [id number] OMER CHUN MD at 1451 CC: [id number] DICTATION DATE: 06/29/16 1259 SWITCH INSPECTOR: 06/29/16 193 ADM IN [place] [id number] [place] [address]
--- NOTE | 2016-07-10 14:52 | NUR ---
I HAVE FAXED INFORMATION TO LAURA, CLINICAL COORDINATOR FOR [facility] IN [place], . CONTACT WAS MADE LAURA AND SHE STATED TO FAX INFORAMTION FOR EVALUATION. WILL AWAIT DETERMINATION. CM TO FOLLOW.
--- NOTE | 2016-07-10 15:00 | NUR ---
NO ACUTE CHANGE FROM PREVIOUS ASSESSMENT, VSS
--- NOTE | 2016-07-10 18:00 | NUR ---
NO VISITORS AT THIS TIME, SKINCARE AND LINEN CHANGE COMPLETED, REPOSITIONED TO LEFT WITH PILLOW PROPPED TO BACK AND HEELS FLOATED
--- NOTE | 2016-07-10 19:30 | NUR ---
ASSESSMENT COMPLETE. S1S2. RR CRACKLES THOUGHOUT ALL LOBES. MECHANICAL VENT VIA TRACH; 50%. FLACCID TO LOWER EXTREMITES, MODERATE WEAKNESS TO UPPER EXTREMITIES. RADIAL PULSES +2, PEDAL PULSES +1. PUPILS 4MM; SLUGGISH
--- NOTE | 2016-07-10 21:15 | NUR ---
FAMILY AT BEDSIDE. UPDATE GIVEN.
--- NOTE | 2016-07-10 23:00 | NUR ---
REASSESSMENT COMPLETE. NO CHANGES FROM PREVIOUS ASSESSMENT. PT CONFUSED. VSS. NO DISTRESS NOTED. WILL CONTINUE TO MONITOR.
[2016-07-11] VITALS (30 sets, daily range): BP systolic 79–202; BP diastolic 40–80
--- NOTE | 2016-07-11 01:18 | NUR ---
PT RESTING; EYES CLOSED. NO DISTRESS NOTED. VSS. WILL CONTINUE TO MONITOR.
--- NOTE | 2016-07-11 03:05 | NUR ---
REASSESSMENT COMPLETE. NO CHANGES FROM PREVIOUS ASSESSMENT. VSS. NO DISTRESS NOTED. WILL CONTINUE TO MONITOR.
[2016-07-11 04:21] LABS: BASOPHILS 0.7 % (0-2); HEMATOCRIT 31.2 % (42.0-54.0); HEMOGLOBIN 9.9 g/dL (13.5-17.5); IMMATURE GRANULOCYTES 2.1 % (0-5); LYMPHOCYTES 17.8 % (15-50); MCH 28.4 pg (26.0-34.0); MCHC 31.7 g/dL (31.0-37.0); MCV 89.7 fL (80.0-100.0); MEAN PLATELET VOLUME 10.7 fL (7.4-10.4); MONOCYTES 9.6 % (2-11); NEUTROPHILS 65.8 % (40-80); PLATELET COUNT 156 10x3/uL (130-400); RBC 3.48 10x6/uL (4.20-6.10); RDW 17.9 % (11.5-14.5); WBC 6.1 10x3/uL (4.8-10.8)
[2016-07-11 04:31] LABS: ANION GAP 5.5 mmol/L (8-16); CALCIUM 9.2 mg/dL (8.5-10.1); CARBON DIOXIDE 32.5 mmol/L (21.0-32.0); CREATININE - SERUM 1.6 mg/dL (0.6-1.3)
--- NOTE | 2016-07-11 04:48 | NUR ---
COMPLETE BED BATH. LINEN CHANGED.
--- NOTE | 2016-07-11 07:00 | NUR ---
DREC'D REPORT AND RESUMED CARE, VENTILATION TO TRACH AND SECURED, FIO2 AT 50%, SAT 98%, ASSESSMENT COMPLETE PER FLOWSHEET, ORAL CARE AND SUCTION COMPLETED, REPOSITIONED TO RIGHT SIDE WITH PILLOW PROPPED TO BACK AND HEELS FLOATED
--- NOTE | 2016-07-11 09:00 | NUR ---
NO VISITORS AT THIS TIME
--- NOTE | 2016-07-11 09:32 | NUR ---
Nutrition follow-up: Pt remains intubated at this time Nepro continues to infuse @ 50 ml/hr via PEG tube Labs reviewed Wt: 187# RDN following.
--- NOTE | 2016-07-11 09:45 | NUR ---
HD BEGAN, VSS
--- NOTE | 2016-07-11 11:00 | NUR ---
CONTINUES ON HD, SBP 78, 200 CC BOLUS GIVEN PREVIOUSLY BY HD NURSE, NOW LEVAPHED INITIATED AT 5MCG
--- NOTE | 2016-07-11 12:00 | NUR ---
NBO VISITORS AT THIS TIME
--- NOTE | 2016-07-11 12:45 | NUR ---
HD COMPLETED, CONTINUES ON LEVAPHED AT 2 MCG, SBP 122
--- NOTE | 2016-07-11 13:17 | NUR ---
had bedside hemodialsis today via his right IJ Trialaysis catheter. Average blood flow was 400 mls/minute. Ran fro 0945 until 1250 pm. Net fluid removed was 3000 mls. Post vital signs were: B/P: 168/70, HR:97, Temp:98.7,Resps: 18. Required to use of lenvied
--- NOTE | 2016-07-11 15:00 | NUR ---
ASSESSMENT COMPLETE, NO ACUTE CHANGE FROM PREVIOUS, VSS, ORAL CARE AND SUCTION COMPLETED,
--- NOTE | 2016-07-11 16:00 | NUR ---
RECTAL TUBE WITH LEAKAGE, SKINCARE AND COMPLETE LINEN CHANGE, REPOSITIONED TO BACK WITH HEELS FLOATED
--- NOTE | 2016-07-11 18:00 | NUR ---
NO VISITORS AT THIS TIME, RESTING WITH NO SIGNS OF DISTRESS, VSS
--- NOTE | 2016-07-11 19:15 | NUR ---
ASSESSMENT COMPLETE. S1S2. MECHANICAL VENT VIA TRACH; 50%. RADIAL PULSES +2, PEDAL PULSES +1. MULTI UNSTAGEABLE PRESSURE ULCERS NOTED. GENERALIZED SWELLING IN EXTREMITIES X4. SCROTAL SWELLING. SIDDIQI AND RECTAL TUBE IN PLACE. VSS. NO DISTRESS NOTED. PT MAKING GRUNTING NOISES; MINIMAL SECRETIONS VIA INLINE TRACHEAL SUCTION.
--- NOTE | 2016-07-11 20:40 | NUR ---
CVL DRESSING CHANGED.
--- NOTE | 2016-07-11 21:30 | NUR ---
NO FAMILY AT [facility].
--- NOTE | 2016-07-11 23:20 | NUR ---
REASSESSMENT COMPLETE. NO NEW CHANGES AT THIS TIME. VSS. NO DISTRESS NOTED. WILL CONTINUE TO MONITOR.
[2016-07-12] VITALS (24 sets, daily range): BP systolic 113–169; BP diastolic 50–67
--- NOTE | 2016-07-12 02:07 | NUR ---
PT RESTING; EYES CLOSED. VSS. NO DISTRESS NOTED. WILL CONTINUE TO MONITOR.
--- NOTE | 2016-07-12 03:05 | NUR ---
REASSESSMENT COMPLETE. NO CHANGES FROM PREVIOUS ASSESSMENT. VSS. NO DISTRESS NOTED.
[2016-07-12 03:42] LABS: BASOPHILS 0.7 % (0-2); EOSINOPHILS 3.1 % (0-7); HEMATOCRIT 31.3 % (42.0-54.0); HEMOGLOBIN 9.7 g/dL (13.5-17.5); IMMATURE GRANULOCYTES 1.7 % (0-5); LYMPHOCYTES 18.8 % (15-50); MCH 27.6 pg (26.0-34.0); MCV 89.2 fL (80.0-100.0); MEAN PLATELET VOLUME 10.4 fL (7.4-10.4); NEUTROPHILS 66.7 % (40-80); PLATELET COUNT 158 10x3/uL (130-400); RBC 3.51 10x6/uL (4.20-6.10); RDW 17.7 % (11.5-14.5); WBC 7.1 10x3/uL (4.8-10.8)
[2016-07-12 03:56] LABS: ANION GAP 6.3 mmol/L (8-16); CREATININE - SERUM 1.3 mg/dL (0.6-1.3); POTASSIUM - SERUM 3.3 mmol/L (3.5-5.1)
--- NOTE | 2016-07-12 08:30 | NUR ---
Patient suctioned via trach, copious secretions.
--- NOTE | 2016-07-12 08:52 | NUR ---
in room to assess patient. POC discussed.
--- NOTE | 2016-07-12 09:00 | NUR ---
No visitors here at this time.
--- NOTE | 2016-07-12 09:27 | NUR ---
here to see patient. Patients POC discussed.
--- NOTE | 2016-07-12 09:39 | NUR ---
Nutrition follow-up: Now with TRACH collar Nepro @ 50 ml/hr via PEG Pt with general swelling to extremities x 4; scrotal swelling Rectal tube Wt: 184# RDN following.
--- NOTE | 2016-07-12 11:00 | NUR ---
RT in room changing trach sponges and repositing trach.
--- NOTE | 2016-07-12 12:20 | NUR ---
No visitors at this time.
--- NOTE | 2016-07-12 14:53 | NUR ---
Inline suction provided, trach repositioned.
--- NOTE | 2016-07-12 15:39 | NUR ---
Patients daughter here, update given. Patient meds given per EMAR, pt repositioned.
--- NOTE | 2016-07-12 16:00 | NUR ---
REPORT RECEIVED. CARE OF PATIENT ASSUMED.
--- NOTE | 2016-07-12 18:12 | NUR ---
Daughter at bedside for visitation.
--- NOTE | 2016-07-12 19:15 | NUR ---
SHIFT ASSESSMENT COMPLETE, SEE FOR DETAILS. PATIENT ON VENT, SEE FLOWSHEET FOR SETTINGS. OPENS EYES TO VOICE. CRACKLES HEARD BILATERAL WITH LUNG SOUNDS. S1S2 NOTED, NORMAL SINUS ON MONITOR. BOWEL SOUNDS ACTIVE X4, NEPRO INFUSING AT GOAL RATE OF 50MLS/HR THROUGH PEG TUBE. NO RESIDUAL. CATHETER DRAINING CONCENTRATED URINE, NO KINKS NOTED. RECTAL TUBE IN AND DRAINING PROPERLY. RADIAL PULSES +2, PEDAL PULSES WEAK, CAP REFILL < 3 SECONDS. RIJ TRIALYSIS CATH DRESSING C/D/I, BIOATCH IN PLACE, INFUSING NS @ 10ML/HR. PATIENT TURNED PER PROTOCOL, VSS, WILL MONITOR.
--- NOTE | 2016-07-12 21:00 | NUR ---
DAUGHTER AT BEDSIDE, UPDATE PROVIDED.
--- NOTE | 2016-07-12 23:00 | NUR ---
REASSESSMENT COMPLETE. NO ACUTE CHANGES AT THIS TIME. SEE REASSESSMENT FOR DETAILS. BED BATH GIVEN ALONG WITH COMPLETE LINEN CHANGE. PT TOLERATED WELL. TURNED TO SIDE, WILL MONITOR.
[2016-07-13] VITALS (24 sets, daily range): BP systolic 94–149; BP diastolic 40–545
--- NOTE | 2016-07-13 01:00 | NUR ---
TUBE FEEDING BAG CHANGED PER PROTOCOL. VSS, WILL MONITOR.
--- NOTE | 2016-07-13 03:00 | NUR ---
SHIFT ASSESSMENT COMPLETE, SEE FOR DETAILS. NO CHANGES FROM INITIAL ASSESSMENT. RR EVEN, CRACKLES HEARD WITH LUNG AUSCULTATION. S1S2 NOTED, NORMAL SINUS ON MONITOR. BOWEL SOUNDS ACTIVE. SIDDIQI AND RECTAL TUBE PATENT. EXTREMITIES BRIDGED, PATIENT TURNED. VSS, NO DISTRESS SEEN. WILL MONITOR.
[2016-07-13 03:48] LABS: BASOPHILS 0.7 % (0-2); HEMATOCRIT 31.3 % (42.0-54.0); HEMOGLOBIN 9.7 g/dL (13.5-17.5); IMMATURE GRANULOCYTES 2.1 % (0-5); LYMPHOCYTES 14.9 % (15-50); MCH 27.9 pg (26.0-34.0); MCV 89.9 fL (80.0-100.0); MEAN PLATELET VOLUME 10.3 fL (7.4-10.4); MONOCYTES 7.3 % (2-11); PLATELET COUNT 152 10x3/uL (130-400); RBC 3.48 10x6/uL (4.20-6.10); RDW 17.9 % (11.5-14.5); WBC 7.3 10x3/uL (4.8-10.8)
[2016-07-13 03:56] LABS: ANION GAP 8.3 mmol/L (8-16); CALCIUM 9.4 mg/dL (8.5-10.1); CARBON DIOXIDE 31.4 mmol/L (21.0-32.0); CREATININE - SERUM 1.5 mg/dL (0.6-1.3); POTASSIUM - SERUM 3.7 mmol/L (3.5-5.1)
--- NOTE | 2016-07-13 05:20 | NUR ---
REPOSITONED FOR COMFORT, NO OTHER NEEDS NOTED, WILL CON'T TO MONITOR
--- NOTE | 2016-07-13 09:00 | NUR ---
RECTAL TUBE LEAKING, PERIPAD SOILED, SKINCARE AND LINEN CHANGE COMPLETED, DAIANA AT BEDSIDE, STATUS UPDATED, MAKING DECISIONS, STATES SISTER MANUEL HAS GUARDIANSHIP AND WILL MAKE FINAL DECISION IF PATIENT WILL GO TO HOSPICE, SHE ALSO STATES THAT PATIENT WILL REMAIN A FULL CODE
--- NOTE | 2016-07-13 10:10 | NUR ---
DR CUMMINS AT BEDSIDE, COUNSELED WITH DAIANA, DISCUSSED POOR PROGNOSIS, PER DAIANA, SHE VERBALIZED UNDERSTANDING, BUT WILL NOT BE MAKING ANY DECISIONS
--- NOTE | 2016-07-13 11:00 | NUR ---
ASSESSMENT COMPLETE, NO ACUTE CHANGE FROM PREVIOUS, VSS
[2016-07-13 11:19] LABS: ACID FAST CULTURE Negative (()); ACID FAST SMEAR Negative (())
[2016-07-13 11:19] LABS: ACID FAST CULTURE Negative (()); ACID FAST SMEAR Negative (())
--- NOTE | 2016-07-13 12:00 | NUR ---
DAIANA AT BEDSIDE, STATUS UPDATED, VOICES NO NEEDS AT THIS TIME
--- NOTE | 2016-07-13 12:45 | NUR ---
HR 40, SBP 80'S, TREMORS NOTED FOR 30 SECONDS, ALBUMIN 12.5 MG VIA HD GIVEN, HR BACK TO 86, SBP 118, WILL CONTINUE WITH HD TREATMENT, DAUGHTER DAIANA AT BEDSIDE, NO NEEDS AT THIS TIME
--- NOTE | 2016-07-13 14:09 | NUR ---
3000 UNITS HEPARIN GIVEN TO HD NURSE FOR PLACEMENT IN TRIALYSIS CATH, PATIENT CONITNUES ON HD AT THIS TIME, VSS
--- NOTE | 2016-07-13 14:32 | NUR ---
HD COMPLETED, 1.1 LITER OFF, VSS, NO OTHER CHANGES FROM PREVIOUS ASSESSMENTS
--- NOTE | 2016-07-13 15:00 | NUR ---
RESTING WITH NO SIGNS OF DISTRESS, VSS, ASSESSMENT COMPLETE PER FLOWSHEET, DAUGHTER AT BEDSIDE, REPOSITIONED TO LEFT SIDE WITH PILLOW PROPPED TO BACK AND HEELS FLOATED. NO NEEDS AT THIS TIME
--- NOTE | 2016-07-13 15:30 | NUR ---
DR COELHO HERE SPOKE WITH MANUEL RE POOR PROGNOSIS, MANUEL STATES " I DON'T WANT TO HERE IT, THIS CONVERSATION IS OVER" AND LEAVES UNIT.
--- NOTE | 2016-07-13 18:00 | NUR ---
DAUGHTER PABLO AT BEDSIDE, STATUS UPDATED, STATES SHE WAS STRESSED DURING THE 3 O'CLOCK VISIT, FEELS FINE NOW, HOPES TO ENJOY THIS VISIT, NO OTHER NEEDS AT THIS TIME
--- NOTE | 2016-07-13 19:00 | NUR ---
REPORT RECIEVED, INITIAL ASSESSMENT COMPLETE, PLEASE SEE FLOW SHEETS FOR DETAILS. ORAL CARE AND TURNING PROVIDED. PT NOT SEDATED AND ON VENT. TUBE FEED ONGOING AND RIGHT IJ TRIALYSIS CATHETER CDI WITH NS INFUSING AT 10CC PER HOUR. TUBE FEED AT 40CC PER HOUR. RECTAL TUBE IN PLACE, DRAINING WELL ATT. VSS, BED LOW AND LOCKED. WILL CONTINUE POC.
--- NOTE | 2016-07-13 21:00 | NUR ---
ORAL CARE AND TURNIN GPROVIDED, BED LOW AND LOCKED, WILL CONTINUE POC.
--- NOTE | 2016-07-13 21:45 | NUR ---
DAUGHTER DAIANA IN ROOM AND SHAVING PT. ALL SUPPLIES NEEDED WERE PROVIDED. NO OTHER NEEDS ATT. VSS, WILL CONTINUE POC.
--- NOTE | 2016-07-13 23:00 | NUR ---
REASSESSMENT COMPLETE, PLEASE SEE FLOW SHEETS FOR DETAILS. ORAL CARE AND TURNING PROVIDED. BED LOW AND LOCKED. VSS, WILL CONINTUE POC.
[2016-07-14] VITALS (21 sets, daily range): BP systolic 75–166; BP diastolic 43–92
--- NOTE | 2016-07-14 01:00 | NUR ---
ORAL CARE AND TURNING PROVIDED. VSS, BED LOW AND LOCKED, WILL CONTINUE POC.
--- NOTE | 2016-07-14 03:00 | NUR ---
REASSESSMENT COMPLETE, PLEASE SEE FLOW SHEETS FOR DETAILS, BED LOW AND LOCKED, ORAL CARE AND TURNING PROVIDED. VSS, WILL CONTINUE POC.
[2016-07-14 03:48] LABS: BASOPHILS 0.2 % (0-2); EOSINOPHILS 2.7 % (0-7); HEMATOCRIT 31.2 % (42.0-54.0); HEMOGLOBIN 9.6 g/dL (13.5-17.5); IMMATURE GRANULOCYTES 1.2 % (0-5); LYMPHOCYTES 12.7 % (15-50); MCH 27.9 pg (26.0-34.0); MCHC 30.8 g/dL (31.0-37.0); MCV 90.7 fL (80.0-100.0); MEAN PLATELET VOLUME 10.6 fL (7.4-10.4); MONOCYTES 5.5 % (2-11); NEUTROPHILS 77.7 % (40-80); PLATELET COUNT 158 10x3/uL (130-400); RBC 3.44 10x6/uL (4.20-6.10); RDW 17.8 % (11.5-14.5)
[2016-07-14 03:58] LABS: ANION GAP 8.2 mmol/L (8-16); CALCIUM 9.4 mg/dL (8.5-10.1); CARBON DIOXIDE 31.3 mmol/L (21.0-32.0); CREATININE - SERUM 1.3 mg/dL (0.6-1.3); POTASSIUM - SERUM 3.5 mmol/L (3.5-5.1)
[2016-07-14 03:59] LABS: WBC 9.9 10x3/uL (4.8-10.8)
--- NOTE | 2016-07-14 05:00 | NUR ---
ORAL CARE AND TURNING PROVIDED. BM CLEANED UP, BED LOW AND LOCKED, VSS, WILL CONTINUE POC.
--- NOTE | 2016-07-14 07:00 | NUR ---
REC'D REPORT FROM STAIN DIPPER - PT RESTING SUPINE IN BED WITH EYES OPEN - RESP REG RATE RHYTHM - CPOC
--- NOTE | 2016-07-14 09:00 | NUR ---
MEDICATIONS GIVEN - CPOC
--- NOTE | 2016-07-14 09:33 | NUR ---
DR. SUNSHINE AT BEDSIDE FOR ASSESSMENT - NO NEW ORDERS - CPOC
--- NOTE | 2016-07-14 11:00 | NUR ---
ASSESSMENT COMPLETE - DR. APONTE AT BEDSIDE FOR ASSESSMENT - NO NEW ORDERS CPOC
--- NOTE | 2016-07-14 11:00 | NUR ---
AT BEDSIDE - STATED PT WEARS CPAP AT HOME - UPDATED ON PT'S CONDITION - ANSWERED ALL QUETIONS - TO 'S SATISFACTION. PT RESTING WITH BIPAP ON - RESP THERAPIST ALSO AVAILABLE TO ANSWER SPOUSES QUESTIONS.
--- NOTE | 2016-07-14 14:30 | NUR ---
BATHED PT - CHANGED LINENS, ETC - FECAL BAG WITH SLIGHT LEAK - MD AWARE - CPOC
--- NOTE | 2016-07-14 15:00 | NUR ---
ASSESSMENT COMPLETE - NO ACUTE CHANGES FROM A.M ASSESSMENT - CPOC
--- NOTE | 2016-07-14 17:58 | NUR ---
PT RESTING , RESPIRATIONS REG/RATE/RHYTHM - CPOC
--- NOTE | 2016-07-14 18:32 | NUR ---
MEDICATIONS GIVEN - PT RESTING - COMIC BOOK DESIGNER
--- NOTE | 2016-07-14 19:45 | NUR ---
REPORT RECIEVED, INITIAL ASSESSMENT COMPLETE, PLEASE SEE FLOW SHEETS FOR DETAILS. ORAL CARE AND TURNING PROVIDED. BED LOW AND LOCKED, VSS, WILL CONTINUE POC.
--- NOTE | 2016-07-14 21:00 | NUR ---
ORAL CARE AND TURNING PROVIDED. ORDERED OINTMENT APPLIED TO HAND AND LEG WOUNDS AND TO EAR LOBES. BED LOW AND LOCKED, VSS, WILL CONTINUE POC.
--- NOTE | 2016-07-14 23:00 | NUR ---
REASSESSMENT COMPLETE, PLEASE SEE FLOW SHEETS FOR DETAILS. ORAL CARE AND TURNING PROVIDED. BED LOW AND LOCKED. VSS, WILL CONTINUE POC.
[2016-07-15] VITALS (22 sets, daily range): BP systolic 104–166; BP diastolic 46–71
--- NOTE | 2016-07-15 01:00 | NUR ---
ORAL CARE AND TURNING PROVIDED. VSS, WILL CONTINUE POC.
--- NOTE | 2016-07-15 01:30 | NUR ---
TUBE FEED BAG CHANGED
--- NOTE | 2016-07-15 02:57 | NUR ---
Reassessment complete, please see flow sheets for details. Oral care and turning provided. Bed low and locked. VSS. Will continue POC.
[2016-07-15 03:43] LABS: BASOPHILS 0.2 % (0-2); HEMATOCRIT 31.4 % (42.0-54.0); HEMOGLOBIN 9.6 g/dL (13.5-17.5); IMMATURE GRANULOCYTES 1.1 % (0-5); LYMPHOCYTES 11.9 % (15-50); MCH 27.6 pg (26.0-34.0); MCHC 30.6 g/dL (31.0-37.0); MCV 90.2 fL (80.0-100.0); MEAN PLATELET VOLUME 11.1 fL (7.4-10.4); MONOCYTES 4.7 % (2-11); NEUTROPHILS 81.1 % (40-80); PLATELET COUNT 167 10x3/uL (130-400); RBC 3.48 10x6/uL (4.20-6.10); RDW 18.1 % (11.5-14.5); WBC 12.9 10x3/uL (4.8-10.8)
[2016-07-15 03:58] LABS: ANION GAP 9.5 mmol/L (8-16); CALCIUM 9.6 mg/dL (8.5-10.1); CARBON DIOXIDE 30.2 mmol/L (21.0-32.0); CREATININE - SERUM 1.5 mg/dL (0.6-1.3); POTASSIUM - SERUM 3.7 mmol/L (3.5-5.1)
--- NOTE | 2016-07-15 05:00 | NUR ---
ORAL CARE AND TURNING PROVIDED. BED LOW AND LOCKED. VSS, WILL CONTINUE POC.
--- NOTE | 2016-07-15 07:30 | NUR ---
0730- REC'D PT LAYING IN BED, TRACH VIA VENTILATOR. VSS. ASSESSMENT COMPLETE. SEE FLOWSHEET. PEG TUBE NOTED, TF INFUSING, RESIDUALS LESS THAN 5 CC. RETURNED. RIGHT IJ TRIALYSIS NOTED, DRSG C/D/I. SIDDIQI CATHETER NOTED, NO URINE. RECTAL TUBE NOTED, STOOL NOTED IN BAG. HEEL BOOTS BILATERAL.
--- NOTE | 2016-07-15 09:30 | NUR ---
0930- PT RESTING IN BED. VSS. WILL CONTINUE TO MONITOR. 1145- REASSESSMENT COMPLETE. SEE FLOWSHEET. NO CHANGES SINCE PREVIOUS ASSESSMENT. 1350- REPOSITIONED PT AND PROVIDED ORAL CARE.
--- NOTE | 2016-07-15 15:45 | NUR ---
1545- BED BATH AND COMPLETE LINEN CHANGE PROVIDED. DRSG TO WOUNDS CHANGED.
--- NOTE | 2016-07-15 19:00 | NUR ---
REPORT RECIEVED, INITIAL ASSESSMENT COMPLETE, PLEASE SEE FLOW SHEETS FOR DETAILS. ORAL CARE AND TURNING PROVIDED. RESIDUAL CHECK OF PEG TUBE REVEALED 60ML, THIS WAS RETURNED AND FEEDING RESUMED. BED LOW AND LOCKED. VSS. WILL CONTINUE POC.
--- NOTE | 2016-07-15 21:00 | NUR ---
ORAL CARE AND TURNING PROVIDED. BED LOW AND LOCKED, VSS, WILL CONTINUE POC.
--- NOTE | 2016-07-15 23:00 | NUR ---
REASSESSMENT COMPLETE, PLEASE SEE FLOW SHEETS FOR DETAILS. ORAL CARE AND TURNING PROVIDED. BED LOW AND LOCKED. VSS, WILL CONTINUE POC.
[2016-07-16] VITALS (25 sets, daily range): BP systolic 99–160; BP diastolic 42–70
--- NOTE | 2016-07-16 01:00 | NUR ---
ORAL CARE AND TURNING PROVIDED. BED LOW AND LOCKED. VSS, WILL CONTINUE POC.
--- NOTE | 2016-07-16 03:00 | NUR ---
REASSESSMENT COMPLETE, PLEASE SEE FLOW SHEETS FOR DETAILS. BED LOW AND LOCKED. ORAL CARE AND TURNING PROVIDED. VSS, WILL CONTINUE POC.
[2016-07-16 04:31] LABS: BASOPHILS 0.2 % (0-2); EOSINOPHILS 1.1 % (0-7); HEMOGLOBIN 9.7 g/dL (13.5-17.5); IMMATURE GRANULOCYTES 0.9 % (0-5); LYMPHOCYTES 9.8 % (15-50); MCHC 31.3 g/dL (31.0-37.0); MCV 89.3 fL (80.0-100.0); MEAN PLATELET VOLUME 11.1 fL (7.4-10.4); MONOCYTES 4.4 % (2-11); NEUTROPHILS 83.6 % (40-80); PLATELET COUNT 176 10x3/uL (130-400); RBC 3.47 10x6/uL (4.20-6.10); RDW 18.8 % (11.5-14.5)
[2016-07-16 04:39] LABS: ANION GAP 9.8 mmol/L (8-16); CALCIUM 9.6 mg/dL (8.5-10.1); CARBON DIOXIDE 29.5 mmol/L (21.0-32.0); CREATININE - SERUM 1.7 mg/dL (0.6-1.3); POTASSIUM - SERUM 3.3 mmol/L (3.5-5.1)
--- NOTE | 2016-07-16 05:00 | NUR ---
SIDDIQI CARE PROVIDED, FULL LINEN CHANGE PROVIDED WITH BED BATH. ORAL CARE AND TURNING PROVIDED. BED LOW AND LOCKED. VSS, WILL CONTINUE POC.
--- NOTE | 2016-07-16 05:52 | NUR ---
CLEANED UP BM, RECTAL TUBE DISLODGED, NEW ONE WAS PLACED.
[2016-07-16 07:10] LABS: FUNGUS CULTURE RESULT 1 Candida albicans (()); FUNGUS MYCOLOGY CULTURE Final report (())
--- NOTE | 2016-07-16 08:00 | NUR ---
0800- REC'D PT LAYING IN BED ON VENTILATOR. ASSESSMENT COMPLETE. SEE FLOWSHEET. VSS. WILL CONTINUE TO MONITOR. 1000- HD NURSE IBARRA AT BEDSIDE.
--- NOTE | 2016-07-16 09:32 | NUR ---
Nutrition follow-up: Pt remains intubated, no sedation. Unresponsive. Labs reviewed Nepro infusing @ 50 ml/hr; pt continues to tolerate Wt: 180# Rectal tube in place RDN following.
--- NOTE | 2016-07-16 12:14 | NUR ---
FAMILY MEETING IN PROGRESS. CHARGE NURSE AND PUBLICATIONS PRODUCTION SUPERVISOR AT BEDSIDE.
--- NOTE | 2016-07-16 14:30 | NUR ---
PT DAUGHTER AT BEDSIDE. UPDATE PROVIDED.
--- NOTE | 2016-07-16 16:24 | NUR ---
Mr. Jones had bedside hemodialysis today via his right IJ Trialysis catheter from 1012 until 1312. Average blood flow was 400 mls/minute. Net fluid was only 500 mls due to unstable B/P un dialysis. Post viatl signs werre: B/P: 177/74, HR:97, Temp: 97.4, Resps: 24.
--- NOTE | 2016-07-16 16:30 | NUR ---
1630- PT REPOSITONED IN BED, CLEAN UP PROVIDED.
--- NOTE | 2016-07-16 19:30 | NUR ---
ASSESSMENT COMPLETE. S1S2. MECHANICAL VENT VIA TRACH. RT IJ WITH NS INFUSING AT 10ML/HR. GENERALIZED EDEMA NOTED TO EXTREMITIES X4. PUPILS 4MM; SLUGGISH. NO MOVEMENT TO LOWER EXTREMITES; MODERATE WEAKNESS TO UPPER EXTREMITIES. VSS. NO DISTRESS NOTED. SINUS TACHYCARDIA SHOWING ON MONITOR.
--- NOTE | 2016-07-16 21:30 | NUR ---
FAMILY ARRIVED FOR VISITATION.
--- NOTE | 2016-07-16 23:10 | NUR ---
REASSESSMENT COMPLETE. NO CHANGES FROM PREVIOUS ASSESSMENT. WILL CONTINUE TO MONITOR. VSS. NO DISTRESS NOTED.
[2016-07-17] VITALS (24 sets, daily range): BP systolic 139–162; BP diastolic 53–75
--- NOTE | 2016-07-17 00:48 | NUR ---
PT RESTING; EYES CLOSED. VSS. NO DISTRESS NOTED. SIDDIQI CARE COMPLETE. WILL CONTINUE TO MONITOR.
--- NOTE | 2016-07-17 02:50 | NUR ---
REASSESSMENT COMPLETE. NO CHANGES FROM PREVIOUS ASSESSMENT. VSS. NO DISTRESS NOTED. WILL CONTINUE TO MONITOR.
[2016-07-17 05:01] LABS: BASOPHILS 0.1 % (0-2); EOSINOPHILS 0.4 % (0-7); HEMATOCRIT 28.9 % (42.0-54.0); IMMATURE GRANULOCYTES 0.6 % (0-5); LYMPHOCYTES 7.5 % (15-50); MCH 27.8 pg (26.0-34.0); MCHC 31.1 g/dL (31.0-37.0); MCV 89.2 fL (80.0-100.0); MEAN PLATELET VOLUME 10.3 fL (7.4-10.4); MONOCYTES 4.3 % (2-11); NEUTROPHILS 87.1 % (40-80); PLATELET COUNT 150 10x3/uL (130-400); RBC 3.24 10x6/uL (4.20-6.10); RDW 18.8 % (11.5-14.5); WBC 15.8 10x3/uL (4.8-10.8)
[2016-07-17 05:12] LABS: ANION GAP 8.4 mmol/L (8-16); CALCIUM 9.2 mg/dL (8.5-10.1); CARBON DIOXIDE 30.8 mmol/L (21.0-32.0); CREATININE - SERUM 1.3 mg/dL (0.6-1.3)
[2016-07-17 05:14] LABS: POTASSIUM - SERUM 3.2 mmol/L (3.5-5.1)
--- NOTE | 2016-07-17 06:18 | NUR ---
DR. DAN SPOKE WITH FAMILY (DAIANA) ABOUT CURRENT PT CONDITION. UPDATE GIVEN.
--- NOTE | 2016-07-17 07:00 | NUR ---
REPORT RECEIVED, ASSESSMENT COMPLETED. NO VISUAL CUES OF DISTRESS NOTED.
--- NOTE | 2016-07-17 09:27 | NUR ---
LATE ENTRY FOR 07/16/16 1300 CM AND NURSE WOLFF MET WITH PATIENT'S DAUGHTERS, MANUEL AND NEHEMIAH, AND ANOTHER FAMILY MEMBER TO DISCUSS DISCHARGE PLANNING. CM INFORMED FAMILY THAT CM RECIEVED CALL BACK FROM [place]ING [place] THAT REFERRALS HAD BEEN MADE TO. MELODIE WITH [facility] IN [place] STATED PATIENT WAS DECLINED BECAUSE HE APPEARED TO BE MORE APPROPRIATE FOR HOSPICE THAN [place]. FAMILY ASKED SEVERAL QUESTIONS REGARDING PATIENTS STATUS. WANT TO KNOW IF PATIENT IS EXPECTED TO BE ON DIALYSIS CORRECTION OR SHORT TERM. STATE THAT PATIENT NEVER WANTED TO BE ON HD CORRECTION. FAMILY ALSO INQUIRED ABOUT PATIENT'S DEPENDENCE ON VENT. IF HE COULD SURVIVE EXTUBATION LONG ENOUGH TO BE TAKEN HOME WITH HOSPICE. FAMILY ALSO ASKED IF ANOTHER CT COULD BE DONE TO CHECK STATUS/PROGRESS. ALSO INQUIRED ABOUT EEG. CM WILL FOLLOW UP WITH PATIENT'S MULTIPLE PHYSICIANS REGARDING FAMILY'S QUESTIONS. FAMILY HAS REQUESTED INFORMATION ON PALLATIVE CARE FACILITIES. CM WILL CONTINUE TO FOLLLOW AND ASSIST WITH DISCHARGE PLANNING / NEEDS.
--- NOTE | 2016-07-17 11:32 | NUR ---
CM CALLED AND SPOKE WITH PATIENT'S DAUGHTER MANUEL. DISCUSSED ANSWERS TO QUESTIONS THAT FAMILY ASKED PREVIOUS DAY. 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 INFECTIOUS DISEASE PHYSICIAN STATED THAT PATIENT WOULD NEED TO REMAIN ON ISOLATION PRECAUTIONS DUE TO MULTI DRUG RESISTANT PSEUDOMONAS IN [place]. GAS METER CHECKER STATED THAT PATIENT WAS VENT DEPENDENT. INFORMED MANUEL OF PALLIATIVE CARE SERVICES AVAILABLE IN [place]. CURRENTLY PALLIATIVE CARE IS AVAILABLE ON AN OUTPATIENT BASIS AT [facility] AND [facility] IN [place]. CURRENTLY THE PALLIATIVE CARE INPATIENT IS ONLY AVAILABLE A SUPPORT TO THOSE HOSPITAL'S CURRENT INPATIENT PATIENTS. THERE CURRENTLY IS NOT AN INPATIENT PALLIATIVE PROGRAM THAT ACCEPTS PATIENTS FROM OUTSIDE HOSPITALS. MANUEL REQUESTED SOME TIME TO PROCESS INFORMATION GIVEN TO HER, AND TO CALL HER SISTER NEHEMIAH. CM WILL CONTINUT TO FOLLOW AND ASSIST NEEDED WITH DISCHARGE PLANNING / NEEDS.
--- NOTE | 2016-07-17 19:30 | NUR ---
ASSESSMENT COMPLETE. S1S2. MECHANICAL VENT VIA TRACH; 40%. PUPILS 4MM; SLUGGISH. MODERATE WEAKNESS TO UPPER EXTREMITIES; NO MOVEMENT IN LOWER EXTREMITES. MULTIPLE UNSTAGEABLE PRESSURE ULCERS PRESENT. BLOODY DISCHARGE NOTED TO THE BUTTOCKS AND COCCYX PRESSURE ULCER. RECTAL TUBE AND SIDDIQI IN PLACE. PEG TUBE WITH NEPRO INFUSING AT 50 GOAL OF 50. RT IJ TRIALYSIS; PATENT. NS INFUSING AT KVO.
--- NOTE | 2016-07-17 21:15 | NUR ---
FAMILY AT BEDSIDE; DAUGHTER SALONE PRESENT. UPDATE GIVEN. QUESTIONS ANSWERED.
--- NOTE | 2016-07-17 23:20 | NUR ---
REASSESSMENT COMPLETE. NO CHANGES FROM PREVIOUS ASSESSMENT. VSS. NO DISTRESS NOTED. WILL CONTINUE TO MONITOR.
[2016-07-18] VITALS (24 sets, daily range): BP systolic 116–173; BP diastolic 48–65
--- NOTE | 2016-07-18 02:32 | NUR ---
PT TUBE FEED KEPT ALARMING CLOG IN LINE. WAS NOT ABLE TO FLUSH LINE; CHANGED ANTONIO VALVE; TUBE FEED RESTARTED.
--- NOTE | 2016-07-18 02:45 | NUR ---
REASSESSMENT COMPLETE. NO CHANGES FROM PREVIOUS ASSESSMENT. VSS. NO DISTRESS NOTED. WILL CONTINUE TO MONTIOR.
[2016-07-18 04:44] LABS: BASOPHILS 0.3 % (0-2); EOSINOPHILS 1.7 % (0-7); HEMATOCRIT 28.2 % (42.0-54.0); HEMOGLOBIN 8.7 g/dL (13.5-17.5); LYMPHOCYTES 12.6 % (15-50); MCH 27.7 pg (26.0-34.0); MCHC 30.9 g/dL (31.0-37.0); MCV 89.8 fL (80.0-100.0); MEAN PLATELET VOLUME 11.5 fL (7.4-10.4); MONOCYTES 5.9 % (2-11); NEUTROPHILS 78.5 % (40-80); PLATELET COUNT 162 10x3/uL (130-400); RBC 3.14 10x6/uL (4.20-6.10); RDW 18.9 % (11.5-14.5)
[2016-07-18 04:49] LABS: WBC 11.5 10x3/uL (4.8-10.8)
[2016-07-18 04:51] LABS: ANION GAP 9.1 mmol/L (8-16); CALCIUM 9.5 mg/dL (8.5-10.1); CARBON DIOXIDE 30.1 mmol/L (21.0-32.0); CREATININE - SERUM 1.5 mg/dL (0.6-1.3)
[2016-07-18 04:59] LABS: POTASSIUM - SERUM 3.2 mmol/L (3.5-5.1)
--- NOTE | 2016-07-18 07:00 | NUR ---
REPORT RECEIVED. ASSESSMENT COMPLETED. DRESSING TO TRIALYSIS REDONE AFTER PATIENTS NECK SHAVED WITH ELECTRIC RAZOR SECONDARY TO DRESSING NOT STICKING. PATIENT TOLERATED WELL.
--- NOTE | 2016-07-18 09:43 | OP ---
PATIENT NAME: JORGE PARK MEDICAL RECORD: [id number] :40 LOCATION:.[facility] [id number] ADMISSION DATE:05/14/16 SURGEON: FORTINO OH MD DATE OF OPERATION: 06/02/2016 PREOPERATIVE DIAGNOSES 1. Cerebrovascular accident. 2. Respiratory failure requiring intubation. 3. Ischemia of the finger. 4. Gastroesophageal reflux. 5. Spinal cord infarction. 6. On pressors and need of additional IV access. POSTOPERATIVE DIAGNOSES: 1. Cerebrovascular accident. 2. Respiratory failure requiring intubation. 3. Ischemia of the finger. 4. Gastroesophageal reflux. 5. Spinal cord infarction. 6. On pressors and need of additional IV access. PROCEDURE: Insertion of right internal jugular triple lumen central venous catheter. SURGEON: Fortino Oh MD. MEDICAL TECHNOLOGIST: None. BLOOD LOSS: Minimal. ANESTHESIA: Local. COMPLICATIONS: None. The risks, possible complications and alternatives to procedure were explained to patient's family. A consent form was signed. The right neck was sterilely prepped and draped. A local anesthetic was used to infiltrate the skin and subcutaneous tissues at the base of the right neck. The right internal jugular vein was percutaneously accessed in an antegrade fashion. A guidewire passed easily. A small skin juan a was accomplished. A vessel dilator was used to dilate a subcutaneous tract. A 16-cm triple lumen central venous catheter was inserted to the hub. It was sutured in place times 3. All lumen is flushed easily and aspirated dark, nonpulsatile blood. A stat portable chest x-ray is pending. The site was sterilely dressed. TRANSINT:[id number] Voice Confirmation ID: [id number] DOCUMENT ID: [id number] OPERATIVE REPORT [id number] JORGE PARK ROBERT MD at 0943 CC: [id number] DICTATION DATE: 06/12/16 1755 STAFFING PROGRAM MANAGER: 06/12/162004 ADM IN [facility] [address] [place] [address]
--- NOTE | 2016-07-18 09:43 | CN ---
PATIENT NAME:JORGE PARK MEDICAL RECORD: [id number] : 40 LOCATION:[id number] ADMIT DATE: 05/14/16 ACCOUNT: [id number] CONSULTING PHYSICIAN: DANIELLA OH MD REFERRING PHYSICIAN: MIQUEL BRANNON MD DATE OF CONSULTATION: 06/01/2016 Consultation Note Addendum CHIEF COMPLAINT: Abdominal distention. HISTORY OF PRESENT ILLNESS: The patient is unable to provide me with any history. All the history is obtained from the chart as well as from the nurses. They state that his abdomen was very distended and firm. The gastrostomy tube was placed to gravity drainage. His abdomen is much softer. Due to sedation, I am unable to assess guarding. Uncertain whether palpation aggravates or alleviates. A lot of very dark, almost coffee-ground type material came out through the gastrostomy tube when it was placed to gravity drainage. This consultation note addendum. For the type portion of the consultation note please see the chart that will include the patients past medical and surgical history, allergies, current medications, and social history. REVIEW OF SYSTEMS: Unobtainable due to the severity of the patient's illness. PHYSICAL EXAMINATION: GENERAL: The patient appears acutely ill. He does not appear chronically ill. VITAL SIGNS: Reviewed. HEAD: External ears appear normal. EYES: Extraocular movements are intact. CHEST: There are intercostal retractions. PULMONARY: Mildly labored, rhonchi bilaterally. ABDOMEN: Still distended. Unable to assess for tenderness. EXTREMITIES: No peripheral cyanosis. BACK: Thoracic kyphosis is present. LYMPHATICS: No lymphangitic streaking of the exposed extremities. IMPRESSION: Abdominal distention, resolved, likely due to some degree of ileus. PLAN: I will be available on a p.r.n. basis. TRANSINT:[id number] Voice Confirmation ID: [id number] DOCUMENT ID: [id number] DANIELLA OH MD at 0943 CC: [id number] DICTATION DATE: 06/12/161751 ENVIRONMENTAL HEALTH TECHNICIAN: 06/12/161954 ADM IN [facility] [address] [place] [address]
--- NOTE | 2016-07-18 15:18 | NUR ---
CM RECEIVED CALL FROM PATIENT'S DAUGHTER, MANUEL. HAD QUESTIONS ABOUT HOSPICE AND OTHER DISCHARGE OPTIONS. MANUEL STATED SHE WOULD GATHER SIBLINGS AND MOTHER FOR MEETING WITH CM Saturday07/23/16 TO MAKE DISCHARGE PLANS. CM WILL CONTINUE TO FOLLOW AND ASSIST NEEDED WITH DISCHARGE PLANNING / NEEDS.
--- NOTE | 2016-07-18 16:42 | NUR ---
Mr. Jones had bedside hemodialysis today via his right IJ Trialysis from 09 until 1247. Average blood flow was 400 mls/minute. Net fluid removed was 500 mls. Pt had two episodes of hypotension requiring his goal to be decreased. Post vital signs were: B/P: 157/60, HR: 87, Temp: 98.0. Resps: 25.
--- NOTE | 2016-07-18 19:30 | NUR ---
ASSESSMENT COMPLETE. S1S2. MECHANICAL VENT VIA TRACH; 40%. RR CRACKLES THROUGHOUT ALL LOBES. TACHYPNEA. MODERATE WEAKNESS IN UPPER EXTREMITES; SLIGHT MOVEMENT; STIFFNESS. NO MOVEMENT IN LOWER EXTREMITES. RADIAL PULSES PALPATED; PEDAL PULSES WEAK. MULTIPLE PRESSURE ULCERS; SCABS/SORES NOTED. PUPILS 4MM; SLUGGISH.
--- NOTE | 2016-07-18 21:30 | NUR ---
NO VISITORS DURING VISITATION.
--- NOTE | 2016-07-18 23:15 | NUR ---
REASSESSMENT COMPLETE. NO CHANGES FROM PREVIOUS ASSESSMENT. VSS. NO DISTRESS NOTED. WILL CONTINUE TO MONITOR.
[2016-07-19] VITALS (24 sets, daily range): BP systolic 120–161; BP diastolic 54–71
--- NOTE | 2016-07-19 02:45 | NUR ---
REASSESSMENT COMPLETE. NO CHANGES FROM PREVIOUS ASSESSMENT. VSS. NO DISTRESS NOTED.
[2016-07-19 04:05] LABS: BASOPHILS 0.1 % (0-2); EOSINOPHILS 0.3 % (0-7); HEMATOCRIT 30.2 % (42.0-54.0); HEMOGLOBIN 9.3 g/dL (13.5-17.5); IMMATURE GRANULOCYTES 0.6 % (0-5); LYMPHOCYTES 8.7 % (15-50); MCH 27.5 pg (26.0-34.0); MCHC 30.8 g/dL (31.0-37.0); MCV 89.3 fL (80.0-100.0); MEAN PLATELET VOLUME 10.8 fL (7.4-10.4); NEUTROPHILS 85.3 % (40-80); PLATELET COUNT 163 10x3/uL (130-400); RBC 3.38 10x6/uL (4.20-6.10); RDW 18.7 % (11.5-14.5)
[2016-07-19 04:22] LABS: WBC 15.9 10x3/uL (4.8-10.8)
[2016-07-19 04:34] LABS: CALCIUM 9.3 mg/dL (8.5-10.1); CARBON DIOXIDE 30.7 mmol/L (21.0-32.0); CREATININE - SERUM 1.2 mg/dL (0.6-1.3); MAGNESIUM - SERUM 1.8 mg/dL (1.8-2.4); PHOSPHOROUS 3.1 mg/dL (2.5-4.9); POTASSIUM - SERUM 3.7 mmol/L (3.5-5.1)
--- NOTE | 2016-07-19 07:00 | NUR ---
REPORT RECEIVED. ASSESSMENT COMPLETED. RECTAL TUBE LEAKING. BATH GIVEN. PATIENT REPOSITIONED FOR COMFORT.
--- NOTE | 2016-07-19 09:41 | NUR ---
PATIENT HAD NO VISITORS THIS VISITATION
--- NOTE | 2016-07-19 10:00 | NUR ---
Nutrition follow-up: Nepro infusing @ 50 ml/hr; pt continues to tolerate Labs reviewed Wt: 181# RDN following.
[2016-07-19 10:22] LABS: ACID FAST CULTURE Negative (()); ACID FAST SMEAR Negative (())
--- NOTE | 2016-07-19 19:30 | NUR ---
ASSESSMENT COMPLETE. S1S2. SINUS TACHYCARDIA SHOWING ON MONITOR. MECHANICAL VENT VIA TRACH; 40%. NOISE COMING FROM TRACH; . PEG TUBE; NEPRO @ 50. SIDDIQI AND RECTAL TUBE IN PLACE. VSS. NO DISTRESS NOTED. CRACKLES BILATERALLY THROUGHOUT ALL LOBES. PUPILS 4MM; SLUGGISH. NO MOVEMENT TO LOWER EXTREMITES. NUMEROUS NECROTIC WOUNDS.
--- NOTE | 2016-07-19 23:00 | NUR ---
REASSESSMENT COMPLETE. NO CHANGES FROM PREVIOUS ASSESSMENT. VSS. NO DISTRESS NOTED. WILL CONTINUE TO MONITOR.
[2016-07-20] VITALS (24 sets, daily range): BP systolic 105–174; BP diastolic 43–81
--- NOTE | 2016-07-20 01:00 | NUR ---
PT RESTING QUIETLY WITHOUT DISTRESS. VSS. REPOSITIONED FOR COMFORT. PILLOWS IN USE FOR SUPPORT. CALL LIGHT IN REACH. WILL CONT TO MONITOR.
--- NOTE | 2016-07-20 03:00 | NUR ---
REASSESSMENT COMPLETE. NO CHANGES FROM PREVIOUS ASSESSMENT. VSS. NO DISTRESS NOTED. WILL CONTINUE TO MONITOR.
[2016-07-20 03:33] LABS: BASOPHILS 0.3 % (0-2); EOSINOPHILS 0.8 % (0-7); HEMATOCRIT 27.5 % (42.0-54.0); HEMOGLOBIN 8.5 g/dL (13.5-17.5); IMMATURE GRANULOCYTES 0.5 % (0-5); LYMPHOCYTES 12.7 % (15-50); MCH 27.5 pg (26.0-34.0); MCHC 30.9 g/dL (31.0-37.0); MEAN PLATELET VOLUME 10.7 fL (7.4-10.4); MONOCYTES 4.9 % (2-11); NEUTROPHILS 80.8 % (40-80); PLATELET COUNT 152 10x3/uL (130-400); RBC 3.09 10x6/uL (4.20-6.10); RDW 18.8 % (11.5-14.5); WBC 13.8 10x3/uL (4.8-10.8)
[2016-07-20 03:51] LABS: ANION GAP 8.7 mmol/L (8-16); CARBON DIOXIDE 30.6 mmol/L (21.0-32.0); CREATININE - SERUM 1.4 mg/dL (0.6-1.3); POTASSIUM - SERUM 3.3 mmol/L (3.5-5.1)
--- NOTE | 2016-07-20 10:10 | NUR ---
0715-RECIEVED PER FLOW SHEET-ADDENUM TO WOUND-R LATERAL CALF-NECROTIC TEAR DROP SHAPE-LENGTH OF 2-3 INCHES-WITH ESCAR TYPE SCAB-UPPER THIGH
--- NOTE | 2016-07-20 11:43 | NUR ---
Mr. Jones had bedside hemodialysis today via his right IJ Trialysis catheter, Average blood flow was 400 mls/minute. Pt did have some hypotension and bradycardia. Artropine used during treatment once for a rapid decelleration of heart rate. Net fluid removed was 1163. Post vital signs were: B/P: 144/55, HR: 123, Temp:98.2, Resps: 18.
--- NOTE | 2016-07-20 16:36 | NUR ---
CM SPOKE WITH PATIENT'S DAUGHTER, MANUEL, AND ARRANGED TIME FOR FAMILY AND CM TO MEET SATURDAY AT 1100 TO DISCUSS DISCHARGE PLAN.
--- NOTE | 2016-07-20 18:18 | NUR ---
0800-DIALYSIS SET UP IN PROGRESS-ISOLATION OBSERVED 0900-DIALYSIS IN PROGRESS-PLEASE REFER TO DIALYSIS NOTE 1115-DIALYSIS COMPLETED-ST 125-RR 24-APPEARS TO OPEN EYES TO FACIAL TACTILE STIMULI-L EYE CLOSES TO APPROACH OF OBJECT-NOT TO R EYE--NOTED FOREHEAD FURROW WITH ORAL CARE-DR PATRICIA AT BEDSIDE 1755-NOTED AXILLARY TEMP AT 100.7-TYLENOL 650 PER PEG GIVEN-RECTAL BAG
--- NOTE | 2016-07-20 19:00 | NUR ---
REPORT RECIEVED, INITIAL ASSESSMENT COMPLETE, PLEASE SEE FLOW SHEETS FOR DETAILS. ORAL CARE ATTEMPTED AND TURNING PROVIDED. BED LOW AND LOCKED. VSS, WILL CONTINUE POC.
--- NOTE | 2016-07-20 21:00 | NUR ---
ORAL CARE AND TURNING PROVIDED. BED LOW AND LOCKED. VSS, WILL CONTINUE POC.
--- NOTE | 2016-07-20 23:00 | NUR ---
REASSESSMENT COMPLETE, PLEASE SEE FLOW SHEETS FOR DETAILS. ORAL CARE AND TURNING PROVIDED. VSS ATT, BED LOW AND LOCKED. WILL CONTINUE POC.
[2016-07-21] VITALS (24 sets, daily range): BP systolic 114–169; BP diastolic 48–67
--- NOTE | 2016-07-21 01:00 | NUR ---
PT HAS BEEN GRIMMACING MORE, AND BP INCREASED, GAVE MORPHINE ORDERED. BED LOW AND LOCKED. ORAL CARE ATTEMPTED AND TURNING PROVIDED. WILL CONTINUE POC.
--- NOTE | 2016-07-21 03:00 | NUR ---
REASSESSMENT COMPLETE, PLEASE SEE FLOW SHEETS FOR DETAILS. ORAL CARE AND TURNING PROVIDED. BED LOW AND LOCKED. VSS ATT, WILL CONTINUE POC.
[2016-07-21 03:52] LABS: BASOPHILS 0.2 % (0-2); EOSINOPHILS 0.6 % (0-7); HEMOGLOBIN 8.1 g/dL (13.5-17.5); IMMATURE GRANULOCYTES 0.4 % (0-5); LYMPHOCYTES 8.2 % (15-50); MCH 27.2 pg (26.0-34.0); MCV 90.6 fL (80.0-100.0); MEAN PLATELET VOLUME 10.5 fL (7.4-10.4); NEUTROPHILS 85.6 % (40-80); PLATELET COUNT 149 10x3/uL (130-400); RBC 2.98 10x6/uL (4.20-6.10); RDW 19.1 % (11.5-14.5); WBC 17.1 10x3/uL (4.8-10.8)
[2016-07-21 04:06] LABS: ANION GAP 6.3 mmol/L (8-16); CALCIUM 8.8 mg/dL (8.5-10.1); CARBON DIOXIDE 32.4 mmol/L (21.0-32.0); CREATININE - SERUM 1.3 mg/dL (0.6-1.3); POTASSIUM - SERUM 3.7 mmol/L (3.5-5.1)
--- NOTE | 2016-07-21 05:00 | NUR ---
ORAL CARE AND TURNING PROVIDED. BED LOW AND LOCKED. VSS ATT, WILL CONTINUE POC.
--- NOTE | 2016-07-21 19:00 | NUR ---
REPORT RECIEVED, INITIAL ASSESSMENT COMPLETE, PLEASE SEE FLWO SHEETS FOR DETAILS. ORAL CARE AND TURNING PROVIDED. BED LOW AND LOCKED. VSS, WILL CONTINUE POC.
--- NOTE | 2016-07-21 21:00 | NUR ---
ORAL CARE AND TURNING PROVIDED. BED LOW AND LOCKED. VSS, WILL CONTINUE POC.
--- NOTE | 2016-07-21 23:00 | NUR ---
REASSESSMENT COMPLETE, PLEASE SEE FLOW SHEETS FOR DETAILS. ORAL CARE AND TURNING PROVIDED. BED LOW AND LOCKED CALL LIGHT IN REACH. VSS, WILL CONTINUE POC.
--- NOTE | 2016-07-21 23:40 | NUR ---
BED BATH PROVIDED. SIDDIIQ CARE PROVIDED. TOLERATED WELL. VSS, WILL CONTINUE POC.
[2016-07-22] VITALS (23 sets, daily range): BP systolic 119–173; BP diastolic 43–69
--- NOTE | 2016-07-22 01:00 | NUR ---
ORAL CARE AND TURNING PROVIDED. BED LOW AND LOCKED. VSS, WILL CONTINUE POC.
--- NOTE | 2016-07-22 03:00 | NUR ---
REASSESSMENT COMPLETE, PLEASE SEE FLOW SHEETS FOR DETAILS. BED LOW AND LOCKED. ORAL CARE AND TURNING PROVIDED. VSS, WILL CONTINUE POC.
[2016-07-22 03:30] LABS: BASOPHILS 0.3 % (0-2); EOSINOPHILS 0.8 % (0-7); HEMATOCRIT 26.7 % (42.0-54.0); HEMOGLOBIN 8.2 g/dL (13.5-17.5); IMMATURE GRANULOCYTES 0.3 % (0-5); LYMPHOCYTES 7.1 % (15-50); MCH 27.8 pg (26.0-34.0); MCHC 30.7 g/dL (31.0-37.0); MCV 90.5 fL (80.0-100.0); MEAN PLATELET VOLUME 9.9 fL (7.4-10.4); MONOCYTES 6.9 % (2-11); NEUTROPHILS 84.6 % (40-80); PLATELET COUNT 142 10x3/uL (130-400); RBC 2.95 10x6/uL (4.20-6.10); RDW 19.1 % (11.5-14.5); WBC 15.4 10x3/uL (4.8-10.8)
[2016-07-22 03:39] LABS: ANION GAP 9.3 mmol/L (8-16); CARBON DIOXIDE 31.4 mmol/L (21.0-32.0); POTASSIUM - SERUM 3.7 mmol/L (3.5-5.1)
[2016-07-22 03:40] LABS: CREATININE - SERUM 1.7 mg/dL (0.6-1.3)
--- NOTE | 2016-07-22 05:09 | NUR ---
ORAL CARE AND TURNING PROVIDED. BED LOW AND LOCKED, VSS, WILL CONTINUE POC.
--- NOTE | 2016-07-22 07:36 | NUR ---
0715-NOTED HGB 8.2-NO PRBC DIRECTED BY DR PRASAD PROGRESS NOTE 07/21/16
--- NOTE | 2016-07-22 19:00 | NUR ---
Received patient resting in bed with eyes open, Assessment completed per flowsheet. Eyes PERRLA @ 3mm with sluggish response, patient blind bilateral. Trach 8.0 secured, dressing CDI with yellow exudate noted. S1/S2 noted with patient NSR on telemetry with HR 97, rhythmic and regular. Lung sounds clear upper with diminished lower, Vent settings A/C R-14 V-600 40% P-8. Bowel sounds Hyperactive x4, abdomen is flat and firm. Shabazz secured, dark alejandro urine noted in collection bag. Rectal tube secured, liquid brown stool noted. R IJ Trialysis noted, dressing CDI with fluids infusing. Necrotic areas noted R hand/Back/Buttocks/Coccyx, unstagable with Eschar noted. Oral care/Inline suctioning provided, patient repositioned for comfort. Unable to assess pain, no further needs at this time and will continue to monitor.
--- NOTE | 2016-07-22 23:00 | NUR ---
Reassessment completed per flowsheet, patient laying in bed with eyes open on vent. Patient opens eyes spontaneously but does not follow commands. S1/S2 noted NSR on telemetry with HR 95, rhythmic and regular. Vent settings unchanged from previous assessment, O2 sat 96%. Oral care/Inline suctioning performed, patient repositioned for comfort. No further needs at this time, all VSS and will continue to monitor.
[2016-07-23] VITALS (23 sets, daily range): BP systolic 98–174; BP diastolic 49–70
--- NOTE | 2016-07-23 02:53 | NUR ---
Reassessment completed per flowsheet, patient resting in bed with eyes closed on vent. Patient opens eyes spontaneously, extremities rigid with no motor response to stimuli. S1/S2 noted with patient Sinus Tach on telemetry with HR 104, rhythmic and regular. Lung sounds clear bilateral upper with diminished lower, Vent settings unchanged from previous assessment. Oral care/Inline suctioning performed, patient repositioned for comfort. No further needs at this time, all VSS and will continue to monitor.
[2016-07-23 04:47] LABS: BASOPHILS 0.2 % (0-2); EOSINOPHILS 0.9 % (0-7); HEMATOCRIT 26.9 % (42.0-54.0); HEMOGLOBIN 8.2 g/dL (13.5-17.5); IMMATURE GRANULOCYTES 0.3 % (0-5); LYMPHOCYTES 7.4 % (15-50); MCH 27.4 pg (26.0-34.0); MCHC 30.5 g/dL (31.0-37.0); MEAN PLATELET VOLUME 10.4 fL (7.4-10.4); MONOCYTES 4.1 % (2-11); NEUTROPHILS 87.1 % (40-80); PLATELET COUNT 158 10x3/uL (130-400); RBC 2.99 10x6/uL (4.20-6.10); WBC 14.6 10x3/uL (4.8-10.8)
[2016-07-23 05:11] LABS: ANION GAP 6.7 mmol/L (8-16); CALCIUM 8.6 mg/dL (8.5-10.1); CARBON DIOXIDE 27.7 mmol/L (21.0-32.0); POTASSIUM - SERUM 3.4 mmol/L (3.5-5.1)
--- NOTE | 2016-07-23 07:00 | NUR ---
ASSESSMENT COMPLETED AND DOCUMENTED PER FLOWSHEET. NO ACUTE CHANGES IN PT STATUS AT THIS TIME. MEETING WITH FAMILY SCHEDULED FOR 1100 TODAY CONCERNING CODE STATUS AND PLAN OF CARE. WILL CONTINUE TO MONTIOR PT.
--- NOTE | 2016-07-23 08:49 | NUR ---
Nutrition follow-up: Pt remains intubated Nepro infusing @ 50 ml/hr; pt continues to tolerate Labs reviewed Wt: 181# RDN following.
--- NOTE | 2016-07-23 09:00 | NUR ---
FAMILY AT BEDSIDE. UPDATE GIVEN. WILL CONTINUE TO MONITOR. VITAL SIGNS STABLE AT THIS TIME
--- NOTE | 2016-07-23 11:00 | NUR ---
PT FAMILY RESCHEDULED MEETING FOR 1300 TODAY. WILL CONTINUE TO MONITOR PT STATUS.
--- NOTE | 2016-07-23 13:00 | NUR ---
DAUGHTER IN UNIT FOR MEETING WITH CASE MANAGEMENT AND KALEN RODRIGUEZ. WAITING FOR OTHER FAMILY PRIOR TO INITIATING MEETING. PT REMAINS STABLE AT THIS TIME.
--- NOTE | 2016-07-23 15:00 | NUR ---
SPOKE WITH 3 DAUGHTERS AT BEDSIDE AFTER ETHICS MEETING. FAMILY IN AGREEMENT AT THIS TIME TO CHANGE CODE STATUS TOMORROW. EDUCATION GIVEN. WILL CONTINUE TO MONITOR PT STATUS
--- NOTE | 2016-07-23 16:55 | NUR ---
Late entry for 1330 CM and Imani Forbes met with patient's daughters, Patience Garner and Daniel regarding discharge planning / needs. Daughters are considering terminal extubation / hospice for tomorrow. Vicki Garner is contacting remaining family members (5 siblings) to try to arrange time that they all can be here with patient when he is extubated. Tenitavely think they will want to terminally extubate tomorrow. Vicki Garner will call CM back with set time. CM will continue to follow and assist as needed with discharge planning / needs.
--- NOTE | 2016-07-23 20:05 | NUR ---
REPORT RECIEVED. ASSESSMENT COMPLETE PER FLOW SHEET. REFER FOR FINDINGS. VSS. FAMILY AT BEDSIDE. GIVEN UPDATE. WILL CONTINUE TO MONITOR.
--- NOTE | 2016-07-23 21:00 | NUR ---
FAMILY AT BEDSIDE. GIVEN UPDATE. NO NEW CHANGES.
--- NOTE | 2016-07-23 23:16 | NUR ---
REASSESSMENT COMPLETEPER FLOW SHEET. VSS. NO NEW CHANGES. WILL CONTINUE TO MONITOR.
[2016-07-24] VITALS (19 sets, daily range): BP systolic 93–152; BP diastolic 40–78
--- NOTE | 2016-07-24 01:12 | NUR ---
COMPLETE BB LINEN CHANGE COMPLETE. NO NEW CHANGES
--- NOTE | 2016-07-24 03:51 | NUR ---
REASSESSMENT COMPLETE PER FLOW SHEET. VSS. NO NEW CHAGNES. WILL CONTINUE TO MONITOR.
[2016-07-24 03:57] LABS: BASOPHILS 0.2 % (0-2); EOSINOPHILS 0.5 % (0-7); HEMATOCRIT 27.5 % (42.0-54.0); HEMOGLOBIN 8.3 g/dL (13.5-17.5); IMMATURE GRANULOCYTES 0.3 % (0-5); LYMPHOCYTES 9.5 % (15-50); MCH 27.1 pg (26.0-34.0); MCHC 30.2 g/dL (31.0-37.0); MCV 89.9 fL (80.0-100.0); MEAN PLATELET VOLUME 10.8 fL (7.4-10.4); MONOCYTES 4.2 % (2-11); NEUTROPHILS 85.3 % (40-80); PLATELET COUNT 188 10x3/uL (130-400); RBC 3.06 10x6/uL (4.20-6.10); RDW 18.8 % (11.5-14.5); WBC 15.1 10x3/uL (4.8-10.8)
[2016-07-24 04:10] LABS: ANION GAP 12.4 mmol/L (8-16); CALCIUM 9.1 mg/dL (8.5-10.1); CARBON DIOXIDE 28.7 mmol/L (21.0-32.0); CREATININE - SERUM 2.3 mg/dL (0.6-1.3)
[2016-07-24 04:14] LABS: POTASSIUM - SERUM 4.1 mmol/L (3.5-5.1)
--- NOTE | 2016-07-24 07:00 | NUR ---
PT FAMILY STATES THAT WE WILL TERMINALLY EXTUBATE TODAY. WILL CONTINUE TO MONITOR PT CLOSELY. VITAL SIGNS STABLE AT THIS TIME. ASSESSMENT DOCUMENTED PER FLOWSHEET
--- NOTE | 2016-07-24 09:00 | NUR ---
PT STATUS REMAINS UNCHANGED AT THIS TIME. PT REPOSITIONED IN BED AND ORAL CARE PERFORMED.
--- NOTE | 2016-07-24 11:00 | NUR ---
NO CHANGES IN PT STATUS AT THIS TIME. WAITING FOR FAMILY. WILL CONTINUE TO MONITOR
--- NOTE | 2016-07-24 13:00 | NUR ---
PT DAUGHTER AT BEDSIDE. UPDATE GIVEN. WILL CONTINUE TO MONITOR. PT STATES WE WILL TERMINALLY EXTUBATE PT TONIGHT
--- NOTE | 2016-07-24 13:10 | NUR ---
CM ATTEMPTED TO CONTACT PATIENT'S DAUGHTERS MANUEL AND PABLO. NO ANSWER TO EITHER DAUGHTER'S PHONE. LEFT VOICE MESSAGE TO CALL CM ON MANUEL'S PHONE. UNABLE TO LEAVE MESSAGE ON PABLO'S PHONE VOICE MAIL HAS NOT BEEN SET UP. CM WILL CONTINUE TO ATTEMPT TO CONTACT PATIENTS DAUGHTERS TO FOLLOW UP ON POTENTIAL PLAN FOR TERMINAL EXTUBATION THIS EVENING.
--- NOTE | 2016-07-24 15:00 | NUR ---
PT REPOSITIONED IN BED. NO ACUTE CHANGES IN PT STATUS AT THIS TIME. VITAL SIGNS STABLE. WILL CONTINUE TO MONITOR
--- NOTE | 2016-07-24 15:41 | NUR ---
CM RECEIVED CALL FROM PATIENT'S DAUGHTER NEHEMIAH. NEHEMIAH STATED FAMILY IS STILL PLANNING ON TERMINAL EXTUBATION THIS EVENING AROUND 8PM. CM SPOKE WITH WOOD PATTERN MAKER, [place] AND INFORMED HER OF FAMILY'S PLAN. CM WILL CONTINUE TO FOLLOW AND ASSIST NEEDED WITH DISCHARGE PLANNING / NEEDS.
--- NOTE | 2016-07-24 17:00 | NUR ---
FAMILY IN WAITING ROOM AND WAITING FOR ALL FAMILY TO ARRIVE PRIOR TO TERMINAL EXTUBATION ORDERS. EDUCATION GIVEN AND FAMILY VERBALIZES UNDERSTANDING. WILL CONTINUE TO MONITOR PT. BATH GIVEN TO PT AND REPOSITONED IN BED, COMPLETE LINEN CHANGE.
--- NOTE | 2016-07-24 19:18 | NUR ---
REPORT RECIEVED. ASSESSMENT COMPLETE PER FLOW SHEET. NO NEW FINDINGS. FAMILY AT BEDSIDE. WILL CONTINUE TO MONITOR.
--- NOTE | 2016-07-24 20:15 | NUR ---
NURSE EXPLAINING EXTUBATION PROCESS AND THAT WE ARE UNABLE FOR FAMILY TO BE INSIDE THE ROOM DURING THIS TIME. STATED THAT NEHEMIAH AND MANUEL THE DECISION MAKERS OF PT WERE ABLE TO STAND OUTSIDE DOOR BUT THE REST OF THE FAMILY WERE MORE THAN WELCOME TO GO TO OUR FAMILY ROOM FOR THIS PROCESS, STEVE FOUND THIS TO BE OFFENSIVE AND GOT AGGRESSIVE TOWARD NURSE THREW A FIST TOWARDS THE NURSE AND INSTEAD HIT HER OWN HAND. SECURITY CALLED. NURSE ASKED TO ADDRESS SITUATION WITH STEVE, STEVE STATED TO GET OUT OF HER FACE. NURSE APOLOGIZED.
--- NOTE | 2016-07-24 20:45 | NUR ---
PT EXTUBATED. NO NEW CHANGES AT THIS TIME. FAMILY AT BEDSIDE.
--- NOTE | 2016-07-24 21:18 | NUR ---
DR. PATRICIA NOTIFIED OF PT
--- NOTE | 2016-07-27 06:58 | EEG ---
PATIENT:JORGE PARK DATE OF SERVICE: 05/14/16 MEDICAL RECORD: [id number] DATE OF : 40 LOCATION:D.230 D.ICU ADMISSION DATE: 05/14/16 REFERRING PHYSICIAN: INTERPRETING PHYSICIAN: YURI LEAL MD DATE OF SERVICE: 07/19/2016 Referred as an inpatient by Dr. Avendaño. Currently, in room 2301. ELECTROENCEPHALOGRAM NUMBER: [id number]. DATE OF EXAMINATION: 07/19/2016 at 9:00 a.m. TECHNICAL DATA: This electroencephalographic recording consists of approximately 20 minutes of data collection utilizing the international 10/20 system of electrode placement and both referential and non-referential montages. Sixteen channels of electrocerebral recording are accompanied by a 17th channel dedicated to the electrocardiographic rhythm and 2 channels of electromyographic recording. Recording is performed entirely in the comatose state utilizing activation by photic stimulation. ELECTROENCEPHALOGRAPHIC DATA: The entirety of the recorded electrocerebral activity is performed in the comatose state. Electromyographic artifact is diminished and rapid eye movements are not seen. The posterior dominant background has not developed. The study is monotonous and consists of a variety of slow wave activities, predominantly irregular in morphology, generalized and symmetric in distribution and ranging from 2-4 Hz in the delta range. Also seen is an intermittent irregular slowing in the left temporal region that is approximately once every 2-4 seconds. No epileptiform discharges are seen. Photic stimulation induces no abnormal change in the recorded electrocerebral activity. INTERPRETATION: 1. Intermittent slow, focal, left temporal (coma). 2. Continuous slow, generalized. This electroencephalographic recording is indicative of a severe diffuse encephalopathy and gives evidence of more focal structural lesion of the left temporal region. TRANSINT:[id number] Voice Confirmation ID: [id number] DOCUMENT ID: [id number] YURI LEAL MD at 0658 CC: [id number] DICTATION DATE: 07/20/16 07 SYRUP FILTERER: 07/20/16 0934 DIS IN 07/24/16 [facility] [address] [place] [address]
== END 2016-07-24 21:19 | DRG 302 ==
LOC: D.ER 14:40 → D.ICU 18:16
PROVIDERS: Emergency Medicine; Family Medicine; Family Medicine Adult Medicine; General Practice; Internal Medicine Hematology & Oncology; Internal Medicine Nephrology; Internal Medicine Pulmonary Disease; Nurse Practitioner Acute Care; Student in an Organized Health Care Education/Training Program; ADMIT Orthopaedic Surgery
PROC: B31N1ZZ Fluoroscopy of Other Upper Arteries using Low Osmolar Contrast (ICD-10-PCS; principal; 2016-05-16 13:10)
PROC: 0BC78ZZ Extirpation of Matter from Left Main Bronchus, Via Natural or Artificial Opening Endoscopic (ICD-10-PCS; 2016-05-21)
PROC: 0BB78ZX Excision of Left Main Bronchus, Via Natural or Artificial Opening Endoscopic, Diagnostic (ICD-10-PCS; 2016-06-01)
PROC: 0BB38ZX Excision of Right Main Bronchus, Via Natural or Artificial Opening Endoscopic, Diagnostic (ICD-10-PCS; 2016-06-01)
PROC: 5A1955Z Respiratory Ventilation, Greater than 96 Consecutive Hours (ICD-10-PCS; 2016-06-01)
PROC: 0T2BX0Z Change Drainage Device in Bladder, External Approach (ICD-10-PCS; 2016-06-01)
PROC: 0T2BX0Z Change Drainage Device in Bladder, External Approach (ICD-10-PCS; 2016-06-01)
PROC: 05PY33Z Removal of Infusion Device from Upper Vein, Percutaneous Approach (ICD-10-PCS; 2016-06-07)
PROC: 05HM33Z Insertion of Infusion Device into Right Internal Jugular Vein, Percutaneous Approach (ICD-10-PCS; 2016-06-07)
PROC: 5A1D60Z (ICD-10-PCS; 2016-06-07)
PROC: 0BB78ZX Excision of Left Main Bronchus, Via Natural or Artificial Opening Endoscopic, Diagnostic (ICD-10-PCS; 2016-06-14)
PROC: 0BB38ZX Excision of Right Main Bronchus, Via Natural or Artificial Opening Endoscopic, Diagnostic (ICD-10-PCS; 2016-06-14)
PROC: 0BC88ZZ Extirpation of Matter from Left Upper Lobe Bronchus, Via Natural or Artificial Opening Endoscopic (ICD-10-PCS; 2016-06-14)
PROC: 0BCB8ZZ Extirpation of Matter from Left Lower Lobe Bronchus, Via Natural or Artificial Opening Endoscopic (ICD-10-PCS; 2016-06-14)
PROC: 02PY33Z Removal of Infusion Device from Great Vessel, Percutaneous Approach (ICD-10-PCS; 2016-06-21)
PROC: 02HV33Z Insertion of Infusion Device into Superior Vena Cava, Percutaneous Approach (ICD-10-PCS; 2016-06-21)
DX: I99.8 Other disorder of circulatory system (principal); J96.20 Acute and chronic respiratory failure, unspecified whether with hypoxia or hypercapnia; G93.41 Metabolic encephalopathy; N17.0 Acute kidney failure with tubular necrosis; R65.21 Severe sepsis with septic shock; G95.11 Acute infarction of spinal cord (embolic) (nonembolic); J15.1 Pneumonia due to Pseudomonas; A41.02 Sepsis due to Methicillin resistant Staphylococcus aureus; G93.6 Cerebral edema; I69.351 Hemiplegia and hemiparesis following cerebral infarction affecting right dominant side; G82.21 Paraplegia, complete; E87.0 Hyperosmolality and hypernatremia; K56.7 Ileus, unspecified; E87.4 Mixed disorder of acid-base balance; D62 Acute posthemorrhagic anemia; K92.2 Gastrointestinal hemorrhage, unspecified; I96 Gangrene, not elsewhere classified; Y95 Nosocomial condition; Z66 Do not resuscitate; I73.9 Peripheral vascular disease, unspecified; I46.2 Cardiac arrest due to underlying cardiac condition; I50.33 Acute on chronic diastolic (congestive) heart failure; I61.1 Nontraumatic intracerebral hemorrhage in hemisphere, cortical; D69.6 Thrombocytopenia, unspecified; G40.909 Epilepsy, unspecified, not intractable, without status epilepticus; D63.8 Anemia in other chronic diseases classified elsewhere; I74.5 Embolism and thrombosis of iliac artery; R00.1 Bradycardia, unspecified; I69.320 Aphasia following cerebral infarction; I50.9 Heart failure, unspecified; E86.0 Dehydration; Z93.0 Tracheostomy status; I71.6 Thoracoabdominal aortic aneurysm, without rupture; I11.0 Hypertensive heart disease with heart failure; K21.9 Gastro-esophageal reflux disease without esophagitis; Z87.891 Personal history of nicotine dependence